=== PATIENT | female | born 1955 | race Caucasian/White ===

== ENCOUNTER → 2018-11-25 | Outpatient (CLI) | payer OTHER ==
[2018-11-25 13:48] LABS: Blood Urea Nitrogen 12 mg/dL (7-17)
--- NOTE | 2018-11-25 14:43 | CT ---
EXAMINATION TYPE: CT abdomen pelvis w con DATE OF EXAM: 11/25/2018 COMPARISON: None HISTORY: Endometrial CA. Observation for mets CT DLP: 539.5 mGycm CONTRAST: CT scan of the abdomen and pelvis is performed with Oral Contrast and with IV Contrast, patient injec elsa with 100 mL of Isovue 300. FINDINGS: LUNG BASES-: No visible nodule. No infiltrate. LIVER/GB: No calcified gallstones. No space occupying hepatic lesion. Biliary tree is of normal ca liber. PANCREAS: No inflammation. No distinct mass. SPLEEN: No splenic enlargement. No lesion seen. ADRENALS: No nodule. No thickening. KIDNEYS/BLADDER: No hydronephrosis. No nephrolithiasis. No distinct renal mass. Urinary bladder g rossly unremarkable. BOWEL: Normal appendix. Normal bowel caliber. No inflammation. GENITAL ORGANS: Hysterectomy and oophorectomy changes without evidence for recurrent or residual mas s. LYMPH NODES: No greater than 1cm abdominal or pelvic lymph nodes are appreciated. AORTA: No significant abnormality. OSSEOUS STRUCTURES: No significant abnormality is seen. OTHER: No significant additional abnormality is seen. IMPRESSION: 1. Hysterectomy and oophorectomy changes without evidence for recurrent or residual mass. No evidence for metastatic disease at this time.
== END | disposition home or self-care (01) ==
LOC: RADCTMAIN 12:37
PROVIDERS: ATTEND Internal Medicine Hematology & Oncology
DX: Z03.89 Encounter for observation for other suspected diseases and conditions ruled out (principal); C54.9 Malignant neoplasm of corpus uteri, unspecified; Z90.710 Acquired absence of both cervix and uterus; Z90.721 Acquired absence of ovaries, unilateral
CPT/HCPCS: 82565; 84520; 74177; 36415; Q9967

== ENCOUNTER → 2019-06-01 | Outpatient (CLI) | payer OTHER ==
--- NOTE | 2019-06-01 13:00 | CT ---
EXAMINATION TYPE: CT abdomen pelvis w con DATE OF EXAM: 06/01/2019 COMPARISON: 11/25/2018 INDICATION: Follow up endometrial CA. DLP: 483.2 mGycm, Automated exposure control for dose reduction was used. CONTRAST: 100 mL of Isovue 300. Study performed with Oral Contrast TECHNIQUE: Axial images were obtained from above the diaphragm to the pubic rami in the axial plane a t 5 mm thick sections. Reconstructed images are reviewed on the computer in the coronal plane. FINDINGS: Limited CT sections are obtained the lung bases. The lung bases are clear. CT ABDOMEN: Liver: Normal Spleen: Normal Pancreas: Normal Adrenal glands: The adrenal glands are normal. Gallbladder: Normal Kidneys: No masses are evident. No hydronephrosis is present. No cysts are present. Delayed images were obtained through the kidneys, which remain unremarkable. Aorta: Normal Inferior vena cava: Normal. CT PELVIS: Loops of bowel within the abdomen and pelvis are normal. There is abundant fecal retention throug h the distal colon; from the transverse colon to the rectum. Appendix: Normal as visualized. Urinary bladder: Normal. Genitourinary structures: Uterus and ovaries are not identified. No free fluid is within the pelvis. Osseous structures: No suspicious lytic or sclerotic lesions. Facet degenerative changes are in the l ower lumbar spine. Lymphadenopathy: No abdominal or pelvic lymphadenopathy is evident. IMPRESSIONS: 1. Moderate fecal retention. 2. No suspicious changes to suggest metastatic disease.
== END ==
LOC: RADCTMAIN 10:08
PROVIDERS: ATTEND Internal Medicine Hematology & Oncology
DX: K59.00 Constipation, unspecified (principal); C54.9 Malignant neoplasm of corpus uteri, unspecified
CPT/HCPCS: 74177; 36415; Q9967 ×2

== ENCOUNTER → 2020-06-10 | Outpatient (CLI) | payer OTHER ==
--- NOTE | 2020-06-10 15:08 | XR ---
2 view abdomen HISTORY: Constipation and abdominal pain 2 views the abdomen submitted on [address] 06/01/2019 Gas distended loops of small and large bowel. Lung bases show blunting of the costophrenic angles, po ssible small pleural effusions and associated atelectasis. There is no evident pneumoperitoneum. Ashely ined fecal debris is present within portions of the colon including what is likely the cecum and asce nding colon. Question suture material within the pelvis, there is a ringlike area of increased attenu ation which is indeterminate on the left. IMPRESSION: nonspecific findings.
== END | disposition home or self-care (01) ==
LOC: RADXRMAIN 14:11
PROVIDERS: ATTEND Registered Nurse Oncology
DX: K59.00 Constipation, unspecified (principal); R10.9 Unspecified abdominal pain; Z71.3 Dietary counseling and surveillance; E05.90 Thyrotoxicosis, unspecified without thyrotoxic crisis or storm; C54.9 Malignant neoplasm of corpus uteri, unspecified; G99.0 Autonomic neuropathy in diseases classified elsewhere
CPT/HCPCS: 74019

== ENCOUNTER → 2020-07-03 | Outpatient (CLI) | payer OTHER ==
[2020-07-03 09:29] LABS: African American GFR (CKD) >90 (>60 ml/min/1.73 sqM); Blood Urea Nitrogen 10 mg/dL (7-17); Non-African American GFR(CKD) 82 (>60 ml/min/1.73 sqM)
--- NOTE | 2020-07-03 11:01 | CT ---
"EXAMINATION TYPE: CT abdomen pelvis w con DATE OF EXAM: 07/03/2020 HISTORY: Uterine CA CT DLP: 449.7mGycm Automated Exposure Control for Dose Reduction was Utilized. CONTRAST: CT scan of the abdomen and pelvis is performed with IV Contrast, patient injected with 100 mL of Isov ue 300. COMPARISON: CT abdomen and pelvis June 01, 2019 and older CTs November 25, 2018. FINDINGS: LUNG BASES: Tiny bilateral pleural effusions. Mild left greater than right bibasilar linear scarring and/or atelectasis. LIVER/GB: Gallbladder has distended margins on current study. PANCREAS: No significant abnormality is seen. SPLEEN: No significant abnormality is seen. ADRENALS: No significant abnormality is seen. KIDNEYS: Symmetric corticomedullary uptake and excretion without hydronephrosis seen bilaterally. BOWEL: Patient as well as intra-abdominal fat on current study making evaluation suboptimal. Oral con trast only reaches small bowel loops in the lower abdomen and pelvis. Small bowel loops are prominent especially lower loops. Fecal material is noted in nondistended colon. Small bowel loops in the lowe r pelvis are not suspiciously dilated. These are not contrast filled making evaluation suboptimal. Mi [id number] ill-defined fluid at this level is seen. Mild irregular mucosal enhancement. Appendix is within normal limits. UTERUS/ADNEXA: Uterus is surgically absent. LYMPH NODES: New pelvic adenopathy suspected, for reference left anterior iliac chain lymph node hayley ures 3.2 x 1.5 cm current study axial image 61. Additional bilateral iliac chain adenopathy is likely present, for reference right posterior 3.4 x 1.7 cm lymph node suspected. Difficult to evaluate due to nonopacified bowel in the pelvis. Additional abnormal lymph node left pelvis noted axial image 60. Measured anterior right pelvic 2.6 x 1.8 cm lymph node noted axial image 60. Prominent vessel left p araaortic region axial image 24 mimics adenopathy unchanged from prior studies OSSEOUS STRUCTURES: Grade 1 anterolisthesis L4 on L5. Facet arthropathy lower lumbar levels. OTHER: There is oval area anterior abdominal wall that has central fat with thin soft tissue rim and slightly more prominent adjacent fluid laterally axial image 29 measuring 3.0 x 1.5 cm on current kristy dy. Patient states history of abdominal wall tumor removal on current requisition. Scarring and posts urgical change suspected given this history. IMPRESSION: 1. New finding anterior right upper quadrant abdominal wall as detailed above favoring scarring. 2. Pelvic neoplastic recurrence is present as there is new suspicious pelvic adenopathy. There is new small to moderate amount of free fluid in pelvic cul-de-sac, findings of small bowel prominence and slight dilatation suggest partial distal small bowel obstruction raising concern for subserosal perit lozoya deposits. A Yellow level critical message alert has been initiated for Juancho King MD via the [employer] 0 | Critical Results System on 07/03/2020 10:59 AM. This message alert has been sent to Juancho pollard MD via the preferences provided by the clinician for the receipt of Radiology Critical Findings. Daniel essage ID [id number]."
== END | disposition home or self-care (01) ==
LOC: RADCTMAIN 06-27 10:19
PROVIDERS: ATTEND Internal Medicine Hematology & Oncology
DX: D49.89 Neoplasm of unspecified behavior of other specified sites (principal); R93.5 Abnormal findings on diagnostic imaging of other abdominal regions, including retroperitoneum; C54.9 Malignant neoplasm of corpus uteri, unspecified
CPT/HCPCS: 82565; 84520; 74177; 36415; Q9967 ×2

== ENCOUNTER 2020-07-19 09:05 | Day surgery (SDC) | payer OTHER ==
[2020-07-19 09:47] VITALS: RESP 16; TEMP 97.7
[2020-07-19 10:56] VITALS: BP 139/79; PULSE 90
--- NOTE | 2020-07-19 11:08 | CT ---
EXAMINATION TYPE: CT biopsy abdomen percutaneous DATE OF EXAM: 07/19/2020 COMPARISON: NONE HISTORY: RUQ abdominal nodule/mass CT DLP: 819mGycm The procedure was explained to the patient. The risks, complications, benefits, and alternatives wer e discussed and any questions were answered. Informed consent was obtained. Patient was placed supi ne on the CT table and prepped and draped in the usual sterile fashion. All elements of maximal barrier and sterile technique utilized. Utilizing CT guidance, an 18 gauge core biopsy needle access into the requested subcutaneous mass inv olving the anterior abdominal wall within the subcutaneous tissues was achieved and a two 18 gauge co re samples were obtained. The patient was stable throughout the procedure and remained stable upon d ischarge. IMPRESSION: 1. Successful 18 gauge core biopsy of the requested anterior subcutaneous abdominal wall mass. Note i s made the mass was predominantly fatty in attenuation.
== END 2020-07-19 10:55 | disposition home or self-care (01) ==
LOC: RADPROMAIN 09:05
PROVIDERS: ATTEND Internal Medicine Hematology & Oncology
DX: K65.4 Sclerosing mesenteritis (principal); L90.5 Scar conditions and fibrosis of skin
CPT/HCPCS: 49180; 77012; 88305; 88341; 88342

== ENCOUNTER 2020-08-27 08:25 | Day surgery (SDC) | payer OTHER ==
[2020-08-27 09:08] LABS: Mean Platelet Volume 6.4; Platelet Count 452 k/uL (150-450)
[2020-08-27 09:15] LABS: INR 1.1 (<1.2); Prothrombin Time 11.6 sec (9.0-12.0)
--- NOTE | 2020-08-27 10:57 | CT ---
EXAMINATION TYPE: CT biopsy lymph node DATE OF EXAM: 08/27/2020 COMPARISON: NONE HISTORY: Right pelvic lymph node CT DLP: 1575mGycm The procedure was explained to the patient. The risks, complications, benefits, and alternatives wer e discussed and any questions were answered. Informed consent was obtained. Patient was placed pron e on the CT table and prepped and draped in the usual sterile fashion. All elements of maximal barrier and sterile technique utilized. Utilizing CT guidance, an 18 gauge core biopsy needle access into the right pelvic lymph node was ach ieved and a single 18 gauge core sample was obtained. The patient was stable throughout the procedur e and remained stable upon discharge. IMPRESSION: 1. Successful 18 gauge core biopsy of the requested right pelvic lymph node.
[2020-08-27 11:09] VITALS: TEMP 98
[2020-08-27 12:38] VITALS: RESP 24
[2020-08-27 13:58] VITALS: BP 106/68; PULSE 107
== END 2020-08-27 14:01 | disposition home or self-care (01) ==
LOC: RADPROMAIN 08:25 → 6PED 10:22 → RADPROMAIN 14:01
PROVIDERS: ATTEND Internal Medicine Hematology & Oncology
DX: C77.5 Secondary and unspecified malignant neoplasm of intrapelvic lymph nodes (principal); C54.9 Malignant neoplasm of corpus uteri, unspecified; D50.9 Iron deficiency anemia, unspecified; E05.90 Thyrotoxicosis, unspecified without thyrotoxic crisis or storm; G99.0 Autonomic neuropathy in diseases classified elsewhere; Z79.899 Other long term (current) drug therapy; Z79.890 Hormone replacement therapy; Z90.710 Acquired absence of both cervix and uterus; Z90.722 Acquired absence of ovaries, bilateral; Z90.79 Acquired absence of other genital organ(s); Z98.890 Other specified postprocedural states; Z86.19 Personal history of other infectious and parasitic diseases; Z77.22 Contact with and (suspected) exposure to environmental tobacco smoke (acute) (chronic); Z92.21 Personal history of antineoplastic chemotherapy; Z92.3 Personal history of irradiation; Z87.19 Personal history of other diseases of the digestive system; Z68.23 Body mass index [BMI] 23.0-23.9, adult; Z80.9 Family history of malignant neoplasm, unspecified; Z80.3 Family history of malignant neoplasm of breast
CPT/HCPCS: 36415; 38505; 77012; 85049; 85610; 88305; 88341; 88342

== ENCOUNTER → 2020-09-12 | Outpatient (CLI) | payer OTHER ==
--- NOTE | 2020-09-12 13:34 | CT ---
EXAMINATION TYPE: CT ChestAbdPelvis w con DATE OF EXAM: 09/12/2020 COMPARISON: 07/03/2020 HISTORY: 65-year-old female C54.9, Z03.89, Endometrial cancer, suspect METS TECHNIQUE: Contiguous axial scanning of the chest, abdomen, and pelvis performed with IV Contrast, pa tient injected with 100 mL of Isovue 300. Delayed images through the kidneys were obtained. Coronal/s agittal reconstructions performed. CT DLP: 1234 mGycm Automated exposure control for dose reduction was used. FINDINGS: CHEST: Artery limits of normal in size without pericardial effusion. Aorta normal caliber with bovine configuration. Supraclavicular lymphadenopathy in the lower neck measuring up to 2.1 x 1.8 cm on the right and 1.6 c m on the left. Right paratracheal lymphadenopathy measuring up to 2.6 x 1.8 cm. Dependent and strandy atelectasis in the lower lungs. No consolidation or pleural effusion. ABDOMEN: No focal liver lesion. Mild prominence of bile duct is unchanged with normal distal tapering. Gallbla dder within normal limits. Portal venous system is patent. Adrenal glands, kidneys, spleen, and pancreas show no gross abnormality. Right retrocrural lymph node measuring up to 1.0 cm versus 6 mm, previously. Retroperitoneal lymphadenopathy measuring up to 2.0 cm retrocaval versus 1.5 cm, previously. Aortocaval measuring 1.9 cm versus 1.0 cm, previously. Left para-aortic measuring 1.0 cm versus 1.4 cm, previously. Stable suspected scarring within the subcutaneous adipose of the right upper quadrant. No dilated small bowel, free fluid, or free air. Moderate stool burden. No pericolonic inflammatory change. PELVIS: Mild circumferential bladder wall thickening. Uterus surgically absent. Redemonstrated left adnexal lymphadenopathy measuring up to 3.2 cm versus 2.8 cm, previously. Left ex ternal iliac chain lymph node measures 3.6 x 1.9 cm versus 3.2 x 1.5 cm, previously. Right external iliac chain lymph node measures up to 3.0 x 1.8 cm versus 2.6 x 1.6 cm, previously. Right obturator chain mixed density mass measures 4.1 x 1.6 cm versus 4.5 x 1.7 cm, previously. BONES: Hypertrophic facet arthropathy mid to lower lumbar spine with grade 1 anterolisthesis L4-L5. Anterior endplate spondylosis mid to lower thoracic spine. No obvious osseous destructive process seen. IMPRESSION: 1. Overall disease progression with enlarging retroperitoneal and right retrocrural lymphadenopathy. Pelvic lymphadenopathy/masses are also enlarging. Only a single left periaortic lymph node and a mixe d density right obturator chain mass/node show slight decrease in size. 2. No prior chest CT for comparison. There is bilateral supraclavicular lymphadenopathy (measuring up to 2.1 cm) and right paratracheal lymphadenopathy (measuring up to 2.6 cm) compatible with metastati c disease to the chest and lower neck.
== END | disposition home or self-care (01) ==
LOC: RADCTMAIN 08:37
PROVIDERS: ATTEND Internal Medicine Hematology & Oncology
DX: R59.1 Generalized enlarged lymph nodes (principal); C54.9 Malignant neoplasm of corpus uteri, unspecified
CPT/HCPCS: 82565; 84520; 71260; 74177; 36415; Q9967

== ENCOUNTER → 2020-11-20 | Outpatient (CLI) | payer OTHER ==
--- NOTE | 2020-11-20 12:28 | US ---
EXAMINATION TYPE: US venous doppler duplex LE RT DATE OF EXAM: 11/20/2020 12:19 PM COMPARISON: NONE CLINICAL HISTORY: R22.41 swelling, M79.611 Pain Right Lower Extrem. Right leg pain and swelling x 1 d ay SIDE PERFORMED: Right TECHNIQUE: The lower extremity deep venous system is examined utilizing real time linear array sonog malik with graded compression, doppler sonography and color-flow sonography. VESSELS IMAGED: Common Femoral Vein Deep Femoral Vein Greater Saphenous Vein * Femoral Vein Popliteal Vein Small Saphenous Vein * Proximal Calf Veins (* superficial vessels) Right Leg: Appear negative for DVT IMPRESSION: 1. Right lower extremity ultrasound negative for deep venous thrombosis
== END ==
LOC: RADUSWWP 11:41
PROVIDERS: ATTEND Internal Medicine Hematology & Oncology
DX: M79.604 Pain in right leg (principal); R22.41 Localized swelling, mass and lump, right lower limb

== ENCOUNTER → 2020-12-02 | Outpatient (CLI) | payer OTHER ==
[2020-12-02 12:37] LABS: African American GFR (CKD) >90 (>60 ml/min/1.73 sqM); Blood Urea Nitrogen 15 mg/dL (7-17); Non-African American GFR(CKD) >90 (>60 ml/min/1.73 sqM)
--- NOTE | 2020-12-02 14:32 | CT ---
EXAMINATION TYPE: CT abdomen pelvis w con DATE OF EXAM: 12/02/2020 COMPARISON: 09/12/2020 HISTORY: follow up endometrial cancer CT DLP: 522 mGycm CONTRAST: CT scan of the abdomen and pelvis is performed with Oral Contrast and with IV Contrast, patient injec elsa with 100 mL of Isovue 300. FINDINGS: LUNG BASES-: No visible nodule. No infiltrate. There is resolution of previously noted right retrocr ural adenopathy. LIVER/GB: No calcified gallstones. No space occupying hepatic lesion. Biliary tree is of normal ca liber. PANCREAS: No inflammation. No distinct mass. SPLEEN: No splenic enlargement. No lesion seen. ADRENALS: No nodule. No thickening. KIDNEYS/BLADDER: No hydronephrosis. No nephrolithiasis. No distinct renal mass. Urinary bladder g rossly unremarkable. BOWEL: Normal appendix. Normal bowel caliber. No inflammation. GENITAL ORGANS: Hysterectomy changes. LYMPH NODES: There is persistent but improved aortoenteric caval adenopathy measuring now 1.5 cm curr ently versus 1.9 cm previously. Left external iliac chain adenopathy is also persistent but improved at 2.3 cm maximal dimension versus 3.6 cm previously. Internal iliac chain adenopathy on the left als o persists and is essentially unchanged at 3.0 cm versus 3.2 cm. No new areas of adenopathy appreciat ed. AORTA: No significant abnormality. OSSEOUS STRUCTURES: No significant abnormality is seen. OTHER: No significant additional abnormality is seen. IMPRESSION: 1. Persistent pelvic and retroperitoneal adenopathy although interval improvement is noted. Previousl y noted right-sided retrocrural lymph node is to have essentially resolved.
== END | disposition home or self-care (01) ==
LOC: RADCTMAIN 11:59
PROVIDERS: ATTEND Internal Medicine Hematology & Oncology
DX: C54.1 Malignant neoplasm of endometrium (principal)
CPT/HCPCS: 82565; 84520; 74177; 36415; Q9967

== ENCOUNTER → 2021-02-05 | Outpatient (CLI) | payer OTHER ==
[2021-02-05 10:51] LABS: African American GFR (CKD) >90 (>60 ml/min/1.73 sqM); Blood Urea Nitrogen 11 mg/dL (7-17); Non-African American GFR(CKD) 81 (>60 ml/min/1.73 sqM)
--- NOTE | 2021-02-05 13:29 | CT ---
EXAMINATION TYPE: CT abdomen pelvis w con DATE OF EXAM: 02/05/2021 COMPARISON: CT 12/02/2020 HISTORY: Endometrial carcinoma CT DLP: 676.40 mGycm Automated exposure control for dose reduction was used. TECHNIQUE: Helical acquisition of images from the lung bases through the pelvis have been completed. CONTRAST: Performed with Oral Contrast and with IV Contrast, patient injected with 100 mL of Isovue 300. FINDINGS: There are anasarca changes present. LUNG BASES: No significant interval change is appreciated. AORTA: No significant abnormality is appreciated. LIVER/GB: No significant abnormality is appreciated. PANCREAS: No significant abnormality is seen. SPLEEN: No significant abnormality is seen. ADRENALS: No significant abnormality is seen. KIDNEYS: No significant abnormality is seen. REPRODUCTIVE ORGANS: No significant abnormality is seen BOWEL: No significant abnormality is seen. FREE AIR: No Free Air visible. ASCITES: None visible. PELVIC ADENOPATHY: The lesions along the left external iliac chain show poor differentiation from the surrounding bowel due to lack of contrast at this level, similar density as well as coursing oblique ly and through different planes of section making the accurate comparison and measurement challenging . Along the left iliac chain again noted are heterogeneous enlarged nodes, more peripheral lesion kika sures approximately 2.1 x 3.4 cm where as on previous exam it measured approximately the same, the mo re central lesion measures approximately 3.7 x 3.2 x 4 cm and on previous exam measured approximately 3.7 x 3.6 cm x 3.9. RETROPERITONEAL ADENOPATHY: Retroperitoneal node measures approximately 17 mm in short axis where as on prior measured 15 mm between the aorta and inferior vena cava and axial image 37. URINARY BLADDER: No significant abnormality is seen. OSSEOUS STRUCTURES: No significant abnormality is seen. IMPRESSION: EXTERNAL ILIAC ADENOPATHY IS SIMILAR IN SIZE TO PRIOR EXAM, stable to possibly slight interval growth of the retroperitoneal node
== END | disposition home or self-care (01) ==
LOC: RADCTMAIN 09:59
PROVIDERS: ATTEND Internal Medicine Hematology & Oncology
DX: C54.1 Malignant neoplasm of endometrium (principal); R59.0 Localized enlarged lymph nodes
CPT/HCPCS: 82565; 84520; 74177; 36415; Q9967

== ENCOUNTER → 2021-03-12 | Outpatient (CLI) | payer OTHER ==
--- NOTE | 2021-03-12 12:05 | XR ---
EXAMINATION TYPE: XR chest 2V DATE OF EXAM: 03/12/2021 COMPARISON: CT 02/05/2021 HISTORY: Cough, shortness of breath TECHNIQUE: Frontal and lateral views of the chest are obtained. FINDINGS: There is been interval development of a sizable pleural effusion, the right heart border, right hemidiaphragm or procedure, this blunting right costophrenic angle, minimal blunting of the lef t gastric angle. Heart is likely stable. No evident pneumothorax. IMPRESSION: Correlate for right lower lobe pneumonia as atelectasis and associated effusion. Difficu lt to exclude small left pleural effusion.
== END | disposition home or self-care (01) ==
LOC: RADXRMAIN 11:31
PROVIDERS: ATTEND Internal Medicine Hematology & Oncology
DX: J90 Pleural effusion, not elsewhere classified (principal)
CPT/HCPCS: 71046

== ENCOUNTER 2021-03-21 10:49 | Day surgery (SDC) | payer OTHER ==
[~2021-03-21 10:49] MED LIST: SODIUM CHLORIDE 0.9% 500 ML 500 ML in EMPTY BAG 1 BAG IV PRN
[2021-03-21 11:11] VITALS: RESP 16
[2021-03-21 11:21] VITALS: TEMP 98.3
--- NOTE | 2021-03-21 12:32 | XR ---
EXAMINATION TYPE: XR chest 1V portable DATE OF EXAM: 03/21/2021 CLINICAL HISTORY: POST RIGHT THORACENTESIS. TECHNIQUE: Portable frontal view of the chest. COMPARISON: 03/12/2021 FINDINGS: There is minimal to no residual right pleural effusion status post right thoracentesis. No pneumothorax. There is small left-sided pleural effusion. Cardiac size normal. Pulmonary vasculature normal. No acute displaced osseous abnormality. IMPRESSION: 1. Minimal to no residual right pleural effusion status post right thoracentesis. No pneumothorax. 2. Normal left pleural effusion.
--- NOTE | 2021-03-21 12:37 | P.PCN ---
Date of Procedure: 03/21/21 Preoperative Diagnosis: Right-sided pleural effusion Postoperative Diagnosis: Right-sided pleural effusion Procedure(s) Performed: Right-sided thoracentesis Anesthesia: local Surgeon: Emmanuel Zeng Estimated Blood Loss (ml): 0 Pathology: other Condition: stable Disposition: same day Operative Findings: A time out was performed and the chest x-ray was reviewed, the appropriate side was confirmed and marked. My hands were washed immediately prior to the procedure. I wore a surgical cap, mask with protective eyewear, sterile gown and sterile gloves throughout the procedure. The patient was prepped and draped in a sterile manner using chlorhexidine scrub after the appropriate level was percussed and confirmed by ultrasound. 1% lidocaine was used to anesthesize the skin, subcutaneous tissue, superior aspect of the rib periosteum and parietal pleura. A finder needle was then introduced over the superior aspect of the rib to locate the pleural fluid; 2colored fluid was aspirated at a depth of approximately 2 cm. A 10-blade scalpel was used to naseem the skin at the inser tion site. The Xrhk-a-Avplnxdk needle was then introduced through the skin incision into the pleural space using negative aspiration pressure and the red colometric indicator to confirm appropriate positioning of the needle. The thoracentesis catheter was then threaded without difficulty. 1900 ml of turbid colored fluid was removed without difficulty. The catheter was then removed. No immediate complications were noted during the procedure. A post-procedure chest x-ray is pending at the time of this note. The fluid will be sent for studies. Estimated blood loss is 0cc
[2021-03-21 13:34] VITALS: BP 110/70; PULSE 115
[2021-03-21 15:15] LABS: Appearance,BF Cloudy; Color,BF Yellow; Nucleated Cells, Body Fluid 770 /uL; RBC, Body Fluid 2395 /uL
[2021-03-21 15:26] LABS: Mononuclear WBC,Body Fluid 98 %; Polynuclear WBC,Body Fluid 1 %; Total Cells Counted,Body Fluid 100
[2021-03-22 04:22] LABS: Glucose, BF Source Pleural Fluid; Glucose, Body Fluid 98 mg/dL; LDH, Body Fluid Source Pleural Fluid
== END 2021-03-21 13:54 | disposition home or self-care (01) ==
LOC: PROCWHC3 10:49
PROVIDERS: ATTEND Internal Medicine Critical Care Medicine
DX: J90 Pleural effusion, not elsewhere classified (principal); C56.9 Malignant neoplasm of unspecified ovary; Z90.710 Acquired absence of both cervix and uterus; Z79.890 Hormone replacement therapy; Z79.899 Other long term (current) drug therapy; Z82.49 Family history of ischemic heart disease and other diseases of the circulatory system
CPT/HCPCS: 32554; 71045; 82945; 83615; 84157; 87070; 87116; 87205; 87206; 88108; 88305; 88341; 88342; 89050

== ENCOUNTER 2021-04-03 08:33 | Day surgery (SDC) | payer OTHER ==
[2021-04-03 09:22] LABS: Mean Platelet Volume 7.9; Platelet Count 170 k/uL (150-450)
[2021-04-03 09:24] VITALS: TEMP 97.9
[2021-04-03 09:40] LABS: INR 1.2 (<1.2); Prothrombin Time 12.2 sec (9.0-12.0)
[2021-04-03 10:45] VITALS: RESP 16
--- NOTE | 2021-04-03 11:31 | XR ---
EXAMINATION TYPE: XR chest 1V portable DATE OF EXAM: 04/03/2021 Comparison: 03/21/2021 Clinical History: 65-year-old female post right thoracentesis Findings: There are small bilateral pleural effusions and bibasilar opacities. Heart borderline enlarged. No ap preciable pneumothorax. Impression: Borderline heart size. Small bilateral pleural effusions with adjacent atelectasis and/or consolidati on. Effusions appear to have increased from 03/21/2021. No appreciable pneumothorax.
--- NOTE | 2021-04-03 12:04 | US ---
Ultrasound-guided therapeutic and diagnostic thoracentesis DATE OF EXAM: 04/03/2021 CLINICAL HISTORY: Right pleural effusion The procedure was discussed with the patient. The risks, complications, benefits, and alternatives we re discussed and any questions were answered. Informed consent was obtained. The patient was placed supine on the ultrasound table and prepped and draped in the usual sterile fas hion. All elements of maximal barrier and sterile technique were utilized. Under ultrasound guidance, access into the pleural space was obtained, via the thoracentesis catheter system and direct ultrasound guidance. Ap proximately 1.4 liters of straw-colored fluid was removed. The patient was stable throughout the procedure and remained stable upon discharge from Department of Radiology. IMPRESSION: 1. Successful therapeutic and diagnostic thoracentesis under ultrasound guidance.
[2021-04-03 12:06] VITALS: BP 143/79; PULSE 103
== END 2021-04-03 12:05 | disposition home or self-care (01) ==
LOC: RADPROMAIN 08:33
PROVIDERS: ATTEND Internal Medicine Hematology & Oncology
DX: J90 Pleural effusion, not elsewhere classified (principal)
CPT/HCPCS: 32555; 36415; 71045; 85049; 85610

== ENCOUNTER 2021-04-11 06:02 | Day surgery (SDC) | payer OTHER ==
[2021-04-09 13:17] VITALS: BMI 26.6
--- NOTE | 2021-04-10 14:10 | P.GSHP ---
History of Present Illness H&P Date: 04/11/21 Chief Complaint: Uterine cancer Patient scheduled for Port-A-Cath placement. Patient with history of endometrial cancer diagnosed 2017. patient recently found have metastatic disease. Port-A-Cath in place for the administration of chemotherapy. Past Medical History Past Medical History: Cancer, Hyperlipidemia, Respiratory Disorder, Thyroid Disorder, Vascular Disorder Additional Past Medical History / Comment(s): uterine Ca. ABDOMINAL WALL CANCER History of Any Multi-Drug Resistant Organisms: None Reported Past Surgical History: Hysterectomy Additional Past Surgical History / Comment(s): RUQ biopsy "-" for 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 Past Anesthesia/Blood Transfusion Reactions: No Reported Reaction Smoking Status: Never smoker - Past Family History Sister(s) Family Medical History: Cancer Additional Family Medical History / Comment(s): breast CA Medications and Allergies Home Medications Medication Instructions Recorded Confirmed Type Levothyroxine Sodium [Synthroid] 150 mcg PO DAILY 07/16/20 04/09/21 History Pravastatin Sodium [Pravachol] 40 mg PO HS 07/16/20 04/09/21 History Gabapentin 300 mg PO BID 03/21/21 04/09/21 History Potassium Chloride [Klor-Con 10] 10 meq PO DAILY 03/21/21 04/09/21 History Furosemide [Lasix] 20 mg PO DAILY 03/31/21 04/09/21 History Lenvatinib Mesylate [Lenvima] 18 mg PO DAILY 04/03/21 04/09/21 History Allergies Allergy/AdvReac Type Severity Reaction Status Date / Time No Known Allergies Allergy Verified 04/09/21 12:43 Surgical - Exam Physical exam: General: Well-developed, well-nourished HEENT: Normocephalic, sclerae nonicteric Abdomen: Nontender, nondistended Extremities: No edema Neuro: Alert and oriented Assessment and Plan (1) Uterine cancer Narrative/Plan: Patient scheduled for Port-A-Cath placement. Risks of bleeding, infection, DVT, pneumothorax, catheter malfunction, anesthesia related complications were discussed. The patient understands and wishes to proceed. Status: Acute Code(s): C55 - MALIGNANT NEOPLASM OF UTERUS, PART UNSPECIFIED SNOMED Code(s): 535592635
[~2021-04-11 06:02] MED LIST changes: +Pre Op ABX Message 1 EACH MISC MISCELLANE ONE; -SODIUM CHLORIDE 0.9% 500 ML 500 ML in EMPTY BAG 1 BAG IV PRN
[2021-04-11 07:01] VITALS: TEMP 97.7
[2021-04-11] MEDS ORDERED: LACTATED RINGERS 1,000 ML IV ONE (07:04)
[2021-04-11] MEDS ORDERED: ONDANSETRON 4 MG/2 ML VIAL ONE (07:06)
[2021-04-11] MEDS ORDERED: ONDANSETRON 4 MG/2 ML VIAL IVP ONE (07:06)
[2021-04-11] MEDS ORDERED: DEXAMETHASONE SOD PHOSPHATE 4 MG/ML 1 ML VIAL IV ONE (07:07)
[2021-04-11] MEDS ORDERED: HEPARIN SODIUM,PORCINE 100 UNIT/ML 5 ML VIAL IV ONE ×2 (07:46→08:32)
[2021-04-11] MEDS ORDERED: LIDOCAINE (PF) 10 MG/ML 2 ML VIAL SQ ONE ×3 (07:47→08:17)
[2021-04-11] MEDS ORDERED: fentaNYL (PF) 50 MCG/ML 2 ML AMP ONE (07:52)
[2021-04-11] MEDS ORDERED: LIDOCAINE 1% INJ 10MG/ML (20 ML MDV) ONE (07:52)
[2021-04-11] MEDS ORDERED: PROPOFOL 10 MG/ML 20 ML VIAL IV ONE (07:52)
[2021-04-11] MEDS ORDERED: MIDAZOLAM 2 MG/2 ML VIAL ONE (07:52)
[2021-04-11] MEDS ORDERED: KETAMINE 10 MG/ML 20 ML VIAL ONE (07:52)
[2021-04-11] MEDS ORDERED: SODIUM CHLORIDE 0.9% 100 ML with ceFAZolin 2,000 MG IV ONE ×2 (07:56)
[2021-04-11] MEDS ORDERED: NALOXONE 0.4 MG/ML 1 ML VIAL IV PRN (08:57)
[2021-04-11] MEDS ORDERED: traMADol 50 MG TAB PO PRN (08:57)
--- NOTE | 2021-04-11 09:01 | P.OP ---
Date of Procedure: 04/11/21 Procedure(s) Performed: PREOPERATIVE DIAGNOSIS: Endometrial cancer POSTOPERATIVE DIAGNOSIS: Same PROCEDURE: Port-A-Cath placement with fluoroscopic and ultrasound guidance SURGEON: Archie EBL: Minimal ANESTHESIA: Sedation COMPLICATIONS: None OPERATIVE PROCEDURE: Patient was brought and placed on the operative table in the supine position. The patient was sedated per anesthesia that time. The chest and neck were prepped and draped in usual sterile fashion. The ultrasound probe was used to identify the location of the right internal jugular vein. The skin was localized with lidocaine. The Seldinger needle was advanced into the IJ under ultrasound guidance. The wire was advanced through the needle under fluoroscopic guidance into the superior vena cava. A port pocket was created in the right infraclavicular location. In doing so the patient had a previous scar from a prior port placement. This scar was relatively thick and I excised the scar itself sharply. The catheter was tunneled from the wire entrance site to the port pocket. The port was then connected to the catheter. The dilator introducer was threaded over the guidewire. The guidewire and dilator were then removed. The catheter was advanced through the introducer and introducer was then removed. The tip was seen to be in the right atrial junction via fluoroscopy. A picture of the radiograph showing the tip at the radial digital junction was taken. Port was flushed with both saline and a Hep-Lock solution. There was good flow both in and out of the port. The port was sutured in underlying tissues using 3-0 silk sutures. The subcutaneous tissues were reapproximated using 3-0 Vicryl sutures and the skin at both locations using 4-0 Monocryl sutures. Skin glue and sterile dressings then applied. DISPOSITION: Stable to recovery room
[2021-04-11 09:05] VITALS: RESP 16
[2021-04-11 09:13] VITALS: BP 131/76; PULSE 89
--- NOTE | 2021-04-11 09:21 | FL ---
EXAMINATION TYPE: FL guided central line placemt HISTORY: Fluoroscopy time Impression: 1. Fluoroscopy support provided to the referring physician. 32 seconds of fluoroscopy provided.
--- NOTE | 2021-04-11 09:46 | XR ---
EXAMINATION TYPE: XR chest 1V confirm line [facility] DATE OF EXAM: 04/11/2021 COMPARISON: 04/03/2021 HISTORY: Catheter insertion TECHNIQUE: Single frontal view of the chest is obtained. FINDINGS: Bilateral infiltrate and pleural effusion with diffuse interstitial pattern. Port-A-Cath s een with the tip overlying the region of the SVC and no sizable pneumothorax. Atherosclerotic change aorta. Hypertrophic and degenerative change of the spine. IMPRESSION: 1. Tip of the Port-A-Cath overlying the SVC with no sizable pneumothorax. 2. Correlate for CHF otherwise consider pneumonia similar to the prior exam.
== END 2021-04-11 10:28 | disposition home or self-care (01) ==
LOC: OR 06:02
PROVIDERS: ATTEND Surgery
DX: C55 Malignant neoplasm of uterus, part unspecified (principal); E78.5 Hyperlipidemia, unspecified; E07.9 Disorder of thyroid, unspecified; Z85.89 Personal history of malignant neoplasm of other organs and systems; J98.9 Respiratory disorder, unspecified; Z79.890 Hormone replacement therapy; Z79.899 Other long term (current) drug therapy
CPT/HCPCS: 77001; 36558; 76937; C1788; J2250; J2001 ×2; J1642; J1100; J2405; J0690; J3010; J2704

== ENCOUNTER → 2021-04-24 | Day surgery (SDC) | payer OTHER ==
[~2021-04-24] MED LIST changes: -Pre Op ABX Message 1 EACH MISC MISCELLANE ONE; +SODIUM CHLORIDE 0.9% 500 ML 500 ML in EMPTY BAG 1 BAG IV PRN
[2021-04-24 11:12] VITALS: BP 138/87; TEMP 97.6
--- NOTE | 2021-04-24 11:42 | P.PCN ---
Date of Procedure: 04/24/21 Operative Findings: Right-sided pleural effusion Postoperative Diagnosis: Right-sided pleural effusion Procedure(s) Performed: Right-sided thoracentesis Anesthesia: local Surgeon: Emmanuel Zeng Estimated Blood Loss (ml): 0 Pathology: other Condition: stable Disposition: same day Operative Findings: A time out was performed and the chest x-ray was reviewed, the appropriate side was confirmed and marked. My hands were washed immediately prior to the procedure. I wore a surgical cap, mask with protective eyewear, sterile gown and sterile gloves throughout the procedure. The patient was prepped and draped in a sterile manner using chlorhexidine scrub after the appropriate level was percussed and confirmed by ultrasound. 1% lidocaine was used to anesthesize the skin, subcutaneous tissue, superior aspect of the rib periosteum and parietal pleura. A finder needle was then introduced over the superior aspect of the rib to locate the pleural fluid; 2colored fluid was aspirated at a depth of approximately 2 cm. A 10-blade scalpel was used to naseem the skin at the insertio n site. The [id number]-Shstawpx needle was then introduced through the skin incision into the pleural space using negative aspiration pressure and the red colometric indicator to confirm appropriate positioning of the needle. The thoracentesis catheter was then threaded without difficulty. 2600 ml of turbid colored-milky fluid was removed without difficulty. The catheter was then removed. No immedi ate complications were noted during the procedure. A post-procedure chest x-ray is pending at the time of this note. The fluid will be sent for studies. Estimated blood loss is 0cc
[2021-04-24 12:22] VITALS: PULSE 108; RESP 94
--- NOTE | 2021-04-24 12:37 | XR ---
EXAMINATION TYPE: XR chest 1V DATE OF EXAM: 04/24/2021 COMPARISON: 04/11/2021, 04/17/2021 HISTORY: 65-year-old female post thoracentesis on the right TECHNIQUE: Single frontal view of the chest is obtained. FINDINGS: Small bilateral pleural effusions remain, left greater than right now. Decrease in effusion on the ri ght. No appreciable pneumothorax. Right anterior chest wall injection port with catheter tip at the c avoatrial junction. Heart upper limits of normal in size. Upper lungs are clear. IMPRESSION: Status post right thoracentesis. No appreciable pneumothorax. Residual small right pleural effusion. Unchanged larger small left pleural effusion with adjacent atelectasis and/or consolidation.
[2021-04-24 21:54] LABS: Appearance,BF Hazy; Color,BF Yellow; Nucleated Cells, Body Fluid 107 /uL; RBC, Body Fluid 914 /uL
[2021-04-24 21:56] LABS: Mononuclear WBC,Body Fluid 94 %; Polynuclear WBC,Body Fluid 6 %; Total Cells Counted,Body Fluid 100
[2021-04-25 16:20] LABS: Glucose, BF Source Pleural Fluid; Glucose, Body Fluid 94 mg/dL; LDH, Body Fluid Source Pleural Fluid; Total Protein, Body Fluid 4600 mg/dL
== END ==
LOC: PROCWHC3 10:58
PROVIDERS: ATTEND Internal Medicine Critical Care Medicine
DX: J90 Pleural effusion, not elsewhere classified (principal); C77.5 Secondary and unspecified malignant neoplasm of intrapelvic lymph nodes; Z92.21 Personal history of antineoplastic chemotherapy; E05.90 Thyrotoxicosis, unspecified without thyrotoxic crisis or storm; D64.9 Anemia, unspecified; C55 Malignant neoplasm of uterus, part unspecified; J44.9 Chronic obstructive pulmonary disease, unspecified; D70.1 Agranulocytosis secondary to cancer chemotherapy; T45.1X5S Adverse effect of antineoplastic and immunosuppressive drugs, sequela
CPT/HCPCS: 32554; 71045; 82945; 83615; 84157; 87070; 87075; 87116; 87205; 87206; 88108; 88305; 89050

== ENCOUNTER 2021-05-06 12:16 | Inpatient (IN) | payer OTHER ==
--- NOTE | 2021-05-06 12:50 | ED ---
General Adult HPI - General Chief complaint: Shortness of Breath Stated complaint: fluid on lungs Time Seen by Provider: 05/06/21 12:26 Source: patient Mode of arrival: ambulatory Limitations: no limitations - History of Present Illness Initial comments: Dictation was produced using [employer] dictation software. please excuse any grammatical, word or spelling errors. Chief Complaint: 65-year-old female past medical history of right-sided pleural effusion, pelvic and abdominal cancer presents emergency department for pleural effusion. History of Present Illness: This 65-year-old female she was at her oncologist office today. Patient has chronic history of pleural effusions requiring thoracenteses. She is at her oncologist office when she began complaining of shortness of breath. Patient's drip molder was contacted and patient was instructed to come to the emergency department. Patient states that she had her pleural effusion drained multiple times in the past by pulmonology. She states that she is short of breath. Patient denies any chest pain. The ROS documented in this emergency department record has been reviewed and confirmed by me. Those systems with pertinent positive or negative responses have been documented in the HPI. All other systems are other negative and/or noncontributory. PHYSICAL EXAM: General Impression: Alert and oriented x3, mildly dyspneic HEENT: Normocephalic atraumatic, extra-ocular movements intact, pupils equal and reactive to light bilaterally, mucous membranes moist. Cardiovascular: Heart regular rate and rhythm Chest: Mildly tachypneic, absent lung sounds in the right posterior lung ba Abdomen: abdomen soft, non-tender, non-distended, no organomegaly Musculoskeletal: Pulses present and equal in all extremities, 2+ pitting edema to bilateral lower extremities Motor: no focal deficits noted Neurological: CN II-XII grossly intact, no focal motor or sensory deficits noted Skin: Intact with no visualized rashes Psych: Normal affect and mood ED course: 65-year-old female presents emergency department for shortness of breath secondary to pleural effusion. Vital signs upon arrival shows heart rate of 107, oxygen saturation 90 room air, rest of vital signs within acceptable limits. Case is discussed with Dr. Chi who is willing to accept patient's case. Case discussed with Dr. Jones of pulmonology who is agreeable to be on consult with the patient. He requests that cardiothoracic be consulted for possible Pleurx catheter placement. Patient reevaluated 1:22 PM. She is well-appearing at rest. She does not appear significantly dyspneic. No indication for stat thoracentesis at this time. EKG interpretation: Ventricular rate 102, sinus tachycardia, WI interval 156, QRS 70, QTc 4:30. No WI prolongation, no QTC prolongation, no ST or T-wave changes noted. No EKG for comparison. Overall, this EKG is unremarkable - Related Data Home Medications Medication Instructions Recorded Confirmed Pravastatin Sodium [Pravachol] 40 mg PO HS 07/16/20 05/06/21 Gabapentin 300 mg PO BID 03/21/21 05/06/21 Potassium Chloride [Klor-Con 10] 10 meq PO DAILY 03/21/21 05/06/21 Furosemide [Lasix] 20 mg PO DAILY 03/31/21 05/06/21 Lenvatinib Mesylate [Lenvima] 18 mg PO DAILY 04/03/21 05/06/21 Levothyroxine Sodium [Synthroid] 150 mcg PO DAILY 05/06/21 05/06/21 ondansetron HCL [Zofran] 8 mg PO Q6H PRN 05/06/21 05/06/21 Allergies Allergy/AdvReac Type Severity Reaction Status Date / Time No Known Allergies Allergy Verified 05/06/21 13:37 Review of Systems ROS Statement: Those systems with pertinent positive or pertinent negative responses have been documented in the HPI. ROS Other: All systems not noted in ROS Statement are negative. Past Medical History Past Medical History: Cancer, Hyperlipidemia, Respiratory Disorder, Thyroid Disorder, Vascular Disorder Additional Past Medical History / Comment(s): uterine Ca. ABDOMINAL WALL CANCER History of Any Multi-Drug Resistant Organisms: None Reported Past Surgical History: Hysterectomy Additional Past Surgical History / Comment(s): RUQ biopsy "-" for 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 Past Anesthesia/Blood Transfusion Reactions: No Reported Reaction Past Psychological History: No Psychological Hx Reported Smoking Status: Never smoker Past Alcohol Use History: None Reported Past Drug Use History: None Reported - Past Family History Sister(s) Family Medical History: Cancer Additional Family Medical History / Comment(s): breast CA General Exam Limitations: no limitations Course Vital Signs 05/06/21 12:21 Temperature 97.7 F Pulse Rate 107 H Respiratory 20 Rate Blood Pressure 170/94 O2 Sat by Pulse 90 L Oximetry Disposition Clinical Impression: Pleural effusion Disposition: ADMITTED IP TO THIS HOSP Condition: Fair
--- NOTE | 2021-05-06 13:01 | XR ---
EXAMINATION TYPE: XR chest 2V DATE OF EXAM: 05/06/2021 COMPARISON: 04/24/2021 HISTORY: Shortness of breath TECHNIQUE: Frontal and lateral views of the chest are obtained. FINDINGS: Large right-sided pleural effusion with a small amount of aerated lung right upper lobe. Smaller left -sided effusion. Underlying infiltrate, atelectasis or mass difficult to exclude. Heart size is stable. Mediastinal structures are stable and grossly unremarkable. No evidence for hilar prominence. Degenerative changes dorsal spine. IMPRESSION: 1. Large right-sided pleural effusion with a small amount of aerated lung right upper lobe. Smaller l eft-sided effusion.
[2021-05-06] MEDS ORDERED: NALOXONE 0.4 MG/ML 1 ML VIAL IV PRN (13:20)
[2021-05-06] MEDS: SODIUM CHLORIDE 0.9% 1,000 ML IV SCH (13:46)
[2021-05-06 14:11] LABS: Anisocytosis Moderate; Basophils % (A) 1 %; Eosinophils # (A) 0.1 k/uL (0-0.7); Eosinophils % (A) 1 %; HCT 42.2 % (34.0-46.0); HGB 13.2 gm/dL (11.4-16.0); Hypochromasia Slight; Lymphocytes # (A) 0.6 k/uL (1.0-4.8); Lymphocytes % (A) 15 %; MCH 31.4 pg (25.0-35.0); MCHC 31.4 g/dL (31.0-37.0); MCV 100.1 fL (80.0-100.0); Macrocytosis Moderate; Mean Platelet Volume 7.3; Monocytes # (A) 0.3 k/uL (0-1.0); Monocytes % (A) 8 %; Neutrophils # (A) 2.9 k/uL (1.3-7.7); Neutrophils % (A) 72 %; RBC 4.21 m/uL (3.80-5.40); RDW 21.8 % (11.5-15.5); WBC 4.1 k/uL (3.8-10.6)
[2021-05-06] MEDS ORDERED: ONDANSETRON 4 MG TAB PO PRN (14:11)
[2021-05-06] MEDS ORDERED: CALCIUM CARBONATE 500 MG CHEWABLE PO PRN (14:18)
[2021-05-06] MEDS ORDERED: LACTULOSE 20 GM/30 ML CUP PO PRN (14:18)
[2021-05-06] MEDS ORDERED: ACETAMINOPHEN TAB 325 MG TAB PO PRN (14:18)
[2021-05-06] MEDS ORDERED: MAG HYDROX/AL HYDROX/SIMETH 30 ML CUP PO PRN (14:18)
[2021-05-06] MEDS ORDERED: MELATONIN 3 MG TABLET PO PRN (14:18)
[2021-05-06] MEDS ORDERED: ALPRAZolam 0.25 MG TAB PO PRN (14:18)
[2021-05-06] MEDS ORDERED: ONDANSETRON 4 MG/2 ML VIAL IVP PRN (14:18)
[2021-05-06] MEDS ORDERED: NA PHOS,M-B/NA PHOS,DI-BA 133 ML ENEMA RECTAL PRN (14:18)
[2021-05-06 14:35] LABS: INR 1.1 (<1.2); Partial Thromboplastin Time 33.1 sec (22.0-30.0); Prothrombin Time 11.4 sec (9.0-12.0)
--- NOTE | 2021-05-06 14:36 | P.GSCN ---
History of Present Illness Consult date: 05/06/21 Reason for Consult: Right sided recurrent pleural effusion Requesting physician: Emmanuel Zeng History of present illness: This is a 65-year-old female patient who follows on an outpatient basis with Dr. Robert for primary care, Dr. Zeng for cardiology, and Dr. King for oncology. She has a previous medical history of metastatic endometrial/uterine cancer status post ASHLIE and BSO with subsequent chemotherapy, recurrent right- sided pleural effusions, hypothyroid, and hyperlipidemia. She has undergone multiple thoracentesis in the last month on the right side with removal of 1 1/2 to 2 1/2 liters of fluid each time. She was at her oncologist office today and was short of breath and noted to be hypoxic. It was felt she likely had filled back up with fluid as her last thoracentesis was April 24 with removal of 2.6 L of fluid. She was sent to the emergency room for evaluation and treatment. Chest x-ray did demonstrate a large right-sided pleural effusion. Dr. Bennett from cardiothoracic surgery was consulted for placement of right-sided Pleurx catheter. Review of Systems Review of systems was completed and was negative except as noted - Constitutional Reports as per HPI, Reports weight loss - Respiratory Respiratory Comment(s): Hypoxia noted at oncology office Reports as per HPI, Reports dyspnea Past Medical History Past Medical History: Cancer, Hyperlipidemia, Respiratory Disorder, Thyroid Disorder, Vascular Disorder Additional Past Medical History / Comment(s): uterine Ca. ABDOMINAL WALL CANCER History of Any Multi-Drug Resistant Organisms: None Reported Past Surgical History: Hysterectomy Additional Past Surgical History / Comment(s): RUQ biopsy "-" for 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 Past Anesthesia/Blood Transfusion Reactions: No Reported Reaction Past Psychological History: No Psychological Hx Reported Smoking Status: Never smoker Past Alcohol Use History: None Reported Past Drug Use History: None Reported - Past Family History Sister(s) Family Medical History: Cancer Additional Family Medical History / Comment(s): breast CA Medications and Allergies Home Medications Medication Instructions Recorded Confirmed Type Pravastatin Sodium [Pravachol] 40 mg PO HS 07/16/20 05/06/21 History Gabapentin 300 mg PO BID 03/21/21 05/06/21 History Potassium Chloride [Klor-Con 10] 10 meq PO DAILY 03/21/21 05/06/21 History Furosemide [Lasix] 20 mg PO DAILY 03/31/21 05/06/21 History Lenvatinib Mesylate [Lenvima] 18 mg PO DAILY 04/03/21 05/06/21 History Levothyroxine Sodium [Synthroid] 150 mcg PO DAILY 05/06/21 05/06/21 History ondansetron HCL [Zofran] 8 mg PO Q6H PRN 05/06/21 05/06/21 History Allergies Allergy/AdvReac Type Severity Reaction Status Date / Time No Known Allergies Allergy Verified 05/06/21 13:37 Surgical - Exam Vital Signs Temp Pulse Resp BP Pulse Ox 97.7 F 107 H 20 170/94 90 L 05/06/21 12:05/06/21 12:21 05/06/21 12:05/06/21 12:05/06/21 12:21 CONSTITUTIONAL: Awake and alert, appears comfortable, minimally short of breath with talking, cooperative, well-developed, well-nourished, no pain EYES: Pupils equal, round, reactive to light, normal ocular movement ENT: Moist mucous membranes without oral lesions present NECK: No masses, no bruits, trachea midline RESPIRATORY: Lungs sounds very diminished on the right side. Respirations even, slightly labored with talking. Currently on room air with oxygen sat uration 93%. CARDIOVASCULAR: S1, S2 present. Regular rate and rhythm, sinus rhythm on telemetry. Palpable peripheral pulses bilaterally. Bilateral lower extremity edema present. GASTROINTESTINAL: Abdomen soft, nontender, nondistended without masses or organomegaly noted. There is no rebound or guarding present. Active bowel sounds present 4 quadrants. GENITOURINARY: Deferred INTEGUMENTARY: Skin is warm and dry with evidence of good perfusion. NEUROLOGIC: Cranial nerves II through XII intact, normal coordination, no obvious motor or sensory deficits, speech is normal MUSKULOSKELETAL: Able to move all extremities, strength equal bilaterally, normal posture PSYCHIATRIC: Alert and oriented to person place and time, appropriate affect, intact judgment and insight Results - Imaging Chest x-ray: report reviewed, image reviewed Assessment and Plan Assessment: 1. Recurrent right-sided malignant pleural effusion 2. Shortness of breath, hypoxia secondary to above 3. Metastatic endometrial/uterine cancer status post ASHLIE and BSO with subsequent chemotherapy 4. Recurrent right-sided pleural effusions, thoracentesis 7/16 for 1.9 L, 04/03 for 1.4 L, 04/24 for 2.6 L 5. Hypothyroid 6. Hyperlipidemia Plan: The patient was seen and examined at the bedside in the emergency room with Dr. Bennett. Chart/diagnostics were reviewed. We recommended right-sided Pleurx catheter placement to the patient, the usual perioperative course was discussed, risks and benefits were reviewed, all questions were answered. The patient does give consent and we scheduled the patient for right-sided Pleurx catheter placement tomorrow, 05/07/[address] Bennett. She will be NPO after midnight. She will need home care upon discharge for drain management and obtaining supplies. Medical management of other comorbidities per primary care, oncology, pulmonology. Thank you for this consult. We look forward to working with you in the care of your patient. Time with Patient: Greater than 30
[2021-05-06 14:48] LABS: African American GFR (CKD) >90 (>60 ml/min/1.73 sqM); Anion Gap 5 mmol/L; Blood Urea Nitrogen 7 mg/dL (7-17); Calcium 8.4 mg/dL (8.4-10.2); Carbon Dioxide 24 mmol/L (22-30); Chloride 105 mmol/L (98-107); Glucose 109 mg/dL (74-99); Non-African American GFR(CKD) >90 (>60 ml/min/1.73 sqM); Potassium 3.9 mmol/L (3.5-5.1); Sodium 134 mmol/L (137-145)
[2021-05-06 15:05] LABS: Platelet Count 97 k/uL (150-450)
[2021-05-06] MEDS: GABAPENTIN 300 MG CAP PO SCH (20:14)
[2021-05-06] MEDS ORDERED: PRAVASTATIN SODIUM 40 MG TAB PO SCH (21:00)
--- NOTE | 2021-05-06 22:01 | P.HPIM ---
History of Present Illness H&P Date: 05/06/21 Chief Complaint: Short of breath History of presenting complaint: This is a pleasant 65-year-old patient who follows with Dr. Daren Robert. Oncologist Dr. Adorno. Public Health Analyst Dr. Zeng. 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 Intermittent count to affect the pericardial planning. Patient was then treated with chemotherapy and radiation treatment. Had responded well. Patient had recurrence earlier this year. Patient just received a second dose of chemotherapy therapy 2 weeks ago. Patient been having recurrent pleural effusion and has had thoracentesis 3. Last time it was done was about 2 weeks ago. Patient now presents with increasing shortness of breath. Slight cough. Lower extremity edema. No fever no chills. Appetite is fair. Review of systems: GEN.: Tired EYES: None HEENT: Loss of scalp hair NECK: None RESPIRATORY: As above CARDIOVASCULAR: None GASTROINTESTINAL: None GENITOURINARY: None MUSCULOSKELETAL: None LYMPHATICS: None HEMATOLOGICAL: None PSYCHIATRY: None NEUROLOGICAL: None Past medical history to include: Uterine cancer, abdominal wall cancer, hypothyroid, hyperlipidemia, peripheral neuropathy Social history: . Denies any history of smoking and alcohol. Family history: Breast cancer Physical examination: VITAL SIGNS: 97.8, 79, 20, 154/88, 91% on room air GENERAL: BMI 24.4, reclining in bed, tired, short of breath. EYES: Pupils equal. Conjunctiva palel. HEENT: External appearance of nose and ears normal, oral cavity grossly normal. NECK: JVD not raised; masses not palpable. HEART: First and second heart sounds are normal; significant edema present. LUNGS: Respiratory rate increased; decreased air entry in the right side, dull to percussion. ABDOMEN: Soft, nontender, liver spleen not palpable, no masses palpable. PSYCH: Alert and oriented x3; mood and affect normal. NEUROLOGICAL: Cranial nerves grossly intact; no facial asymmetry, power and sensation grossly intact. LYMPHATICS: No lymph nodes palpable in the axilla and neck INVESTIGATIONS, reviewed in the clinical context: WBC 4.1 hemoglobin 13.2 platelets 97 potassium 3.9 creatinine 0.59 EKG tracing personally reviewed by me-sinus tachycardia, nonspecific T-wave changes, rate 102 Chest x-ray film personally reviewed by me-large right pleural effusion Assessment and plan: -Recurrent right-sided pleural effusion, could last thoracentesis about 2 weeks ago. Patient's had a total about 3 of the same in the last few weeks. Likely malignant in nature. Patient will need a pleural VAC. Consultation to cardiothoracic team has been made. -Recurrent uterine cancer with a prior history of treated with radiation and chemotherapy. Patient's currently undergoing immunotherapy. 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 Brandon wrap. Consultation to cardiothoracic surgery/pulmonary. Care was discussed with the patient. Questions answered. Patient will need a pleural VAC given the frequent repeated thoracentesis Past Medical History Past Medical History: Cancer, Hyperlipidemia, Respiratory Disorder, Thyroid Disorder, Vascular Disorder Additional Past Medical History / Comment(s): uterine Ca. ABDOMINAL WALL CANCER History of Any Multi-Drug Resistant Organisms: None Reported Past Surgical History: Hysterectomy Additional Past Surgical History / Comment(s): RUQ biopsy "-" for 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 Past Anesthesia/Blood Transfusion Reactions: No Reported Reaction Past Psychological History: No Psychological Hx Reported Smoking Status: Never smoker Past Alcohol Use History: None Reported Past Drug Use History: None Reported - Past Family History Sister(s) Family Medical History: Cancer Additional Family Medical History / Comment(s): breast CA Medications and Allergies Home Medications Medication Instructions Recorded Confirmed Type Pravastatin Sodium [Pravachol] 40 mg PO HS 07/16/20 05/06/21 History Gabapentin 300 mg PO BID 03/21/21 05/06/21 History Potassium Chloride [Klor-Con 10] 10 meq PO DAILY 03/21/21 05/06/21 History Furosemide [Lasix] 20 mg PO DAILY 03/31/21 05/06/21 History Lenvatinib Mesylate [Lenvima] 18 mg PO DAILY 04/03/21 05/06/21 History Levothyroxine Sodium [Synthroid] 150 mcg PO DAILY 05/06/21 05/06/21 History ondansetron HCL [Zofran] 8 mg PO Q6H PRN 05/06/21 05/06/21 History Allergies Allergy/AdvReac Type Severity Reaction Status Date / Time No Known Allergies Allergy Verified 05/06/21 13:37 Physical Exam Vitals: Vital Signs Temp Pulse Pulse Pulse Resp BP BP 05/06/21 21:36 97.8 F 79 20 154/88 05/06/21 20:00 98.1 F 80 93 18 160/90 05/06/21 15:54 98.1 F 93 22 171/90 05/06/21 15:07 93 18 158/87 05/06/21 14:18 05/06/21 12:21 97.7 F 107 H 20 170/94 Pulse Ox 05/06/21 21:36 91 L 05/06/21 20:00 94 L 05/06/21 15:54 97 05/06/21 15:07 93 L 05/06/21 14:18 97 05/06/21 12:21 90 L Intake and Output 05/06/21 05/06/21 05/06/21 06:59 14:59 22:59 Intake Total 0 Balance 0 Intake: Oral 0 Other: Weight 64.41 kg Results CBC & Chem 7: 05/06/21 13:45 05/06/21 13:45 Labs: Abnormal Lab Results - Last 24 Hours (Table) 05/06/21 05/06/21 05/06/21 Range/Units 13:45 13:45 13:45 MCV 100.1 H (80.0-100.0) fL RDW 21.8 H (11.5-15.5) % Plt Count 97 L (150-450) k/uL Lymphocytes # 0.6 L (1.0-4.8) k/uL APTT 33.1 H (22.0-30.0) sec Sodium 134 L (137-145) mmol/L Glucose 109 H (74-99) mg/dL Thrombosis Risk Factor Assmnt - Choose All That Apply Each Factor Represents 1 point: Abnormal pulmonary function (COPD) Each Risk Factor Represents 2 Points: Age 61-74 years, Malignancy Thrombosis Risk Factor Assessment Total Risk Factor Score: 5 Thrombosis Risk Factor Assessment Level: High Risk
[2021-05-07] MEDS: POTASSIUM CHLORIDE ER 10 MEQ TAB.ER.PRT PO SCH (06:43)
[2021-05-07] MEDS: GABAPENTIN 300 MG CAP PO SCH ×2 (06:43→21:06)
[2021-05-07] MEDS: LEVOTHYROXINE 75 MCG TAB PO SCH (06:43)
[2021-05-07] MEDS: PRAVASTATIN SODIUM 40 MG TAB PO SCH (06:44)
[2021-05-07] MEDS: LENVATINIB MESYLATE PO SCH (06:44)
[2021-05-07] MEDS ORDERED: LENVATINIB MESYLATE PO SCH (09:00)
[2021-05-07] MEDS ORDERED: LACTATED RINGERS 1,000 ML IV ONE (11:55)
[2021-05-07] MEDS ORDERED: ONDANSETRON 4 MG/2 ML VIAL IVP ONE ×2 (12:02→12:24)
[2021-05-07] MEDS ORDERED: fentaNYL (PF) 50 MCG/ML 2 ML AMP ONE (12:04)
[2021-05-07] MEDS ORDERED: PROPOFOL 10 MG/ML 20 ML VIAL IV ONE (12:04)
[2021-05-07] MEDS ORDERED: MIDAZOLAM 2 MG/2 ML VIAL ONE (12:04)
[2021-05-07] MEDS ORDERED: SODIUM CHLORIDE 0.9% 50 ML with ceFAZolin 2,000 MG IV ONE ×2 (12:20)
[2021-05-07] MEDS ORDERED: HYDROmorphone 0.5 MG/0.5 ML SYRINGE IVP PRN (12:24)
[2021-05-07] MEDS ORDERED: LIDOCAINE 1% INJ 10MG/ML (20 ML MDV) SQ ONE (12:39)
--- NOTE | 2021-05-07 12:46 | P.OP ---
Date of Procedure: 05/07/21 Preoperative Diagnosis: Recurrent right pleural effusion Postoperative Diagnosis: Same Procedure(s) Performed: Right Pleurx catheter implant with fluoroscopy Implants: Pleurx catheter Anesthesia: MAC Surgeon: Michoacano Bennett Estimated Blood Loss (ml): 0 IV fluids (ml): 100 Urine output (ml): 0 Pathology: none sent Condition: stable Disposition: PACU Indications for Procedure: 65-year-old female with metastatic uterine cancer resents with recurrent right pleural effusion and marketed shortness of breath Operative Findings: 3 L of cloudy yellow fluid was drained Description of Procedure: Patient was brought to the operating room and placed supine on the operating table right chest and right upper quadrant were sterilely prepped and draped percussion was used to identify an area of dullness 1.5% lidocaine anesthesia was used IV sedation was given initial puncture was made in the sixth interspace in the anterior axillary line and the fluid was identified the tract was anesthetized with lidocaine 18-gauge needle was used to puncture the dural space and the same vicinity and guidewire was threaded into the right chest and placement confirmed in the right pleural space by fluoroscopy this puncture site was then enlarged to about a centimeter lidocaine anesthesia was used to anesthetize an area in the right upper quadrant and a counterincision was made here and just under a centimeter Pleurx catheter was tunneled from the counterincision to the initial incision and the cuff placed just subcutaneously at this counterincision introducer and dilator were placed over the guidewire under fluoroscopic guidance and the dilator and guidewire were removed and the Pleurx catheter introduced through the introducer sheath into the right pleural space were introducer sheath was then removed and the Pleurx catheter fully advanced into the chest cavity purse catheter was connected to suction and cloudy fluid was drained fluoroscopy demonstrated good placement of the catheter within the right pleural space Pleurx catheter was secured at the exit site with a 3-0 silk suture ligature the initial incision was closed with 4-0 Vicryl stitch and dressed with skin glue standard Pleurx drainage catheter dressing was placed on the capped Pleurx catheter.
--- NOTE | 2021-05-07 13:36 | P.CNPUL ---
History of Present Illness Consult date: 05/07/21 Requesting physician: Efra Chi Reason for consult: pleural effusion, abnormal CXR/CT Chief complaint: Shortness of breath History of present illness: This is a very pleasant 65-year-old female patient who follows with Dr. Robert is her primary care provider. She has a history of metastatic endometrial cancer originally diagnosed in June 2017 and had undergone hysterectomy with bilateral salpingo-oophorectomy on June 2018 in addition to omentectomy. The patient completed carboplatinum and Taxol along with brachii therapy. In August 2020 she was found to have evidence of pelvic lymphadenopathy with metastatic disease. She was given carboplatinum and Taxol for 4 cycles followed by immunotherapy with Keytruda. She is most recently on Lenvima. She has been having ongoing issues with recurrent right-sided pleural effusions and had undergone several thoracentesis that were negative for metastasis. Most recently done by Dr. Zeng on 04/24/2021 with another 2600 ML's of turbid color milky return. Yesterday 05/06/2021 she developed increasing shortness of breath and was referred to the emergency room for admission and possible Pleurx catheter placement. White count 4.1. Hemoglobin 13.2. Platelet count 97,000. Sodium 134. Potassium 3.9. Creatinine 0.59. Glucose 109. She is seen in consultation on the regular medical floor. Currently awake and alert in no acute distress. She is maintaining O2 saturations in the 90s on 3 L/m per nasal cannula. Afebrile. 0.9 normal saline at 20 ML's per hour. On oral diuretics. She was seen and evaluated by Dr. Bennett who plans to place a right-sided Pleurx catheter today. Review of Systems REVIEW OF SYSTEMS: CONSTITUTIONAL: Denies any recent significant weight loss or weight gain. EYES: Denies change in vision. EARS, NOSE, MOUTH, THROAT: Denies headaches, denies sore throat. CARDIOVASCULAR: Denies chest pain, palpitations or syncopal episodes. RESPIRATORY: Positive for shortness of breath, cough, congestion no hemoptysis. GASTROINTESTINAL: Denies change in appetite, denies abdominal pain GENITOURINARY: Denies hematuria, denies infections. MUSKULOSKELETAL: Denies pain, denies swelling. INTEGUMENTARY: Denies rash, denies eczema. NEUROLOGICAL: Denies recent memory loss, no recent seizure activity. PSYCHIATRIC: Denies anxiety, denies depression. HEMATOLOGIC/LYMPHATIC: Denies anemia, denies enlarged lymph nodes. Past Medical History Past Medical History: Cancer, Hyperlipidemia, Respiratory Disorder, Thyroid Disorder, Vascular Disorder Additional Past Medical History / Comment(s): uterine Ca. ABDOMINAL WALL CANCER History of Any Multi-Drug Resistant Organisms: None Reported Past Surgical History: Hysterectomy Additional Past Surgical History / Comment(s): RUQ biopsy "-" for 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 Past Anesthesia/Blood Transfusion Reactions: No Reported Reaction Past Psychological History: No Psychological Hx Reported Smoking Status: Never smoker Past Alcohol Use History: None Reported Past Drug Use History: None Reported - Past Family History Sister(s) Family Medical History: Cancer Additional Family Medical History / Comment(s): breast CA Medications and Allergies Home Medications Medication Instructions Recorded Confirmed Type Pravastatin Sodium [Pravachol] 40 mg PO HS 07/16/20 05/06/21 History Gabapentin 300 mg PO BID 03/21/21 05/06/21 History Potassium Chloride [Klor-Con 10] 10 meq PO DAILY 03/21/21 05/06/21 History Furosemide [Lasix] 20 mg PO DAILY 03/31/21 05/06/21 History Lenvatinib Mesylate [Lenvima] 18 mg PO DAILY 04/03/21 05/06/21 History Levothyroxine Sodium [Synthroid] 150 mcg PO DAILY 05/06/21 05/06/21 History ondansetron HCL [Zofran] 8 mg PO Q6H PRN 05/06/21 05/06/21 History Allergies Allergy/AdvReac Type Severity Reaction Status Date / Time No Known Allergies Allergy Verified 05/06/21 13:37 Physical Exam Vitals: Vital Signs Temp Pulse Pulse Pulse Pulse Resp BP 05/07/21 13:02 99 05/07/21 12:41 97.4 F L 104 H 05/07/21 11:47 97.6 F 90 18 05/07/21 11:30 97.3 F L 100 05/07/21 08:45 97.4 F L 90 05/07/21 08:00 97.4 F L 90 05/07/21 04:00 88 05/07/21 02:00 88 93 05/07/21 00:00 87 05/06/21 21:36 97.8 F 79 20 05/06/21 20:00 98.1 F 80 93 18 05/06/21 15:54 98.1 F 93 22 05/06/21 15:07 93 18 158/87 05/06/21 14:18 BP BP Pulse Ox 05/07/21 13:02 139/76 100 05/07/21 12:41 84/54 97 05/07/21 11:47 186/85 96 05/07/21 11:30 176/91 93 L 05/07/21 08:45 178/88 94 L 05/07/21 08:00 178/88 94 L 05/07/21 04:00 170/89 93 L 05/07/21 02:00 05/07/21 00:00 160/80 92 L 05/06/21 21:36 154/88 91 L 05/06/21 20:00 160/90 94 L 05/06/21 15:54 171/90 97 05/06/21 15:07 93 L 05/06/21 14:18 97 Intake and Output 05/06/21 05/07/21 05/07/21 22:59 06:59 14:59 Intake Total 0 200 Output Total 5 Balance 0 195 Intake: IV 200 Oral 0 Output: Estimated Blood Loss 5 Other: # Voids 1 1 Weight 62.6 kg GENERAL EXAM: Alert, pleasant, cachectic 65-year-old female patient, on 3 L nasal cannula, fairly comfortable in no apparent distress. HEAD: Normocephalic. EYES: Normal reaction of pupils, equal size. NOSE: Clear with pink turbinates. THROAT: No erythema or exudates. NECK: No masses, no JVD. CHEST: No chest wall deformity. LUNGS: Equal air entry with crackles in the right lung base, dullness, diminishe d. CVS: S1 and S2 normal with no audible murmur, regular rhythm. ABDOMEN: No hepatosplenomegaly, normal bowel sounds, no guarding or rigidity. SPINE: No scoliosis or deformity SKIN: No rashes CENTRAL NERVOUS SYSTEM: No focal deficits, tone is normal in all 4 extremities. EXTREMITIES: There is no peripheral edema. No clubbing, no cyanosis. Peripheral pulses are intact. Results - Laboratory Findings CBC and BMP: 05/06/21 13:45 05/06/21 13:45 PT/INR, D-dimer PT 11.4 sec (9.0-12.0) 05/06/21 13:45 INR 1.1 (<1.2) 05/06/21 13:45 Abnormal lab findings: Abnormal Labs 05/06/21 05/06/21 05/06/21 13:45 13:45 13:45 MCV 100.1 H RDW 21.8 H Plt Count 97 L Lymphocytes # 0.6 L APTT 33.1 H Sodium 134 L Glucose 109 H - Diagnostic Findings Chest x-ray: image reviewed Assessment and Plan Assessment: 1 Acute hypoxemic respiratory failure secondary to recurrent right-sided pleural effusions with previous thoracentesis x 3, most recent as 04/24/2021. Cytology negative. Plan is for Pleurx catheter placement. 2 Recurrent right-sided pleural effusion secondary to metastatic endometrial carcinoma. Currently on Lenvima. 3 Metastatic endometrial carcinoma originally diagnosed in June 2017, status post hysterectomy with bilateral salpingo-oophorectomy in June 2018 in addition to an omentectomy. Status post chemotherapy, brachytherapy. In August 2020 there was evidence of pelvic lymphadenopathy with metastatic disease. She was treated with carboplatinum, Taxol with additional 4 cycles followed by immunotherapy with Keytruda. 4 History of drug-induced neutropenia 5 History of drug-induced neuropathy 6 Hypothyroidism 7 Hyperlipidemia 8 Lower extremity edema Plan: The patient was seen and evaluated by Dr. Jones Chest x-ray and labs reviewed Plan is for Pleurx catheter placement today Titrate the FiO2 as tolerated We will continue to follow and make further recommendations based on her clinical status I, the cosigning physician, performed a history & physical examination of the patient. Lungs sounds with crackles in the right lung base, dullness, diminished Maintaining good O2 saturations in the 90s on 3 L/m per nasal cannula. I discussed the assessment and plan of care with my nurse practitioner, Kristy Moseley. I attest to the above consultation as dictated by her. Time with Patient: Greater than 30
[2021-05-07] MEDS: SODIUM CHLORIDE 0.9% 1,000 ML IV SCH (13:58)
[2021-05-07] MEDS: LACTATED RINGERS 1,000 ML IV SCH (14:30)
--- NOTE | 2021-05-07 14:57 | XR ---
EXAMINATION TYPE: XR chest 1V portable DATE OF EXAM: 05/07/2021 COMPARISON: Chest x-ray 05/06/2021 HISTORY: Post chest tube, Pleurx catheter TECHNIQUE: Single frontal view of the chest is obtained. FINDINGS: There is interval improved aeration within the right lung. Pleurx catheter is coiled at th e base of the right hemithorax with distal tip towards the posterior costophrenic angle level. Patien t is rotated. Patchy density persists in the right upper lobe. There is no evident pneumothorax. Ther e are overlying artifacts. Basilar density persists on the left. Heart is partially obscured. IMPRESSION: No evident complication status post Pleurx catheter placement.
--- NOTE | 2021-05-07 15:43 | FL ---
Fluoroscopy HISTORY: Pleurx catheter placement 20 seconds fluoroscopy time supplied to the referring clinician. 1 intraoperative C-arm images docum ent the procedure. See dictated report from cardiothoracic surgery.
[2021-05-07] MEDS: FUROSEMIDE 20 MG TAB PO SCH (16:19)
--- NOTE | 2021-05-07 16:57 | P.PN ---
Progress Note - Text Progress Note Date: 05/07/21 Chief Complaint: Short of breath History of presenting complaint: This is a pleasant 65-year-old patient who follows with Dr. Daren Robert. Oncologist Dr. Adorno. Mobile Application Tester Dr. Zeng. 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 Intermittent count to affect the pericardial planning. Patient was then treated with chemotherapy and radiation treatment. Had responded well. Patient had recurrence earlier this year. Patient just received a second dose of chemotherapy therapy 2 weeks ago. Patient been having recurrent pleural effusion and has had thoracentesis 3. Last time it was done was about 2 weeks ago. Patient now presents with increasing shortness of breath. Slight cough. Lower extremity edema. No fever no chills. Appetite is fair. 05/07/2021: Supple the patient this morning. Pending thoracentesis and pleural VAC placement. Short of breath. No new issues. Review of systems: Was done for constitutional, cardiovascular, GI, pulmonary. relevant finding as above Active Medications Acetaminophen (Acetaminophen Tab 325 Mg Tab) 650 mg PO Q6HR PRN PRN Reason: Mild Pain or Fever > 100.5 Last Admin: 05/07/21 16:18 Dose: 650 mg Documented by: Al Hydroxide/Mg Hydroxide (Mag Hydrox/Al Hydrox/Simeth 30 Ml Cup) 15 ml PO Q6HR PRN PRN Reason: Indigestion Alprazolam (Alprazolam 0.25 Mg Tab) 0.25 mg PO Q6HR PRN PRN Reason: Anxiety Calcium Carbonate/Glycine (Calcium Carbonate 500 Mg Chewable) 1,000 mg PO Q4HR PRN PRN Reason: Dyspepsia Furosemide (Furosemide 20 Mg Tab) 20 mg PO DAILY [facility] Last Admin: 05/07/21 16:19 Dose: 20 mg Documented by: Gabapentin (Gabapentin 300 Mg Cap) 300 mg PO BID [facility] Last Admin: 05/07/21 06:43 Dose: 300 mg Documented by: Hydromorphone HCl (Hydromorphone 0.5 Mg/0.5 Ml Syringe) 0.5 mg IVP Q5M PRN PRN Reason: Pain Control Stop: 05/07/21 23:00 Sodium Chloride (Saline 0.9%) 1,000 mls @ 20 mls/hr IV .Q24H [facility] Last Admin: 05/07/21 13:58 Dose: Not Given Documented by: Lactated Ringer's (Lactated Ringers) 1,000 mls @ 20 mls/hr IV .Q24H [facility] Last Admin: 05/07/21 14:30 Dose: 20 mls/hr Documented by: Lactulose (Lactulose 20 Gm/30 Ml Cup) 20 gm PO DAILY PRN PRN Reason: Constipation Levothyroxine Sodium (Levothyroxine 75 Mcg Tab) 150 mcg PO DAILY@0630 [facility] Last Admin: 05/07/21 06:43 Dose: 150 mcg Documented by: Melatonin (Melatonin 3 Mg Tablet) 3 mg PO HS PRN PRN Reason: Insomnia Naloxone HCl (Naloxone 0.4 Mg/Ml 1 Ml Vial) 0.2 mg IV Q2M PRN PRN Reason: Opioid Reversal Lenvatinib Mesylate [Lenvima] 18 Mg Dosing Pack 18 mg PO DAILY [facility] Last Admin: 05/07/21 06:44 Dose: 18 mg Documented by: Ondansetron HCl (Ondansetron 4 Mg Tab) 8 mg PO Q6H PRN PRN Reason: Nausea Ondansetron HCl (Ondansetron 4 Mg/2 Ml Vial) 4 mg IVP Q8HR PRN PRN Reason: Nausea And Vomiting Potassium Chloride (Potassium Chloride Er 10 Meq Tab.Er.Prt) 10 meq PO DAILY [facility] Last Admin: 05/07/21 06:43 Dose: 10 meq Documented by: Pravastatin Sodium (Pravastatin Sodium 40 Mg Tab) 40 mg PO DAILY [facility] Last Admin: 05/07/21 06:44 Dose: 40 mg Documented by: Sodium Biphosphate/Sodium Phosphate (Na Phos,M-B/Na Phos,Di-Ba 133 Ml Enema) 133 ml RECTAL ONCE PRN PRN Reason: Constipation Past medical history to include: Uterine cancer, abdominal wall cancer, hypothyroid, hyperlipidemia, peripheral neuropathy Social history: . Denies any history of smoking and alcohol. Family history: Breast cancer Physical examination: VITAL SIGNS: 97.3, 71, 20, 142/90, 93% on 2 L GENERAL: , reclining in bed, tired, short of breath. EYES: Pupils equal. Conjunctiva palel. HEENT: External appearance of nose and ears normal, oral cavity grossly normal. NECK: JVD not raised; masses not palpable. HEART: First and second heart sounds are normal; significant edema present. LUNGS: Respiratory rate increased; decreased air entry in the right side, dull to percussion. ABDOMEN: Soft, nontender, liver spleen not palpable, no masses palpable. PSYCH: Alert and oriented x3; mood and affect normal. INVESTIGATIONS, reviewed in the clinical context: WBC 4.1 hemoglobin 13.2 platelets 97 potassium 3.9 creatinine 0.59 EKG tracing personally reviewed by me-sinus tachycardia, nonspecific T-wave changes, rate 102 Chest x-ray film personally reviewed by me-large right pleural effusion Assessment and plan: -Recurrent right-sided pleural effusion, could last thoracentesis about 2 weeks ago. Patient's had a total about 3 of the same in the last few weeks. Likely malignant in nature. Pending pleural VAC this afternoon -Recurrent uterine cancer with a prior history of treated with radiation and jeovany motherapy. Patient's currently undergoing immunotherapy. -Hyperlipidemia Lipitor -Hypothyroid Synthroid 150 g daily -Peripheral neuropathy likely from chemotherapy On Neurontin -Bilateral lower extremity edema Brandon wrap Care was discussed with the patient. Continue current medication. Awaiting placement of pleural VAC
[2021-05-08] MEDS: LEVOTHYROXINE 75 MCG TAB PO SCH (06:06)
--- NOTE | 2021-05-08 08:18 | XR ---
EXAMINATION TYPE: XR chest 1V portable DATE OF EXAM: 05/08/2021 COMPARISON: Chest x-ray 05/07/2021 HISTORY: Chest tube, abnormal chest x-ray TECHNIQUE: Single frontal view of the chest is obtained. FINDINGS: There is increasing opacity seen within the right lower lung as compared to prior exam. Ri ght-sided chest tube remains in place. No evident pneumothorax. Left lung shows a similar appearance, basilar density obscures the left heart border and hemidiaphragm. IMPRESSION: Increasing effusion and associated atelectasis versus pneumonia in the right lung.
--- NOTE | 2021-05-08 08:50 | P.PN ---
Subjective Progress Note Date: 05/08/21 Principal diagnosis: Recurrent right-sided malignant pleural effusion, shortness of breath, hypoxia. History of metastatic endometrial/uterine cancer status post ASHLIE and BSO with subsequent chemotherapy, recurrent right-sided pleural effusions, thoracentesis 03/21 for 1.9 L, 04/03 for 1.4 L, 04/24 for 2.6 L, hypothyroid, hyperlipidemia POD #1 right Pleurx catheter implant with fluoroscopy with removal of 3 L cloudy yellow fluid The patient is currently sitting up in bed on the cardiac stepdown unit in no acute distress. States she does have mild pain at the pleurx insertion site which is controlled on current medication regimen, states shortness of breath has improved. Maintaining oxygen saturation in the 90s on 2 lpm nc. No other new concerns. Objective - Vital Signs Vital signs: Vital Signs Temp 97.8 F 05/07/21 20:16 Pulse 81 05/07/21 20:16 Resp 19 05/07/21 20:16 BP 110/65 05/07/21 20:20 Pulse Ox 97 05/07/21 20:16 Intake & Output 05/07/21 05/08/21 05/08/21 18:59 06:59 18:59 Intake Total 990 Output Total 5 Balance 985 Weight 67.3 kg Intake: IV 750 Oral 240 Output: Estimated Blood Loss 5 Other: # Voids 1 1 - Exam CONSTITUTIONAL: Awake and alert, appears comfortable, no acute distress RESPIRATORY: Lungs sounds very diminished bilaterally, right greater than left. Respirations even, slightly labored with talking. Currently on 2 LPM NC with oxygen saturation 97%. CARDIOVASCULAR: S1, S2 present. Regular rate and rhythm, sinus rhythm on telemetry. Palpable peripheral pulses bilaterally. Bilateral lower extremity edema present. GASTROINTESTINAL: Abdomen soft, nontender, nondistended. Active bowel sounds present 4 quadrants. GENITOURINARY: Continues to void INTEGUMENTARY: Skin is warm and dry with evidence of good perfusion. Right sided Pleurx cath present and capped, covered with dry intact dressing NEUROLOGIC: Cranial nerves II through XII intact, normal coordination, no obvious motor or sensory deficits, speech is normal MUSKULOSKELETAL: Able to move all extremities, strength equal bilaterally, normal posture PSYCHIATRIC: Alert and oriented to person place and time, appropriate affect, intact judgment and insight - Allied health notes Allied health notes reviewed: nursing - Labs CBC & Chem 7: 05/06/21 13:45 05/06/21 13:45 - Imaging and Cardiology Chest x-ray: report reviewed, image reviewed Assessment and Plan Assessment: 1. Recurrent right-sided malignant pleural effusion, S/P placement of right sided PleurX catheter with removal of 3 L cloudy yellow fluid 2. Shortness of breath, hypoxia secondary to above 3. Metastatic endometrial/uterine cancer status post ASHLIE and BSO with subsequent chemotherapy 4. Recurrent right-sided pleural effusions, thoracentesis 03/21 for 1.9 L, 04/03 for 1.4 L, 04/24 for 2.6 L 5. Hypothyroid 6. Hyperlipidemia Plan: 1. Will drain pleurx cath today when family present to teach family draining process 2. May continue to drain as needed, initial M/W/F then to adjust as needed related to patient's symptoms. May drain as often as daily, or space out to weekly, again drainage is strictly dependent on patient's symptoms 3. Home care has been ordered and will restock drainage bottles as well as perform initial drainage until patient/family are comfortable with drainage 4. PleurX catheter discharge instructions were placed on her discharge plan 5. Patient may be discharged to home from our standpoint when ok with other services 6. She may follow up in our office for pleurx cath removal once drainage has reduced to less then 50 cc for three times in a row 7. Will see again on an as needed basis Time with Patient: Greater than 30
--- NOTE | 2021-05-08 11:07 | P.PN ---
Subjective Progress Note Date: 05/08/21 Principal diagnosis: Recurrent right-sided pleural effusion This is a very pleasant 65-year-old female patient who follows with Dr. Robert is her primary care provider. She has a history of metastatic endometrial cancer originally diagnosed in June 2017 and had undergone hysterectomy with bilateral salpingo-oophorectomy on June 2018 in addition to omentectomy. The patient completed carboplatinum and Taxol along with brachii therapy. In August 2020 she was found to have evidence of pelvic lymphadenopathy with metastatic disease. She was given carboplatinum and Taxol for 4 cycles followed by immunotherapy with Keytruda. She is most recently on Lenvima. She has been having ongoing issues with recurrent right-sided pleural effusions and had undergone several thoracentesis that were negative for metastasis. Most recently done by Dr. Zeng on 04/24/2021 with another 2600 ML's of turbid color milky return. Yesterday 05/06/2021 she developed increasing shortness of breath and was referred to the emergency room for admission and possible Pleurx catheter placement. White count 4.1. Hemoglobin 13.2. Platelet count 97,000. Sodium 134. Potassium 3.9. Creatinine 0.59. Glucose 109. She is seen in consultation on the regular medical floor. Currently awake and alert in no acute distress. She is maintaining O2 saturations in the 90s on 3 L/m per nasal cannula. Afebrile. 0.9 normal saline at 20 ML's per hour. On oral diuretics. She was seen and evaluated by Dr. Bennett who plans to place a right-sided Pleurx catheter today. The patient is seen today 05/08/2021 in follow-up on the selective care unit. She is currently resting comfortably in bed. Awake and alert in no acute distress. She is maintaining O2 saturations in the 90s on 2 L/m per nasal cannula. She's been afebrile. Hemodynamically stable. She did undergo a right-sided Pleurx catheter placement yesterday. 3 L of cloudy yellow fluid was drained. Today's chest x-ray compared to postprocedure x-ray is already showing increasing effusions and associated atelectasis right lung. Plan will be to drain the lung again today. Objective - Vital Signs Vital signs: Vital Signs Temp 97.7 F 05/08/21 08:25 Pulse 94 05/08/21 08:25 Resp 19 05/08/21 10:30 BP 109/68 05/08/21 08:25 Pulse Ox 93 L 05/08/21 08:25 Intake & Output 05/07/21 05/08/21 05/08/21 18:59 06:59 18:59 Intake Total 990 Output Total 5 Balance 985 Weight 67.3 kg Intake: IV 750 Oral 240 Output: Estimated Blood Loss 5 Other: # Voids 1 1 - Exam GENERAL EXAM: Alert, pleasant, cachectic 65-year-old female patient, on 3 L nasal cannula, comfortable in no apparent distress. HEAD: Normocephalic. EYES: Normal reaction of pupils, equal size. NOSE: Clear with pink turbinates. THROAT: No erythema or exudates. NECK: No masses, no JVD. CHEST: No chest wall deformity. LUNGS: Equal air entry with crackles in the bases right greater than left, dullness, diminished. CVS: S1 and S2 normal with no audible murmur, regular rhythm. ABDOMEN: No hepatosplenomegaly, normal bowel sounds, no guarding or rigidity. SPINE: No scoliosis or deformity SKIN: No rashes CENTRAL NERVOUS SYSTEM: No focal deficits, tone is normal in all 4 extremities. EXTREMITIES: There is no peripheral edema. No clubbing, no cyanosis. Peripheral pulses are intact. - Labs CBC & Chem 7: 05/06/21 13:45 05/06/21 13:45 Assessment and Plan Assessment: 1 Acute hypoxemic respiratory failure secondary to recurrent right-sided pleural effusions with previous thoracentesis x 3, most recent as 04/24/2021. Cytology negative. Pleurx catheter placed 05/07/2021 3 L of cloudy yellow fluid drained 2 Recurrent right-sided pleural effusion secondary to metastatic endometrial carcinoma. Currently on Lenvima. 3 Metastatic endometrial carcinoma originally diagnosed in June 2017, status post hysterectomy with bilateral salpingo-oophorectomy in June 2018 in addition to an omentectomy. Status post chemotherapy, brachytherapy. In August 2020 there was evidence of pelvic lymphadenopathy with metastatic disease. She was treated with carboplatinum, Taxol with additional 4 cycles followed by immunotherapy with Keytruda. 4 History of drug-induced neutropenia 5 History of drug-induced neuropathy 6 Hypothyroidism 7 Hyperlipidemia 8 Lower extremity edema Plan: The patient was seen and evaluated by Dr. Jones Chest x-ray reviewed Plan is to drain the Pleurx catheter again today Titrate the FiO2 as tolerated I, the cosigning physician, performed a history & physical examination of the patient. Lungs sounds with crackles in the bases right greater than left , dullness, diminished Maintaining good O2 saturations in the 90s on 3 L/m per nasal cannula. I discussed the assessment and plan of care with my nurse practitioner, Kristy Moseley. I attest to the above note as dictated by her.
[2021-05-08] MEDS: FUROSEMIDE 20 MG TAB PO SCH (12:02)
[2021-05-08] MEDS: GABAPENTIN 300 MG CAP PO SCH (12:02)
[2021-05-08] MEDS: LENVATINIB MESYLATE PO SCH (12:03)
[2021-05-08] MEDS: POTASSIUM CHLORIDE ER 10 MEQ TAB.ER.PRT PO SCH (12:03)
[2021-05-08] MEDS: PRAVASTATIN SODIUM 40 MG TAB PO SCH (12:03)
[2021-05-08 13:26] VITALS: BP 120/80; PULSE 95; RESP 18; TEMP 97.8
[2021-05-08] MEDS: SODIUM CHLORIDE 0.9% 1,000 ML IV SCH (14:18)
--- NOTE | 2021-05-08 14:49 | P.DS ---
Providers Date of admission: 05/06/21 13:20 Expected date of discharge: 05/08/21 Attending physician: Efra Chi Consults: 05/06/21 12:46 Consult Physician Routine Consulting Provider: Suraj Jones Consult Reason/Comments: pleural effusion, pt of artinian Do you want consulting provider notified?: Yes 05/06/21 13:11 Consult Physician Routine Consulting Provider: Fabiano Mays Consult Reason/Comments: recurrent pleural effusion Do you want consulting provider notified?: Yes Primary care physician: Daren Robert [facility] Course: Chief Complaint: Short of breath History of presenting complaint: This is a pleasant 65-year-old patient who follows with Dr. Daren Robert. Oncologist Dr. Adorno. Ethernet Network Architect Dr. Zeng. 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 Intermittent count to affect the pericardial planning. Patient was then treated with chemotherapy and radiation treatment. Had responded well. Patient had recurrence earlier this year. Patient just received a second dose of chemotherapy therapy 2 weeks ago. Patient been having recurrent pleural effusion and has had thoracentesis 3. Last time it was done was about 2 weeks ago. Patient now presents with increasing shortness of breath. Slight cough. Lower extremity edema. No fever no chills. Appetite is fair. 05/07/2021: saw the patient this morning. Pending thoracentesis and pleural VAC placement. Short of breath. No new issues. 05/08/2021: Sitting up in a chair. About 2 L were drained after placement of pleural VAC placement yesterday. For the pleural fluid was drained today. Discussed with DEPENDENCY DIRECTOR from cardiothoracic team. Patient may be discharged. Discussed with the nurse. Pulse ox 87% on room air. We will be discharging on 2 L of home oxygen. Care was discussed with the patient. Discussion and discharge planning more than 35 minutes Consultation: Dr. Noriega from pulmonary Dr. Bennett from cardiothoracic surgery Past medical history to include: Uterine cancer, abdominal wall cancer, hypothyroid, hyperlipidemia, peripheral neuropathy Social history: . Denies any history of smoking and alcohol. Family history: Breast cancer Physical examination: VITAL SIGNS: 97.8, 95, 18, 120/80, 97% on 2 L GENERAL: , Sitting up in a chair breathing better EYES: Pupils equal. Conjunctiva palel. HEENT: External appearance of nose and ears normal, oral cavity grossly normal. NECK: JVD not raised; masses not palpable. HEART: First and second heart sounds are normal; significant edema present. LUNGS: Respiratory rate increased; decreased air entry in the right side, right- sided pleural VAC ABDOMEN: Soft, nontender, liver spleen not palpable, no masses palpable. PSYCH: Alert and oriented x3; mood and affect normal. INVESTIGATIONS, reviewed in the clinical context: WBC 4.1 hemoglobin 13.2 platelets 97 potassium 3.9 creatinine 0.59 EKG tracing personally reviewed by me-sinus tachycardia, nonspecific T-wave changes, rate 102 Chest x-ray film personally reviewed by me-large right pleural effusion Assessment and plan: -Recurrent right-sided pleural effusion, could last thoracentesis about 2 weeks ago. Patient's had a total about 3 of the same in the last few weeks. Likely malignant in nature. Pleural VAC placed. Home instructions given. Home care added. -Recurrent uterine cancer with a prior history of treated with radiation and chemotherapy. Patient's currently undergoing immunotherapy. -Hyperlipidemia Lipitor -Hypothyroid Synthroid 150 g daily -Peripheral neuropathy likely from chemotherapy On Neurontin -Bilateral lower extremity edema Brandon wrap Disposition: Home Plan - Discharge Summary Discharge Rx Participant: Yes New Discharge Prescriptions: No Action Pravastatin Sodium [Pravachol] 40 mg PO HS Potassium Chloride [Klor-Con 10] 10 meq PO DAILY Furosemide [Lasix] 20 mg PO DAILY Levothyroxine Sodium [Synthroid] 150 mcg PO DAILY ondansetron HCL [Zofran] 8 mg PO Q6H PRN PRN Reason: Nausea Gabapentin 300 mg PO BID Lenvatinib Mesylate [Lenvima] 18 mg PO DAILY Discharge Medication List Pravastatin Sodium [Pravachol] 40 mg PO HS 07/16/20 [History] Gabapentin 300 mg PO BID 03/21/21 [History] Potassium Chloride [Klor-Con 10] 10 meq PO DAILY 03/21/21 [History] Furosemide [Lasix] 20 mg PO DAILY 03/31/21 [History] Lenvatinib Mesylate [Lenvima] 18 mg PO DAILY 04/03/21 [History] Levothyroxine Sodium [Synthroid] 150 mcg PO DAILY 05/06/21 [History] ondansetron HCL [Zofran] 8 mg PO Q6H PRN 05/06/21 [History] Follow up Appointment(s)/Referral(s): Michoacano Bennett MD [STAFF PHYSICIAN] - As Needed (Please call our office to schedule removal of PleurX once drainage has been less than 50 cc three times in a row) [facility], [NON-STAFF] - Daren Robert MD [Primary Care Provider] - 1-2 days Activity/Diet/Wound Care/Special Instructions: PleurX discharge instructions: 1. Home Care is ordered, they will obtain new bottles. 2. May shower after 24 hours, no tub baths/hot tubs. 3. Do not drain more than 1 liter or 1000 mL in 24 hours. 4. New drainage bottle needed with each drainage. 5. Drainage frequency dictated by patient symptoms, may be every day, every other day, weekly, or however often the patient is symptomatic. 6. Please notify DEPENDENCY DIRECTOR or office if temperature >101F, excessive pain at insertion site, drainage consistency changes to cloudy or smells bad, catheter falls out, or anything else that concerns you. 7. Contact surgery office with weekly drainage amounts. May fax the amounts. 8. Once drainage is less than 50 mL three times in a row, notify the surgery office for possible removal. Surgery office: , fax Patient will require home O2 at 2L due to Pleural effussions due to metastatic Disease.
[2021-05-08] MEDS: LACTATED RINGERS 1,000 ML IV SCH (17:04)
== END 2021-05-08 17:16 | disposition home health service (06) | DRG 754 ==
LOC: EC 12:16 → 3SCARD 13:20
PROVIDERS: ADMIT Hospitalist; ATTEND Hospitalist
PROC: 0B9N30Z Drainage of Right Pleura with Drainage Device, Percutaneous Approach (ICD-10-PCS; principal; 2021-05-07 12:00)
DX: C54.1 Malignant neoplasm of endometrium (principal); J96.01 Acute respiratory failure with hypoxia; J91.0 Malignant pleural effusion; C55 Malignant neoplasm of uterus, part unspecified; E03.9 Hypothyroidism, unspecified; E78.5 Hyperlipidemia, unspecified; Z90.722 Acquired absence of ovaries, bilateral; Z90.710 Acquired absence of both cervix and uterus; Z85.89 Personal history of malignant neoplasm of other organs and systems; Z85.42 Personal history of malignant neoplasm of other parts of uterus; Z80.3 Family history of malignant neoplasm of breast; Z79.899 Other long term (current) drug therapy; Z79.890 Hormone replacement therapy; Z92.3 Personal history of irradiation; T45.1X5A Adverse effect of antineoplastic and immunosuppressive drugs, initial encounter; G62.0 Drug-induced polyneuropathy
CPT/HCPCS: 71045; 71046; 77001; 80048; 85025; 85610; 85730; 86850; 86900; 86901; 93005; 99285

== ENCOUNTER → 2021-05-30 | Outpatient (CLI) | payer OTHER ==
[2021-05-30 13:19] LABS: African American GFR (CKD) >90 (>60 ml/min/1.73 sqM); Blood Urea Nitrogen 21 mg/dL (7-17); Non-African American GFR(CKD) 84 (>60 ml/min/1.73 sqM)
--- NOTE | 2021-06-02 09:03 | CT ---
EXAMINATION TYPE: CT ChestAbdPelvis w con DATE OF EXAM: 05/30/2021 COMPARISON: Prior CT September 12, 2020 HISTORY: Endometrial cancer CT DLP: 557.8 mGycm. Automated Exposure Control for Dose Reduction was Utilized. CONTRAST: CT scan of the thorax, abdomen and pelvis is performed with IV Contrast, patient injected with 100 mL of Isovue 300. FINDINGS: LUNGS: New small to moderate-sized right greater than left pleural effusions with associated compress manju atelectasis. No pneumothorax seen bilaterally. No masses noted. MEDIASTINUM: The right paraTracheal lymph node is improved measuring 1.4 x 1.2 current study axial im age 23 cm versus 2.6 x 1.8 cm. Improved sized lymph node superior to this and in the bilateral suprac lavicular region. Small pericardial effusion is more prominent. Heart size upper limits of normal. C oronary artery calcification in the LAD distribution redemonstrated. OTHER: Right internal jugular Mediport catheter terminates in the SVC. LIVER/GB: No distended margins to gallbladder redemonstrated. Prominent right hepatic lobe redemonstr ated PANCREAS: No significant abnormality is seen. SPLEEN: No significant abnormality is seen. ADRENALS: No significant abnormality is seen. KIDNEYS: No significant abnormality is seen. BOWEL: Oral contrast does not reach terminal ileum level making evaluation of distal bowel slightly s uboptimal. No suspicious small or large bowel dilatation. Moderate fecal prominence in the rectum on current study. GENITAL ORGANS: Uterus is surgically absent. LYMPH NODES: Improved pelvic adenopathy. The left external iliac chain lymph node measures 3.0 x 1.5 cm current study and is lower density versus 3.6 x 1.9 cm prior study. Additional lymph nodes signifi cantly decreased in size. No new greater than 1 cm lymph nodes. OSSEOUS STRUCTURES: Slight scoliotic curvature with mild/moderate multilevel spurring in the thoracic spine. OTHER: No significant additional abnormality is seen. IMPRESSION: Positive treatment response as detailed above. Adenopathy above and below diaphragm eliu ins present but improved from last whole-body CT.
== END | disposition home or self-care (01) ==
LOC: RADPROMAIN 12:18
PROVIDERS: ATTEND Internal Medicine Hematology & Oncology
DX: C54.1 Malignant neoplasm of endometrium (principal); R59.0 Localized enlarged lymph nodes; J90 Pleural effusion, not elsewhere classified; J98.11 Atelectasis
CPT/HCPCS: 82565; 84520; 71260; 74177; J1642; Q9967

== ENCOUNTER → 2021-08-22 | Outpatient (CLI) | payer OTHER, MEDICARE ==
[2021-08-22 13:38] LABS: African American GFR (CKD) >90 (>60 ml/min/1.73 sqM); Blood Urea Nitrogen 20 mg/dL (7-17); Non-African American GFR(CKD) 84 (>60 ml/min/1.73 sqM)
--- NOTE | 2021-08-22 21:22 | CT ---
EXAMINATION TYPE: CT Chest Abd Pelvis w con CT DLP: 609.0 mGycm, Automated exposure control for dose reduction was used. DATE OF EXAM: 08/22/2021 2:48 PM COMPARISON:CTs of the chest abdomen and pelvis with most recent on 05/30/2021. And 09/12/2020 CLINICAL INDICATION:Female, 66 years old with history of Z03.89 Suspected mets, C54.9 Endometrial ca; PHH, Suspected mets. Endometrial Cancer Technique: Multiple axial images of the chest, abdomen, and pelvis were obtained following the intrav enous administration of 100 mL Isovue-300. Two-dimensional coronal and sagittal reconstructions were obtained. Findings: CHEST: LUNGS/ PLEURA: Small bilateral pleural effusions right greater than left. Significantly changed from prior. Right thoracotomy Pleurx catheter is again seen. No pulmonary masses are identified. AIRWAY: Patent and unremarkable.. HEART: Cardiomegaly is demonstrated.Increased density within the coronary arteries may relate to scle rosis. MEDIASTINUM: No gross evidence of adenopathy. A low paratracheal lymph node is not significantly pierre ged measuring 1.0 cm in short axis. VASCULATURE: No aortic aneurysm. MUSCULOSKELETAL: No acute osseous abnormalities degenerative changes are seen throughout the thoracic SOFT TISSUES/LYMPH NODES: Chest wall [id number] with distal tip terminating at the superior cavoat rial junction. Air enlarged lymph nodes in the upper neck today's exam. LOWER NECK: No significant findings. ABDOMEN: ABDOMEN LIVER: Calcification near the dome of liver on the right. GALLBLADDER AND BILE DUCTS: Distended with a density within the sprague which may represent calcificati on. Not significantly changed from prior and 05/30/2021. PANCREAS: Unremarkable. SPLEEN: Unremarkable. ADRENAL GLANDS: Unremarkable. KIDNEYS AND URETERS: No evidence of hydronephrosis or renal calculus. The ureters are unremarkable. PELVIS BLADDER: Unremarkable REPRODUCTIVE: Uterus is surgically absent. ABDOMEN & PELVIS STOMACH AND BOWEL: No evidence of bowel obstruction. PERITONEUM: No evidence of pneumoperitoneum. Small amount of fluid noted VASCULATURE: No evidence of aortic aneurysm. MUSCULOSKELETAL: No acute osseous abnormalities. Grade 1 anterolisthesis of L4 on L5. LYMPH NODES: There remains no evidence of retrocrural enlarged lymph nodes on today's exam. Additiona lly there is no evidence for enlarged lymph nodes within the abdomen or pelvis by CT criteria. Left E xternal iliac lymph node now measuring 3.0 x 1.0 cm versus 3.0 x 1.5 cm on prior. Right External katie c lymph node is more ill-defined on this exam and low density felt to be smaller in 2.3 x 1, previous ly 3.0 x 1.6 cm. SOFT TISSUE/ABDOMINAL WALL: Unremarkable IMPRESSION: 1. Findings consistent with continued positive response to therapy with no new enlarged lymph nodes i dentified. No evidence for enlarged lymph nodes within the chest or neck. Persistent bilateral brand marketing intern al iliac chain lymph nodes with decreased size on today's exam. 2. Right Pleurx catheter with tube tip in the right pleural space small bowel. Additional small left pleural effusion. 3. Trace ascites.
== END | disposition home or self-care (01) ==
LOC: RADPROMAIN 12:25
PROVIDERS: ATTEND Internal Medicine Hematology & Oncology
DX: C54.9 Malignant neoplasm of corpus uteri, unspecified (principal); R18.8 Other ascites
CPT/HCPCS: 82565; 84520; 71260; 74177; J1642; Q9967

== ENCOUNTER → 2021-11-24 | Outpatient (CLI) | payer OTHER, MEDICARE ==
--- NOTE | 2021-11-24 09:06 | CT ---
EXAMINATION TYPE: CT chest wo con DATE OF EXAM: 11/24/2021 INDICATION: pleural effusion CT DLP: 425 mGy.cm Automated Exposure Control for Dose Reduction was Utilized. TECHNIQUE AND CONTRAST: CT scan of the chest is performed without IV contrast administration. COMPARISON: CT dated 08/22/2021 FINDINGS: Interval mild regression of the previously seen bilateral pleural effusions. Persistent lobulated lar ge right-sided pleural effusion with small left-sided pleural effusion. Right intercostal drainage tu be is seen with the tip at the posterior aspect of the right lung base. Thick right the lung base atelectasis with air bronchogram within. Associated infection or underlying lesion can't be excluded by this CT scan. Minimal groundglass opacity/infiltration of the right uppe r lobe. No measurable lung mass or nodule otherwise. Minimal right diaphragmatic pleural calcification. Patent trachea and main bronchi. Cardiomediastinal shift to the left side. Minimal pericardial effusion. Scattered arterial atherosclerotic calcificati ons. Left-sided Port-A-Cath with the tip at the inferior aspect of the SVC. The Ascending aorta measures 3.6 cm. 9 mm pretracheal lymph node, appreciated previously. Stable 10 m m right precarinal lymph node. No progressive lymphadenopathy by this nonenhanced CT scan. Slightly a trophic pancreas. Degenerative changes of the thoracic spine. IMPRESSION: Persistent large and small left pleural effusions being lobulated on the right side yet improved comp ared to the previous CT scan. Right basal consolidation/atelectasis, underlying lesion or associated infection cannot be excluded, please correlate clinically. Further correlation with PET scan can be considered if clinically requir ed. Other interval changes and incidental findings as detailed above.
== END | disposition home or self-care (01) ==
LOC: RADCTMAIN 07:12
PROVIDERS: ATTEND Internal Medicine Critical Care Medicine
DX: J90 Pleural effusion, not elsewhere classified (principal); J98.4 Other disorders of lung
CPT/HCPCS: 71250

== ENCOUNTER → 2021-12-24 | Outpatient (CLI) | payer OTHER, MEDICARE ==
[2021-12-24 11:27] LABS: African American GFR (CKD) >90 (>60 ml/min/1.73 sqM); Blood Urea Nitrogen 15 mg/dL (7-17); Non-African American GFR(CKD) 87 (>60 ml/min/1.73 sqM)
--- NOTE | 2021-12-24 13:23 | CT ---
EXAMINATION TYPE: CT ChestAbdPelvis w con DATE OF EXAM: 12/24/2021 COMPARISON: CT dated 11/24/2021 and 08/22/2021 HISTORY: Endometrial cancer CT DLP: 1000 mGycm Automated exposure control for dose reduction was used. CONTRAST: CT scan of the chest, abdomen and pelvis is performed with Oral Contrast and with IV Contrast, patien t injected with 100ML mL of Isovue 300. FINDINGS: LUNGS: Interval removal of the previously seen right-sided intercostal drainage tube. Persistent lobu lated large right-sided pleural effusion with small left-sided pleural effusion. Small atelectasis se en adjacent to the right pleural effusion, improved compared to the previous. Underlying subtle lesio n cannot be excluded. Groundglass opacity seen in the right lower lobe. Grossly unremarkable lungs ot herwise. Patent trachea and main bronchi. Thickened inferior aspects of the pleura bilaterally. MEDIASTINUM: No pathologically enlarged lymph nodes in the chest. Unchanged position of the right upp er chest wall Port-A-Cath. Unchanged cardiac size and arterial atherosclerotic calcifications. No siz able pericardial effusion OTHER: No aggressive bone lesion. LIVER/GB: No significant abnormality is appreciated. PANCREAS: Atrophic pancreas SPLEEN: No significant abnormality is seen. ADRENALS: No significant abnormality is seen. KIDNEYS: No significant abnormality is seen. BOWEL: Unremarkable stomach and duodenum. Suboptimal assessment of the small and large bowel. No margot dence of bowel obstruction. Fecal loading of the colon.. REPRODUCTIVE ORGANS: Previous hysterectomy. No gross adnexal mass. LYMPH NODES: Faint soft tissue thickening is seen along pelvic sidewalls, probably representing seque la of the previously seen enlarged lymph nodes. Newly seen infiltration along the inferior aspect of the retroperitoneum measuring up to 12 mm posterior to the right common iliac vessels, not well appre ciated previously. Otherwise no pathologically enlarged lymph nodes identified in the abdomen or the pelvis. OSSEOUS STRUCTURES: Grade 1 anterolisthesis of L4 over L5 with bilateral L4-5 facet osteoarthropathy. No aggressive bone lesion. OTHER: Arterial atherosclerotic calcifications. No sizable ascites. IMPRESSION: 1. Less apparent bilateral pelvic sidewall lymph nodes however there is newly seen soft tissue infilt ration along the inferior aspect of the retroperitoneum measuring up to 12 mm along the posterior asp ect of the common iliac vessels, not appreciated in August 2021 CT scan, suspicious for recurrent m etastatic disease. Further PET scan assessment can be considered. 2. Persistent large right pleural effusion and small left pleural effusion. 3. Otherwise no evidence of metastatic disease seen in the chest, abdomen or the pelvis. Interval jayce nges and incidental findings as described above.
== END | disposition home or self-care (01) ==
LOC: RADPROMAIN 10:18
PROVIDERS: ATTEND Internal Medicine Hematology & Oncology
DX: C54.1 Malignant neoplasm of endometrium (principal); J90 Pleural effusion, not elsewhere classified
CPT/HCPCS: 82565; 84520; 71260; 74177; 36415; J1642; Q9967

== ENCOUNTER 2022-11-17 11:34 | Inpatient (IN) | payer OTHER, MEDICARE ==
--- NOTE | 2022-11-17 12:13 | ED ---
General Adult HPI - General Chief complaint: Shortness of Breath Stated complaint: SHORTNESS OF BREATH Time Seen by Provider: 11/17/22 11:54 Source: patient, family, RN notes reviewed Mode of arrival: wheelchair Limitations: no limitations - History of Present Illness Initial comments: Patient is a pleasant 67-year-old female presenting to the emergency department with concerns with dyspnea. Patient does have history of uterine cancer with metastasis to the abdominal wall. Patient does have pleural effusions that have been recurrent. Patient has had these drained several times, last was a couple weeks ago. Patient did see her doctor today secondary to progressive dyspnea over the past few days. Dr. King advise patient come to the emergency department for admission. They did also discuss the case with Dr. Zeng with plan for bilateral thoracentesis. - Related Data Home Medications Medication Instructions Recorded Confirmed Pravastatin Sodium [Pravachol] 40 mg PO DAILY 07/16/20 11/04/22 Gabapentin 300 mg PO BID 03/21/21 11/04/22 Lenvatinib Mesylate [Lenvima] 18 mg PO DAILY 04/03/21 11/04/22 Levothyroxine Sodium [Synthroid] 150 mcg PO DAILY 05/06/21 11/04/22 ondansetron HCL [Zofran] 8 mg PO Q6H PRN 05/06/21 11/04/22 Metoprolol Succinate [Toprol XL] 50 mg PO DAILY 10/27/22 11/04/22 Allergies Allergy/AdvReac Type Severity Reaction Status Date / Time No Known Allergies Allergy Verified 11/17/22 11:39 Review of Systems ROS Statement: Those systems with pertinent positive or pertinent negative responses have been documented in the HPI. ROS Other: All systems not noted in ROS Statement are negative. Constitutional: Denies: fever Eyes: Denies: eye pain ENT: Denies: ear pain Respiratory: Reports: as per HPI, cough, dyspnea Cardiovascular: Denies: chest pain Endocrine: Reports: fatigue Gastrointestinal: Denies: abdominal pain Genitourinary: Denies: dysuria Musculoskeletal: Denies: back pain Skin: Denies: rash Neurological: Denies: weakness Past Medical History Past Medical History: Cancer, Hyperlipidemia, Respiratory Disorder, Thyroid Disorder, Vascular Disorder Additional Past Medical History / Comment(s): uterine Ca. ABDOMINAL WALL CANCER History of Any Multi-Drug Resistant Organisms: None Reported Past Surgical History: Hysterectomy Additional Past Surgical History / Comment(s): RUQ biopsy "-" for 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, thoracentesis Past Anesthesia/Blood Transfusion Reactions: No Reported Reaction Past Psychological History: No Psychological Hx Reported Smoking Status: Never smoker - Past Family History Sister(s) Family Medical History: Cancer Additional Family Medical History / Comment(s): breast CA General Exam Limitations: no limitations General appearance: alert, in no apparent distress Head exam: Present: normocephalic Eye exam: Present: normal appearance Neck exam: Present: normal inspection Respiratory exam: Present: rales Cardiovascular Exam: Present: regular rate, normal rhythm GI/Abdominal exam: Present: soft. Absent: tenderness Extremities exam: Present: normal inspection. Absent: pedal edema, calf tenderness Neurological exam: Present: alert Psychiatric exam: Present: normal affect, normal mood Skin exam: Present: normal color Course Vital Signs 11/17/22 11:37 Temperature 98.3 F Pulse Rate 104 H Respiratory 22 Rate Blood Pressure 150/104 O2 Sat by Pulse 90 L Oximetry EKG Findings - EKG Results: EKG: interpreted by ERMD, sinus rhythm, normal axis, normal ST/T (Poor R-wave progression) Medical Decision Making - Medical Decision Making Was pt. sent in by a medical professional or institution ([facility], SURVEY ANALYST, urgent care, hospital, or retirement...) When possible be specific @ -Patient was sent from Dr. Harman's office Did you speak to anyone other than the patient for history (EMS, parent, family, police, friend...)? What history was obtained from this source @ -Family helps provide history Did you review nursing and triage notes (agree or disagree)? Why? @ -I reviewed and agree with nursing and triage notes Were old charts reviewed (outside hosp., previous admission, EMS record, old EKG, old radiological studies, urgent care reports/EKG's, retirement records)? Report findings @ -Previous x-rays reviewed Differential Diagnosis (chest pain, altered mental status, abdominal pain women, abdominal pain men, vaginal bleeding, weakness, fever, dyspnea, syncope, headache, dizziness, GI bleed, back pain, seizure, CVA, palpatations, mental health)? @ -Differential Dyspnea: Coronary syndrome, arrhythmia, tamponade, asthma, COPD, pulmonary embolism, pneumonia, pneumothorax, pulmonary effusion, anaphylaxis, diabetic ketoacidosis, flailed chest, pulmonary contusion, diaphragmatic rupture, anemia, neuromuscular, this is not meant to be an all-inclusive list. EKG interpreted by me (3pts min.). @ -As above X-rays interpreted by me (1pt min.). @ -Chest x-ray shows bilateral effusions, possible heart failure as well CT interpreted by me (1pt min.). @ -None done U/S interpreted by me (1pt. min.). @ -None done What testing was considered but not performed or refused? (CT, X-rays, U/S, labs)? Why? @ -None What meds were considered but not given or refused? Why? @ -None Did you discuss the management of the patient with other professionals (professionals i.e. , PA, SURVEY ANALYST, lab, RT, psych nurse, geriatric social worker, plant propagator, teacher, chief administrative officer, residential case manager)? Give summary @ -Case discussed with Dr. Chi, who will admit covering Dr. Robert Was smoking cessation discussed for >3mins.? @ -No Was critical care preformed (if so, how long)? @ -No Were there social determinants of health that impacted care today? How? (Homelessness, low income, unemployed, alcoholism, drug addiction, transportation, low edu. Level, literacy, decrease access to med. care, skilled nursing, rehab)? @ -No Was there de-escalation of care discussed even if they declined (Discuss DNR or withdrawal of care, Hospice)? DNR status @ -No What co-morbidities impacted this encounter? (DM, HTN, Smoking, COPD, CAD, Cancer, CVA, ARF, Chemo, Hep., AIDS, mental health diagnosis, sleep apnea, morbid obesity)? @ -None Was patient admitted / discharged? Hospital course, mention meds given and route, prescriptions, significant lab abnormalities, going to OR and other pertinent info. @ -Patient and family made aware of plan. Patient will be admitted. Admission orders started. Undiagnosed new problem with uncertain prognosis? @ -No Drug Therapy requiring intensive monitoring for toxicity (Heparin, Nitro, Insulin, Cardizem)? @ -No Were any procedures done? @ -No Diagnosis/symptom? @ -Bilateral pleural effusions Acute, or Chronic, or Acute on Chronic? @ -Acute on chronic Uncomplicated (without systemic symptoms) or Complicated (systemic symptoms)? @ -default Side effects of treatment? @ -No Exacerbation, Progression, or Severe Exacerbation? @ -No Poses a threat to life or bodily function? How? (Chest pain, [place], [place], pneumonia, PE, COPD, DKA, ARF, appy, cholecystitis, CVA, Diverticulitis, Homicidal, Suicidal, threat to staff... and all critical care pts) @ -No Disposition Clinical Impression: Bilateral pleural effusion Disposition: ADMITTED IP TO THIS HOSP Is patient prescribed a controlled substance at d/c from ED?: No Referrals: Daren Robert MD [Primary Care Provider] - 1-2 days Time of Disposition: 13:09
--- NOTE | 2022-11-17 12:50 | XR ---
EXAMINATION TYPE: XR chest 2V DATE OF EXAM: 11/17/2022 12:44 PM COMPARISON: Chest radiographs from 11/04/2022 TECHNIQUE: XR chest 2V Frontal and lateral views of the chest. CLINICAL INDICATION:Female, 67 years old with history of difficulty breathing; FINDINGS: Lungs/Pleura: Small moderate bilateral pleural effusions with adjacent airspace opacities. No pneumot horax. Mild pulmonary vascular congestion Heart/mediastinum: Cardiomediastinal silhouette is enlarged and stable. Musculoskeletal: No acute osseous pathology. Other findings: None Lines/Tubes: Right chest wall IJ Medipore catheter redemonstrated with distal tip at the superior cavoatrial junct ion. IMPRESSION: Cardiomegaly, pulmonary vascular congestion and bilateral pleural effusions. Correlate with BNP for c ongestive heart failure. Superimposed infectious process is not excluded.
[2022-11-17] MEDS ORDERED: HYDROmorphone 0.5 MG/0.5 ML SYRINGE IVP PRN (13:09)
[2022-11-17] MEDS ORDERED: HYDROmorphone 1 MG/ML 1 ML SYRINGE IVP PRN (13:09)
[2022-11-17] MEDS ORDERED: NALOXONE 0.4 MG/ML 1 ML VIAL IV PRN (13:09)
[2022-11-17] MEDS ORDERED: traMADol 50 MG TAB PO PRN (13:09)
[2022-11-17 13:13] LABS: Basophils % (A) 1 %; Eosinophils % (A) 0 %; HCT 52.2 % (34.0-46.0); HGB 17.4 gm/dL (11.4-16.0); Lymphocytes # (A) 0.6 k/uL (1.0-4.8); Lymphocytes % (A) 13 %; MCH 32.8 pg (25.0-35.0); MCHC 33.3 g/dL (31.0-37.0); MCV 98.5 fL (80.0-100.0); Mean Platelet Volume 7.6; Monocytes # (A) 0.4 k/uL (0-1.0); Monocytes % (A) 7 %; Neutrophils # (A) 3.9 k/uL (1.3-7.7); Neutrophils % (A) 78 %; Platelet Count 144 k/uL (150-450); RDW 15.6 % (11.5-15.5)
[2022-11-17 13:20] LABS: Albumin 3.4 g/dL (3.5-5.0); Calcium 8.8 mg/dL (8.4-10.2); Potassium 4.1 mmol/L (3.5-5.1); Total Bilirubin 0.9 mg/dL (0.2-1.3); Total Protein 6.7 g/dL (6.3-8.2)
[2022-11-17 13:22] LABS: INR 1.1 (<1.2); Partial Thromboplastin Time 25.8 sec (22.0-30.0); Prothrombin Time 11.2 sec (9.0-12.0)
[2022-11-17] MEDS ORDERED: GABAPENTIN 300 MG CAP PO PRN (14:15)
[2022-11-17] MEDS ORDERED: LACTULOSE 20 GM/30 ML CUP PO PRN (14:17)
[2022-11-17] MEDS ORDERED: ONDANSETRON 4 MG/2 ML VIAL IVP PRN (14:17)
[2022-11-17] MEDS ORDERED: CALCIUM CARBONATE 500 MG CHEWABLE PO PRN (14:17)
[2022-11-17] MEDS ORDERED: TEMAZEPAM 15 MG CAP PO PRN (14:17)
[2022-11-17] MEDS ORDERED: ACETAMINOPHEN TAB 325 MG TAB PO PRN (14:17)
[2022-11-17] MEDS ORDERED: LORazepam 0.5 MG TAB PO PRN (14:17)
--- NOTE | 2022-11-17 14:31 | P.HPIM ---
History of Present Illness H&P Date: 11/17/22 Chief Complaint: Short of breath This is a pleasant 67-year-old patient who follows with PCP Dr. Daren Robert. Oncologist Dr. Adorno. Maid Housekeeper Dr. Zeng. 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 treated with chemotherapy and radiation treatment. Had responded well. Patient had recurrence 2020. Received chemotherapy recurrent pleural effusion with multiple thoracentesis Patient lives with her and daughter. Presents with worsening short of breath. Can only take a few steps. Poor appetite. Weight loss. Weak and tired. On the fourth of this month she had a thoracentesis care of Dr. Zeng. Was in the office of her oncologist Dr. King today. Patient is admitted. Has bilateral pleural effusions. Plan is for further thoracentesis. Patient has 3-4 bowel movements a week. Denies any pain. Review of systems: GEN.: Poor appetite, weight loss, weak and tired EYES: None HEENT: None NECK: None RESPIRATORY: No chest pain] CARDIOVASCULAR: None GASTROINTESTINAL: None GENITOURINARY: None MUSCULOSKELETAL: Muscle weakness LYMPHATICS: None HEMATOLOGICAL: None PSYCHIATRY: Anxious NEUROLOGICAL: None Past medical history to include: Uterine cancer, abdominal wall cancer, hypothyroid, hyperlipidemia, peripheral neuropathy Social history: . Denies any history of smoking and alcohol. Lives with and daughter. Family history: Breast cancer Physical examination: VITAL SIGNS: 98.3, 104, 22, 150/104, 90% on 2 L upon presentation GENERAL: Cachectic, laying in bed, awake tired. BMI 21.5 EYES: Pupils equal. Conjunctiva palel HEENT: External appearance of nose and ears normal, oral cavity grossly normal. NECK: JVD not raised; masses not palpable. HEART: First and second heart sounds are normal; some edema present. LUNGS: Respiratory rate increased; decreased breath sounds ABDOMEN: Soft, nontender, liver spleen not palpable, no masses palpable. PSYCH: Alert and oriented x3; mood and affect normal. MUSCULAR skeletal: Diffuse loss of muscle mass and loss of subcutaneous mass, bony prominence INVESTIGATIONS, reviewed in the clinical context: White count 5 hemoglobin 17.4 platelets 144 sodium 136 potassium 4.1 creatinine 1.04 alkaline phosphatase 198 albumin 3.4 EKG tracing personally reviewed by mo-sinus rhythm. 94 pulmonary. Poor of a progression. Nonspecific T-wave changes. Chest x-ray film personally reviewed by me-bilateral pleural effusion. Right greater than left. Assessment and plan: -Recurrent malignant pleural effusion, multiple thoracentesis in the past. Last thoracentesis about [address] Zeng. Has had Pleur-evac placed in the past Now presents acutely symptomatic. Ultrasound chest. Consult pulmonary for thoracentesis. -Recurrent uterine cancer with a prior treatment with radiation and chemotherapy. And immunotherapy. Consult oncology Dr. Adorno -Hyperlipidemia Lipitor -Hypothyroid Synthroid 150 g daily. 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 Vitamin D -Full code [discussed with patient] Discussed with patient and daughter and at the bedside. Given the complexity and severity of patient's condition expect the patient to be in the hospital at least for 2 overnights Past Medical History Past Medical History: Cancer, Hyperlipidemia, Respiratory Disorder, Thyroid Disorder, Vascular Disorder Additional Past Medical History / Comment(s): uterine Ca. ABDOMINAL WALL CANCER History of Any Multi-Drug Resistant Organisms: None Reported Past Surgical History: Hysterectomy Additional Past Surgical History / Comment(s): RUQ biopsy "-" for 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, thoracentesis Past Anesthesia/Blood Transfusion Reactions: No Reported Reaction Past Psychological History: No Psychological Hx Reported Smoking Status: Never smoker - Past Family History Sister(s) Family Medical History: Cancer Additional Family Medical History / Comment(s): breast CA Medications and Allergies Home Medications Medication Instructions Recorded Confirmed Type Pravastatin Sodium [Pravachol] 40 mg PO DAILY 07/16/20 11/04/22 History Gabapentin 300 mg PO BID 03/21/21 11/04/22 History Lenvatinib Mesylate [Lenvima] 18 mg PO DAILY 04/03/21 11/04/22 History Levothyroxine Sodium [Synthroid] 150 mcg PO DAILY 05/06/21 11/04/22 History ondansetron HCL [Zofran] 8 mg PO Q6H PRN 05/06/21 11/04/22 History Metoprolol Succinate [Toprol XL] 50 mg PO DAILY 10/27/22 11/04/22 History Allergies Allergy/AdvReac Type Severity Reaction Status Date / Time No Known Allergies Allergy Verified 11/17/22 14:06 Physical Exam Vitals: Vital Signs Temp Pulse Resp BP Pulse Ox 11/17/22 13:03 90 18 164/104 92 L 11/17/22 11:37 98.3 F 104 H 22 150/104 90 L Intake and Output 11/16/22 11/17/22 11/17/22 22:59 06:59 14:59 Other: Weight 56.699 kg Results CBC & Chem 7: 11/17/22 12:54 11/17/22 12:54 Labs: Abnormal Lab Results - Last 24 Hours (Table) 11/17/22 11/17/22 Range/Units 12:54 12:54 Hgb 17.4 H (11.4-16.0) gm/dL Hct 52.2 H (34.0-46.0) % RDW 15.6 H (11.5-15.5) % Plt Count 144 L (150-450) k/uL Lymphocytes # 0.6 L (1.0-4.8) k/uL Sodium 136 L (137-145) mmol/L Alkaline Phosphatase 198 H (38-126) U/L Albumin 3.4 L (3.5-5.0) g/dL
--- NOTE | 2022-11-17 14:36 | US ---
EXAMINATION TYPE: US chest DATE OF EXAM: 11/17/2022 COMPARISON: NONE CLINICAL HISTORY: effusions. Bilateral pleural effusions TECHNIQUE: Targeted ultrasound of the posterior lower bilateral hemithoraces EXAM MEASUREMENTS: Right Pleural Effusion pocket size: 13.3 cm Right skin surface to fluid distance: 2.7 cm Left Pleural Effusion pocket size: 7.5 cm Left skin surface to fluid distance: 1.6 cm lung tissue visualized 2.3 cm in fluid pocket. Right side marked for possible thoracentesis outside the dept. Left side marked for possible thoracentesis outside the dept. Pulmonologists are able to review the images in the patient?s EMR. IMPRESSIONS: Bilateral pleural effusion
--- NOTE | 2022-11-17 15:21 | P.CNPUL ---
History of Present Illness Consult date: 11/17/22 Requesting physician: Juancho King Reason for consult: dyspnea, pleural effusion, abnormal CXR/CT Chief complaint: Shortness of breath History of present illness: This is a very pleasant 67-year-old female with a known history of hypertension, hyperlipidemia, hypothyroidism, metastatic endometrial cancer originally diagnosed in 2016 and had undergone a hysterectomy and bilateral salpingo-oop horectomy in addition to omentectomy. She was treated with ambler and Taxol and brachytherapy. In 2019 she developed pelvic lymphadenopathy and metastatic disease. She was treated with carboplatinum and Taxol and eventually with immune therapy Keytruda. She developed recurrent bilateral pleural effusions back in 2020 and subsequently had a Pleurx catheter placed on the right with subsequent removal. She had been doing well until October of this year 2022 she developed bilateral pleural effusions again. She had been seen and evaluated by Dr. Zeng. She had undergone a left-sided thoracentesis on 10/02/2022 was 750 MLS removed and subsequently a right-sided thoracentesis earlier this month with 550 mL removed. She was seen today at her oncologist office with increasing shortness of breath. She was referred here to the emergency room to be admitted for consideration for placement of Pleurx catheters versus thoracentesis. She does remain on Keytruda. Chest x-ray reveals cardiomegaly, pulmonary vascular congestion and bilateral pleural effusions. Ultrasound of the chest revealed a right-sided 13.3 cm pocket and a 7.5 cm pocket on the left however there is lung tissue visualized within the pocket. She is seen today in consultation in the ER. She is currently resting comfortably on a stretcher. Awake and alert in no acute distress. She is maintaining good O2 saturation in the 90s on 2 L/m per nasal cannula. She does have home oxygen as well. She is afebrile. White count 5.0. Hemoglobin 17.4. Platelets 144. INR 1.1. Sodium 136. Potassium 4.1. Bicarb 28. BUN 17. Creatinine 1.04. AST 30. ALT 18. Albumin 3.4. Home medications have been reconciled. Lovenox for DVT prophylaxis. Review of Systems REVIEW OF SYSTEMS: CONSTITUTIONAL: Denies any recent significant weight loss or weight gain. EYES: Denies change in vision. EARS, NOSE, MOUTH, THROAT: Denies headaches, denies sore throat. CARDIOVASCULAR: Denies chest pain, palpitations or syncopal episodes. RESPIRATORY: Positive for shortness of breath, cough, congestion no hemoptysis. GASTROINTESTINAL: Denies change in appetite, denies abdominal pain GENITOURINARY: Denies hematuria, denies infections. MUSKULOSKELETAL: Denies pain, denies swelling. INTEGUMENTARY: Denies rash, denies eczema. NEUROLOGICAL: Denies recent memory loss, no recent seizure activity. PSYCHIATRIC: Denies anxiety, denies depression. HEMATOLOGIC/LYMPHATIC: Denies anemia, denies enlarged lymph nodes. Past Medical History Past Medical History: Cancer, Hyperlipidemia, Respiratory Disorder, Thyroid Disorder, Vascular Disorder Additional Past Medical History / Comment(s): uterine Ca. ABDOMINAL WALL CANCER History of Any Multi-Drug Resistant Organisms: None Reported Past Surgical History: Hysterectomy Additional Past Surgical History / Comment(s): RUQ biopsy "-" for 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, thoracentesis Past Anesthesia/Blood Transfusion Reactions: No Reported Reaction Past Psychological History: No Psychological Hx Reported Smoking Status: Never smoker - Past Family History Sister(s) Family Medical History: Cancer Additional Family Medical History / Comment(s): breast CA Medications and Allergies Home Medications Medication Instructions Recorded Confirmed Type Pravastatin Sodium [Pravachol] 40 mg PO DAILY 07/16/20 11/17/22 History Gabapentin 300 mg PO BID PRN 03/21/21 11/17/22 History Lenvatinib Mesylate [Lenvima] 18 mg PO DIRECTED 04/03/21 11/17/22 History Levothyroxine Sodium [Synthroid] 150 mcg PO DAILY 05/06/21 11/17/22 History ondansetron HCL [Zofran] 8 mg PO Q6H PRN 05/06/21 11/17/22 History Metoprolol Succinate [Metoprolol 25 mg PO DAILY 11/17/22 11/17/22 History Succinate ER] Pembrolizumab [Keytruda] 200 mg IVPB Q21D 11/17/22 11/17/22 History metroNIDAZOLE 1% GEL [Metrogel 1%] 1 applic TOPICAL DAILY PRN 11/17/22 11/17/22 History Allergies Allergy/AdvReac Type Severity Reaction Status Date / Time No Known Allergies Allergy Verified 11/17/22 14:06 Physical Exam Vitals: Vital Signs Temp Pulse Resp BP Pulse Ox 11/17/22 14:06 96 18 154/96 90 L 11/17/22 13:03 90 18 164/104 92 L 11/17/22 11:37 98.3 F 104 H 22 150/104 90 L Intake and Output 11/17/22 11/17/22 11/17/22 06:59 14:59 22:59 Other: Weight 56.699 kg GENERAL EXAM: Alert, pleasant 67-year-old female, on 2 L, appears older than stated age, cachectic, comfortable in no apparent distress. HEAD: Normocephalic. EYES: Normal reaction of pupils, equal size. NOSE: Clear with pink turbinates. THROAT: No erythema or exudates. NECK: No masses, no JVD. CHEST: No chest wall deformity. LUNGS: Equal air entry with crackles in the bilateral bases right greater than left. Diminished. CVS: S1 and S2 normal with no audible murmur, regular rhythm. ABDOMEN: No hepatosplenomegaly, normal bowel sounds, no guarding or rigidity. SPINE: No scoliosis or deformity SKIN: No rashes CENTRAL NERVOUS SYSTEM: No focal deficits, tone is normal in all 4 extremities. EXTREMITIES: There is no peripheral edema. No clubbing, no cyanosis. Peripheral pulses are intact. Results - Laboratory Findings CBC and BMP: 11/17/22 12:54 11/17/22 12:54 PT/INR, D-dimer PT 11.2 sec (9.0-12.0) 11/17/22 12:54 INR 1.1 (<1.2) 11/17/22 12:54 Abnormal lab findings: Abnormal Labs 11/17/22 11/17/22 12:54 12:54 Hgb 17.4 H Hct 52.2 H RDW 15.6 H Plt Count 144 L Lymphocytes # 0.6 L Sodium 136 L Alkaline Phosphatase 198 H Albumin 3.4 L - Diagnostic Findings Chest x-ray: image reviewed Assessment and Plan Assessment: Acute on chronic hypoxemic respiratory failure secondary to recurrent bilateral pleural effusions. Recent thoracentesis on 11/04/2022 on the right with 550 mL of fluid removed and prior to that on 10/23/2022 on the left with 750 ML's of turbid fluid removed. Negative for malignancy. Previous history of recurrent bilateral pleural effusions back in 2020 with eventual Pleurx catheter placement on the right 05/07/2021 and subsequent removal History of metastatic endometrial cancer diagnosed in 2017 and had undergone hysterectomy with bilateral salpingo-oophorectomy with omentectomy on 06/07/2018. Treated with chemotherapy. Recurrence noted in August 2020 with evidence of pelvic lymphadenopathy and metastatic disease. Treated again with chemotherapy and subsequent immunotherapy. Remains on Keytruda. Chronic hypoxemic respiratory failure on home oxygen Hypertension Hyperlipidemia Hypothyroidism Plan: The patient was seen and evaluated Ultrasound of the chest, chest x-ray, labs and medications reviewed Consult placed to cardiothoracic for possible Pleurx catheter placement on the right If not, we'll perform a right-sided thoracentesis tomorrow Left-sided effusion has lung tissue within Continue the current treatment plan We'll continue to follow and make further recommendations based on her clinical status I have personally seen and examined the patient, performed the documentation and the assessment and plan as written. Number of minutes spent on the visit: 20.
[2022-11-17] MEDS: ENOXAPARIN 40 MG/0.4 ML SYRINGE SQ SCH (15:22)
[2022-11-17] MEDS: CALCIUM CARB-VIT D 500 MG-5 MCG TAB PO SCH (15:24)
[2022-11-17] MEDS: MULTIVITAMINS, THERA 1 EACH TAB PO SCH (15:37)
--- NOTE | 2022-11-17 15:58 | P.GSCN ---
History of Present Illness Consult date: 11/17/22 Reason for Consult: Bilateral pleural effusions, questionable need for Pleurx catheters Requesting physician: Bronson Verma History of present illness: This is a 67-year-old female patient who follows outpatient with Dr. Zeng for pulmonology and Dr. King for oncology. She has a known history of metastatic uterine/endometrial cancer status post ASHLIE/BSO currently on Keytruda for immunotherapy, recurrent bilateral pleural effusions status post thoracenteses, home oxygen use at 2 L/m nasal cannula, hypertension, hyperlipidemia, hypothyroid. This young lady was treated in the past with carboplatinum and Taxol along with brachytherapy for her cancer. In 2019 she developed pelvic lymphadenopathy and metastatic disease. She developed recurrent bilateral pleural effusions back in 2020 with right-sided Pleurx catheter placement by Dr. Bennett in May 2021 with subsequent removal December 2021. Apparently she had been doing fairly well and had been following up with Dr. Zeng and Dr. King. Unfortunately in October of this year she developed bilateral pleural effusions again and was seen by Dr. Zeng. She underwent left sided thoracentesis 10/23/2022 with removal of 750 mL fluid, and subsequently right-sided thoracentesis 11/04/2022 with removal of 550 mL fluid. She reports that after each thoracentesis she really only felt better for a couple of days and then continued to have progressive shortness of breath. She was at her oncologist office today with complaints of increasing shortness of breath, and was directed to report to the emergency room for consideration for placement of Pleurx catheters. Chest x-ray demonstrated cardiomegaly, pulmonary vascular congestion, bilateral pleural effusions. Ultrasound chest was ordered demonstrating right-sided fluid pocket 13.3 cm, left-sided fluid pocket 7.5 cm with lung tissue visualized within the left pocket. Due to these findings consultation was placed to cardiothoracic surgery for consideration of Pleurx catheter placement. Review of Systems Review of systems is completed and was negative except as - Respiratory Reports cough, Reports dyspnea, Reports home oxygen Past Medical History Past Medical History: Cancer, Hyperlipidemia, Hypertension, Respiratory Disorder, Thyroid Disorder, Vascular Disorder Additional Past Medical History / Comment(s): uterine/endometrial cancer; bilateral pleural effusions History of Any Multi-Drug Resistant Organisms: None Reported Past Surgical History: Hysterectomy Additional Past Surgical History / Comment(s): RUQ biopsy "-" for 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; right-sided Pleurx catheter placement May; left thoracentesis 10/23/22 with removal of 750 mL fluid; right thoracentesis 11/04/2022 with removal of 550 mL fluid Past Anesthesia/Blood Transfusion Reactions: No Reported Reaction Past Psychological History: No Psychological Hx Reported Smoking Status: Never smoker Past Alcohol Use History: None Reported Past Drug Use History: None Reported - Past Family History Sister(s) Family Medical History: Cancer Additional Family Medical History / Comment(s): breast CA Medications and Allergies Home Medications Medication Instructions Recorded Confirmed Type Pravastatin Sodium [Pravachol] 40 mg PO DAILY 07/16/20 11/17/22 History Gabapentin 300 mg PO BID PRN 03/21/21 11/17/22 History Lenvatinib Mesylate [Lenvima] 18 mg PO DIRECTED 04/03/21 11/17/22 History Levothyroxine Sodium [Synthroid] 150 mcg PO DAILY 05/06/21 11/17/22 History ondansetron HCL [Zofran] 8 mg PO Q6H PRN 05/06/21 11/17/22 History Metoprolol Succinate [Metoprolol 25 mg PO DAILY 11/17/22 11/17/22 History Succinate ER] Pembrolizumab [Keytruda] 200 mg IVPB Q21D 11/17/22 11/17/22 History metroNIDAZOLE 1% GEL [Metrogel 1%] 1 applic TOPICAL DAILY PRN 11/17/22 11/17/22 History Allergies Allergy/AdvReac Type Severity Reaction Status Date / Time No Known Allergies Allergy Verified 11/17/22 14:06 Surgical - Exam Vital Signs Temp Pulse Resp BP Pulse Ox 98.3 F 104 H 22 150/104 90 L 11/17/22 11:37 11/17/22 11:37 11/17/22 11:37 11/17/22 11:37 11/17/22 11:37 CONSTITUTIONAL: Awake and alert, appears comfortable although a bit short of breath, cooperative, denies pain, appears cachectic EYES: Pupils equal, round, reactive to light, normal ocular movement ENT: Moist mucous membranes without oral lesions present NECK: No masses, no bruits, trachea midline RESPIRATORY: Lungs sounds diminished bilaterally. Respirations even, nonlabored. Currently on 2 L nasal cannula with oxygen saturation 92%. CARDIOVASCULAR: S1, S2 present. Regular rate and rhythm, sinus rhythm on telemetry. Palpable peripheral pulses bilaterally. No edema present. GASTROINTESTINAL: Abdomen soft, nontender, nondistended without masses or organomegaly noted. There is no rebound or guarding present. Active bowel sounds present 4 quadrants. GENITOURINARY: Deferred INTEGUMENTARY: Skin is warm and dry with evidence of good perfusion. NEUROLOGIC: Cranial nerves II through XII intact, normal coordination, no obvious motor or sensory deficits, speech is normal MUSKULOSKELETAL: Able to move all extremities, strength equal bilaterally, normal posture PSYCHIATRIC: Alert and oriented to person place and time, appropriate affect, intact judgment and insight Results - Labs 11/17/22 12:54 11/17/22 12:54 Abnormal Lab Results - Last 24 Hours (Table) 11/17/22 11/17/22 Range/Units 12:54 12:54 Hgb 17.4 H (11.4-16.0) gm/dL Hct 52.2 H (34.0-46.0) % RDW 15.6 H (11.5-15.5) % Plt Count 144 L (150-450) k/uL Lymphocytes # 0.6 L (1.0-4.8) k/uL Sodium 136 L (137-145) mmol/L Alkaline Phosphatase 198 H (38-126) U/L Albumin 3.4 L (3.5-5.0) g/dL Diabetes panel 11/17/22 Range/Units 12:54 Sodium 136 L (137-145) mmol/L Potassium 4.1 (3.5-5.1) mmol/L Chloride 101 (98-107) mmol/L Carbon Dioxide 28 (22-30) mmol/L BUN 17 (7-17) mg/dL Creatinine 1.04 (0.52-1.04) mg/dL Glucose 98 (74-99) mg/dL Calcium 8.8 (8.4-10.2) mg/dL AST 30 (14-36) U/L ALT 18 (4-34) U/L Alkaline Phosphatase 198 H (38-126) U/L Total Protein 6.7 (6.3-8.2) g/dL Albumin 3.4 L (3.5-5.0) g/dL Calcium panel 11/17/22 Range/Units 12:54 Calcium 8.8 (8.4-10.2) mg/dL Albumin 3.4 L (3.5-5.0) g/dL Pituitary panel 11/17/22 Range/Units 12:54 Sodium 136 L (137-145) mmol/L Potassium 4.1 (3.5-5.1) mmol/L Chloride 101 (98-107) mmol/L Carbon Dioxide 28 (22-30) mmol/L BUN 17 (7-17) mg/dL Creatinine 1.04 (0.52-1.04) mg/dL Glucose 98 (74-99) mg/dL Calcium 8.8 (8.4-10.2) mg/dL Adrenal panel 11/17/22 Range/Units 12:54 Sodium 136 L (137-145) mmol/L Potassium 4.1 (3.5-5.1) mmol/L Chloride 101 (98-107) mmol/L Carbon Dioxide 28 (22-30) mmol/L BUN 17 (7-17) mg/dL Creatinine 1.04 (0.52-1.04) mg/dL Glucose 98 (74-99) mg/dL Calcium 8.8 (8.4-10.2) mg/dL Total Bilirubin 0.9 (0.2-1.3) mg/dL AST 30 (14-36) U/L ALT 18 (4-34) U/L Alkaline Phosphatase 198 H (38-126) U/L Total Protein 6.7 (6.3-8.2) g/dL Albumin 3.4 L (3.5-5.0) g/dL - Imaging Chest x-ray: report reviewed, image reviewed Additional studies: Results of chest ultrasound reviewed Assessment and Plan Assessment: 1. Bilateral pleural effusions 2. Acute and chronic respiratory failure 3 Progressive shortness of breath, secondary to above 4. Metastatic uterine/endometrial cancer status post ASHLIE/BSO currently on Keytruda for immunotherapy 5. Previous history of recurrent bilateral pleural effusions status post thoracenteses, right-sided Pleurx catheter 05/27-12/26 6. Chronic respiratory failure on home oxygen use at 2 L/m nasal cannula 7. Hypertension 8. Hyperlipidemia 9. Hypothyroid Plan: The patient was seen in the emergency room sitting up on a cart in no signi ficant distress. Denies any pain, does admit to some shortness of breath with movement but states she feels okay at rest. Currently on 2 L nasal cannula with oxygen saturation in the low 90s. Remains in sinus rhythm. The case was discussed in detail with Dr. Bennett. Recommendations were made for CT scan of the chest to evaluate her effusions. Potential pleurx catheter placement depending on CT scan findings. This was discussed with Dr. Verma. Incentive spirometry ordered and should be encouraged, the patient does have some atelectasis. Patient may benefit from diuretics. Medical management of other comorbidities per internal medicine, pulmonology. More recommendations to follow. I have personally seen and examined the patient, performed the documentation and the assessment and plan as written. Number of minutes spent on the visit: 30. Pepper Alex NP-C
--- NOTE | 2022-11-17 16:05 | CT ---
EXAMINATION TYPE: CT chest wo con CT DLP: 192.8 mGycm, Automated exposure control for dose reduction was used. DATE OF EXAM: 11/17/2022 3:57 PM COMPARISON: Ultrasound chest 11/17/2022, CT chest 10/26/2022. CLINICAL INDICATION:Female, 67 years old with history of bilateral pleural effusions, Bilateral pleur al effusions. No contrast. Hx uterine/abdominal wall ca TECHNIQUE: Multiple axial images were obtained through the chest. Sagittal and coronal reformats were created for review. Contrast used: none. Oral contrast used: none. FINDINGS: LUNGS/ PLEURA: Bilateral moderate pleural effusions right greater than left. Loculations are felt to be on the right. There is airspace opacities within the right lung base. Thickening of interlobular s epta most pronounced on the right. AIRWAY: Patent and unremarkable. HEART: Size within normal limits. There is a pericardial effusion which is mild to moderate MEDIASTINUM: No gross evidence of adenopathy. VASCULATURE: No aortic aneurysm. Right chest wall [id number]-[id number]-Cirx tip terminating in appropriate posit ion the superior vena cava. MUSCULOSKELETAL: No acute osseous abnormalities SOFT TISSUES/LYMPH NODES: Unremarkable. LOWER NECK: No significant findings. UPPER ABDOMEN: No significant findings. IMPRESSION: 1. Moderate bilateral pleural effusions. The right pleural effusion appears somewhat loculated along the fissure and along the right lateral nondependent wall. 2. Small pericardial effusion. 3. Moderate coronary artery atherosclerosis. 4. There is a component of pulmonary vascular congestion most pronounced in the right lung.
[2022-11-17] MEDS: FAMOTIDINE 20 MG TAB PO SCH (21:18)
[2022-11-18] MEDS: LEVOTHYROXINE 75 MCG TAB PO SCH ×2 (06:23→07:06)
[2022-11-18] MEDS: METOPROLOL SUCCINATE (ER) 25 MG TAB.ER.24H PO SCH (08:29)
[2022-11-18] MEDS: ENOXAPARIN 40 MG/0.4 ML SYRINGE SQ SCH (08:29)
[2022-11-18] MEDS: PRAVASTATIN SODIUM 40 MG TAB PO SCH (08:30)
[2022-11-18] MEDS: CALCIUM CARB-VIT D 500 MG-5 MCG TAB PO SCH ×2 (08:30→18:10)
[2022-11-18] MEDS: FAMOTIDINE 20 MG TAB PO SCH (08:30)
[2022-11-18] MEDS: MULTIVITAMINS, THERA 1 EACH TAB PO SCH (08:30)
[2022-11-18 09:19] LABS: T4, Free (Free Thyroxine) 1.63 ng/dL (0.78-2.19)
--- NOTE | 2022-11-18 11:29 | P.PN ---
Subjective Progress Note Date: 11/18/22 This is a very pleasant 67-year-old female with a known history of hypertension, hyperlipidemia, hypothyroidism, metastatic endometrial cancer originally diagnosed in 2016 and had undergone a hysterectomy and bilateral salpingo- oophorectomy in addition to omentectomy. She was treated with wilton and Ta xol and brachytherapy. In 2019 she developed pelvic lymphadenopathy and metastatic disease. She was treated with carboplatinum and Taxol and eventually with immune therapy Keytruda. She developed recurrent bilateral pleural effusions back in 2020 and subsequently had a Pleurx catheter placed on the right with subsequent removal. She had been doing well until October of this year 2022 she developed bilateral pleural effusions again. She had been seen and evaluated by Dr. Zeng. She had undergone a left-sided thoracentesis on 10/02/2022 was 750 MLS removed and subsequently a right-sided thoracentesis earlier this month with 550 mL removed. She was seen today at her oncologist office with increasing shortness of breath. She was referred here to the emergency room to be admitted for consideration for placement of Pleurx catheters versus thoracentesis. She does remain on Keytruda. Chest x-ray reveals cardiomegaly, pulmonary vascular congestion and bilateral pleural effusions. Ultrasound of the chest revealed a right-sided 13.3 cm pocket and a 7.5 cm pocket on the left however there is lung tissue visualized within the pocket. She is seen today in consultation in the ER. She is currently resting comfortably on a stretcher. Awake and alert in no acute distress. She is maintaining good O2 saturation in the 90s on 2 L/m per nasal cannula. She does have home oxygen as well. She is afebrile. White count 5.0. Hemoglobin 17.4. Platelets 144. INR 1.1. Sodium 136. Potassium 4.1. Bicarb 28. BUN 17. Creatinine 1.04. AST 30. ALT 18. Albumin 3.4. Home medications have been reconciled. Lovenox for DVT prophylaxis. The patient is seen today 11/18/2022 in follow-up on the regular medical floor. She is currently sitting up in bed. Awake and alert in no acute distress. Currently maintaining O2 saturations in the 90s on 3 L/m per nasal cannula. She's afebrile. Hemodynamically stable. She is dyspneic with conversation. Dyspneic with minimal exertion. Computed tomography scan of the chest revealed moderate bilateral pleural effusions. The right pleural effusion appears somewhat loculated along the fissure and along the right lateral nondependent wall. There are small pericardial effusion. Moderate coronary artery atherosclerosis. There is a component of pulmonary vascular congestion most pronounced in the right lung. TSH 32.9. Free T4 1 0.63. Remains on Lovenox for DVT prophylaxis. Objective - Vital Signs Vital signs: Vital Signs Temp 97.8 F 11/18/22 06:51 Pulse 88 11/18/22 09:19 Resp 20 11/18/22 09:19 BP 136/84 11/18/22 06:51 Pulse Ox 93 L 11/18/22 07:44 FiO2 Intake & Output 11/17/22 11/18/22 11/18/22 18:59 06:59 18:59 Intake Total 358 Balance 358 Weight 56.699 kg Intake: Oral 358 Other: Voiding Method Toilet # Voids 2 1 - Exam GENERAL EXAM: Alert, 67-year-old female, on 3 L, appears older than stated age, cachectic, comfortable in no apparent distress. HEAD: Normocephalic. EYES: Normal reaction of pupils, equal size. NOSE: Clear with pink turbinates. THROAT: No erythema or exudates. NECK: No masses, no JVD. CHEST: No chest wall deformity. LUNGS: Equal air entry with crackles in the bilateral bases right greater than left. Diminished. CVS: S1 and S2 normal with no audible murmur, regular rhythm. ABDOMEN: No hepatosplenomegaly, normal bowel sounds, no guarding or rigidity. SPINE: No scoliosis or deformity SKIN: No rashes CENTRAL NERVOUS SYSTEM: No focal deficits, tone is normal in all 4 extremities. EXTREMITIES: There is no peripheral edema. No clubbing, no cyanosis. Peripheral pulses are intact. - Labs CBC & Chem 7: 11/17/22 12:54 11/17/22 12:54 Labs: Abnormal Lab Results - Last 24 Hours (Table) 11/17/22 11/17/22 11/18/22 Range/Units 12:54 12:54 05:21 Hgb 17.4 H (11.4-16.0) gm/dL Hct 52.2 H (34.0-46.0) % RDW 15.6 H (11.5-15.5) % Plt Count 144 L (150-450) k/uL Lymphocytes # 0.6 L (1.0-4.8) k/uL Sodium 136 L (137-145) mmol/L Alkaline Phosphatase 198 H (38-126) U/L Albumin 3.4 L (3.5-5.0) g/dL TSH 32.900 H (0.465-4.680) mIU/L Assessment and Plan Assessment: Acute on chronic hypoxemic respiratory failure secondary to recurrent bilateral pleural effusions. Recent thoracentesis on 11/04/2022 on the right with 550 mL of fluid removed and prior to that on 10/23/2022 on the left with 750 ML's of turbid fluid removed. Negative for malignancy. Previous history of recurrent bilateral pleural effusions back in 2020 with eventual Pleurx catheter placement on the right 05/07/2021 and subsequent removal History of metastatic endometrial cancer diagnosed in 2016 and had undergone hysterectomy with bilateral salpingo-oophorectomy with omentectomy on 06/07/2018. Treated with chemotherapy. Recurrence noted in August 2020 with evidence of pelvic lymphadenopathy and metastatic disease. Treated again with chemotherapy and subsequent immunotherapy. Remains on Keytruda. Chronic hypoxemic respiratory failure on home oxygen Hypertension Hyperlipidemia Hypothyroidism Plan: The patient was seen and evaluated Computed tomography scan of the chest, labs and medications reviewed Plan is for left-sided Pleurx catheter placement per CT services tomorrow May require pigtail catheter insertion on the right at a later date, possible alteplase infusion Right-sided effusion is more loculated Titrate the FiO2 as tolerated We'll continue to follow I have personally seen and examined the patient, performed the documentation and the assessment and plan as written. Number of minutes spent on the visit: 10.
--- NOTE | 2022-11-18 12:44 | P.PN ---
Subjective Progress Note Date: 11/18/22 Principal diagnosis: Bilateral pleural effusions. Past medical history significant for metastatic uterine/endometrial cancer status post hysterectomy, bilateral salpingo-oophorectomy and omentectomy currently on Keytruda for immunotherapy, recurrent bilateral pleural effusions status post thoracenteses with history of right-sided Pleurx catheter placement in May 2021 with subsequent removal, home oxygen use at 2 L/m nasal cannula, hypertension, hyperlipidemia, hypothyr oid. The patient was seen and examined at her bedside on the fifth floor medical oncology unit today 11/18/2022. Currently she is lying in bed, is awake, alert, oriented 3 and is in no acute apparent distress. She is complaining of some episodes of shortness of breath with exertion and with speaking, although denies any complaints of pain at this time. The patient is scheduled for a left sided Pleurx catheter placement tomorrow 11/19/2022 to be performed by Dr. Michoacano Bennett. Risks and benefits of the procedure were discussed with the patient and her questions were answered to the best of my ability. She'll be made nothing by mouth after midnight. Preoperative teaching completed with the patient. Oxygen saturations are 93% on 3 L nasal cannula. Computed tomography scan of the chest without contrast was completed yesterday 11/17/2022 which demonstrated moderate bilateral pleural effusions, the right pleural effusion somewhat loculated along the fissure and along the right lateral nondependent wall, a small pericardial effusion, moderate coronary artery atherosclerosis and a component of pulmonary vascular congestion mostly pronounced in the right lung. She has been afebrile the last 24 hours. No new concerns. Objective - Vital Signs Vital signs: Vital Signs Temp 97.8 F 11/18/22 06:51 Pulse 88 11/18/22 09:19 Resp 20 11/18/22 09:19 BP 136/84 11/18/22 06:51 Pulse Ox 93 L 11/18/22 07:44 FiO2 Intake & Output 11/17/22 11/18/22 11/18/22 18:59 06:59 18:59 Intake Total 358 Balance 358 Weight 56.699 kg Intake: Oral 358 Other: Voiding Method Toilet # Voids 2 1 - Exam CONSTITUTIONAL: Awake and alert, shortness of breath with conversation, cooperative, denies pain, cachectic. EYES: Pupils equal, round, reactive to light, normal ocular movement. ENT: Moist mucous membranes without oral lesions present. NECK: No masses, no bruits, trachea midline. RESPIRATORY: Lungs sounds diminished throughout bilaterally. Respirations are symmetrical, nonlabored. Currently on 3 L nasal cannula with oxygen saturation 93%. CARDIOVASCULAR: S1, S2 present. Regular rate and rhythm. Palpable peripheral pulses bilaterally. No edema present. GASTROINTESTINAL: Abdomen soft, nontender, nondistended without masses or organomegaly noted. There is no rebound or guarding present. Active bowel sounds present 4 quadrants. GENITOURINARY: Continues to void. INTEGUMENTARY: Skin is warm and dry with evidence of good perfusion. NEUROLOGIC: Cranial nerves II through XII intact, normal coordination, no obvious motor or sensory deficits, speech is normal. MUSKULOSKELETAL: Able to move all extremities, strength equal bilaterally. PSYCHIATRIC: Alert and oriented to person place and time, appropriate affect, intact judgment and insight. - Allied health notes Allied health notes reviewed: nursing - Labs CBC & Chem 7: 11/17/22 12:54 11/17/22 12:54 Labs: Abnormal Lab Results - Last 24 Hours (Table) 11/17/22 11/17/22 11/18/22 Range/Units 12:54 12:54 05:21 Hgb 17.4 H (11.4-16.0) gm/dL Hct 52.2 H (34.0-46.0) % RDW 15.6 H (11.5-15.5) % Plt Count 144 L (150-450) k/uL Lymphocytes # 0.6 L (1.0-4.8) k/uL Sodium 136 L (137-145) mmol/L Alkaline Phosphatase 198 H (38-126) U/L Albumin 3.4 L (3.5-5.0) g/dL TSH 32.900 H (0.465-4.680) mIU/L - Imaging and Cardiology CT scan - chest: report reviewed, image reviewed Assessment and Plan Assessment: 1. Bilateral pleural effusions 2. Acute and chronic respiratory failure 3 Progressive shortness of breath, secondary to above 4. Metastatic uterine/endometrial cancer status post ASHLIE/BSO currently on Keytruda for immunotherapy 5. Previous history of recurrent bilateral pleural effusions status post thoracenteses, right-sided Pleurx catheter 05/27 and removed 12/26 6. Chronic respiratory failure on home oxygen use at 2 L/m nasal cannula 7. Hypertension 8. Hyperlipidemia 9. Hypothyroid Plan: 1. The patient is scheduled for a left sided Pleurx catheter insertion tomorrow at [address] [place]oacano Bennett under fluoroscopy. 2. The patient will be nothing by mouth after midnight. 3. Case management has been consulted for arrangement of Pleurx catheter supplies and home health care. 4. Medical management and other comorbidities per primary care service and other consultants. 5. More recommendations follow based on patient's clinical course. Time with Patient: Greater than 30
[2022-11-18 13:19] VITALS: BMI 21.4
--- NOTE | 2022-11-18 14:31 | P.PN ---
Progress Note - Text Progress Note Date: 11/18/22 Chief Complaint: Short of breath This is a pleasant 67-year-old patient who follows with PCP Dr. Daren Robert. Oncologist Dr. Adorno. Rehabilitation Teacher Dr. Zeng. 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 treated with chemotherapy and radiation treatment. Had responded well. Patient had recurrence 2020. Received chemotherapy recurrent pleural effusion with multiple thoracentesis Patient lives with her and daughter. Presents with worsening short of breath. Can only take a few steps. Poor appetite. Weight loss. Weak and tired. On the fourth of this month she had a thoracentesis care of Dr. Zeng. Was in the office of her oncologist Dr. King today. Patient is admitted. Has bilateral pleural effusions. Plan is for further thoracentesis. Patient has 3-4 bowel movements a week. Denies any pain. 11/18/2022: Reclining in bed. Short of breath. Nasal cannula. Did eat some. CT chest showing a large sided effusion likely located. Patient scheduled for a left-sided Pleurx catheter tomorrow. Depending upon symptoms right-sided loculated fluid may need to be tapped. Active Medications Acetaminophen (Acetaminophen Tab 325 Mg Tab) 650 mg PO Q6HR PRN PRN Reason: Mild Pain or Fever > 100.5 Calcium Carbonate (Calcium Carb-Vit D 500 Mg-5 Mcg Tab) 1 each PO BID-W/MEALS [facility] Last Admin: 11/18/22 08:30 Dose: 1 each Calcium Carbonate/Glycine (Calcium Carbonate 500 Mg Chewable) 1,000 mg PO Q4HR PRN PRN Reason: Dyspepsia Enoxaparin Sodium (Enoxaparin 40 Mg/0.4 Ml Syringe) 40 mg SQ DAILY [facility] Last Admin: 11/18/22 08:29 Dose: 40 mg Famotidine (Famotidine 20 Mg Tab) 20 mg PO DAILY [facility] Last Admin: 11/18/22 08:30 Dose: 20 mg Gabapentin (Gabapentin 300 Mg Cap) 300 mg PO BID PRN PRN Reason: Pain Hydromorphone HCl (Hydromorphone 1 Mg/Ml 1 Ml Syringe) 1 mg IVP Q3HR PRN PRN Reason: Severe Pain (Scale 7 to 10) Hydromorphone HCl (Hydromorphone 0.5 Mg/0.5 Ml Syringe) 0.5 mg IVP Q3HR PRN PRN Reason: Moderate Pain (Scale 4 to 6) Cefazolin Sodium 2 gm/ Sodium (Chloride) 50 mls @ 100 mls/hr IVPB ONCE PRN; Protocol PRN Reason: PREOP/OR Stop: 11/19/22 23:00 Lactulose (Lactulose 20 Gm/30 Ml Cup) 20 gm PO DAILY PRN PRN Reason: Constipation Levothyroxine Sodium (Levothyroxine 75 Mcg Tab) 150 mcg PO DAILY@0630 [facility] Last Admin: 11/18/22 07:06 Dose: Not Given Lorazepam (Lorazepam 0.5 Mg Tab) 0.5 mg PO Q6HR PRN PRN Reason: Anxiety Metoprolol Succinate (Metoprolol Succinate (Er) 25 Mg Tab.Er.24h) 25 mg PO DAILY [facility] Last Admin: 11/18/22 08:29 Dose: 25 mg Multivitamins (Multivitamins, Thera 1 Each Tab) 1 each PO DAILY [facility] Last Admin: 11/18/22 08:30 Dose: 1 each Naloxone HCl (Naloxone 0.4 Mg/Ml 1 Ml Vial) 0.2 mg IV Q2M PRN PRN Reason: Opioid Reversal Ondansetron HCl (Ondansetron 4 Mg/2 Ml Vial) 4 mg IVP Q8HR PRN PRN Reason: Nausea And Vomiting Pravastatin Sodium (Pravastatin Sodium 40 Mg Tab) 40 mg PO DAILY [facility] Last Admin: 11/18/22 08:30 Dose: 40 mg Temazepam (Temazepam 15 Mg Cap) 15 mg PO HS PRN PRN Reason: Insomnia Tramadol HCl (Tramadol 50 Mg Tab) 50 mg PO Q6H PRN PRN Reason: Moderate Pain (Scale 4 to 6) Past medical history to include: Uterine cancer, abdominal wall cancer, hypothyroid, hyperlipidemia, peripheral neuropathy Social history: . Denies any history of smoking and alcohol. Lives with and daughter. Family history: Breast cancer Physical examination: VITAL SIGNS: 97.8, 88, 20, 1 3684, 93% on 3 L GENERAL: Cachectic, reclining bed, awake tired. EYES: Pupils equal. Conjunctiva palel HEENT: External appearance of nose and ears normal, oral cavity grossly normal. NECK: JVD not raised; masses not palpable. HEART: First and second heart sounds are normal; some edema present. LUNGS: Respiratory rate increased; decreased breath sounds ABDOMEN: Soft, nontender, liver spleen not palpable, no masses palpable. PSYCH: Alert and oriented x3; mood and affect normal. MUSCULAR skeletal: Diffuse loss of muscle mass and loss of subcutaneous mass, bony prominence INVESTIGATIONS, reviewed in the clinical context: White count 5 hemoglobin 17.4 platelets 144 sodium 136 potassium 4.1 creatinine 1.04 alkaline phosphatase 198 albumin 3.4 EKG tracing personally reviewed by me-sinus rhythm. 94 pulmonary. Poor of a progression. Nonspecific T-wave changes. Chest x-ray film personally reviewed by me-bilateral pleural effusion. Right greater than left. Assessment and plan: -Recurrent malignant pleural effusion, multiple thoracentesis in the past. Last thoracentesis about [address] Zeng. Has had Pleur-evac placed in the past Now presents acutely symptomatic. : Not improving Left-sided Pleurx placement by CTS tomorrow -Recurrent uterine cancer with a prior treatment with radiation and chemotherapy. And immunotherapy. Consulted- oncology Dr. Adorno -Acute on chronic hypoxic respiratory failure secondary to recurrent bilateral pleural effusion. -Hyperlipidemia Lipitor -Hypothyroid Synthroid 150 g daily. 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 Vitamin D -Full code [discussed with patient] Pleurx for tomorrow. We'll see how patient does may require right-sided loculated fluid to be tapped discussed with Dr. Avendaño. The patient. Continue current medications.
--- NOTE | 2022-11-18 18:22 | P.CONS ---
History of Present Illness - Reason for Consult Consult date: 11/18/22 hx uterine cancer Requesting physician: Lester Mancilla - Chief Complaint SOB - History of Present Illness Patient is a 67-year-old female with a significant history of metastatic uterine cancer, who follows with Dr. Juancho King. She was seen in clinic yesterday and was not feeling well c/o progressing SOB, fatigue and poor oral intake, she was subsequently sent to the ER for further evaluation. She is currently on Keytruda and lenvima. She received last dose of keytruda on 11/04/22, and reports not missing any doses of her Lenvima. Patient has had recurrent pleural effusion with multiple thoracentesis, last thoracentesis approx 2 weeks ago. Cytology of pleural fluid was negative for malignant cells. Pt reports breathing has improved today. Denies chest pain, dizziness, n/v, fever, and chills. CT chest showed bilateral pleural effusions. The right pleural effusion appears loculated along fissure and right lateral non-dependent wall. Small pericardial effusion and pulmonary vascular congestion. Plan for pluerx placement tomorrow with Dr. Bennett Oncology history: Patient had an abnormal PAP smear by Dr Head after she presented with a vaginal bleeding. She was evaluated by Dr Canseco and had Robotic-assisted Hysterectomy with bilateral salpingo-oophrectomies and Omentectomy on 06/07/2017. 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 Completed 6 cycles of Carboplatinum+Taxol Chemotherapy, as well as, Brachytherapy to vaginal cuff(Dr Austin). She is fully active. June 2020, CA 125 elevated (65), CT Scan is worrisome for recurrent malignancy. Started on taxol/carbo. December 2020, CT persistent but improved pelvis and retroperitoneal adenopathy, a retrocural LN is no longer visible. Completed 5 cycles of Carboplatinum+Taxol chemotherapy. April 2021, began Keytruda and Lenvima. Had right sided Thoracentesis> 1400 ml orange/brown fluid obtained, Cytology negative. November 17, 2022 pt continues on keytruda and lenvima, not doing well today, C/O progressive bilateral SOB, had bilateral thoracentesis 2 weeks ago with partial improvement in SOB which soon re-developed. Feels very tired, poor overall intake. Reviewed case with Dr Zeng today, will plan for hospital admission, for pluerx placement. Will hold Keytruda/Lenvima. Will consider chemotherapy after hospitalization Review of Systems 10 point ROS is negative except as stated in HPI Past Medical History Past Medical History: Cancer, Hyperlipidemia, Hypertension, Respiratory Disorder, Thyroid Disorder, Vascular Disorder Additional Past Medical History / Comment(s): uterine/endometrial cancer; bilateral pleural effusions History of Any Multi-Drug Resistant Organisms: None Reported Past Surgical History: Hysterectomy Additional Past Surgical History / Comment(s): RUQ biopsy "-" for 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; right-sided Pleurx catheter placement May; left thoracentesis 10/23/22 with removal of 750 mL fluid; right thoracentesis 11/04/2022 with removal of 550 mL fluid Past Anesthesia/Blood Transfusion Reactions: No Reported Reaction Past Psychological History: No Psychological Hx Reported Smoking Status: Never smoker Past Alcohol Use History: None Reported Past Drug Use History: None Reported - Past Family History Sister(s) Family Medical History: Cancer Additional Family Medical History / Comment(s): breast CA Medications and Allergies Home Medications Medication Instructions Recorded Confirmed Type Pravastatin Sodium [Pravachol] 40 mg PO DAILY 07/16/20 11/17/22 History Gabapentin 300 mg PO BID PRN 03/21/21 11/17/22 History Lenvatinib Mesylate [Lenvima] 18 mg PO DIRECTED 04/03/21 11/17/22 History Levothyroxine Sodium [Synthroid] 112 mcg PO DAILY 05/06/21 11/18/22 History ondansetron HCL [Zofran] 8 mg PO Q6H PRN 05/06/21 11/17/22 History Metoprolol Succinate [Metoprolol 25 mg PO DAILY 11/17/22 11/17/22 History Succinate ER] Pembrolizumab [Keytruda] 200 mg IVPB Q21D 11/17/22 11/17/22 History metroNIDAZOLE 1% GEL [Metrogel 1%] 1 applic TOPICAL DAILY PRN 11/17/22 11/17/22 History Allergies Allergy/AdvReac Type Severity Reaction Status Date / Time No Known Allergies Allergy Verified 11/17/22 14:06 Physical Exam Vitals: Vital Signs Temp Pulse Pulse Resp BP BP Pulse Ox 11/18/22 07:44 93 L 11/18/22 06:51 97.8 F 88 20 136/84 90 L 11/18/22 02:26 98.2 F 86 18 130/84 93 L 11/17/22 19:47 92 L 11/17/22 19:20 97.7 F 97 18 143/81 94 L 11/17/22 17:44 97.7 F 93 16 155/92 90 L 11/17/22 17:00 89 18 150/92 92 L 11/17/22 15:28 90 18 156/100 92 L 11/17/22 14:06 96 18 154/96 90 L 11/17/22 13:03 90 18 164/104 92 L 11/17/22 11:37 98.3 F 104 H 22 150/104 90 L Intake and Output 11/17/22 11/18/22 11/18/22 22:59 06:59 14:59 Other: # Voids 2 Weight 56.699 kg - Constitutional General appearance: average body habitus, no acute distress - EENT Eyes: anicteric sclerae, EOMI ENT: hearing grossly normal - Neck Neck: no lymphadenopathy, normal ROM - Respiratory Respiratory: bilateral: diminished - Cardiovascular Rhythm: regular Heart sounds: normal: S1, S2 Abnormal Heart Sounds: no systolic murmur, no diastolic murmur, no rub, no S3 Gallop, no S4 Gallop, no click, no other - Gastrointestinal General gastrointestinal: soft, no tenderness - Integumentary Integumentary: normal - Neurologic grossly intact - Musculoskeletal Musculoskeletal: strength equal bilaterally - Psychiatric Psychiatric: A&O x's 3, appropriate affect, intact judgment & insight Results CBC & Chem 7: 11/17/22 12:54 11/17/22 12:54 Labs: Abnormal Lab Results - Last 24 Hours (Table) 11/17/22 11/17/22 11/18/22 Range/Units 12:54 12:54 05:21 Hgb 17.4 H (11.4-16.0) gm/dL Hct 52.2 H (34.0-46.0) % RDW 15.6 H (11.5-15.5) % Plt Count 144 L (150-450) k/uL Lymphocytes # 0.6 L (1.0-4.8) k/uL Sodium 136 L (137-145) mmol/L Alkaline Phosphatase 198 H (38-126) U/L Albumin 3.4 L (3.5-5.0) g/dL TSH 32.900 H (0.465-4.680) mIU/L CT scan - chest: report reviewed Assessment and Plan (1) Uterine cancer Current Visit: Yes Status: Acute Priority: High Code(s): C55 - MALIGNANT NEOPLASM OF UTERUS, PART UNSPECIFIED SNOMED Code(s): 086339204 (2) Bilateral pleural effusion Current Visit: Yes Status: Acute Code(s): J90 - PLEURAL EFFUSION, NOT ELSEWHERE CLASSIFIED SNOMED Code(s): 398877313 Plan: Bilateral pluerul effusions: -Patient has had recurrent pleural effusion with multiple thoracenteses, last thoracentesis approx 2 weeks ago. Cytology of pleural fluid was negative for malignant cells. -CT chest showed bilateral pleural effusions. The right pleural effusion appears loculated along fissure and right lateral non-dependent wall. Small pericardial effusion and pulmonary vascular congestion. -Spoke with Pan GLORIA with cardiothoracic surgery, Plan for pluerx placement tomorrow with Dr. Bennett. Asked for cytology to be sent on pleural fluid -Pulmonology and cardiothoracic following Metastatic Uterine Cancer: -Patient is currently on Keytruda and lenvima. She received last dose of keytruda on 11/04/22, and reports not missing any doses of her Lenvima, last dose yesterday. -Will hold lenvima and keytruda at this time -CA-125 was 22.3 from 01/2021 and 39.4 from 11/2021. Will recheck CA-125 -Will consider chemotherapy after hospitalization -Plan for clinic f/u in [address] King to discuss further treatment options. Will place f/u in discharge plan Dr attests: I have performed H&P and developed impression and plan of care for patient, discussed with dictator. I agree with dictated note, documented as a scribe
[2022-11-19] MEDS: CALCIUM CARB-VIT D 500 MG-5 MCG TAB PO SCH ×2 (06:25→17:52)
[2022-11-19] MEDS: LEVOTHYROXINE 125 MCG TAB PO SCH (06:25)
[2022-11-19] MEDS: METOPROLOL SUCCINATE (ER) 25 MG TAB.ER.24H PO SCH (08:16)
[2022-11-19] MEDS ORDERED: LIDOCAINE 1% INJ 10MG/ML (10 ML MDV) SQ ONE ×2 (08:39→09:16)
[2022-11-19] MEDS ORDERED: LACTATED RINGERS 1,000 ML IV ONE (08:48)
[2022-11-19] MEDS ORDERED: DEXAMETHASONE SOD PHOSPHATE 4 MG/ML 1 ML VIAL IVP ONE (08:49)
[2022-11-19] MEDS ORDERED: ONDANSETRON 4 MG/2 ML VIAL IVP ONE (08:49)
[2022-11-19] MEDS ORDERED: PROPOFOL 10 MG/ML 20 ML VIAL IV ONE (08:55)
[2022-11-19] MEDS ORDERED: KETAMINE 10 MG/ML 20 ML VIAL ONE (08:55)
[2022-11-19] MEDS ORDERED: MIDAZOLAM 2 MG/2 ML VIAL ONE (08:55)
[2022-11-19] MEDS ORDERED: fentaNYL (PF) 50 MCG/ML 2 ML AMP ONE (08:55)
--- NOTE | 2022-11-19 10:20 | FL ---
EXAMINATION TYPE: FL guidance operating room DATE OF EXAM: 11/19/2022 HISTORY: Fluoroscopy time 4 seconds of fluoroscopy provided. DAP=.[id number] IMPRESSION: 1. Fluoroscopy time.
[2022-11-19] MEDS: MULTIVITAMINS, THERA 1 EACH TAB PO SCH (11:03)
[2022-11-19] MEDS: PRAVASTATIN SODIUM 40 MG TAB PO SCH (11:03)
[2022-11-19] MEDS: FAMOTIDINE 20 MG TAB PO SCH (11:03)
[2022-11-19] MEDS: ENOXAPARIN 40 MG/0.4 ML SYRINGE SQ SCH (11:03)
--- NOTE | 2022-11-19 11:03 | P.PN ---
Subjective Progress Note Date: 11/19/22 This is a very pleasant 67-year-old female with a known history of hypertension, hyperlipidemia, hypothyroidism, metastatic endometrial cancer originally diagnosed in 2016 and had undergone a hysterectomy and bilateral salpingo- oophorectomy in addition to omentectomy. She was treated with chenega and Ta xol and brachytherapy. In 2019 she developed pelvic lymphadenopathy and metastatic disease. She was treated with carboplatinum and Taxol and eventually with immune therapy Keytruda. She developed recurrent bilateral pleural effusions back in 2020 and subsequently had a Pleurx catheter placed on the right with subsequent removal. She had been doing well until October of this year 2022 she developed bilateral pleural effusions again. She had been seen and evaluated by Dr. Zeng. She had undergone a left-sided thoracentesis on 10/02/2022 was 750 MLS removed and subsequently a right-sided thoracentesis earlier this month with 550 mL removed. She was seen today at her oncologist office with increasing shortness of breath. She was referred here to the emergency room to be admitted for consideration for placement of Pleurx catheters versus thoracentesis. She does remain on Keytruda. Chest x-ray reveals cardiomegaly, pulmonary vascular congestion and bilateral pleural effusions. Ultrasound of the chest revealed a right-sided 13.3 cm pocket and a 7.5 cm pocket on the left however there is lung tissue visualized within the pocket. She is seen today in consultation in the ER. She is currently resting comfortably on a stretcher. Awake and alert in no acute distress. She is maintaining good O2 saturation in the 90s on 2 L/m per nasal cannula. She does have home oxygen as well. She is afebrile. White count 5.0. Hemoglobin 17.4. Platelets 144. INR 1.1. Sodium 136. Potassium 4.1. Bicarb 28. BUN 17. Creatinine 1.04. AST 30. ALT 18. Albumin 3.4. Home medications have been reconciled. Lovenox for DVT prophylaxis. The patient is seen today 11/18/2022 in follow-up on the regular medical floor. She is currently sitting up in bed. Awake and alert in no acute distress. Currently maintaining O2 saturations in the 90s on 3 L/m per nasal cannula. She's afebrile. Hemodynamically stable. She is dyspneic with conversation. Dyspneic with minimal exertion. Computed tomography scan of the chest revealed moderate bilateral pleural effusions. The right pleural effusion appears somewhat loculated along the fissure and along the right lateral nondependent wall. There are small pericardial effusion. Moderate coronary artery atherosclerosis. There is a component of pulmonary vascular congestion most pronounced in the right lung. TSH 32.9. Free T4 1 0.63. Remains on Lovenox for DVT prophylaxis. The patient is seen today 11/19/2022 in follow-up on the regular medical floor. She is resting comfortably in bed. Awake and alert in no acute distress. Her oxygen requirements have come up a bit. She is currently on 4 L/m per nasal cannula. The plan is for left-sided Pleurx catheter placement today. Objective - Vital Signs Vital signs: Vital Signs Temp 99.2 F 11/19/22 09:38 Pulse 97 11/19/22 10:23 Resp 16 11/19/22 10:23 BP 117/75 11/19/22 10:23 Pulse Ox 92 L 11/19/22 10:23 FiO2 Intake & Output 11/18/22 11/19/22 11/19/22 18:59 06:59 18:59 Intake Total 458 250 Output Total 5 Balance 458 245 Weight 56.699 kg Intake: IV 250 Oral 458 Output: Estimated Blood Loss 5 Other: Voiding Method Toilet Toilet # Voids 2 1 - Exam GENERAL EXAM: Alert, 67-year-old female, on 4 L per minute per nasal cannula, appears older than stated age, cachectic, comfortable in no apparent distress. HEAD: Normocephalic. EYES: Normal reaction of pupils, equal size. NOSE: Clear with pink turbinates. THROAT: No erythema or exudates. NECK: No masses, no JVD. CHEST: No chest wall deformity. LUNGS: Equal air entry with crackles in the bilateral bases. Diminished. CVS: S1 and S2 normal with no audible murmur, regular rhythm. ABDOMEN: No hepatosplenomegaly, normal bowel sounds, no guarding or rigidity. SPINE: No scoliosis or deformity SKIN: No rashes CENTRAL NERVOUS SYSTEM: No focal deficits, tone is normal in all 4 extremities. EXTREMITIES: There is no peripheral edema. No clubbing, no cyanosis. Peripheral pulses are intact. - Labs CBC & Chem 7: 11/17/22 12:54 11/17/22 12:54 Labs: Abnormal Lab Results - Last 24 Hours (Table) 11/18/22 Range/Units 05:21 CA 125 Antigen 139.0 H (0.0-30.1) U/mL Assessment and Plan Assessment: Acute on chronic hypoxemic respiratory failure secondary to recurrent bilateral pleural effusions. Recent thoracentesis on 11/04/2022 on the right with 550 mL of fluid removed and prior to that on 10/23/2022 on the left with 750 ML's of turbid fluid removed. Negative for malignancy. Plan is for left-sided Pleurx catheter to be placed today 11/19/2022. Possible pigtail catheter placement with alteplase to the right lung if needed in the future. Previous history of recurrent bilateral pleural effusions back in 2020 with eventual Pleurx catheter placement on the right 05/07/2021 and subsequent removal History of metastatic endometrial cancer diagnosed in 2016 and had undergone hysterectomy with bilateral salpingo-oophorectomy with omentectomy on 06/07/2018. Treated with chemotherapy. Recurrence noted in August 2020 with evidence of pelvic lymphadenopathy and metastatic disease. Treated again with chemotherapy and subsequent immunotherapy. Remains on Keytruda. Chronic hypoxemic respiratory failure on home oxygen Hypertension Hyperlipidemia Hypothyroidism Plan: The patient was seen and evaluated Medications reviewed Plan is for left-sided Pleurx catheter placement today Titrate the FiO2 as tolerated We'll continue to follow I have personally seen and examined the patient, performed the documentation and the assessment and plan as written. Number of minutes spent on the visit: 10.
--- NOTE | 2022-11-19 12:04 | XR ---
EXAMINATION TYPE: XR chest 1V portable DATE OF EXAM: 11/19/2022 9:55 AM COMPARISON: Chest radiographs from 11/17/2022 TECHNIQUE: XR chest 1V portable Portable AP radiograph of the chest. CLINICAL INDICATION:Female, 67 years old with history of post Pleurx cath placement; FINDINGS: Lungs/Pleura: Blunting of the right costophrenic angle with associated airspace opacities in the lung base. Left lung demonstrates atelectasis changes in lung base with trace blunting of the costophreni c angle. Pulmonary vascularity: Unremarkable. Heart/mediastinum: Cardiomediastinal silhouette is unremarkable. Musculoskeletal: No acute osseous pathology. Other findings: None Lines/Tubes: Left Pleurx catheter is present without evidence of pneumothorax. [id number] projecting over the right hemithorax with distal tip at the cavoatrial junction. IMPRESSION: 1. Left Pleurx catheter is present without evidence of pneumothorax. Decrease left lung pleural effu doris. 2. Small right pleural effusion with associated airspace opacities. Could represent atelectasis vers us developing pneumonia. Opacities are similar to 11/17/2022.
--- NOTE | 2022-11-19 13:29 | P.OP ---
Date of Procedure: 11/19/22 Preoperative Diagnosis: End-stage metastatic uterine cancer, bilateral pleural effusions left greater than right, recurrent Postoperative Diagnosis: Same Procedure(s) Performed: Left Pleurx catheter placement with fluoroscopic guidance Implants: Pleurx catheter Anesthesia: MAC Surgeon: [place]oacano Bennett Estimated Blood Loss (ml): 5 IV fluids (ml): 200 Urine output (ml): 0 Pathology: none sent Condition: stable Disposition: PACU Indications for Procedure: 67-year-old female with advanced metastatic cancer. Has had previous Pleurx catheter for right pleural effusion. This time she presents with dyspnea and shortness of breath. She has bilateral pleural effusions greater on the right than the left. Both have been previously tapped the left for 750 mL in the right for 500 mL. After each tap she had some symptomatic improvement which was short lasting. Left Pleurx catheter was indicated for symptomatic improvement. Operative Findings: Clear serous fluid was drained from the left pleural space. A total of 800 mL was drained. Good lung expansion was achieved. Description of Procedure: Patient was brought to the operating room and placed supine on the operating table. Pleural fluid was percussed out. The left chest and left upper quadrant of the abdomen were sterilely prepped and draped. Left pleural space was entered in the seventh interspace in the anterior axillary line and pleural fluid was encountered. The tract was anesthetized with lidocaine. 18-gauge needle was placed and guidewire threaded into the pleural space under fluoroscopic guidance. Under lidocaine anesthesia counterincision was made in the left upper quadrant in the Pleurx catheter threaded from the left upper quadrant to the chest site. The wire site was enlarged with an 11 blade. Cuff of the Pleurx catheter was positioned under the skin in the left upper quadrant. Introducer and dilator were placed over the guidewire under fluoroscopic guidance and the first catheter threaded into the pleural space under fluoroscopic guidance. Introducer sheath was then removed. Pleurx catheter was connected to suction and fluid drained. Entry site was closed with 4-0 Vicryl. Catheter was secured at the exit site with 2-0 silk. In glue was applied to the entry site followed by a Band-Aid and standard Pleurx dressing was applied at the exit site after capping the catheter. Patient was transferred to recovery in stable condition.
--- NOTE | 2022-11-19 17:57 | P.PN ---
Progress Note - Text Progress Note Date: 11/19/22 Chief Complaint: Short of breath This is a pleasant 67-year-old patient who follows with PCP Dr. Daren Robert. Oncologist Dr. Adorno. Acting Teacher Dr. Zeng. 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 treated with chemotherapy and radiation treatment. Had responded well. Patient had recurrence 2020. Received chemotherapy recurrent pleural effusion with multiple thoracentesis Patient lives with her and daughter. Presents with worsening short of breath. Can only take a few steps. Poor appetite. Weight loss. Weak and tired. On the fourth of this month she had a thoracentesis care of Dr. Zeng. Was in the office of her oncologist Dr. King today. Patient is admitted. Has bilateral pleural effusions. Plan is for further thoracentesis. Patient has 3-4 bowel movements a week. Denies any pain. 11/18/2022: Reclining in bed. Short of breath. Nasal cannula. Did eat some. CT chest showing a large sided effusion likely located. Patient scheduled for a left-sided Pleurx catheter tomorrow. Depending upon symptoms right-sided loculated fluid may need to be tapped. 11/19/2022: Patient had 800 mL of fluid removed from the left side. Pleur-evac was placed by cardiothoracic surgery. Some improvement in breathing. On 6 L nasal cannula. We'll have the patient set up in a chair. Did eat some. Active Medications Acetaminophen (Acetaminophen Tab 325 Mg Tab) 650 mg PO Q6HR PRN PRN Reason: Mild Pain or Fever > 100.5 Calcium Carbonate (Calcium Carb-Vit D 500 Mg-5 Mcg Tab) 1 each PO BID-W/MEALS [facility] Last Admin: 11/19/22 17:52 Dose: 1 each Calcium Carbonate/Glycine (Calcium Carbonate 500 Mg Chewable) 1,000 mg PO Q4HR PRN PRN Reason: Dyspepsia Enoxaparin Sodium (Enoxaparin 40 Mg/0.4 Ml Syringe) 40 mg SQ DAILY [facility] Last Admin: 11/19/22 11:03 Dose: 40 mg Famotidine (Famotidine 20 Mg Tab) 20 mg PO DAILY [facility] Last Admin: 11/19/22 11:03 Dose: 20 mg Gabapentin (Gabapentin 300 Mg Cap) 300 mg PO BID PRN PRN Reason: Pain Hydromorphone HCl (Hydromorphone 1 Mg/Ml 1 Ml Syringe) 1 mg IVP Q3HR PRN PRN Reason: Severe Pain (Scale 7 to 10) Hydromorphone HCl (Hydromorphone 0.5 Mg/0.5 Ml Syringe) 0.5 mg IVP Q3HR PRN PRN Reason: Moderate Pain (Scale 4 to 6) Lactulose (Lactulose 20 Gm/30 Ml Cup) 20 gm PO DAILY PRN PRN Reason: Constipation Levothyroxine Sodium (Levothyroxine 125 Mcg Tab) 125 mcg PO DAILY@0630 [facility] Last Admin: 11/19/22 06:25 Dose: 125 mcg Lorazepam (Lorazepam 0.5 Mg Tab) 0.5 mg PO Q6HR PRN PRN Reason: Anxiety Metoprolol Succinate (Metoprolol Succinate (Er) 25 Mg Tab.Er.24h) 25 mg PO DAILY [facility] Last Admin: 11/19/22 08:16 Dose: 25 mg Multivitamins (Multivitamins, Thera 1 Each Tab) 1 each PO DAILY [facility] Last Admin: 11/19/22 11:03 Dose: 1 each Naloxone HCl (Naloxone 0.4 Mg/Ml 1 Ml Vial) 0.2 mg IV Q2M PRN PRN Reason: Opioid Reversal Ondansetron HCl (Ondansetron 4 Mg/2 Ml Vial) 4 mg IVP Q8HR PRN PRN Reason: Nausea And Vomiting Pravastatin Sodium (Pravastatin Sodium 40 Mg Tab) 40 mg PO DAILY [facility] Last Admin: 11/19/22 11:03 Dose: 40 mg Temazepam (Temazepam 15 Mg Cap) 15 mg PO HS PRN PRN Reason: Insomnia Tramadol HCl (Tramadol 50 Mg Tab) 50 mg PO Q6H PRN PRN Reason: Moderate Pain (Scale 4 to 6) Past medical history to include: Uterine cancer, abdominal wall cancer, hypothyroid, hyperlipidemia, peripheral neuropathy Social history: . Denies any history of smoking and alcohol. Lives with and daughter. Family history: Breast cancer Physical examination: VITAL SIGNS: 93, 20, 11 3 x 75, 92% on 6 L GENERAL: Cachectic, reclining bed, awake tired. Left-sided anterior Pleur-evac catheter EYES: Pupils equal. Conjunctiva palel HEENT: External appearance of nose and ears normal, oral cavity grossly normal. NECK: JVD not raised; masses not palpable. HEART: First and second heart sounds are normal; some edema present. LUNGS: Respiratory rate increased; decreased breath sounds ABDOMEN: Soft, nontender, liver spleen not palpable, no masses palpable. PSYCH: Alert and oriented x3; mood and affect anxious MUSCULAR skeletal: Diffuse loss of muscle mass and loss of subcutaneous mass, bony prominence INVESTIGATIONS, reviewed in the clinical context: Influenza type A, b, RSV, COVID-19: Not detected White count 5 hemoglobin 17.4 platelets 144 sodium 136 potassium 4.1 creatinine 1.04 alkaline phosphatase 198 albumin 3.4 EKG tracing personally reviewed by me-sinus rhythm. 94 pulmonary. Poor of a progression. Nonspecific T-wave changes. Chest x-ray film personally reviewed by me-bilateral pleural effusion. Right greater than left. Assessment and plan: -Recurrent malignant pleural effusion, multiple thoracentesis in the past. Last thoracentesis about [address] Zeng. Has had Pleur-evac placed in the past Now presents acutely symptomatic. : Not improving Left-sided Pleurx catheter placed November 19. -Left-sided thoracentesis 800 mL on November 19. -Acute medical debility from underlying malignancy -Recurrent uterine cancer with a prior treatment with radiation and chemotherapy. And immunotherapy. Consulted- oncology Dr. Adorno -Acute on chronic hypoxic respiratory failure secondary to recurrent bilateral pleural effusion.: Slow to respond 6 L nasal cannula -Hyperlipidemia Lipitor -Hypothyroid Synthroid 125 g daily. 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 Vitamin D -Full code [discussed with patient] We'll see how patient does with the Pleurx. If symptoms still persist will need to have right-sided loculated pleural fluid drained. Other medications to continue. Follow with pulmonary
[2022-11-19 21:10] VITALS: RESP 16
[2022-11-20] MEDS: LEVOTHYROXINE 125 MCG TAB PO SCH (05:38)
[2022-11-20 07:39] VITALS: BP 105/70; PULSE 96; TEMP 97.6
[2022-11-20] MEDS: METOPROLOL SUCCINATE (ER) 25 MG TAB.ER.24H PO SCH (09:01)
[2022-11-20] MEDS: MULTIVITAMINS, THERA 1 EACH TAB PO SCH (09:01)
[2022-11-20] MEDS: ENOXAPARIN 40 MG/0.4 ML SYRINGE SQ SCH (09:01)
[2022-11-20] MEDS: CALCIUM CARB-VIT D 500 MG-5 MCG TAB PO SCH (09:01)
[2022-11-20] MEDS: FAMOTIDINE 20 MG TAB PO SCH (09:01)
[2022-11-20] MEDS: PRAVASTATIN SODIUM 40 MG TAB PO SCH (09:04)
[2022-11-20 10:49] LABS: Basophils % (A) 0 %; Eosinophils % (A) 0 %; HCT 49.5 % (34.0-46.0); HGB 16.1 gm/dL (11.4-16.0); Lymphocytes % (A) 15 %; MCH 32.8 pg (25.0-35.0); MCHC 32.5 g/dL (31.0-37.0); MCV 101.1 fL (80.0-100.0); Macrocytosis Slight; Mean Platelet Volume 8.1; Monocytes # (A) 0.5 k/uL (0-1.0); Monocytes % (A) 8 %; Neutrophils # (A) 5.2 k/uL (1.3-7.7); Neutrophils % (A) 76 %; Platelet Count 153 k/uL (150-450); RDW 15.4 % (11.5-15.5); WBC 6.9 k/uL (3.8-10.6)
--- NOTE | 2022-11-20 11:37 | P.PN ---
Subjective Progress Note Date: 11/20/22 This is a very pleasant 67-year-old female with a known history of hypertension, hyperlipidemia, hypothyroidism, metastatic endometrial cancer originally diagnosed in 2016 and had undergone a hysterectomy and bilateral salpingo- oophorectomy in addition to omentectomy. She was treated with [place] and Ta xol and brachytherapy. In 2019 she developed pelvic lymphadenopathy and metastatic disease. She was treated with carboplatinum and Taxol and eventually with immune therapy Keytruda. She developed recurrent bilateral pleural effusions back in 2020 and subsequently had a Pleurx catheter placed on the right with subsequent removal. She had been doing well until October of this year 2022 she developed bilateral pleural effusions again. She had been seen and evaluated by Dr. Zeng. She had undergone a left-sided thoracentesis on 10/02/2022 was 750 MLS removed and subsequently a right-sided thoracentesis earlier this month with 550 mL removed. She was seen today at her oncologist office with increasing shortness of breath. She was referred here to the emergency room to be admitted for consideration for placement of Pleurx catheters versus thoracentesis. She does remain on Keytruda. Chest x-ray reveals cardiomegaly, pulmonary vascular congestion and bilateral pleural effusions. Ultrasound of the chest revealed a right-sided 13.3 cm pocket and a 7.5 cm pocket on the left however there is lung tissue visualized within the pocket. She is seen today in consultation in the ER. She is currently resting comfortably on a stretcher. Awake and alert in no acute distress. She is maintaining good O2 saturation in the 90s on 2 L/m per nasal cannula. She does have home oxygen as well. She is afebrile. White count 5.0. Hemoglobin 17.4. Platelets 144. INR 1.1. Sodium 136. Potassium 4.1. Bicarb 28. BUN 17. Creatinine 1.04. AST 30. ALT 18. Albumin 3.4. Home medications have been reconciled. Lovenox for DVT prophylaxis. The patient is seen today 11/18/2022 in follow-up on the regular medical floor. She is currently sitting up in bed. Awake and alert in no acute distress. Currently maintaining O2 saturations in the 90s on 3 L/m per nasal cannula. She's afebrile. Hemodynamically stable. She is dyspneic with conversation. Dyspneic with minimal exertion. Computed tomography scan of the chest revealed moderate bilateral pleural effusions. The right pleural effusion appears somewhat loculated along the fissure and along the right lateral nondependent wall. There are small pericardial effusion. Moderate coronary artery atherosclerosis. There is a component of pulmonary vascular congestion most pronounced in the right lung. TSH 32.9. Free T4 1 0.63. Remains on Lovenox for DVT prophylaxis. The patient is seen today 11/19/2022 in follow-up on the regular medical floor. She is resting comfortably in bed. Awake and alert in no acute distress. Her oxygen requirements have come up a bit. She is currently on 4 L/m per nasal cannula. The plan is for left-sided Pleurx catheter placement today. The patient is seen today 11/20/2022 in follow-up on the regular medical floor. She is awake and alert in no acute distress. Maintaining good O2 saturations in the 90s on 6 L high flow nasal cannula. She did have a left-sided Pleurx christiano ter placed yesterday. A total of 800 ML's of fluid was drained at that time. Today's chest x-ray shows improvement in the left pleural effusion. Left proximal catheter in place. Small right pleural effusion that is loculated with surrounding atelectasis. White count 6.9. Hemoglobin 16.1. Platelets 153. She continues to work with the incentive spirometer. Objective - Vital Signs Vital signs: Vital Signs Temp 97.6 F 11/20/22 07:23 Pulse 96 11/20/22 07:23 Resp 16 11/20/22 07:23 BP 105/70 11/20/22 07:23 Pulse Ox 92 L 11/20/22 08:11 FiO2 Intake & Output 11/19/22 11/20/22 11/20/22 18:59 06:59 18:59 Intake Total 250 590 Output Total 5 Balance 245 590 Intake: IV 250 Oral 590 Output: Estimated Blood Loss 5 Other: Voiding Method Toilet Toilet # Voids 1 - Exam GENERAL EXAM: Alert, 67-year-old female, on 6 L per minute per nasal cannula, appears older than stated age, cachectic, comfortable in no apparent distress. HEAD: Normocephalic. EYES: Normal reaction of pupils, equal size. NOSE: Clear with pink turbinates. THROAT: No erythema or exudates. NECK: No masses, no JVD. CHEST: No chest wall deformity. Left-sided Pleurx catheter secured in place. LUNGS: Equal air entry with crackles in the bilateral bases. Diminished. CVS: S1 and S2 normal with no audible murmur, regular rhythm. ABDOMEN: No hepatosplenomegaly, normal bowel sounds, no guarding or rigidity. SPINE: No scoliosis or deformity SKIN: No rashes CENTRAL NERVOUS SYSTEM: No focal deficits, tone is normal in all 4 extremities. EXTREMITIES: There is no peripheral edema. No clubbing, no cyanosis. Peripheral pulses are intact. - Labs CBC & Chem 7: 11/20/22 10:10 11/17/22 12:54 Labs: Abnormal Lab Results - Last 24 Hours (Table) 11/20/22 Range/Units 10:10 Hgb 16.1 H (11.4-16.0) gm/dL Hct 49.5 H (34.0-46.0) % MCV 101.1 H (80.0-100.0) fL Assessment and Plan Assessment: Acute on chronic hypoxemic respiratory failure secondary to recurrent bilateral pleural effusions. Recent thoracentesis on 11/04/2022 on the right with 550 mL of fluid removed and prior to that on 10/23/2022 on the left with 750 ML's of turbid fluid removed. Negative for malignancy. Plan is for left-sided Pleurx c atheter was placed 11/19/2022. A total of 800 ML's of fluid returned. Possible pigtail catheter placement with alteplase/dornase to the right lung if needed in the future. Previous history of recurrent bilateral pleural effusions back in 2020 with eventual Pleurx catheter placement on the right 05/07/2021 and subsequent removal History of metastatic endometrial cancer diagnosed in 2016 and had undergone hysterectomy with bilateral salpingo-oophorectomy with omentectomy on 06/07/2018. Treated with chemotherapy. Recurrence noted in August 2020 with evidence of pelvic lymphadenopathy and metastatic disease. Treated again with chemotherapy and subsequent immunotherapy. Remains on Keytruda. Chronic hypoxemic respiratory failure on home oxygen Hypertension Hyperlipidemia Hypothyroidism Plan: The patient was seen and evaluated Chest x-ray, labs and medications reviewed Left-sided Pleurx catheter in place May consider right-sided pigtail catheter placement in the future if needed Titrate the FiO2 as tolerated The patient does have home oxygen Cleared for discharge from the pulmonary standpoint Follow-up in our office in 1 week I have personally seen and examined the patient, performed the documentation and the assessment and plan as written. Number of minutes spent on the visit: 10.
--- NOTE | 2022-11-20 11:47 | P.PN ---
Subjective Progress Note Date: 11/20/22 Principal diagnosis: hx uterine cancer, pleural effusions Upon visit today pt is resting comfortably in bed. She is s/p pluerx placement yesterday. Reports mild discomfort at insertion site. Reports improvement in breathing today. Also reporting nausea, nursing staff notified to give zofran. No other reported complaints Objective - Vital Signs Vital signs: Vital Signs Temp 97.6 F 11/20/22 07:23 Pulse 96 11/20/22 07:23 Resp 16 11/20/22 07:23 BP 105/70 11/20/22 07:23 Pulse Ox 92 L 11/20/22 08:11 FiO2 Intake & Output 11/19/22 11/20/22 11/20/22 18:59 06:59 18:59 Intake Total 250 590 Output Total 5 Balance 245 590 Intake: IV 250 Oral 590 Output: Estimated Blood Loss 5 Other: Voiding Method Toilet Toilet # Voids 1 - Constitutional General appearance: Present: no acute distress, thin - EENT Eyes: Present: anicteric sclerae, EOMI ENT: Present: hearing grossly normal - Respiratory Respiratory: bilateral: diminished - Cardiovascular Rhythm: regular Heart sounds: normal: S1, S2 Abnormal Heart Sounds: Absent: systolic murmur, diastolic murmur, rub, S3 Gallop, S4 Gallop, click, other - Integumentary Integumentary: Present: normal - Neurologic Neurologic Comment(s): grossly intact - Musculoskeletal Musculoskeletal: Present: strength equal bilaterally - Psychiatric Psychiatric: Present: A&O x's 3, appropriate affect, intact judgment & insight - Labs CBC & Chem 7: 11/20/22 10:10 11/17/22 12:54 Labs: Abnormal Lab Results - Last 24 Hours (Table) 11/20/22 Range/Units 10:10 Hgb 16.1 H (11.4-16.0) gm/dL Hct 49.5 H (34.0-46.0) % MCV 101.1 H (80.0-100.0) fL - Imaging and Cardiology Chest x-ray: report reviewed Assessment and Plan (1) Uterine cancer Current Visit: Yes Status: Acute Priority: High Code(s): C55 - MALIGNANT NEOPLASM OF UTERUS, PART UNSPECIFIED SNOMED Code(s): 261207294 (2) Bilateral pleural effusion Current Visit: Yes Status: Acute Code(s): J90 - PLEURAL EFFUSION, NOT ELSEWHERE CLASSIFIED SNOMED Code(s): 492668690 Plan: Bilateral pluerul effusions: -Patient has had recurrent pleural effusion with multiple thoracenteses, last thoracentesis approx 2 weeks ago. Cytology of pleural fluid was negative for malignant cells. -CT chest showed bilateral pleural effusions. The right pleural effusion appears loculated along fissure and right lateral non-dependent wall. Small pericardial effusion and pulmonary vascular congestion. -Spoke with Pan GLORIA with cardiothoracic surgery, Plan for pluerx placement with Dr. Bennett. Asked for cytology to be sent on pleural fluid. Pt is s/p 1 day since pleurx, and reports improvement in breathing. Will send cytology on pleural fluid if it has not been sent yet, awaiting response from cardiothoracic team -Pulmonology and cardiothoracic following Metastatic Uterine Cancer: -Patient is currently on Keytruda and lenvima. She received last dose of keytruda on 11/04/22, and reports not missing any doses of her Lenvima, last dose yesterday. -Will hold lenvima and keytruda at this time -CA-125 was 22.3 from 01/2021 and 39.4 from 11/2021. Repeat CA-125 139 -Will consider chemotherapy after hospitalization -Plan for clinic f/u in [address] King to discuss further treatment options. F/u in discharge plan
--- NOTE | 2022-11-20 16:10 | P.DS ---
Providers Date of admission: 11/17/22 13:10 Expected date of discharge: 11/20/22 Attending physician: Efra Chi Consults: 11/17/22 13:09 Consult Physician Routine Consulting Provider: Juancho King Consult Reason/Comments: Oncological care Do you want consulting provider notified?: Yes Consult Physician Urgent Consulting Provider: Bronson Verma Consult Reason/Comments: Bilateral pleural effusions, probable thoracentesis Do you want consulting provider notified?: Yes 11/17/22 15:03 Consult Physician Routine Consulting Provider: Michoacano Bennett Consult Reason/Comments: ? Pleurx catheter placement Do you want consulting provider notified?: Already Contacted Primary care physician: Daren Robert [facility] Course: Chief Complaint: Short of breath This is a pleasant 67-year-old patient who follows with PCP Dr. Daren Robert. Oncologist Dr. Adorno. Maintenance Team Leader Dr. Zeng. 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 treated with chemotherapy and radiation treatment. Had responded well. Patient had recurrence 2020. Received chemotherapy recurrent pleural effusion with multiple thoracentesis Patient lives with her and daughter. Presents with worsening short of breath. Can only take a few steps. Poor appetite. Weight loss. Weak and tired. On the fourth of this month she had a thoracentesis care of Dr. Zeng. Was in the office of her oncologist Dr. King today. Patient is admitted. Has bilateral pleural effusions. Plan is for further thoracentesis. Patient has 3-4 bowel movements a week. Denies any pain. 11/18/2022: Reclining in bed. Short of breath. Nasal cannula. Did eat some. CT chest showing a large sided effusion likely located. Patient scheduled for a left-sided Pleurx catheter tomorrow. Depending upon symptoms right-sided loculated fluid may need to be tapped. 11/19/2022: Patient had 800 mL of fluid removed from the left side. Pleur-evac was placed by cardiothoracic surgery. Some improvement in breathing. On 6 L nasal cannula. We'll have the patient set up in a chair. Did eat some. 11/20/2022: Some shortness of breath. On 6 L nasal cannula. Did sit up in a chair. Discussed with patient. Discussed with Dr. Luci from pulmonary. Patient to be discharged. Follow-up in the office. He did not feel tapping the right located fluid will be of much benefit. If need be this will be done as an outpatient. Discussion and discharge planning more than 35 minutes Past medical history to include: Uterine cancer, abdominal wall cancer, hypothyroid, hyperlipidemia, peripheral neuropathy Social history: . Denies any history of smoking and alcohol. Lives with and daughter. Family history: Breast cancer Physical examination: VITAL SIGNS: 97.6, 96, 16, 105/70, 93% on 4 L GENERAL: Cachectic, reclining bed, awake tired. Left-sided anterior Pleur-evac catheter EYES: Pupils equal. Conjunctiva palel HEENT: External appearance of nose and ears normal, oral cavity grossly normal. NECK: JVD not raised; masses not palpable. HEART: First and second heart sounds are normal; some edema present. LUNGS: Respiratory rate increased; decreased breath sounds ABDOMEN: Soft, nontender, liver spleen not palpable, no masses palpable. PSYCH: Alert and oriented x3; mood and affect anxious MUSCULAR skeletal: Diffuse loss of muscle mass and loss of subcutaneous mass, bony prominence INVESTIGATIONS, reviewed in the clinical context: November 20: White count 6.9 hemoglobin 16.1 platelets 153 Influenza type A, b, RSV, COVID-19: Not detected White count 5 hemoglobin 17.4 platelets 144 sodium 136 potassium 4.1 creatinine 1.04 alkaline phosphatase 198 albumin 3.4 EKG tracing personally reviewed by me-sinus rhythm. 94 pulmonary. Poor of a progression. Nonspecific T-wave changes. Chest x-ray film personally reviewed by me-bilateral pleural effusion. Right greater than left. Assessment and plan: -Recurrent malignant pleural effusion, multiple thoracentesis in the past. Last thoracentesis about [address] Zeng. Has had Pleur-evac placed in the past Left-sided Pleurx catheter placed November 19. -Left-sided thoracentesis 800 mL on November 19. -Acute medical debility from underlying malignancy -Recurrent uterine cancer with a prior treatment with radiation and chemotherapy. And immunotherapy. Follow with- oncology Dr. Adorno -Acute on chronic hypoxic respiratory failure secondary to recurrent bilateral pleural effusion.: 4 L nasal cannula -Hyperlipidemia Lipitor -Hypothyroid Synthroid 125 g daily. 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 Vitamin D -Full code [discussed with patient] Disposition: Home Plan - Discharge Summary Discharge Rx Participant: No New Discharge Prescriptions: New Multivitamins, Thera [Multivitamin (formulary)] 1 each PO DAILY #30 tab Famotidine [Pepcid] 20 mg PO DAILY #30 tab Calcium Carb-Vit D 500Mg-5Mcg [Oscal 500+D 5 Mcg (200 Iu)] 1 each PO BID- W/MEALS #60 tab Continue Pravastatin Sodium [Pravachol] 40 mg PO DAILY Levothyroxine Sodium [Synthroid] 112 mcg PO DAILY ondansetron HCL [Zofran] 8 mg PO Q6H PRN PRN Reason: Nausea metroNIDAZOLE 1% GEL [Metrogel 1%] 1 applic TOPICAL DAILY PRN PRN Reason: face Pembrolizumab [Keytruda] 200 mg IVPB Q21D Metoprolol Succinate [Metoprolol Succinate ER] 25 mg PO DAILY Gabapentin 300 mg PO BID PRN PRN Reason: Pain Lenvatinib Mesylate [Lenvima] 18 mg PO DIRECTED Discharge Medication List Pravastatin Sodium [Pravachol] 40 mg PO DAILY 07/16/20 [History] Gabapentin 300 mg PO BID PRN 03/21/21 [History] Lenvatinib Mesylate [Lenvima] 18 mg PO DIRECTED 04/03/21 [History] Levothyroxine Sodium [Synthroid] 112 mcg PO DAILY 05/06/21 [History] ondansetron HCL [Zofran] 8 mg PO Q6H PRN 05/06/21 [History] Metoprolol Succinate [Metoprolol Succinate ER] 25 mg PO DAILY 11/17/22 [History] Pembrolizumab [Keytruda] 200 mg IVPB Q21D 11/17/22 [History] metroNIDAZOLE 1% GEL [Metrogel 1%] 1 applic TOPICAL DAILY PRN 11/17/22 [History] Calcium Carb-Vit D 500Mg-5Mcg [Oscal 500+D 5 Mcg (200 Iu)] 1 each PO BID-W/MEALS #60 tab 11/20/22 [Rx] Famotidine [Pepcid] 20 mg PO DAILY #30 tab 11/20/22 [Rx] Multivitamins, Thera [Multivitamin (formulary)] 1 each PO DAILY #30 tab 11/20/22 [Rx] Follow up Appointment(s)/Referral(s): Bronson Verma MD [STAFF PHYSICIAN] - 12/07/22 2:15 pm Michoacano Bennett MD [STAFF PHYSICIAN] - As Needed (Please call for appointment for pleurx removal once drainage is less than 50 cc for 3 times in a row) [facility], [NON-STAFF] - 1 Week Daren Robert MD [Primary Care Provider] - 11/26/22 1:00 pm Juancho King MD [STAFF PHYSICIAN] - 12/02/22 10:30 am Patient Instructions/Handouts: Famotidine (By mouth), Multivitamins, Adult Formula (By mouth), Calcium Supplement (By mouth) Activity/Diet/Wound Care/Special Instructions: PLEURX discharge instructions: 1. Home Care is ordered, they will obtain new bottles. 2. May shower after 24 hours, no tub baths/hot tubs. 3. Do not drain more than 1 liter or 1000 mL in 24 hours. 4. New drainage bottle needed with each drainage. 5. Drainage frequency dictated by patient symptoms, may be every day, every other day, weekly, or however often the patient is symptomatic. 6. Please notify RUBBER COMPOUNDER SUPERVISOR or office if temperature >101F, excessive pain at insertion site, drainage consistency changes to cloudy or smells bad, catheter falls out, or anything else that concerns you. 7. Contact surgery office with weekly drainage amounts. May fax the amounts. 8. Once drainage is less than 50 mL three times in a row, notify the surgery office for possible removal. Surgery office: , fax Order for pleurex supplies sent to [facility] ([phone]) . Discharge Disposition: HOME WITH HOME HEALTH SERVICES
== END 2022-11-20 15:17 | disposition home health service (06) | DRG 186 ==
LOC: EC 11:34 → 5NMEDONC 13:10
PROVIDERS: ADMIT Hospitalist; ATTEND Hospitalist
PROC: 0W9B30Z Drainage of Left Pleural Cavity with Drainage Device, Percutaneous Approach (ICD-10-PCS; principal; 2022-11-19 09:00)
DX: J90 Pleural effusion, not elsewhere classified (principal); J96.21 Acute and chronic respiratory failure with hypoxia; C78.2 Secondary malignant neoplasm of pleura; E44.1 Mild protein-calorie malnutrition; G72.0 Drug-induced myopathy; I31.39 Other pericardial effusion (noninflammatory); J98.11 Atelectasis; T45.1X5A Adverse effect of antineoplastic and immunosuppressive drugs, initial encounter; I10 Essential (primary) hypertension; C54.1 Malignant neoplasm of endometrium; E78.5 Hyperlipidemia, unspecified; E03.9 Hypothyroidism, unspecified; Z79.890 Hormone replacement therapy; X58.XXXA Exposure to other specified factors, initial encounter; Z99.81 Dependence on supplemental oxygen; Z90.710 Acquired absence of both cervix and uterus; Z90.722 Acquired absence of ovaries, bilateral; Z68.21 Body mass index [BMI] 21.0-21.9, adult; Z20.822 Contact with and (suspected) exposure to COVID-19; F41.9 Anxiety disorder, unspecified; G47.00 Insomnia, unspecified; F17.200 Nicotine dependence, unspecified, uncomplicated; T38.6X5A Adverse effect of antigonadotrophins, antiestrogens, antiandrogens, not elsewhere classified, initial encounter; G62.0 Drug-induced polyneuropathy; I25.10 Atherosclerotic heart disease of native coronary artery without angina pectoris; K59.00 Constipation, unspecified; Z79.899 Other long term (current) drug therapy; Z85.42 Personal history of malignant neoplasm of other parts of uterus; Z80.3 Family history of malignant neoplasm of breast; Z87.19 Personal history of other diseases of the digestive system
CPT/HCPCS: 36415; 71045; 71046; 71250; 76604; 80053; 83605; 83880; 84439; 84443; 85025; 85610; 85730; 86304; 87636; 93005; 94760; 96372; 99285

== ENCOUNTER 2023-01-04 18:18 | Inpatient (IN) | payer OTHER, MEDICARE ==
--- NOTE | 2023-01-04 18:52 | ED ---
Recheck HPI - General Chief Complaint: Shortness of Breath Stated Complaint: RESP FAILURE Time Seen by Provider: 01/04/23 18:24 Source: patient, EMS, RN notes reviewed, old records reviewed Mode of arrival: EMS Limitations: no limitations - History of Present Illness Initial Comments: This is a 67-year-old female who is on BiPAP still unable to provide history history obtained from chart and EMS. Patient presents for respiratory failure hypoxic and hypercapnic MD Complaint: abnormal lab -: days(s) Returns Today for: Called Because of Abnormal Lab/Test, persistent/worsening pain related to initial visit Symptoms Since Prior Visit: improved, worsening pain Context: planned re-check Associated Symptoms: shortness of breath Treatments Prior to Arrival: Given Antibiotics on, Given Pain Meds on - Related Data Home Medications Medication Instructions Recorded Confirmed Pravastatin Sodium [Pravachol] 40 mg PO DAILY 07/16/20 01/04/23 Gabapentin 300 mg PO BID PRN 03/21/21 01/04/23 ondansetron HCL [Zofran] 8 mg PO Q6H PRN 05/06/21 01/04/23 Metoprolol Succinate [Metoprolol 25 mg PO DAILY 11/17/22 01/04/23 Succinate ER] metroNIDAZOLE 1% GEL [Metrogel 1%] 1 applic TOPICAL DAILY PRN 11/17/22 01/04/23 Calcium Carbonate [Calcium] 600 mg PO BID 01/04/23 01/04/23 Levothyroxine Sodium [Synthroid] 150 mcg PO DAILY 01/04/23 01/04/23 Multivitamins, Thera [Multivitamin 1 tab PO DAILY 01/04/23 01/04/23 (formulary)] Allergies Allergy/AdvReac Type Severity Reaction Status Date / Time No Known Allergies Allergy Verified 01/04/23 20:01 Review of Systems ROS Statement: Those systems with pertinent positive or pertinent negative responses have been documented in the HPI. ROS Other: All systems not noted in ROS Statement are negative. 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; right-sided Pleurx catheter placement May; left thoracentesis 10/23/22 with removal of 750 mL fluid; right thoracentesis 11/04/2022 with removal of 550 mL fluid Past Anesthesia/Blood Transfusion Reactions: No Reported Reaction Past Psychological History: No Psychological Hx Reported Smoking Status: Never smoker Past Alcohol Use History: None Reported Past Drug Use History: None Reported - Past Family History Sister(s) Family Medical History: Cancer Additional Family Medical History / Comment(s): breast CA General Exam Limitations: altered mental status, physical limitation General appearance: alert, in no apparent distress, anxious, lethargic, in distress Head exam: Present: atraumatic, normocephalic, normal inspection Eye exam: Present: normal appearance, PERRL, EOMI. Absent: scleral icterus, conjunctival injection, periorbital swelling ENT exam: Present: normal exam, mucous membranes moist Neck exam: Present: normal inspection. Absent: tenderness, meningismus, lymphadenopathy Respiratory exam: Present: respiratory distress, wheezes, accessory muscle use, decreased breath sounds, prolonged expiratory. Absent: rales, rhonchi, stridor Cardiovascular Exam: Present: regular rate, normal rhythm, normal heart sounds. Absent: systolic murmur, diastolic murmur, rubs, gallop, clicks GI/Abdominal exam: Present: soft, normal bowel sounds. Absent: distended, tenderness, guarding, rebound, rigid Extremities exam: Present: normal inspection, full ROM, normal capillary refill. Absent: tenderness, pedal edema, joint swelling, calf tenderness Back exam: Present: normal inspection Neurological exam: Present: alert, oriented X3, CN II-XII intact Psychiatric exam: Present: normal affect, normal mood Skin exam: Present: warm, dry, intact, normal color. Absent: rash Course Vital Signs 01/04/23 01/04/23 01/04/23 18:23 18:26 18:27 Temperature 98.0 F Pulse Rate 77 Respiratory 32 H Rate Blood Pressure 131/86 O2 Sat by Pulse 93 L 87 L Oximetry Fraction of 100 Inspired Oxygen (FIO2) 01/04/23 01/04/23 01/04/23 18:30 18:40 18:50 Temperature Pulse Rate 116 H 111 H Respiratory 17 38 H Rate Blood Pressure 131/86 116/88 109/82 O2 Sat by Pulse 92 L 93 L 95 Oximetry Fraction of Inspired Oxygen (FIO2) 01/04/23 01/04/23 01/04/23 18:55 19:00 19:10 Temperature Pulse Rate 110 H 111 H 112 H Respiratory 40 H 40 H 40 H Rate Blood Pressure 109/82 109/82 110/87 O2 Sat by Pulse 95 95 96 Oximetry Fraction of Inspired Oxygen (FIO2) - Reevaluation(s) Reevaluation #1: 01/04/23 20:19 Medical record is reviewed 01/04/23 20:19 Transferring paperwork is benign. Reevaluation #2: 01/04/23 20:19 Patient has significant improvement during transfer Reevaluation #3: 01/04/23 20:19 Patient family informed of results questions answered Reevaluation #4: 01/04/23 20:19 Was pt. sent in by a medical professional or institution? @ -no Did you speak to anyone other than the patient for history? @ -transferring physician Did you review nursing and triage notes? @ -agree Were old charts reviewed? @ -yes transfer notes Differential Diagnosis? @ -prior, dyspnea EKG interpreted by me (3pts min.)? @ -no X-rays interpreted by me (1pt min.)? @ -no CT interpreted by me (1pt min.)? @ -no U/S interpreted by me (1pt. min.)? @ -no What testing was considered but not performed? (CT, X-rays, U/S, labs)? Why? @ -no What meds were considered but not given? Why? @ -no Did you discuss the management of the patient with other professionals? @ -no Did you reconcile home meds? @ -no Was smoking cessation discussed for >3mins.? @ -no Was critical care preformed (if so, how long)? @ -no Were there social determinants of health that impacted care today? How? (Homelessness, low income, unemployed, alcoholism, drug addiction, transportation, low edu. Level, literacy, decrease access to med. care, [place] [facility], rehab)? @ -no Was there de-escalation of care discussed even if they declined? (Discuss DNR or withdrawal of care, Hospice)? @ -no What co-morbidities impacted this encounter? (DM, HTN, Smoking, COPD, CAD, Cancer, CVA, Hep., AIDS, mental health diagnosis, sleep apnea, morbid obesity)? @ -no Was patient admitted / discharged? @ -admit Undiagnosed new problem with uncertain prognosis? @ -no Drug Therapy requiring intensive monitoring for toxicity (Heparin, Nitro, Insulin, Cardizem)? @ -no Were any procedures done? @ -no Diagnosis/symptom? @ -hypoxia,COPD,pna Acute, or Chronic, or Acute on Chronic? @ -acute Uncomplicated (without systemic symptoms) or Complicated (systemic symptoms)? @ -uncomplicated Side effects of treatment? @ -no Exacerbation, Progression, or Severe Exacerbation] @ -no Poses a threat to life or bodily function? @ -no Reevaluation #5: 01/04/23 20:19 Differential Dyspnea: Coronary syndrome, arrhythmia, tamponade, asthma, COPD, pulmonary embolism, pneumonia, pneumothorax, pulmonary effusion, anaphylaxis, diabetic ketoacidosis, flailed chest, pulmonary contusion, diaphragmatic rupture, anemia, neuromuscular, this is not meant to be an all-inclusive list. - Consultations Consultation #1: Spoke with admitting physicians will admit the patient Medical Decision Making - Medical Decision Making 67 female DF for evaluation of multifactorial respiratory failure hypoxic respiratory failure on BiPAP, COPD with pneumonia pleural effusion, patient will be admitted, no CODE STATUS supportive care - EKG Data -: EKG Interpreted by Me (EKG is sinus tachycardia 112 SC 152 QRS 90 QTC 350) Disposition Clinical Impression: Acute exacerbation of chronic obstructive pulmonary disease, Congestive heart failure, Hypoxia, Community acquired pneumonia, DNR no code (do not resuscitate) Disposition: ADMITTED IP TO THIS [facility] Condition: Serious Is patient prescribed a controlled substance at d/c from ED?: No Referrals: None,Stated [REFERRING] - 1-2 days Time of Disposition: 20:10
[2023-01-04] MEDS ORDERED: ONDANSETRON 4 MG/2 ML VIAL IVP PRN (20:14)
[2023-01-04] MEDS ORDERED: NALOXONE 0.4 MG/ML 1 ML VIAL IV PRN (20:14)
[2023-01-04] MEDS ORDERED: AZITHROMYCIN 500 MG in SODIUM CHLORIDE 0.9% 250 ML IVPB STA (20:17)
[2023-01-04] MEDS: IPRATROPIUM-ALBUTEROL 3 ML NEB INHALATION PRN (20:27)
[2023-01-04] MEDS: SODIUM CHLORIDE 0.9% 1,000 ML IV SCH (20:32)
--- NOTE | 2023-01-05 01:44 | XR ---
EXAM: XR Chest, 1 View CLINICAL HISTORY: ITS.REASON XR Reason: sob TECHNIQUE: Frontal view of the chest. COMPARISON: No relevant prior studies available. FINDINGS: Lungs: Diffuse interstitial infiltrates consistent with multifocal pneumonia Pleural space: Moderate bilateral pleural effusions. No pneumothorax. Heart: Unremarkable. No cardiomegaly. Mediastinum: Unremarkable. Bones/joints: Unremarkable. Tubes, lines and devices: Right chest port Bilateral pleural effusions Impression: Bilateral pleural effusions with multifocal pneumonia.
[2023-01-05] MEDS: methylPREDNISolone SOD SUCCI 125 MG/2 ML VIAL IV SCH ×4 (01:45→16:44)
[2023-01-05 02:11] LABS: Albumin 2.5 g/dL (3.5-5.0); Calcium 7.9 mg/dL (8.4-10.2); Total Protein 5.6 g/dL (6.3-8.2)
[2023-01-05 02:18] LABS: INR 1.2 (<1.2); Partial Thromboplastin Time 30.4 sec (22.0-30.0); Prothrombin Time 12.1 sec (9.0-12.0)
[2023-01-05 03:01] LABS: Anisocytosis Slight; HGB 14.2 gm/dL (11.4-16.0); MCHC 32.2 g/dL (31.0-37.0); MCV 99.2 fL (80.0-100.0); Macrocytosis Slight; Mean Platelet Volume 10.3; RBC 4.44 m/uL (3.80-5.40); RDW 17.1 % (11.5-15.5); WBC 3.2 k/uL (3.8-10.6)
[2023-01-05 04:11] LABS: Band Neutrophils % 6 %; Lymphocytes # (M) 0.16 k/uL (1.0-4.8); Monocytes # (M) 0.16 k/uL (0-1.0); Neutrophils % (M) 84 %; Nucleated Red Blood Cells 0 /100 WBC (0-0); Total Cells Counted 100
[2023-01-05 04:14] LABS: Platelet Count 72 k/uL (150-450); Toxic Vacuolation Present
--- NOTE | 2023-01-05 05:25 | P.CNPUL ---
History of Present Illness Consult date: 01/05/23 Requesting physician: Connor Gaytan Reason for consult: dyspnea Chief complaint: Shortness of breath History of present illness: I am seeing this patient in new consultation today 01/05/2023 for progressive shortness of breath. Patient is a 67-year-old white female with past medical history significant for hypertension, hyperlipidemia, hypothyroidism, metastatic endometrial cancer originally diagnosed in 2017 and had undergone a hysterectomy and bilateral salpingo-oophorectomy in addition to omentectomy. She was treated with carboplatinum and Taxol and brachytherapy. In 2019 she developed pelvic lymphadenopathy and metastatic disease. She was treated with carboplatinum and Taxol and eventually with immunotherapy Keytruda. She does follow up outpatient with her oncologist Dr. King. Patient received her last dose of Keytruda on 11/04/2022, and is currently receiving a course of Lenvima. She has developed recurrent bilateral pleural effusions initially back in 2020, and subsequently had a right Pleurx catheter placed with subsequent removal. She had been doing well until October,, when she developed bilateral pleural effusions again. She had been seen and evaluated by Dr. Zeng. She had undergone a left- sided thoracentesis on 10/02/2022 750 MLS were removed and subsequently a right- sided thoracentesis earlier this month with 550 mL removed. Patient subsequently had a left Pleurx catheter placed on 11/19/2022, and the catheter still in place. Patient is currently resting in bed, on 6 L nasal cannula, and fairly comfortable. She is in a emaciated. She is tachypneic and tachycardic. BiPAP is currently at the bedside and currently on standby with settings 10/5 and FiO2 100%. The patient was transferred from [facility] yesterday evening for progressive shortness of breath. She did have a brief evaluation done in the emergency room at the outside facility. The nonenhanced chest CT report indicated a moderate right and small left pleural effusion, a moderate sized pericardial effusion measuring 1.7 cm which had increased from prior exam, and some new areas of nodularity and groundglass changes in bilateral mid lungs and left apex which could correlate with infectious bronchiolitis, aspiration, or atypical pneumonia. A procalcitonin level at outside facility was elevated at 6.43. She was started on some broad-spectrum antibiotics. She has been afebrile. A follow-up chest x-ray at our facility redemonstrated the bilateral pleural effusions with suspected multifocal pneumonia. CBC on arrival showed some leukopenia with a WBC count of 3.2, hemoglobin 14.2, hematocrit 44, platelets 72,000. Patient's BMP on arrival showed a sodium 136, potassium 5, chloride 100, serum CO2 22, BUN 70, creatinine 1.75, glucose 140. Normal saline at 75 mL per hour. Troponins were elevated at 0.119. ECG showed no obvious acute ischemic changes. LFTs were minimally elevated. Patient's status is borderline at best. It was confirmed with the patient and family, that the patient is a full code. Review of Systems REVIEW OF SYSTEMS: CONSTITUTIONAL: Denies any recent significant weight loss or weight gain. Denies fever, chills EYES: Denies change in vision. EARS, NOSE, MOUTH, THROAT: Denies headaches, denies sore throat. CARDIOVASCULAR: Denies chest pain, palpitations or syncopal episodes. RESPIRATORY: Denies congestion or hemoptysis. Admits progressive shortness of breath and persistent nonproductive cough GASTROINTESTINAL: Denies change in appetite, abdominal pain, nausea and vomiting, or diarrhea GENITOURINARY: Denies hematuria, denies infections. MUSKULOSKELETAL: Denies pain, denies swelling. INTEGUMENTARY: Denies rash, denies eczema. NEUROLOGICAL: Denies recent memory loss, no recent seizure activity. PSYCHIATRIC: Denies anxiety, denies depression. HEMATOLOGIC/LYMPHATIC: Denies anemia, denies enlarged lymph node Past Medical History Past Medical History: Cancer, Hyperlipidemia, Hypertension, Respiratory Disorder, Thyroid Disorder, Vascular Disorder Additional Past Medical History / Comment(s): uterine/endometrial cancer; bilateral pleural effusions History of Any Multi-Drug Resistant Organisms: None Reported Past Surgical History: Hysterectomy Additional Past Surgical History / Comment(s): RUQ biopsy "-" for 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; right-sided Pleurx catheter placement May; left thoracentesis 10/23/22 with removal of 750 mL fluid; right thoracentesis 11/04/2022 with removal of 550 mL fluid Past Anesthesia/Blood Transfusion Reactions: No Reported Reaction Past Psychological History: No Psychological Hx Reported Smoking Status: Never smoker Past Alcohol Use History: None Reported Past Drug Use History: None Reported - Past Family History Sister(s) Family Medical History: Cancer Additional Family Medical History / Comment(s): breast CA Medications and Allergies Home Medications Medication Instructions Recorded Confirmed Type Pravastatin Sodium [Pravachol] 40 mg PO DAILY 07/16/20 01/04/23 History Gabapentin 300 mg PO BID PRN 03/21/21 01/04/23 History ondansetron HCL [Zofran] 8 mg PO Q6H PRN 05/06/21 01/04/23 History Metoprolol Succinate [Metoprolol 25 mg PO DAILY 11/17/22 01/04/23 History Succinate ER] metroNIDAZOLE 1% GEL [Metrogel 1%] 1 applic TOPICAL DAILY PRN 11/17/22 01/04/23 History Calcium Carbonate [Calcium] 600 mg PO BID 01/04/23 01/04/23 History Levothyroxine Sodium [Synthroid] 150 mcg PO DAILY 01/04/23 01/04/23 History Multivitamins, Thera [Multivitamin 1 tab PO DAILY 01/04/23 01/04/23 History (formulary)] Allergies Allergy/AdvReac Type Severity Reaction Status Date / Time No Known Allergies Allergy Verified 01/04/23 20:01 Physical Exam Vitals: Vital Signs Temp Pulse Resp BP Pulse Ox FiO2 01/05/23 02:32 93 40 H 117/76 91 L 01/05/23 02:00 98 46 H 98/73 90 L 01/05/23 01:00 99 43 H 100/76 90 L 01/05/23 00:00 101 H 45 H 104/74 86 L 01/04/23 22:30 106 H 40 H 101/75 92 L 01/04/23 22:00 106 H 40 H 99/74 89 L 01/04/23 21:30 108 H 42 H 125/83 87 L 01/04/23 21:00 107 H 40 H 120/85 88 L 01/04/23 20:47 104 H 01/04/23 20:30 112 H 41 H 108/85 96 01/04/23 20:27 97 100 01/04/23 20:00 114 H 44 H 110/86 97 01/04/23 19:30 110 H 38 H 110/87 96 01/04/23 19:10 112 H 40 H 110/87 96 01/04/23 19:00 111 H 40 H 109/82 95 01/04/23 18:55 110 H 40 H 109/82 95 01/04/23 18:50 111 H 38 H 109/82 95 01/04/23 18:40 116 H 17 116/88 93 L 01/04/23 18:30 131/86 92 L 01/04/23 18:27 100 01/04/23 18:26 87 L 01/04/23 18:23 98.0 F 77 32 H 131/86 93 L Intake and Output 01/04/23 01/04/23 01/05/23 14:59 22:59 06:59 Other: Weight 52.617 kg GENERAL EXAM: Alert, 67-year-old white female who is emaciated, fairly comfortable. HEAD: Normocephalic and atraumatic EYES: Normal reaction of pupils, equal size. NOSE: Clear with pink turbinates. THROAT: No erythema or exudates. NECK: No masses, no JVD. CHEST: No chest wall deformity. LUNGS: Equal air entry with scattered rhonchi throughout, and right lower lobe dullness. On 6 L nasal cannula. There is some accessory muscle use, patient is able to speak in full sentences.. CVS: S1 and S2 normal with no audible murmur, regular rhythm. No extra heart sounds. Heart rate 92 bpm ABDOMEN: No hepatosplenomegaly, active bowel sounds, no guarding or rigidity. SPINE: No scoliosis or deformity SKIN: No rashes CENTRAL NERVOUS SYSTEM: No focal deficits, tone is normal in all 4 extremities. EXTREMITIES: There is no peripheral edema, clubbing, or cyanosis. Peripheral pulses are intact. Results - Laboratory Findings CBC and BMP: 01/05/23 00:53 01/05/23 00:53 PT/INR, D-dimer PT 12.1 sec (9.0-12.0) H 01/05/23 00:53 INR 1.2 (<1.2) H 01/05/23 00:53 Abnormal lab findings: Abnormal Labs 01/05/23 01/05/23 01/05/23 00:53 00:53 00:53 WBC 3.2 L RDW 17.1 H Plt Count 72 L D Lymphocytes # (Manual) 0.16 L PT 12.1 H INR 1.2 H APTT 30.4 H Sodium 136 L BUN 70 H Creatinine 1.75 H Glucose 140 H Calcium 7.9 L AST 86 H ALT 58 H Alkaline Phosphatase 893 H Troponin I Total Protein 5.6 L Albumin 2.5 L 01/05/23 00:53 WBC RDW Plt Count Lymphocytes # (Manual) PT INR APTT Sodium BUN Creatinine Glucose Calcium AST ALT Alkaline Phosphatase Troponin I 0.119 H* Total Protein Albumin - Diagnostic Findings Chest x-ray: image reviewed CT scan - chest: report reviewed Assessment and Plan Assessment: Acute on chronic hypoxemic respiratory failure secondary to suspected community acquired pneumonia and recurrent bilateral pleural effusions. Chest x-ray demonstrated bilateral pleural effusions greater on the right, and diffuse interstitial infiltrates consistent with multifocal pneumonia. Procalcitonin level drawn at outside facility was elevated at 6.43. History of recurrent bilateral pleural effusions, currently has a left Pleurx catheter in place, which was placed on 11/19/2022. Recent thoracentesis on 11/04/2022 on the right with 550 mL of fluid removed; prior to that on 10/23/2022 on the left with 750 ML's of turbid fluid removed. Negative for malignancy. Also has had right Pleurx catheter placement in the past on 05/07/2021 with subsequent removal. History of metastatic endometrial cancer diagnosed in 2016 and had undergone hysterectomy with bilateral salpingo-oophorectomy with omentectomy on 06/07/2018. Treated with chemotherapy. Recurrence noted in August 2020 with evidence of pelvic lymphadenopathy and metastatic disease. Treated again with chemotherapy and subsequent immunotherapy. Patient received her last dose of Keytruda on 11/04/2022, and is currently receiving a course of Lenvima Elevated troponins, likely related to oxygen supply/demand mismatch Moderate size pericardial effusion measuring 1.7 cm demonstrated on outside facility chest CT, which was slightly bigger than previous exam Acute kidney injury, creatinine 1.75 Chronic hypoxemic respiratory failure, on 2 L/m nasal cannula home oxygen Hypertension Hyperlipidemia Hypothyroidism Plan: The patient's medications, labs, chest x-ray reviewed Continue supplemental oxygen to maintain oxygen saturation 92% or greater Currently on 6 L nasal cannula, BiPAP is on standby Continue antibiotics Check lactic acid level and procalcitonin Check cepheid 4-plex Check blood and sputum cultures chest ultrasound with markings Trend troponins Cardiology consult Oncology consult Prognosis is guarded We will continue to follow I have personally seen and examined the patient, performed the documentation and the assessment and plan as written. Number of minutes spent on the visit: 20. Time with Patient: Greater than 30
[2023-01-05 05:27] LABS: Albumin 2.6 g/dL (3.5-5.0); Calcium 7.9 mg/dL (8.4-10.2); Magnesium 2.5 mg/dL (1.6-2.3); Phosphorus 4.5 mg/dL (2.5-4.5); Potassium 5.1 mmol/L (3.5-5.1); Total Protein 5.7 g/dL (6.3-8.2)
[2023-01-05 06:11] LABS: Anisocytosis Slight; Basophils % (A) 0 %; Eosinophils % (A) 0 %; HCT 45.3 % (34.0-46.0); HGB 14.7 gm/dL (11.4-16.0); Lymphocytes # (A) 0.2 k/uL (1.0-4.8); Lymphocytes % (A) 4 %; MCH 32.2 pg (25.0-35.0); MCHC 32.4 g/dL (31.0-37.0); MCV 99.6 fL (80.0-100.0); Macrocytosis Slight; Mean Platelet Volume 10.5; Monocytes # (A) 0.1 k/uL (0-1.0); Monocytes % (A) 2 %; Neutrophils # (A) 3.4 k/uL (1.3-7.7); Neutrophils % (A) 93 %; RBC 4.55 m/uL (3.80-5.40); WBC 3.6 k/uL (3.8-10.6)
[2023-01-05 06:13] LABS: Platelet Count 71 k/uL (150-450)
--- NOTE | 2023-01-05 08:17 | US ---
EXAMINATION TYPE: US chest DATE OF EXAM: 01/05/2023 COMPARISON: NONE CLINICAL INDICATION: Female, 67 years old with history of bilateral pleural effusions; TECHNIQUE: Targeted ultrasound of the posterior lower bilateral hemithoraces EXAM MEASUREMENTS: Right Pleural Effusion pocket size: 11 cm Right skin surface to fluid distance: .5 cm Left Pleural Effusion pocket size: 2.6 cm Left skin surface to fluid distance: .8 cm Right side marked for possible thoracentesis outside the dept. Pulmonologists are able to review the images in the patient?s EMR. IMPRESSIONS: 1. Large right pleural effusion. 2. Small left pleural effusion
[2023-01-05] MEDS: IPRATROPIUM-ALBUTEROL 3 ML NEB INHALATION PRN ×3 (08:35→20:32)
--- NOTE | 2023-01-05 09:18 | XR ---
EXAMINATION TYPE: XR chest 1V portable DATE OF EXAM: 01/05/2023 COMPARISON: 01/05/2023 HISTORY: Post right thoracentesis TECHNIQUE: Single frontal view of the chest is obtained. FINDINGS: Mediport catheter seen. There is a mediastinal drain. There is bilateral consolidation and pleural effusion as a mediastinal drain. No pneumothorax. Heart is enlarged. IMPRESSION: 1. Bilateral infiltrate and pleural effusion. Findings are stable.
[2023-01-05] MEDS: SODIUM CHLORIDE 0.9% 1,000 ML IV SCH ×2 (10:26→16:33)
[2023-01-05] MEDS: PANTOPRAZOLE 40 MG/10 ML VIAL IVP SCH (10:28)
[2023-01-05] MEDS: METOPROLOL TARTRATE 25 MG TAB PO SCH ×2 (10:28→21:29)
--- NOTE | 2023-01-05 11:35 | P.CRDCN ---
History of Present Illness Consult date: 01/05/23 History of present illness: HISTORY OF PRESENT ILLNESS: This is a 67-year-old female with a past medical history significant for hypertension, hyperlipidemia, hypothyroidism, metastatic endometrial cancer, and recurrent pleural effusions with left Pleurx catheter. Patient does not follow with a crib pad maker. We have been asked to see the patient in consultation for elevated troponin and pericardial effusion. Patient examined at the bedside. Patient presented to the hospital with a chief complaint of shortness of breath. Patient is currently on a BiPAP at the time of examination. She reports continued shortness of breath. She denies any chest pain or pressure. The patient had a computed tomography scan at an outside facility revealing moderate-sized pericardial effusion measuring 1.7 cm. * EKG reveals sinus tachycardia with heart rate of 112 * Chest xray bilateral pleural effusions with multifocal pneumonia * Laboratory data: WBC 3.63 hemoglobin 14.7. Platelets count 71. Sodium 137. Potassium 5.1. BUN 71. Creatinine 1.92. Lactic acid 3.8. Repeat 4.4. Troponin 0.123. * Current home cardiac medications include metoprolol succinate 25 mg daily and Pravachol 40 mg daily REVIEW OF SYSTEMS: At the time of my exam: CONSTITUTIONAL: Denies fever or chills. HEENT: Denies blurred vision, vision changes, or eye pain. Denies hemoptysis CARDIOVASCULAR: Denies chest pain. Denies orthopnea. Denies PND. Denies palpitations RESPIRATORY: Denies shortness of breath. GASTROINTESTINAL: Denies abdominal pain. Denies nausea or vomiting. HEMATOLOGIC: Denies bleeding disorders. GENITOURINARY: Denies any blood in urine. SKIN: Denies pruitis. Denies rash. PHYSICAL EXAM: VITAL SIGNS: Reviewed. GENERAL: Well-developed in no acute distress. HEENT: Head is normocephalic. Pupils are equal, round. Sclerae anicteric. Mucous membranes of the mouth are moist. Neck supple. No JVD or thyromegaly LUNGS: Respirations even and unlabored. Lungs diminished bilaterally to auscultation bilaterally. HEART: Regular rate and rhythm. S1 and S2 heard. ABDOMEN: Soft. Nondistended. Nontender. EXTREMITIES: Normal range of motion. No clubbing or cyanosis. Peripheral pulses intact. Trace bilateral lower extremity edema NEUROLOGIC: Awake and alert. Oriented x 3. ASSESSMENT: Shortness of breath Recurrent pleural effusions with left Pleurx catheter Acute on chronic hypoxic respiratory failure Community-acquired pneumonia Metastatic endometrial cancer Abnormal troponin, likely type II PR secondary to oxygen supply demand mismatch Pericardial effusion, no evidence of tamponade Hypertension Hyperlipidemia Hypothyroidism PLAN: Obtain 2D echo to assess cardiac structure and function Add metoprolol 25mg BID Continue to monitor telemetry Prognosis guarded Further recommendations pending patient course Nurse practitioner note has been reviewed by physician. Signing provider agrees with the documented findings, assessment, and plan of care. Past Medical History Past Medical History: Cancer, Hyperlipidemia, Hypertension, Respiratory Disorder, Thyroid Disorder, Vascular Disorder Additional Past Medical History / Comment(s): uterine/endometrial cancer; bilateral pleural effusions History of Any Multi-Drug Resistant Organisms: None Reported Past Surgical History: Hysterectomy Additional Past Surgical History / Comment(s): RUQ biopsy "-" for 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; right-sided Pleurx catheter placement May; left thoracentesis 10/23/22 with removal of 750 mL fluid; right thoracentesis 11/04/2022 with removal of 550 mL fluid Past Anesthesia/Blood Transfusion Reactions: No Reported Reaction Past Psychological History: No Psychological Hx Reported Smoking Status: Never smoker Past Alcohol Use History: None Reported Past Drug Use History: None Reported - Past Family History Sister(s) Family Medical History: Cancer Additional Family Medical History / Comment(s): breast CA Medications and Allergies Home Medications Medication Instructions Recorded Confirmed Type Pravastatin Sodium [Pravachol] 40 mg PO DAILY 07/16/20 01/04/23 History Gabapentin 300 mg PO BID PRN 03/21/21 01/04/23 History ondansetron HCL [Zofran] 8 mg PO Q6H PRN 05/06/21 01/04/23 History Metoprolol Succinate [Metoprolol 25 mg PO DAILY 11/17/22 01/04/23 History Succinate ER] metroNIDAZOLE 1% GEL [Metrogel 1%] 1 applic TOPICAL DAILY PRN 11/17/22 01/04/23 History Calcium Carbonate [Calcium] 600 mg PO BID 01/04/23 01/04/23 History Levothyroxine Sodium [Synthroid] 150 mcg PO DAILY 01/04/23 01/04/23 History Multivitamins, Thera [Multivitamin 1 tab PO DAILY 01/04/23 01/04/23 History (formulary)] Allergies Allergy/AdvReac Type Severity Reaction Status Date / Time No Known Allergies Allergy Verified 01/04/23 20:01 Physical Exam Vitals: Vital Signs Temp Pulse Resp BP Pulse Ox FiO2 01/05/23 10:24 112 H 24 151/103 95 01/05/23 09:09 108 H 26 H 117/71 96 100 01/05/23 09:00 110 H 01/05/23 08:52 94 18 128/77 88 L 01/05/23 08:47 79 26 H 125/82 84 L 01/05/23 07:55 91 18 114/78 87 L 01/05/23 07:00 89 39 H 111/80 90 L 01/05/23 06:30 93 38 H 106/72 89 L 01/05/23 06:00 100 42 H 109/73 01/05/23 05:30 99 43 H 115/76 01/05/23 04:30 85 21 106/76 89 L 01/05/23 04:00 96 40 H 113/76 88 L 01/05/23 03:30 93 41 H 102/74 91 L 01/05/23 03:00 89 35 H 117/76 91 L 01/05/23 02:32 93 40 H 117/76 91 L 01/05/23 02:00 98 46 H 98/73 90 L 01/05/23 01:00 99 43 H 100/76 90 L 01/05/23 00:00 101 H 45 H 104/74 86 L 01/04/23 22:30 106 H 40 H 101/75 92 L 01/04/23 22:00 106 H 40 H 99/74 89 L 01/04/23 21:30 108 H 42 H 125/83 87 L 01/04/23 21:00 107 H 40 H 120/85 88 L 01/04/23 20:47 104 H 01/04/23 20:30 112 H 41 H 108/85 96 01/04/23 20:27 97 100 01/04/23 20:00 114 H 44 H 110/86 97 01/04/23 19:30 110 H 38 H 110/87 96 01/04/23 19:10 112 H 40 H 110/87 96 01/04/23 19:00 111 H 40 H 109/82 95 01/04/23 18:55 110 H 40 H 109/82 95 01/04/23 18:50 111 H 38 H 109/82 95 01/04/23 18:40 116 H 17 116/88 93 L 01/04/23 18:30 131/86 92 L 01/04/23 18:27 100 01/04/23 18:26 87 L 01/04/23 18:23 98.0 F 77 32 H 131/86 93 L Intake and Output 01/04/23 01/05/23 01/05/23 22:59 06:59 14:59 Intake Total 350 Output Total 850 Balance -500 Intake: Intake, IV Titration 350 Amount Azithromycin 500 mg In 250 Sodium Chloride 0.9% 250 ml @ 250 mls/hr IVPB HS [facility] Rx#:[id number] Azithromycin 500 mg In 50 Sodium Chloride 0.9% 250 ml @ 250 mls/hr IVPB ONCE ST[facility] Rx#:[id number] cefTRIAXone 2 gm In 50 Sodium Chloride 0.9% 50 ml @ 100 mls/hr IVPB Q24H [facility] Rx#:[id number] Output: Urine 850 Other: Weight 52.617 kg Results 01/05/23 04:03 01/05/23 04:03 Cardiac Enzymes 01/05/23 01/05/23 01/05/23 Range/Units 00:53 00:53 04:03 AST 86 H 85 H (14-36) U/L Troponin I 0.119 H* (0.000-0.034) ng/mL 01/05/23 Range/Units 04:03 AST (14-36) U/L Troponin I 0.123 H* (0.000-0.034) ng/mL Coagulation 01/05/23 Range/Units 00:53 PT 12.1 H (9.0-12.0) sec APTT 30.4 H (22.0-30.0) sec CBC 01/05/23 01/05/23 Range/Units 00:53 04:03 WBC 3.2 L 3.6 L (3.8-10.6) k/uL RBC 4.44 4.55 (3.80-5.40) m/uL Hgb 14.2 14.7 (11.4-16.0) gm/dL Hct 44.0 45.3 (34.0-46.0) % Plt Count 72 L D 71 L (150-450) k/uL Comprehensive Metabolic Panel 01/05/23 01/05/23 Range/Units 00:53 04:03 Sodium 136 L 137 (137-145) mmol/L Potassium 5.0 5.1 (3.5-5.1) mmol/L Chloride 100 99 (98-107) mmol/L Carbon Dioxide 22 22 (22-30) mmol/L BUN 70 H 71 H (7-17) mg/dL Creatinine 1.75 H 1.92 H (0.52-1.04) mg/dL Glucose 140 H 112 H (74-99) mg/dL Calcium 7.9 L 7.9 L (8.4-10.2) mg/dL AST 86 H 85 H (14-36) U/L ALT 58 H 60 H (4-34) U/L Alkaline Phosphatase 893 H 986 H (38-126) U/L Total Protein 5.6 L 5.7 L (6.3-8.2) g/dL Albumin 2.5 L 2.6 L (3.5-5.0) g/dL Current Medications Generic Name Dose Route Start Last Admin Trade Name Freq PRN Reason Stop Dose Admin Albuterol/Ipratropium 3 ml 01/04/23 20:14 01/05/23 08:35 Ipratropium-Albuterol 3 Ml Neb INHALATION 3 ml RT-QID PRN Administration Shortness Of Breath Or Wheezing Enoxaparin Sodium 30 mg 01/05/23 11:15 Enoxaparin 30 Mg/0.3 Ml Syringe SQ DAILY [facility] Sodium Chloride 1,000 mls @ 75 mls/hr 01/04/23 20:15 01/05/23 10:26 Saline 0.9% IV 75 mls/hr .[id number] [facility] Administration Ceftriaxone Sodium 2 gm/ 50 mls @ 100 mls/hr 01/05/23 21:00 Sodium Chloride IVPB Q24H [facility] Protocol Azithromycin 500 mg/ Sodium 250 mls @ 250 mls/hr 01/05/23 21:00 Chloride IVPB 01/07/23 21:59 HS [facility] Protocol Levothyroxine Sodium 150 mcg 01/05/23 11:15 Levothyroxine 75 Mcg Tab PO DAILY@0630 [facility] Methylprednisolone Sodium Succinate 60 mg 01/05/23 00:00 01/05/23 05:49 Methylprednisolone Sod Succi 125 Mg/2 Ml Vial IV 60 mg Q6HR [facility] Administration Metoprolol Tartrate 25 mg 01/05/23 10:00 01/05/23 10:28 Metoprolol Tartrate 25 Mg Tab PO 25 mg BID [facility] Administration Morphine Sulfate 4 mg 01/04/23 20:14 Morphine Sulfate 4 Mg/Ml Syringe IV Q4HR PRN Severe Pain (Scale 7 to 10) Naloxone HCl 0.2 mg 01/04/23 20:14 Naloxone 0.4 Mg/Ml 1 Ml Vial IV Q2M PRN Opioid Reversal Ondansetron HCl 4 mg 01/04/23 20:14 Ondansetron 4 Mg/2 Ml Vial IVP Q8HR PRN Nausea And Vomiting Pantoprazole Sodium 40 mg 01/05/23 09:00 01/05/23 10:28 Pantoprazole 40 Mg/10 Ml Vial IVP 40 mg DAILY [facility] Administration Pravastatin Sodium 40 mg 01/05/23 11:15 Pravastatin Sodium 40 Mg Tab PO DAILY [facility] Intake and Output 01/04/23 01/05/23 01/05/23 22:59 06:59 14:59 Intake Total 350 Output Total 850 Balance -500 Intake: Intake, IV Titration 350 Amount Azithromycin 500 mg In 250 Sodium Chloride 0.9% 250 ml @ 250 mls/hr IVPB HS [facility] Rx#:[id number] Azithromycin 500 mg In 50 Sodium Chloride 0.9% 250 ml @ 250 mls/hr IVPB ONCE [facility] Rx#:[id number] cefTRIAXone 2 gm In 50 Sodium Chloride 0.9% 50 ml @ 100 mls/hr IVPB Q24H [facility] Rx#:[id number] Output: Urine 850 Other: Weight 52.617 kg 01/05/23 04:03 01/05/23 04:03
--- NOTE | 2023-01-05 12:02 | PCN ---
PROCEDURE NOTE PROCEDURE PERFORMED: Right thoracentesis. PREOPERATIVE DIAGNOSIS: Right pleural effusion, recurrent. POSTOPERATIVE DIAGNOSIS: Right pleural effusion, recurrent. OPERATORS: Dr. Jones and Dr. Moseley. The patient's procedure was done in the emergency room. There was informed consent and universal timeout. The right posterior chest was marked by ultrasound. Roughly 800 mL of dark yellow fluid was removed from the pleural space on the right. The patient tolerated the procedure well. There was no immediate complication. The fluid will not be sent for analysis. A stat formal chest x-ray has been ordered. Again, the patient tolerated the procedure well without difficulty. MMODL / IJN: [id number] /
--- NOTE | 2023-01-05 13:52 | P.HPIM ---
History of Present Illness H&P Date: 01/05/23 Chief Complaint: Short of breath This is a pleasant 67-year-old patient who follows with PCP Dr. Daren Robert. Oncologist Dr. Adorno. [employer] Dr. Zeng. 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 treated with chemotherapy and radiation treatment. Had responded well. recurrence 2020. Received chemotherapy recurrent pleural effusion with multiple thoracentesis . lives with her and daughter. Patient was recently discharged on November 20 with left-sided pleural VAC was placed. Large amount of fluid was drained. Patient drains every 3-4 days. Patient now sent to us from [facility]. Getting more and more short of breath. He may sit found a pulse ox of 60%. Patient was placed on CPAP. Checks x-ray showed anasarca pleural effusion some consolidation. Moderate pericardial effusion of 1.7 cm. Patient's appetite is decreased. Patient is ambulating very little. Weak tired further weight loss. Patient's brother and [id number] the bedside. Patient is currently no code with instructions of CPR. No obvious fever and chills. Right thoracentesis was done by Dr. Hernandez 800 mL of dark yellow fluid was removed. Review of systems: GEN.: Decreased appetite tired EYES: None HEENT: None NECK: None RESPIRATORY: As above] CARDIOVASCULAR: None GASTROINTESTINAL: About 1 AM week GENITOURINARY: None MUSCULOSKELETAL: Decreased muscle mass LYMPHATICS: None HEMATOLOGICAL: None PSYCHIATRY: Anxious NEUROLOGICAL: None Past medical history to include: Uterine cancer, abdominal wall cancer, hypothyroid, hyperlipidemia, peripheral neuropathy, recurrent pleural effusion metastatic Social history: . Denies any history of smoking and alcohol. Lives with and daughter. Family history: Breast cancer Physical examination: VITAL SIGNS: 98, 77, 32, 131/86, 93% on BiPAP GENERAL: BMI 19.3, declining a bit tired, weak. Left-sided chest Pleur-evac EYES: [Pupils equal. Conjunctiva pale l. HEENT: External appearance of nose and ears normal, oral cavity grossly normal. NECK: JVD not raised; masses not palpable. HEART: First and second heart sounds are normal; some edema. LUNGS: Respiratory rate increased decreased breath sounds. ABDOMEN: Soft, nontender, liver spleen not palpable, no masses palpable. PSYCH: Tired able to answer simple questionsl. MUSCULOSKELETAL:No Clubbing/cyanosis;muscles-grossly intact. Muscle muscle mass. 1 prominences. NEUROLOGICAL: Cranial nerves grossly intact; no facial asymmetry, power and sensation grossly intact. LYMPHATICS: No lymph nodes palpable in the axilla and neck DERMATOLOGICAL: Rash in the right thigh INVESTIGATIONS, reviewed in the clinical context: White count 3.6 hemoglobin 14.7 platelets 71 sodium 137 potassium 5.1 BUN 71 creatinine 1.9 to Lactic acid 3.8 AST 85 AST 60 Troponin I 0.119, 0.123 Albumin 2.6 Procalcitonin 5.1 Influenza type A, B, RSV, COVID-19: Not detected EKG tracing personally reviewed by me-sinus tachycardia. Nonspecific T-wave changes. Chest ultrasound: Large right pleural effusion 11 cm Assessment and plan: -Recurrent malignant pleural effusion, multiple thoracentesis in the past. Left-sided Pleur-evac , causing hypoxia Right thoracentesis for about [address] Jones January 2. Acute on chronic hypoxic respiratory failure from malignant pleural effusion, recurrent Patient requiring BiPAP -Acute on chronic medical debility from underlying malignancy -Recurrent uterine cancer with a prior treatment with radiation and chemotherapy., immunotherapy. Consult- oncology Dr. Adorno -chronic hypoxic respiratory failure secondary to recurrent bilateral pleural effusion.: 4 L nasal cannula -Troponin leak from hemodynamic mismatch. No ACS. -Hyperlipidemia Pravachol -Hypothyroid Synthroid 150 g daily. 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 Vitamin D -No code with instructions Care was discussed with the patient, patient brother and sister all the bedside. They understand prognosis is guarded. CODE STATUS was further discussed. Past Medical History Past Medical History: Cancer, Hyperlipidemia, Hypertension, Respiratory Disorder, Thyroid Disorder, Vascular Disorder Additional Past Medical History / Comment(s): uterine/endometrial cancer; bilateral pleural effusions History of Any Multi-Drug Resistant Organisms: None Reported Past Surgical History: Hysterectomy Additional Past Surgical History / Comment(s): RUQ biopsy "-" for 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; right-sided Pleurx catheter placement May; left thoracentesis 10/23/22 with removal of 750 mL fluid; right thoracentesis 11/04/2022 with removal of 550 mL fluid Past Anesthesia/Blood Transfusion Reactions: No Reported Reaction Past Psychological History: No Psychological Hx Reported Smoking Status: Never smoker Past Alcohol Use History: None Reported Past Drug Use History: None Reported - Past Family History Sister(s) Family Medical History: Cancer Additional Family Medical History / Comment(s): breast CA Medications and Allergies Home Medications Medication Instructions Recorded Confirmed Type Pravastatin Sodium [Pravachol] 40 mg PO DAILY 07/16/20 01/04/23 History Gabapentin 300 mg PO BID PRN 03/21/21 01/04/23 History ondansetron HCL [Zofran] 8 mg PO Q6H PRN 05/06/21 01/04/23 History Metoprolol Succinate [Metoprolol 25 mg PO DAILY 11/17/22 01/04/23 History Succinate ER] metroNIDAZOLE 1% GEL [Metrogel 1%] 1 applic TOPICAL DAILY PRN 11/17/22 01/04/23 History Calcium Carbonate [Calcium] 600 mg PO BID 01/04/23 01/04/23 History Levothyroxine Sodium [Synthroid] 150 mcg PO DAILY 01/04/23 01/04/23 History Multivitamins, Thera [Multivitamin 1 tab PO DAILY 01/04/23 01/04/23 History (formulary)] Allergies Allergy/AdvReac Type Severity Reaction Status Date / Time No Known Allergies Allergy Verified 01/04/23 20:01 Physical Exam Vitals: Vital Signs Temp Pulse Resp BP Pulse Ox FiO2 01/05/23 10:24 112 H 24 151/103 95 01/05/23 09:09 108 H 26 H 117/71 96 100 01/05/23 09:00 110 H 01/05/23 08:52 94 18 128/77 88 L 01/05/23 08:47 79 26 H 125/82 84 L 01/05/23 07:55 91 18 114/78 87 L 01/05/23 07:00 89 39 H 111/80 90 L 01/05/23 06:30 93 38 H 106/72 89 L 01/05/23 06:00 100 42 H 109/73 01/05/23 05:30 99 43 H 115/76 01/05/23 04:30 85 21 106/76 89 L 01/05/23 04:00 96 40 H 113/76 88 L 01/05/23 03:30 93 41 H 102/74 91 L 01/05/23 03:00 89 35 H 117/76 91 L 01/05/23 02:32 93 40 H 117/76 91 L 01/05/23 02:00 98 46 H 98/73 90 L 01/05/23 01:00 99 43 H 100/76 90 L 01/05/23 00:00 101 H 45 H 104/74 86 L 01/04/23 22:30 106 H 40 H 101/75 92 L 01/04/23 22:00 106 H 40 H 99/74 89 L 01/04/23 21:30 108 H 42 H 125/83 87 L 01/04/23 21:00 107 H 40 H 120/85 88 L 01/04/23 20:47 104 H 01/04/23 20:30 112 H 41 H 108/85 96 01/04/23 20:27 97 100 01/04/23 20:00 114 H 44 H 110/86 97 01/04/23 19:30 110 H 38 H 110/87 96 01/04/23 19:10 112 H 40 H 110/87 96 01/04/23 19:00 111 H 40 H 109/82 95 01/04/23 18:55 110 H 40 H 109/82 95 01/04/23 18:50 111 H 38 H 109/82 95 01/04/23 18:40 116 H 17 116/88 93 L 01/04/23 18:30 131/86 92 L 01/04/23 18:27 100 01/04/23 18:26 87 L 01/04/23 18:23 98.0 F 77 32 H 131/86 93 L Intake and Output 01/04/23 01/05/23 01/05/23 22:59 06:59 14:59 Intake Total 350 Output Total 850 Balance -500 Intake: Intake, IV Titration 350 Amount Azithromycin 500 mg In 250 Sodium Chloride 0.9% 250 ml @ 250 mls/hr IVPB HS [facility] Rx#:[id number] Azithromycin 500 mg In 50 Sodium Chloride 0.9% 250 ml @ 250 mls/hr IVPB ONCE [facility] Rx#:[id number] cefTRIAXone 2 gm In 50 Sodium Chloride 0.9% 50 ml @ 100 mls/hr IVPB Q24H [facility] Rx#:[id number] Output: Urine 850 Other: Weight 52.617 kg Results CBC & Chem 7: 01/05/23 04:03 01/05/23 04:03 Labs: Abnormal Lab Results - Last 24 Hours (Table) 01/05/23 01/05/23 01/05/23 Range/Units 00:53 00:53 00:53 WBC 3.2 L (3.8-10.6) k/uL RDW 17.1 H (11.5-15.5) % Plt Count 72 L D (150-450) k/uL Lymphocytes # (1.0-4.8) k/uL Lymphocytes # (Manual) 0.16 L (1.0-4.8) k/uL PT 12.1 H (9.0-12.0) sec INR 1.2 H (<1.2) APTT 30.4 H (22.0-30.0) sec Sodium 136 L (137-145) mmol/L BUN 70 H (7-17) mg/dL Creatinine 1.75 H (0.52-1.04) mg/dL Glucose 140 H (74-99) mg/dL Plasma Lactic Acid Javed (0.7-2.0) mmol/L Calcium 7.9 L (8.4-10.2) mg/dL Magnesium (1.6-2.3) mg/dL AST 86 H (14-36) U/L ALT 58 H (4-34) U/L Alkaline Phosphatase 893 H (38-126) U/L Troponin I (0.000-0.034) ng/mL Total Protein 5.6 L (6.3-8.2) g/dL Albumin 2.5 L (3.5-5.0) g/dL Procalcitonin (0.02-0.09) ng/mL 01/05/23 01/05/23 01/05/23 Range/Units 00:53 04:03 04:03 WBC 3.6 L (3.8-10.6) k/uL RDW 17.0 H (11.5-15.5) % Plt Count 71 L (150-450) k/uL Lymphocytes # 0.2 L (1.0-4.8) k/uL Lymphocytes # (Manual) (1.0-4.8) k/uL PT (9.0-12.0) sec INR (<1.2) APTT (22.0-30.0) sec Sodium (137-145) mmol/L BUN 71 H (7-17) mg/dL Creatinine 1.92 H (0.52-1.04) mg/dL Glucose 112 H (74-99) mg/dL Plasma Lactic Acid Javed (0.7-2.0) mmol/L Calcium 7.9 L (8.4-10.2) mg/dL Magnesium 2.5 H (1.6-2.3) mg/dL AST 85 H (14-36) U/L ALT 60 H (4-34) U/L Alkaline Phosphatase 986 H (38-126) U/L Troponin I 0.119 H* (0.000-0.034) ng/mL Total Protein 5.7 L (6.3-8.2) g/dL Albumin 2.6 L (3.5-5.0) g/dL Procalcitonin (0.02-0.09) ng/mL 01/05/23 01/05/23 01/05/23 Range/Units 04:03 05:17 05:17 WBC (3.8-10.6) k/uL RDW (11.5-15.5) % Plt Count (150-450) k/uL Lymphocytes # (1.0-4.8) k/uL Lymphocytes # (Manual) (1.0-4.8) k/uL PT (9.0-12.0) sec INR (<1.2) APTT (22.0-30.0) sec Sodium (137-145) mmol/L BUN (7-17) mg/dL Creatinine (0.52-1.04) mg/dL Glucose (74-99) mg/dL Plasma Lactic Acid Javed 3.8 H* (0.7-2.0) mmol/L Calcium (8.4-10.2) mg/dL Magnesium (1.6-2.3) mg/dL AST (14-36) U/L ALT (4-34) U/L Alkaline Phosphatase (38-126) U/L Troponin I 0.123 H* (0.000-0.034) ng/mL Total Protein (6.3-8.2) g/dL Albumin (3.5-5.0) g/dL Procalcitonin 5.10 H (0.02-0.09) ng/mL 01/05/23 Range/Units 08:57 WBC (3.8-10.6) k/uL RDW (11.5-15.5) % Plt Count (150-450) k/uL Lymphocytes # (1.0-4.8) k/uL Lymphocytes # (Manual) (1.0-4.8) k/uL PT (9.0-12.0) sec INR (<1.2) APTT (22.0-30.0) sec Sodium (137-145) mmol/L BUN (7-17) mg/dL Creatinine (0.52-1.04) mg/dL Glucose (74-99) mg/dL Plasma Lactic Acid Javed 4.4 H* (0.7-2.0) mmol/L Calcium (8.4-10.2) mg/dL Magnesium (1.6-2.3) mg/dL AST (14-36) U/L ALT (4-34) U/L Alkaline Phosphatase (38-126) U/L Troponin I (0.000-0.034) ng/mL Total Protein (6.3-8.2) g/dL Albumin (3.5-5.0) g/dL Procalcitonin (0.02-0.09) ng/mL
[2023-01-05 16:31] LABS: Glucose,Whole Blood 180 mg/dL (70-110)
[2023-01-05] MEDS: ENOXAPARIN 30 MG/0.3 ML SYRINGE SQ SCH (16:32)
[2023-01-05] MEDS: PRAVASTATIN SODIUM 40 MG TAB PO SCH (16:33)
[2023-01-05] MEDS: LEVOTHYROXINE 75 MCG TAB PO SCH (16:33)
[2023-01-05] MEDS: INSULIN ASPART (NovoLOG) 100 UNIT/ML VIAL SQ SCH ×2 (17:17→21:22)
[2023-01-05] MEDS: LORazepam 2 MG/ML INJ IV PRN (17:17)
--- NOTE | 2023-01-05 18:16 | P.CONS ---
History of Present Illness - Reason for Consult Consult date: 01/05/23 endometrial adenocarcinoma Requesting physician: Kaiden Castro - Chief Complaint Hypoxic respiratory failure - History of Present Illness Mrs. Rodriguez is an extremely pleasant 67-year-old female well-known to the practice, patient of Dr. 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 She presented Vaginal bleeding which led to the abnormal Pap smear. She unfortunately had recurrence in 2018. She had chemotherapy 6 as well as brachytherapy. She did well until September 2020 when she was found to have metastatic disease. She Completed chemotherapy and did well until March 07, Recurrent right-sided pleural effusions. She was started on keytruda and oral lenvima 2020, with significant reduction in pleural fluid volume. She did well until November/2022. She required bilateral thoracentesis, unfortunately a sooner redeveloped. Patient physically was failing, feeling very tired, poor intake. She was hospitalized 12/02/22 with a left pleural catheter placed. She unfortunately has been having increased shortness of breath the last week, this is been persistent and progressive until she could no longer tolerate it, she came in with a chest x-ray showing pleural effusions right greater than left. She is status post draining on the left side of 775 cc of fluid. Pending evaluation of the right l effusion. Patient denied having any fevers, she was able to talk to us with the BiPAP on. She denied being in any pain. Review of Systems 10 point review of systems is negative except as stated in HPI Past Medical History Past Medical History: Cancer, Hyperlipidemia, Hypertension, Respiratory Disorder, Thyroid Disorder, Vascular Disorder Additional Past Medical History / Comment(s): uterine/endometrial cancer; bilateral pleural effusions History of Any Multi-Drug Resistant Organisms: None Reported Past Surgical History: Hysterectomy Additional Past Surgical History / Comment(s): RUQ biopsy "-" for 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; right-sided Pleurx catheter placement May; left thoracentesis 10/23/22 with removal of 750 mL fluid; right thoracentesis 11/04/2022 with removal of 550 mL fluid Past Anesthesia/Blood Transfusion Reactions: No Reported Reaction Past Psychological History: No Psychological Hx Reported Smoking Status: Never smoker Past Alcohol Use History: None Reported Past Drug Use History: None Reported - Past Family History Sister(s) Family Medical History: Cancer Additional Family Medical History / Comment(s): breast CA Medications and Allergies Home Medications Medication Instructions Recorded Confirmed Type Pravastatin Sodium [Pravachol] 40 mg PO DAILY 07/16/20 01/04/23 History Gabapentin 300 mg PO BID PRN 03/21/21 01/04/23 History ondansetron HCL [Zofran] 8 mg PO Q6H PRN 05/06/21 01/04/23 History Metoprolol Succinate [Metoprolol 25 mg PO DAILY 11/17/22 01/04/23 History Succinate ER] metroNIDAZOLE 1% GEL [Metrogel 1%] 1 applic TOPICAL DAILY PRN 11/17/22 01/04/23 History Calcium Carbonate [Calcium] 600 mg PO BID 01/04/23 01/04/23 History Levothyroxine Sodium [Synthroid] 150 mcg PO DAILY 01/04/23 01/04/23 History Multivitamins, Thera [Multivitamin 1 tab PO DAILY 01/04/23 01/04/23 History (formulary)] Allergies Allergy/AdvReac Type Severity Reaction Status Date / Time No Known Allergies Allergy Verified 01/04/23 20:01 Physical Exam Vitals: Vital Signs Temp Pulse Resp BP Pulse Ox FiO2 01/05/23 07:55 91 18 114/78 87 L 01/05/23 07:00 89 39 H 111/80 90 L 01/05/23 06:30 93 38 H 106/72 89 L 01/05/23 06:00 100 42 H 109/73 01/05/23 05:30 99 43 H 115/76 01/05/23 04:30 85 21 106/76 89 L 01/05/23 04:00 96 40 H 113/76 88 L 01/05/23 03:30 93 41 H 102/74 91 L 01/05/23 03:00 89 35 H 117/76 91 L 01/05/23 02:32 93 40 H 117/76 91 L 01/05/23 02:00 98 46 H 98/73 90 L 01/05/23 01:00 99 43 H 100/76 90 L 01/05/23 00:00 101 H 45 H 104/74 86 L 01/04/23 22:30 106 H 40 H 101/75 92 L 01/04/23 22:00 106 H 40 H 99/74 89 L 01/04/23 21:30 108 H 42 H 125/83 87 L 01/04/23 21:00 107 H 40 H 120/85 88 L 01/04/23 20:47 104 H 01/04/23 20:30 112 H 41 H 108/85 96 01/04/23 20:27 97 100 01/04/23 20:00 114 H 44 H 110/86 97 01/04/23 19:30 110 H 38 H 110/87 96 01/04/23 19:10 112 H 40 H 110/87 96 01/04/23 19:00 111 H 40 H 109/82 95 01/04/23 18:55 110 H 40 H 109/82 95 01/04/23 18:50 111 H 38 H 109/82 95 01/04/23 18:40 116 H 17 116/88 93 L 01/04/23 18:30 131/86 92 L 01/04/23 18:27 100 01/04/23 18:26 87 L 01/04/23 18:23 98.0 F 77 32 H 131/86 93 L Intake and Output 01/04/23 01/05/23 01/05/23 22:59 06:59 14:59 Intake Total 350 Output Total 850 Balance -500 Intake: Intake, IV Titration 350 Amount Azithromycin 500 mg In 250 Sodium Chloride 0.9% 250 ml @ 250 mls/hr IVPB HS [facility] Rx#:[id number] Azithromycin 500 mg In 50 Sodium Chloride 0.9% 250 ml @ 250 mls/hr IVPB ONCE [facility] Rx#:[id number] cefTRIAXone 2 gm In 50 Sodium Chloride 0.9% 50 ml @ 100 mls/hr IVPB Q24H [facility] Rx#:[id number] Output: Urine 850 Other: Weight 52.617 kg - Constitutional Frail General appearance: cooperative, mild distress, thin - EENT Eyes: anicteric sclerae, EOMI ENT: hearing grossly normal - Neck Neck: no lymphadenopathy - Respiratory Respiratory: bilateral: diminished - Cardiovascular Tachycardia leg Peripheral Edema: bilateral: Trace - Gastrointestinal General gastrointestinal: no absent bowel sounds, no decreased bowel sounds, no distended, no hepatomegaly, no hyperactive bowel sounds, normal bowel sounds, no organomegaly, no rigid, no scaphoid, soft, no splenomegaly, no tenderness, no umbilical hernia, no ventral hernia - Integumentary Integumentary: pale - Neurologic Neurologic: CNII-XII intact (Grossly) - Musculoskeletal Musculoskeletal: generalized weakness - Psychiatric Psychiatric: A&O x's 3, appropriate affect, intact judgment & insight Results CBC & Chem 7: 01/05/23 04:03 01/05/23 04:03 Labs: Abnormal Lab Results - Last 24 Hours (Table) 01/05/23 01/05/23 01/05/23 Range/Units 00:53 00:53 00:53 WBC 3.2 L (3.8-10.6) k/uL RDW 17.1 H (11.5-15.5) % Plt Count 72 L D (150-450) k/uL Lymphocytes # (Manual) 0.16 L (1.0-4.8) k/uL PT 12.1 H (9.0-12.0) sec INR 1.2 H (<1.2) APTT 30.4 H (22.0-30.0) sec Sodium 136 L (137-145) mmol/L BUN 70 H (7-17) mg/dL Creatinine 1.75 H (0.52-1.04) mg/dL Glucose 140 H (74-99) mg/dL Plasma Lactic Acid Javed (0.7-2.0) mmol/L Calcium 7.9 L (8.4-10.2) mg/dL Magnesium (1.6-2.3) mg/dL AST 86 H (14-36) U/L ALT 58 H (4-34) U/L Alkaline Phosphatase 893 H (38-126) U/L Troponin I (0.000-0.034) ng/mL Total Protein 5.6 L (6.3-8.2) g/dL Albumin 2.5 L (3.5-5.0) g/dL 01/05/23 01/05/23 01/05/23 Range/Units 00:53 04:03 04:03 WBC 3.6 L (3.8-10.6) k/uL RDW 17.0 H (11.5-15.5) % Plt Count 71 L (150-450) k/uL Lymphocytes # (Manual) (1.0-4.8) k/uL PT (9.0-12.0) sec INR (<1.2) APTT (22.0-30.0) sec Sodium (137-145) mmol/L BUN 71 H (7-17) mg/dL Creatinine 1.92 H (0.52-1.04) mg/dL Glucose 112 H (74-99) mg/dL Plasma Lactic Acid Javed (0.7-2.0) mmol/L Calcium 7.9 L (8.4-10.2) mg/dL Magnesium 2.5 H (1.6-2.3) mg/dL AST 85 H (14-36) U/L ALT 60 H (4-34) U/L Alkaline Phosphatase 986 H (38-126) U/L Troponin I 0.119 H* (0.000-0.034) ng/mL Total Protein 5.7 L (6.3-8.2) g/dL Albumin 2.6 L (3.5-5.0) g/dL 01/05/23 01/05/23 Range/Units 04:03 05:17 WBC (3.8-10.6) k/uL RDW (11.5-15.5) % Plt Count (150-450) k/uL Lymphocytes # (Manual) (1.0-4.8) k/uL PT (9.0-12.0) sec INR (<1.2) APTT (22.0-30.0) sec Sodium (137-145) mmol/L BUN (7-17) mg/dL Creatinine (0.52-1.04) mg/dL Glucose (74-99) mg/dL Plasma Lactic Acid Javed 3.8 H* (0.7-2.0) mmol/L Calcium (8.4-10.2) mg/dL Magnesium (1.6-2.3) mg/dL AST (14-36) U/L ALT (4-34) U/L Alkaline Phosphatase (38-126) U/L Troponin I 0.123 H* (0.000-0.034) ng/mL Total Protein (6.3-8.2) g/dL Albumin (3.5-5.0) g/dL Chest x-ray: report reviewed Assessment and Plan (1) Recurrent carcinoma of endometrium Current Visit: Yes Status: Acute Code(s): C54.1 - MALIGNANT NEOPLASM OF ENDOMETRIUM SNOMED Code(s): 212715825 (2) Hypoxia Current Visit: Yes Status: Acute Code(s): R09.02 - HYPOXEMIA SNOMED Code(s): 710504279 (3) Bilateral pleural effusion Current Visit: No Status: Acute Code(s): J90 - PLEURAL EFFUSION, NOT ELSEWHERE CLASSIFIED SNOMED Code(s): 220091117 Plan: Hypoxic respiratory failure -Bilateral pleural effusions. Patient has a Pleurx drain on the left, 775 cc of fluid noted in the canister at the bedside. Will request cytology. -Pending pulmonary's review of patient's case. Not sure if patient is a candidate for a right thoracentesis. -Patient is on BiPAP when seen, oxygen saturations are in the 90s Recurrent endometrial carcinoma -Recent recurrent and enlarging pleural effusions. None of the specimens have came back positive for malignancy but, treatment was recently changed for clinical evidence of disease progression -Patient had cycle 1 day 1 last week of single agent Gemzar. -Treatment will be on hold at this time. attests: I have seen and examined patient, performed H&P, developed impression and plan of care. Discussed with dictator. Agree with documentation, dictated as a scribe
[2023-01-05 19:53] LABS: Glucose,Whole Blood 109 mg/dL (70-110)
[2023-01-05] MEDS: AZITHROMYCIN 500 MG in SODIUM CHLORIDE 0.9% 250 ML IVPB SCH (21:30)
[2023-01-06] MEDS: methylPREDNISolone SOD SUCCI 125 MG/2 ML VIAL IV SCH ×5 (00:35→23:35)
[2023-01-06] MEDS: LORazepam 2 MG/ML INJ IV PRN (01:40)
[2023-01-06 05:55] LABS: Glucose,Whole Blood 101 mg/dL (70-110)
[2023-01-06] MEDS: INSULIN ASPART (NovoLOG) 100 UNIT/ML VIAL SQ SCH ×4 (06:20→20:37)
[2023-01-06] MEDS: LEVOTHYROXINE 75 MCG TAB PO SCH (06:25)
[2023-01-06 09:04] LABS: Anisocytosis Slight; Basophils % (A) 0 %; Eosinophils % (A) 0 %; HCT 40.3 % (34.0-46.0); HGB 13.1 gm/dL (11.4-16.0); Lymphocytes # (A) 0.1 k/uL (1.0-4.8); Lymphocytes % (A) 3 %; MCH 32.3 pg (25.0-35.0); MCHC 32.6 g/dL (31.0-37.0); Macrocytosis Slight; Mean Platelet Volume 9.3; Monocytes # (A) 0.1 k/uL (0-1.0); Monocytes % (A) 3 %; Neutrophils # (A) 4.4 k/uL (1.3-7.7); Neutrophils % (A) 94 %; RBC 4.07 m/uL (3.80-5.40); RDW 17.3 % (11.5-15.5); WBC 4.7 k/uL (3.8-10.6)
[2023-01-06 09:26] LABS: Platelet Count 48 k/uL (150-450)
[2023-01-06 09:39] LABS: ALT 72 U/L (4-34); AST 94 U/L (14-36); African American GFR (CKD) 32 (>60 ml/min/1.73 sqM); Albumin 2.4 g/dL (3.5-5.0); Alkaline Phosphatase 940 U/L (38-126); Anion Gap 10 mmol/L; Blood Urea Nitrogen 74 mg/dL (7-17); Calcium 7.5 mg/dL (8.4-10.2); Carbon Dioxide 24 mmol/L (22-30); Chloride 107 mmol/L (98-107); Glucose 100 mg/dL (74-99); Non-African American GFR(CKD) 28 (>60 ml/min/1.73 sqM); Potassium 4.5 mmol/L (3.5-5.1); Sodium 141 mmol/L (137-145); Total Bilirubin 0.5 mg/dL (0.2-1.3); Total Protein 5.1 g/dL (6.3-8.2)
[2023-01-06 09:54] LABS: T4, Free (Free Thyroxine) 0.99 ng/dL (0.78-2.19)
[2023-01-06 10:15] VITALS: BMI 19.3
--- NOTE | 2023-01-06 10:50 | P.PN ---
Subjective Progress Note Date: 01/06/23 HISTORY OF PRESENT ILLNESS: This is a 67-year-old female with a past medical history significant for hypertension, hyperlipidemia, hypothyroidism, metastatic endometrial cancer, and recurrent pleural effusions with left Pleurx catheter. Patient does not follow with a etl application developer. We have been asked to see the patient in consultation for elevated troponin and pericardial effusion. Patient examined at the bedside. Patient presented to the hospital with a chief complaint of shortness of breath. Patient is currently on a BiPAP at the time of examination. She reports continued shortness of breath. She denies any chest pain or pressure. The patient had a computed tomography scan at an outside facility revealing moderate-sized pericardial effusion measuring 1.7 cm. * EKG reveals sinus tachycardia with heart rate of 112 * Chest xray bilateral pleural effusions with multifocal pneumonia * Laboratory data: WBC 3.63 hemoglobin 14.7. Platelets count 71. Sodium 137. Potassium 5.1. BUN 71. Creatinine 1.92. Lactic acid 3.8. Repeat 4.4. Troponin 0.123. * Current home cardiac medications include metoprolol succinate 25 mg daily and Pravachol 40 mg daily 01/06/2023 Patient examined this morning at the bedside. Patient remains on Bipap 60%. She continues to report shortness of breath. Denies chest pain or pressure. PHYSICAL EXAM: VITAL SIGNS: Reviewed. GENERAL: Well-developed in no acute distress. HEENT: Head is normocephalic. Pupils are equal, round. Sclerae anicteric. Mucous membranes of the mouth are moist. Neck supple. No JVD or thyromegaly LUNGS: Respirations even and unlabored. Lungs diminished bilaterally to aus cultation bilaterally. HEART: Regular rate and rhythm. S1 and S2 heard. ABDOMEN: Soft. Nondistended. Nontender. EXTREMITIES: Normal range of motion. No clubbing or cyanosis. Peripheral pulses intact. Trace bilateral lower extremity edema NEUROLOGIC: Awake and alert. Oriented x 3. ASSESSMENT: Shortness of breath Recurrent pleural effusions with left Pleurx catheter Acute on chronic hypoxic respiratory failure Community-acquired pneumonia Metastatic endometrial cancer Abnormal troponin, likely type II CT secondary to oxygen supply demand mismatch Pericardial effusion, no evidence of tamponade Hypertension Hyperlipidemia Hypothyroidism PLAN: 2-D echo ordered. Await results Continue current cardiac medications Prognosis guarded Further recommendations pending patient course Nurse practitioner note has been reviewed by physician. Signing provider agrees with the documented findings, assessment, and plan of care. Objective - Vital Signs Vital signs: Vital Signs Temp 97.7 F 01/06/23 04:15 Pulse 97 01/06/23 07:55 Resp 36 H 01/06/23 07:55 BP 113/69 01/06/23 07:55 Pulse Ox 93 L 01/06/23 07:55 FiO2 60 01/06/23 08:57 Intake & Output 01/05/23 01/06/23 01/06/23 18:59 06:59 18:59 Intake Total 10 575 225 Output Total 150 150 Balance -140 425 225 Weight 52.617 kg 52.617 kg Intake: IV 10 575 225 Invasive Line 1 10 575 225 Oral 0 Output: Urine 150 150 Other: Voiding Method Indwelling Catheter Indwelling Catheter Indwelling Catheter - Labs CBC & Chem 7: 01/06/23 08:26 01/06/23 08:26 Labs: Abnormal Lab Results - Last 24 Hours (Table) 01/05/23 01/05/23 01/05/23 Range/Units 04:03 11:37 15:33 RDW (11.5-15.5) % Plt Count (150-450) k/uL Lymphocytes # 0.2 L (1.0-4.8) k/uL BUN (7-17) mg/dL Creatinine (0.52-1.04) mg/dL Glucose (74-99) mg/dL POC Glucose (mg/dL) (70-110) mg/dL Plasma Lactic Acid Javed 2.4 H* 2.5 H* (0.7-2.0) mmol/L Calcium (8.4-10.2) mg/dL AST (14-36) U/L ALT (4-34) U/L Alkaline Phosphatase (38-126) U/L Total Protein (6.3-8.2) g/dL Albumin (3.5-5.0) g/dL TSH (0.465-4.680) mIU/L 01/05/23 01/06/23 01/06/23 Range/Units 16:30 08:26 08:26 RDW 17.3 H (11.5-15.5) % Plt Count 48 L (150-450) k/uL Lymphocytes # 0.1 L (1.0-4.8) k/uL BUN 74 H (7-17) mg/dL Creatinine 1.88 H (0.52-1.04) mg/dL Glucose 100 H (74-99) mg/dL POC Glucose (mg/dL) 180 H (70-110) mg/dL Plasma Lactic Acid Javed (0.7-2.0) mmol/L Calcium 7.5 L (8.4-10.2) mg/dL AST 94 H (14-36) U/L ALT 72 H (4-34) U/L Alkaline Phosphatase 940 H (38-126) U/L Total Protein 5.1 L (6.3-8.2) g/dL Albumin 2.4 L (3.5-5.0) g/dL TSH 6.250 H (0.465-4.680) mIU/L
--- NOTE | 2023-01-06 11:15 | P.PN ---
Subjective Progress Note Date: 01/06/23 Principal diagnosis: Shortness of breath. I am seeing this patient in new consultation today 01/05/2023 for progressive shortness of breath. Patient is a 67-year-old white female with past medical history significant for hypertension, hyperlipidemia, hypothyroidism, metastatic endometrial cancer originally diagnosed in 2016 and had undergone a hysterectomy and bilateral salpingo-oophorectomy in addition to omentectomy. She was treated with carboplatinum and Taxol and brachytherapy. In 2019 she developed pelvic lymphadenopathy and metastatic disease. She was treated with carboplatinum and Taxol and eventually with immunotherapy Keytruda. She does follow up outpatient with her oncologist Dr. King. Patient received her last dose of Keytruda on 11/04/2022, and is currently receiving a course of Lenvima. She has developed recurrent bilateral pleural effusions initially back in 2020, and subsequently had a right Pleurx catheter placed with subsequent removal. She had been doing well until October,, when she developed bilateral pleural effusions again. She had been seen and evaluated by Dr. Zeng. She had undergone a left- sided thoracentesis on 10/02/2022 750 MLS were removed and subsequently a right- sided thoracentesis earlier this month with 550 mL removed. Patient subsequently had a left Pleurx catheter placed on 11/19/2022, and the catheter still in place. Patient is currently resting in bed, on 6 L nasal cannula, and fairly comfortabl e. She is in a emaciated. She is tachypneic and tachycardic. BiPAP is currently at the bedside and currently on standby with settings 10/5 and FiO2 100%. The patient was transferred from [facility] yesterday evening for progressive shortness of breath. She did have a brief evaluation done in the emergency room at the outside facility. The nonenhanced chest CT report indicated a moderate right and small left pleural effusion, a moderate sized pericardial effusion measuring 1.7 cm which had increased from prior exam, and some new areas of nodularity and groundglass changes in bilateral mid lungs and left apex which could correlate with infectious bronchiolitis, aspiration, or atypical pneumonia. A procalcitonin level at outside facility was elevated at 6.43. She was started on some broad-spectrum antibiotics. She has been afebrile. A follow-up chest x-ray at our facility redemonstrated the bilateral pleural effusions with suspected multifocal pneumonia. CBC on arrival showed some leukopenia with a WBC count of 3.2, hemoglobin 14.2, hematocrit 44, platelets 72,000. Patient's BMP on arrival showed a sodium 136, potassium 5, chloride 100, serum CO2 22, BUN 70, creatinine 1.75, glucose 140. Normal saline at 75 mL per hour. Troponins were elevated at 0.119. ECG showed no obvious acute ischemic changes. LFTs were minimally elevated. Patient's status is borderline at best. It was confirmed with the patient and family, that the patient is a full code. Progress note dated 01/06/2023. The patient was seen in consultation yesterday. Please see the note above. The patient is currently in room 351. She is on BiPAP at 10/5 and 60%. She's getting saline at 75 mL an hour. The patient apparently has a change in her CODE STATUS, and is to receive all medical management, but no CPR and no intubation. Yesterday, we did a right-sided thoracentesis on this patient. We actually did it in the emergency department. 700 mL was removed. White count 4.7, hemoglobin 13.1, hematocrit 40.3, and platelet count 48,000. Sodium 141, potassium 4.5, chlorides 107, CO2 24, BUN 74, and creatinine 1.88. Alkaline phosphatase is 940. AST is 94 ALT is 72. TSH is 6.250. Albumin is 2.4. Objective - Vital Signs Vital signs: Vital Signs Temp 97.7 F 01/06/23 04:15 Pulse 97 01/06/23 07:55 Resp 36 H 01/06/23 07:55 BP 113/69 01/06/23 07:55 Pulse Ox 93 L 01/06/23 07:55 FiO2 60 01/06/23 08:57 Intake & Output 01/05/23 01/06/23 01/06/23 18:59 06:59 18:59 Intake Total 10 575 225 Output Total 150 150 Balance -140 425 225 Weight 52.617 kg 52.617 kg Intake: IV 10 575 225 Invasive Line 1 10 575 225 Oral 0 Output: Urine 150 150 Other: Voiding Method Indwelling Catheter Indwelling Catheter Indwelling Catheter - Exam No acute distress, on BiPAP, very frail, cachectic, and chronically ill appearing. HEENT examination is grossly unremarkable. Neck supple. Full range of motion. No adenopathy thyromegaly or neck vein distention. Cardiovascular examination reveals regular rhythm rate. S1-S2 normal. No S3 or S4. No discernible murmur noted. Heart sounds are distant. Heart rate 97 bpm. Lungs reveal bilateral scattered rhonchi. Breath sounds are diminished at the bases. No crackles. Saturations are in the low 90s on BiPAP. Abdomen soft bowel sounds are heard. No masses or tenderness. Extremities are intact. No cyanosis clubbing or edema. Skin is without rash or lesion. Neurologic examination is very difficult to assess at this time. - Labs CBC & Chem 7: 01/06/23 08:26 01/06/23 08:26 Labs: Abnormal Lab Results - Last 24 Hours (Table) 01/05/23 01/05/23 01/05/23 Range/Units 11:37 15:33 16:30 RDW (11.5-15.5) % Plt Count (150-450) k/uL Lymphocytes # (1.0-4.8) k/uL BUN (7-17) mg/dL Creatinine (0.52-1.04) mg/dL Glucose (74-99) mg/dL POC Glucose (mg/dL) 180 H (70-110) mg/dL Plasma Lactic Acid Javed 2.4 H* 2.5 H* (0.7-2.0) mmol/L Calcium (8.4-10.2) mg/dL AST (14-36) U/L ALT (4-34) U/L Alkaline Phosphatase (38-126) U/L Total Protein (6.3-8.2) g/dL Albumin (3.5-5.0) g/dL TSH (0.465-4.680) mIU/L 01/06/23 01/06/23 Range/Units 08:26 08:26 RDW 17.3 H (11.5-15.5) % Plt Count 48 L (150-450) k/uL Lymphocytes # 0.1 L (1.0-4.8) k/uL BUN 74 H (7-17) mg/dL Creatinine 1.88 H (0.52-1.04) mg/dL Glucose 100 H (74-99) mg/dL POC Glucose (mg/dL) (70-110) mg/dL Plasma Lactic Acid Javed (0.7-2.0) mmol/L Calcium 7.5 L (8.4-10.2) mg/dL AST 94 H (14-36) U/L ALT 72 H (4-34) U/L Alkaline Phosphatase 940 H (38-126) U/L Total Protein 5.1 L (6.3-8.2) g/dL Albumin 2.4 L (3.5-5.0) g/dL TSH 6.250 H (0.465-4.680) mIU/L Assessment and Plan Assessment: Acute on chronic hypoxemic respiratory failure, multifactorial, in part related to possible community acquired pneumonia, and bilateral pleural effusions, right greater than left. S/P thoracentesis, 01/05/2023, with 700 mL removed from the right pleural space. History of recurrent bilateral pleural effusions, with previous bilateral Pleurx catheters. History of metastatic endometrial cancer, diagnosed in 2017, status post hysterectomy, BSO, and omentectomy. Elevated troponins, which may relate to supply/demand mismatch. Moderate size pericardial effusion. Acute kidney injury. Chronic hypoxemic respiratory failure. History of hypertension. Hyperlipidemia. Hypothyroidism. Plan: Plan dated 01/06/2023. The patient's CODE STATUS has been changed, and the patient is to receive full medical management, but no CPR, and no intubation/mechanical ventilation. I believe that to be appropriate given her current clinical situation. Yesterday in the emergency room, we did a right-sided thoracentesis. 700 mL of fluid was removed. The patient has had previous thoracentesis in the past. Labs, x-rays, and medications are reviewed. The patient's overall prognosis is very poor. We will continue to follow. She remains on BiPAP. Time with Patient: Less than 30
[2023-01-06] MEDS: METOPROLOL TARTRATE 25 MG TAB PO SCH ×2 (12:00→20:23)
[2023-01-06] MEDS: PRAVASTATIN SODIUM 40 MG TAB PO SCH (12:00)
[2023-01-06 12:07] LABS: Glucose,Whole Blood 103 mg/dL (70-110)
[2023-01-06] MEDS: IPRATROPIUM-ALBUTEROL 3 ML NEB INHALATION PRN ×2 (12:24→15:14)
--- NOTE | 2023-01-06 12:26 | P.PN ---
Progress Note - Text Progress Note Date: 01/06/23 Chief Complaint: Short of breath This is a pleasant 67-year-old patient who follows with PCP Dr. Daren Robert. Oncologist Dr. Adorno. Fire Protection Equipment Technician Dr. Zeng. 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 treated with chemotherapy and radiation treatment. Had responded well. recurrence 2020. Received chemotherapy recurrent pleural effusion with multiple thoracentesis . lives with her and daughter. Patient was recently discharged on November 20 with left-sided pleural VAC was placed. Large amount of fluid was drained. Patient drains every 3-4 days. Patient now sent to us from [facility]. Getting more and more short of breath. He may sit found a pulse ox of 60%. Patient was placed on CPAP. Checks x-ray showed anasarca pleural effusion some consolidation. Moderate pericardial effusion of 1.7 cm. Patient's appetite is decreased. Patient is ambulating very little. Weak tired further weight loss. Patient's brother and [id number] the bedside. Patient is currently no code with instructions of CPR. No obvious fever and chills. Right thoracentesis was done by Dr. Hernandez 800 mL of dark yellow fluid was removed. January 06: Patient on BiPAP. Short of breath. and daughter the bedside. Decreased oral intake. Tired. Spoke to the and the daughter. Guarded prognosis. Active Medications Albuterol/Ipratropium (Ipratropium-Albuterol 3 Ml Neb) 3 ml INHALATION RT-QID PRN PRN Reason: Shortness Of Breath Or Wheezing Last Admin: 01/05/23 20:32 Dose: 3 ml Enoxaparin Sodium (Enoxaparin 30 Mg/0.3 Ml Syringe) 30 mg SQ DAILY AMIRA Last Admin: 01/05/23 16:32 Dose: 30 mg Sodium Chloride (Saline 0.9%) 1,000 mls @ 75 mls/hr IV .[id number] AMIRA Last Admin: 01/05/23 16:33 Dose: 75 mls/hr Ceftriaxone Sodium 2 gm/ (Sodium Chloride) 50 mls @ 100 mls/hr IVPB Q24H AMIRA; Protocol Last Admin: 01/05/23 20:01 Dose: 100 mls/hr Azithromycin 500 mg/ Sodium (Chloride) 250 mls @ 250 mls/hr IVPB HS [facility]; Protocol Stop: 01/07/23 21:59 Last Admin: 01/05/23 21:30 Dose: 250 mls/hr Insulin Aspart (Insulin Aspart (Novolog) 100 Unit/Ml Vial) 0 unit SQ ACHS [facility]; Protocol Last Admin: 01/06/23 06:20 Dose: Not Given Levothyroxine Sodium (Levothyroxine 75 Mcg Tab) 150 mcg PO DAILY@0630 [facility] Last Admin: 01/06/23 06:25 Dose: 150 mcg Lorazepam (Lorazepam 2 Mg/Ml Inj) 1 mg IV Q8HR PRN PRN Reason: Anxiety Last Admin: 01/06/23 01:40 Dose: 1 mg Methylprednisolone Sodium Succinate (Methylprednisolone Sod Succi 125 Mg/2 Ml Vial) 60 mg IV Q6HR [facility] Last Admin: 01/06/23 06:25 Dose: 60 mg Metoprolol Tartrate (Metoprolol Tartrate 25 Mg Tab) 25 mg PO BID [facility] Last Admin: 01/06/23 12:00 Dose: Not Given Morphine Sulfate (Morphine Sulfate 4 Mg/Ml Syringe) 4 mg IV Q4HR PRN PRN Reason: Severe Pain (Scale 7 to 10) Naloxone HCl (Naloxone 0.4 Mg/Ml 1 Ml Vial) 0.2 mg IV Q2M PRN PRN Reason: Opioid Reversal Ondansetron HCl (Ondansetron 4 Mg/2 Ml Vial) 4 mg IVP Q8HR PRN PRN Reason: Nausea And Vomiting Pantoprazole Sodium (Pantoprazole 40 Mg/10 Ml Vial) 40 mg IVP DAILY [facility] Last Admin: 01/05/23 10:28 Dose: 40 mg Pravastatin Sodium (Pravastatin Sodium 40 Mg Tab) 40 mg PO DAILY [facility] Last Admin: 01/06/23 12:00 Dose: Not Given Past medical history to include: Uterine cancer, abdominal wall cancer, hypothyroid, hyperlipidemia, peripheral neuropathy, recurrent pleural effusion metastatic Social history: . Denies any history of smoking and alcohol. Lives with and daughter. Family history: Breast cancer Physical examination: VITAL SIGNS: 97.7, 106, 38, 110/70, 90% on BiPAP at 60% GENERAL: BMI 19.3, reclining, tired, short of breath and weak Left-sided chest Pleur-evac EYES: [Pupils equal. Conjunctiva pale HEENT: External appearance of nose and ears normal, oral cavity grossly normal. NECK: JVD not raised; masses not palpable. HEART: First and second heart sounds are normal; some edema. LUNGS: Respiratory rate increased decreased breath sounds. ABDOMEN: Soft, nontender, liver spleen not palpable, no masses palpable. PSYCH: Tired able to answer simple questionsl. MUSCULOSKELETAL:No Clubbing/cyanosis;muscles-grossly intact. Decreased muscle mass. Bony prominences. DERMATOLOGICAL: Rash in the right thigh INVESTIGATIONS, reviewed in the clinical context: January 06: White count 4.7 hemoglobin 13.1 platelets 48 potassium 4.5 BUN 34 creatinine 1.88 albumin 2.4 White count 3.6 hemoglobin 14.7 platelets 71 sodium 137 potassium 5.1 BUN 71 creatinine 1.9 to Lactic acid 3.8 AST 85 AST 60 Troponin I 0.119, 0.123 Albumin 2.6 Procalcitonin 5.1 Influenza type A, B, RSV, COVID-19: Not detected EKG tracing personally reviewed by me-sinus tachycardia. Nonspecific T-wave changes. Chest ultrasound: Large right pleural effusion 11 cm Assessment and plan: -Recurrent malignant pleural effusion, multiple thoracentesis in the past. Left-sided Pleur-evac , causing hypoxia: Not improving Right thoracentesis for about [address] Jones January 2. Acute on chronic hypoxic respiratory failure from malignant pleural effusion, recurrent: Not improving Patient requiring BiPAP -Acute on chronic medical debility from underlying malignancy: Not improving -Recurrent uterine cancer with a prior treatment with radiation and chemotherapy., immunotherapy. Consult- oncology Dr. Adorno -chronic hypoxic respiratory failure secondary to recurrent bilateral pleural effusion.: 4 L nasal cannula -Troponin leak from hemodynamic mismatch. No ACS. -Chronic kidney disease stage III, multifactorial from cardiorenal syndrome -Hyperlipidemia Pravachol -Hypothyroid Synthroid 150 g daily. 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 Vitamin D -No code with instructions Care was discussed with the patient, and daughter the bedside. Prognosis remains guarded. Continue supportive care.
--- NOTE | 2023-01-06 12:56 | CA ---
Transthoracic Echo Report Name: Radha Rodriguez Age: 67 Gender: F : 1955 Exam Date: 01/06/2023 09:02 Exam Location: [facility] Ht (in): 65 Wt (lb): 116 Ordering Physician: Adrianne Flores Attending/Referring Phys: [id number], Mark Well Tender Michelle Chaparro RDCS Procedure CPT: Indications: pericardial effusion, LV function Cardiac Hx: Technical Quality: Fair Contrast 1: Total Dose (mL): Contrast 2: Total Dose (mL): MEASUREMENTS (Male / Female) Normal Values 2D ECHO LV Diastolic Diameter PLAX 3.6 cm 4.2 - 5.9 / 3.9 - 5.3 cm LV Systolic Diameter PLAX 1.8 cm IVS Diastolic Thickness 1.2 cm 0.6 - 1.0 / 0.6 - 0.9 cm LVPW Diastolic Thickness 1.0 cm 0.6 - 1.0 / 0.6 - 0.9 cm LV Relative Wall Thickness 0.6 LA Volume 35.8 cm??? 18 - 58 / 22 - 52 cm??? M-MODE Aortic Root Diameter MM 2.4 cm LA Systolic Diameter MM 3.4 cm LA Ao Ratio MM 1.4 AV Cusp Separation MM 1.5 cm DOPPLER AV Peak Velocity 130.1 cm/s AV Peak Gradient 6.8 mmHg AV Mean Velocity 107.4 cm/s AV Mean Gradient 4.8 mmHg AV Velocity Time Integral 22.9 cm AI Peak Velocity 189.6 cm/s AI Peak Gradient 14.4 mmHg AI Pressure Half Time 441.8 ms LVOT Peak Velocity 123.0 cm/s LVOT Peak Gradient 6.1 mmHg LVOT Velocity Time Integral 24.3 cm MV Area PHT 3.1 cm??? Mitral E Point Velocity 66.9 cm/s Mitral A Point Velocity 119.3 cm/s Mitral E to A Ratio 0.6 MV Deceleration Time 243.7 ms MV E' Velocity 6.4 cm/s Mitral E to MV E' Ratio 10.4 TR Peak Velocity 182.7 cm/s TR Peak Gradient 13.3 mmHg Right Ventricular Systolic Press 18.3 mmHg FINDINGS Left Ventricle Mildly increased left ventricular wall thickness. Left ventricular cavity size normal. Normal left ventricular systolic function with no obvious regional wall motion abnormalities. Left ventricular ejection fraction is estimated at 55-60 %. Right Ventricle Mild right ventricular dilatation. Right ventricular systolic pressure within normal limits. Right Atrium Mild right atrial dilatation. Left Atrium Normal left atrial size. Mitral Valve Structurally normal mitral valve. Trace mitral regurgitation. Aortic Valve Trileaflet aortic valve. No aortic valve stenosis, mild regurgitation. Tricuspid Valve Structurally normal tricuspid valve. Mild tricuspid regurgitation. Pulmonic Valve Structurally normal pulmonic valve. Pericardium Moderate pericardial effusion with no evidence of tamponade. Aorta Normal size aortic root and proximal ascending aorta. CONCLUSIONS 1. normal ventricle size and systolic function 2. Mild mitral and aortic regurgitation 3. Moderate pericardial effusion with no evidence of tamponade Previewed by: Dr. Ayaka Saucedo MD (Electronically Signed) Final Date: 06 Jan 2023 12:55
[2023-01-06] MEDS ORDERED: LORazepam 2 MG/ML INJ IV PRN (13:36)
[2023-01-06] MEDS: ENOXAPARIN 30 MG/0.3 ML SYRINGE SQ SCH (13:43)
--- NOTE | 2023-01-06 15:07 | P.PN ---
Subjective Progress Note Date: 01/06/23 Principal diagnosis: Hypoxic resp failure, Metastatic, recurrent endometrial carcinoma In follow-up today patient continues on BiPAP, after reading through the chart looks as though his maybe she was trialed on nasal cannula but, unfortunately became lethargic and confused, hypoxemic so, BiPAP was placed back on with an improvement. Patient denied being in any pain, reports that she is tired. Objective - Vital Signs Vital signs: Vital Signs Temp 97.7 F 01/06/23 04:15 Pulse 100 01/06/23 12:37 Resp 38 H 01/06/23 11:15 BP 110/70 01/06/23 11:15 Pulse Ox 90 L 01/06/23 11:15 FiO2 60 01/06/23 12:25 Intake & Output 01/05/23 01/06/23 01/06/23 18:59 06:59 18:59 Intake Total 10 575 225 Output Total 150 150 Balance -140 425 225 Weight 52.617 kg 52.617 kg Intake: IV 10 575 225 Invasive Line 1 10 575 225 Oral 0 Output: Urine 150 150 Other: Voiding Method Indwelling Catheter Indwelling Catheter Indwelling Catheter - Constitutional Constitutional Comment(s): Very frail looking General appearance: Present: cooperative, mild distress, thin - EENT EENT Comment(s): very dry mucus membranes from BiPAP Eyes: Present: anicteric sclerae, EOMI ENT: Present: hearing grossly normal - Respiratory Details: tachypneic, shallow resp, bilateral bases no significant movement of air - Cardiovascular Details: mild tachycardia, no irregularities auscultated - Gastrointestinal General gastrointestinal: Present: soft - Integumentary Integumentary: Present: pale - Neurologic Neurologic: Present: CNII-XII intact (grossly) - Musculoskeletal Musculoskeletal: Present: generalized weakness - Psychiatric Psychiatric: Present: A&O x's 3, appropriate affect, intact judgment & insight - Labs CBC & Chem 7: 01/06/23 08:26 01/06/23 08:26 Labs: Abnormal Lab Results - Last 24 Hours (Table) 01/05/23 01/05/23 01/06/23 Range/Units 15:33 16:30 08:26 RDW 17.3 H (11.5-15.5) % Plt Count 48 L (150-450) k/uL Lymphocytes # 0.1 L (1.0-4.8) k/uL BUN (7-17) mg/dL Creatinine (0.52-1.04) mg/dL Glucose (74-99) mg/dL POC Glucose (mg/dL) 180 H (70-110) mg/dL Plasma Lactic Acid Javed 2.5 H* (0.7-2.0) mmol/L Calcium (8.4-10.2) mg/dL AST (14-36) U/L ALT (4-34) U/L Alkaline Phosphatase (38-126) U/L Total Protein (6.3-8.2) g/dL Albumin (3.5-5.0) g/dL TSH (0.465-4.680) mIU/L 01/06/23 Range/Units 08:26 RDW (11.5-15.5) % Plt Count (150-450) k/uL Lymphocytes # (1.0-4.8) k/uL BUN 74 H (7-17) mg/dL Creatinine 1.88 H (0.52-1.04) mg/dL Glucose 100 H (74-99) mg/dL POC Glucose (mg/dL) (70-110) mg/dL Plasma Lactic Acid Javed (0.7-2.0) mmol/L Calcium 7.5 L (8.4-10.2) mg/dL AST 94 H (14-36) U/L ALT 72 H (4-34) U/L Alkaline Phosphatase 940 H (38-126) U/L Total Protein 5.1 L (6.3-8.2) g/dL Albumin 2.4 L (3.5-5.0) g/dL TSH 6.250 H (0.465-4.680) mIU/L Assessment and Plan (1) Recurrent carcinoma of endometrium Current Visit: Yes Status: Acute Code(s): C54.1 - MALIGNANT NEOPLASM OF ENDOMETRIUM SNOMED Code(s): 049595268 (2) Hypoxia Current Visit: Yes Status: Acute Code(s): R09.02 - HYPOXEMIA SNOMED Code(s): 007185117 (3) Bilateral pleural effusion Current Visit: No Status: Acute Code(s): J90 - PLEURAL EFFUSION, NOT ELSEWHERE CLASSIFIED SNOMED Code(s): 246165030 Plan: Hypoxic respiratory failure -Bilateral pleural effusions. Patient has a Pleurx drain on the left, 775 cc Removed yesterday. Later in the afternoon yesterday, pt had 800 cc t horacentesis on the right. From note review no fluid was sent for cytology. -Patient cont on BiPAP, oxygen sat low 90s Recurrent endometrial carcinoma -Recent recurrent and enlarging pleural effusions. None of the specimens have came back positive for malignancy but, treatment was recently changed for this clinical evidence of disease progression -Patient had cycle 1 day 1 last week of single agent Gemzar. -Had a long discussion with , daughter and sister at the bedside. Patient is alert and oriented. We discussed concerns for patient's severe tachypnea and difficulty in breathing, requiring BiPAP to maintain oxygen saturation. Physically, she will not be able to maintain this breathing pattern or any significant duration of time, her body will physically become exhausted. The patient and her have decided very appropriately on no CPR or intubation. We discussed that these pleural effusions, despite not having cytology evidence of cancer, are disease progression, she had this presentation previously with disease progressions, this is why the pleural effusions cont to recur. In patient's current physical state she cannot receive further chemotherapy treatment. Opinion given that if patient were to opt for comfort measures, removing her from the BiPAP, her life expectancy would be measured in hours. Do not think that the patient would survive long enough to be transported home. All of patient and family's questions were answered to their satisfaction. Patient has a sister coming in from [place] this evening. Patient reports at this time she would like everything to state exactly the way it is. She and her will make further decisions based on how her condition changes. Case was reviewed with Nursing. Time with Patient: Greater than 30
[2023-01-06] MEDS: SODIUM CHLORIDE 0.9% 1,000 ML IV SCH ×2 (15:21→18:05)
[2023-01-06] MEDS: PANTOPRAZOLE 40 MG/10 ML VIAL IVP SCH (16:02)
[2023-01-06 16:59] LABS: Glucose,Whole Blood 127 mg/dL (70-110)
[2023-01-06] MEDS: MORPHINE SULFATE 4 MG/ML SYRINGE IV PRN (17:58)
[2023-01-06 20:32] LABS: Glucose,Whole Blood 107 mg/dL (70-110)
[2023-01-06] MEDS: AZITHROMYCIN 500 MG in SODIUM CHLORIDE 0.9% 250 ML IVPB SCH (20:36)
[2023-01-06 20:48] LABS: Follicle Stimulating Hormone 2.6 mIU/mL
[2023-01-06 21:08] LABS: Luteinizing Hormone <0.3 mIU/mL
[2023-01-07 05:54] LABS: Glucose,Whole Blood 104 mg/dL (70-110)
[2023-01-07] MEDS: INSULIN ASPART (NovoLOG) 100 UNIT/ML VIAL SQ SCH ×4 (06:23→20:50)
[2023-01-07] MEDS: LEVOTHYROXINE 75 MCG TAB PO SCH (06:24)
[2023-01-07] MEDS: methylPREDNISolone SOD SUCCI 125 MG/2 ML VIAL IV SCH ×4 (06:45→21:02)
[2023-01-07 09:43] LABS: Anisocytosis Slight; Basophils % (A) 0 %; Eosinophils % (A) 0 %; HCT 39.6 % (34.0-46.0); HGB 12.7 gm/dL (11.4-16.0); Lymphocytes # (A) 0.1 k/uL (1.0-4.8); Lymphocytes % (A) 3 %; MCH 32.3 pg (25.0-35.0); MCHC 32.1 g/dL (31.0-37.0); MCV 100.8 fL (80.0-100.0); Macrocytosis Moderate; Mean Platelet Volume 10.6; Monocytes # (A) 0.2 k/uL (0-1.0); Monocytes % (A) 4 %; Neutrophils # (A) 3.4 k/uL (1.3-7.7); Neutrophils % (A) 90 %; RBC 3.93 m/uL (3.80-5.40); RDW 17.4 % (11.5-15.5); WBC 3.8 k/uL (3.8-10.6)
[2023-01-07 09:51] LABS: Platelet Count 28 k/uL (150-450)
--- NOTE | 2023-01-07 09:58 | P.PN ---
Subjective Progress Note Date: 01/07/23 HISTORY OF PRESENT ILLNESS: This is a 67-year-old female with a past medical history significant for hypertension, hyperlipidemia, hypothyroidism, metastatic endometrial cancer, and recurrent pleural effusions with left Pleurx catheter. Patient does not follow with a patient case manager. We have been asked to see the patient in consultation for elevated troponin and pericardial effusion. Patient examined at the bedside. Patient presented to the hospital with a chief complaint of shortness of breath. Patient is currently on a BiPAP at the time of examination. She reports continued shortness of breath. She denies any chest pain or pressure. The patient had a computed tomography scan at an outside facility revealing moderate-sized pericardial effusion measuring 1.7 cm. * EKG reveals sinus tachycardia with heart rate of 112 * Chest xray bilateral pleural effusions with multifocal pneumonia * Laboratory data: WBC 3.63 hemoglobin 14.7. Platelets count 71. Sodium 137. Potassium 5.1. BUN 71. Creatinine 1.92. Lactic acid 3.8. Repeat 4.4. Troponin 0.123. * Current home cardiac medications include metoprolol succinate 25 mg daily and Pravachol 40 mg daily 01/06/2023 Patient examined this morning at the bedside. Patient remains on Bipap 60%. She continues to report shortness of breath. Denies chest pain or pressure. 01/07/2023 Patient examined this morning at bedside. She denies chest pain or pressure. She reports shortness of breath. She remains on BiPAP. Echocardiogram completed revealing ejection fraction 55-60% with moderate pericardial effusion. No evidence of tamponade. Mild mitral and aortic regurgitation. PHYSICAL EXAM: VITAL SIGNS: Reviewed. GENERAL: Well-developed in no acute distress. HEENT: Head is normocephalic. Pupils are equal, round. Sclerae anicteric. Mucous membranes of the mouth are moist. Neck supple. No JVD or thyromegaly LUNGS: Respirations even and unlabored. Lungs diminished bilaterally to auscultation bilaterally. HEART: Regular rate and rhythm. S1 and S2 heard. ABDOMEN: Soft. Nondistended. Nontender. EXTREMITIES: Normal range of motion. No clubbing or cyanosis. Peripheral puls es intact. Trace bilateral lower extremity edema NEUROLOGIC: Awake and alert. Oriented x 3. ASSESSMENT: Shortness of breath Recurrent pleural effusions with left Pleurx catheter Acute on chronic hypoxic respiratory failure Community-acquired pneumonia Metastatic endometrial cancer Abnormal troponin, likely type II [place] secondary to oxygen supply demand mismatch Pericardial effusion, moderate in size, no evidence of tamponade Hypertension Hyperlipidemia Hypothyroidism PLAN: Continue current cardiac medications Prognosis guarded No further inpatient recommendations from a cardiac standpoint We will sign off. Please reconsult if needed. Nurse practitioner note has been reviewed by physician. Signing provider agrees with the documented findings, assessment, and plan of care. Objective - Vital Signs Vital signs: Vital Signs Temp 98.1 F 01/07/23 00:45 Pulse 110 H 01/07/23 00:45 Resp 30 H 01/07/23 01:30 BP 130/79 01/07/23 00:45 Pulse Ox 93 L 01/07/23 00:45 FiO2 60 01/07/23 09:17 Intake & Output 01/06/23 01/07/23 01/07/23 18:59 06:59 18:59 Intake Total 225 525 Output Total 300 225 Balance -75 300 Weight 52.617 kg Intake: IV 225 525 Invasive Line 1 225 525 Oral 0 Output: Urine 300 225 Other: Voiding Method Indwelling Catheter Indwelling Catheter - Labs CBC & Chem 7: 01/07/23 09:07 01/06/23 08:26 Labs: Abnormal Lab Results - Last 24 Hours (Table) 01/06/23 01/06/23 01/07/23 Range/Units 08:26 16:45 09:07 MCV 100.8 H (80.0-100.0) fL RDW 17.4 H (11.5-15.5) % Plt Count 28 L (150-450) k/uL Lymphocytes # 0.1 L (1.0-4.8) k/uL POC Glucose (mg/dL) 127 H (70-110) mg/dL TSH 6.250 H (0.465-4.680) mIU/L Prolactin 76.500 H (2.800-29.200) ng/mL Microbiology - Last 24 Hours (Table) 01/05/23 05:50 Blood Culture - Preliminary Blood
--- NOTE | 2023-01-07 10:39 | P.PN ---
Subjective Progress Note Date: 01/07/23 Principal diagnosis: Shortness of breath. I am seeing this patient in new consultation today 01/05/2023 for progressive shortness of breath. Patient is a 67-year-old white female with past medical history significant for hypertension, hyperlipidemia, hypothyroidism, metastatic endometrial cancer originally diagnosed in 2016 and had undergone a hysterectomy and bilateral salpingo-oophorectomy in addition to omentectomy. She was treated with carboplatinum and Taxol and brachytherapy. In 2019 she developed pelvic lymphadenopathy and metastatic disease. She was treated with carboplatinum and Taxol and eventually with immunotherapy Keytruda. She does follow up outpatient with her oncologist Dr. King. Patient received her last dose of Keytruda on 11/04/2022, and is currently receiving a course of Lenvima. She has developed recurrent bilateral pleural effusions initially back in 2020, and subsequently had a right Pleurx catheter placed with subsequent removal. She had been doing well until October,, when she developed bilateral pleural effusions again. She had been seen and evaluated by Dr. Zeng. She had undergone a left- sided thoracentesis on 10/02/2022 750 MLS were removed and subsequently a right- sided thoracentesis earlier this month with 550 mL removed. Patient subsequently had a left Pleurx catheter placed on 11/19/2022, and the catheter still in place. Patient is currently resting in bed, on 6 L nasal cannula, and fairly comfortabl e. She is in a emaciated. She is tachypneic and tachycardic. BiPAP is currently at the bedside and currently on standby with settings 10/5 and FiO2 100%. The patient was transferred from [facility] yesterday evening for progressive shortness of breath. She did have a brief evaluation done in the emergency room at the outside facility. The nonenhanced chest CT report indicated a moderate right and small left pleural effusion, a moderate sized pericardial effusion measuring 1.7 cm which had increased from prior exam, and some new areas of nodularity and groundglass changes in bilateral mid lungs and left apex which could correlate with infectious bronchiolitis, aspiration, or atypical pneumonia. A procalcitonin level at outside facility was elevated at 6.43. She was started on some broad-spectrum antibiotics. She has been afebrile. A follow-up chest x-ray at our facility redemonstrated the bilateral pleural effusions with suspected multifocal pneumonia. CBC on arrival showed some leukopenia with a WBC count of 3.2, hemoglobin 14.2, hematocrit 44, platelets 72,000. Patient's BMP on arrival showed a sodium 136, potassium 5, chloride 100, serum CO2 22, BUN 70, creatinine 1.75, glucose 140. Normal saline at 75 mL per hour. Troponins were elevated at 0.119. ECG showed no obvious acute ischemic changes. LFTs were minimally elevated. Patient's status is borderline at best. It was confirmed with the patient and family, that the patient is a full code. Progress note dated 01/06/2023. The patient was seen in consultation yesterday. Please see the note above. The patient is currently in room 351. She is on BiPAP at 10/5 and 60%. She's getting saline at 75 mL an hour. The patient apparently has a change in her CODE STATUS, and is to receive all medical management, but no CPR and no intubation. Yesterday, we did a right-sided thoracentesis on this patient. We actually did it in the emergency department. 700 mL was removed. White count 4.7, hemoglobin 13.1, hematocrit 40.3, and platelet count 48,000. Sodium 141, potassium 4.5, chlorides 107, CO2 24, BUN 74, and creatinine 1.88. Alkaline phosphatase is 940. AST is 94 ALT is 72. TSH is 6.250. Albumin is 2.4. Progress note dated 01/07/2023. 67-year-old female seen today in room 351. Currently, the patient is on BiPAP, with settings of 10/5 and 60%. The patient is receiving saline at 75 mL an hour. Currently, the patient appears to be not doing well. Her CODE STATUS was changed, and she is to receive all medical management, but not have any CPR, and not be intubated. We did a right-sided thoracentesis on this patient, in the emergency department. Labs today include a white count of 3.8, hemoglobin 12.7, hematocrit 39.6, and a platelet count of 28,000. Also, glucose 104. Objective - Vital Signs Vital signs: Vital Signs Temp 98.1 F 01/07/23 00:45 Pulse 110 H 01/07/23 00:45 Resp 30 H 01/07/23 01:30 BP 130/79 01/07/23 00:45 Pulse Ox 93 L 01/07/23 00:45 FiO2 60 01/07/23 09:59 Intake & Output 01/06/23 01/07/23 01/07/23 18:59 06:59 18:59 Intake Total 225 525 Output Total 300 225 Balance -75 300 Weight 52.617 kg Intake: IV 225 525 Invasive Line 1 225 525 Oral 0 Output: Urine 300 225 Other: Voiding Method Indwelling Catheter Indwelling Catheter - Exam No acute distress, on BiPAP, very frail, cachectic, and chronically ill appearing. HEENT examination is grossly unremarkable. Neck supple. Full range of motion. No adenopathy thyromegaly or neck vein di stention. Cardiovascular examination reveals regular rhythm rate. S1-S2 normal. No S3 or S4. No discernible murmur noted. Heart sounds are distant. Heart rate 101 bpm. Lungs reveal bilateral scattered rhonchi. Breath sounds are diminished at the bases. No crackles. Saturations are in the low 90s on BiPAP. Abdomen soft bowel sounds are heard. No masses or tenderness. Extremities are intact. No cyanosis clubbing or edema. Skin is without rash or lesion. Neurologic examination is very difficult to assess at this time. - Labs CBC & Chem 7: 01/07/23 09:07 01/06/23 08:26 Labs: Abnormal Lab Results - Last 24 Hours (Table) 01/06/23 01/06/23 01/07/23 Range/Units 08:26 16:45 09:07 MCV 100.8 H (80.0-100.0) fL RDW 17.4 H (11.5-15.5) % Plt Count 28 L (150-450) k/uL Lymphocytes # 0.1 L (1.0-4.8) k/uL POC Glucose (mg/dL) 127 H (70-110) mg/dL Prolactin 76.500 H (2.800-29.200) ng/mL Microbiology - Last 24 Hours (Table) 01/05/23 05:50 Blood Culture - Preliminary Blood Assessment and Plan Assessment: Acute on chronic hypoxemic respiratory failure, multifactorial, in part related to possible community acquired pneumonia, and bilateral pleural effusions, right greater than left. Impending nasrin respiratory failure. S/P thoracentesis, 01/05/2023, with 700 mL removed from the right pleural space. History of recurrent bilateral pleural effusions, with previous bilateral Pleurx catheters. History of metastatic endometrial cancer, diagnosed in 2017, status post hysterectomy, BSO, and omentectomy. Elevated troponins, which may relate to supply/demand mismatch. Moderate size pericardial effusion. Acute kidney injury. Chronic hypoxemic respiratory failure. History of hypertension. Hyperlipidemia. Hypothyroidism. Plan: Plan dated 01/06/2023. The patient's CODE STATUS has been changed, and the patient is to receive full medical management, but no CPR, and no intubation/mechanical ventilation. I believe that to be appropriate given her current clinical situation. Yesterday in the emergency room, we did a right-sided thoracentesis. 700 mL of fluid was removed. The patient has had previous thoracentesis in the past. Labs, x-rays, and medications are reviewed. The patient's overall prognosis is very poor. We will continue to follow. She remains on BiPAP. Plan dated 01/07/2023. The patient appears to be doing very poorly. The patient's currently on BiPAP. In my opinion, the patient should be made comfort care. We'll leave that up to the family. They did agree to change her CODE STATUS, which I think is appropriate. Labs, x-rays, and medications are reviewed. Again she remains on BiPAP, and is getting saline at 75 mL an hour. She is very lethargic and somnolent. Time with Patient: Less than 30
--- NOTE | 2023-01-07 11:46 | P.PN ---
Subjective Progress Note Date: 01/07/23 Principal diagnosis: SPENCER, hx endometrial cancer At todays visit patient is resting comfortable in bed, family at bedside. Patient continues on BiPAP. Patient reports feeling breathing is improved today with the BiPAP, breathing is labored. Patient denies pain. Objective - Vital Signs Vital signs: Vital Signs Temp 98.1 F 01/07/23 00:45 Pulse 110 H 01/07/23 00:45 Resp 30 H 01/07/23 01:30 BP 130/79 01/07/23 00:45 Pulse Ox 93 L 01/07/23 00:45 FiO2 60 01/07/23 09:59 Intake & Output 01/06/23 01/07/23 01/07/23 18:59 06:59 18:59 Intake Total 225 525 Output Total 300 225 Balance -75 300 Weight 52.617 kg Intake: IV 225 525 Invasive Line 1 225 525 Oral 0 Output: Urine 300 225 Other: Voiding Method Indwelling Catheter Indwelling Catheter - Constitutional General appearance: Present: mild distress, thin - EENT Eyes: Present: anicteric sclerae, EOMI ENT: Present: hearing grossly normal - Respiratory Details: breathing labored - Cardiovascular Details: skin warm and dry - Integumentary Integumentary: Present: normal - Neurologic Neurologic Comment(s): grossly intact - Musculoskeletal Musculoskeletal: Present: generalized weakness - Psychiatric Psychiatric: Present: A&O x's 3, appropriate affect, intact judgment & insight - Labs CBC & Chem 7: 01/07/23 09:07 01/06/23 08:26 Labs: Abnormal Lab Results - Last 24 Hours (Table) 01/06/23 01/06/23 01/07/23 Range/Units 08:26 16:45 09:07 MCV 100.8 H (80.0-100.0) fL RDW 17.4 H (11.5-15.5) % Plt Count 28 L (150-450) k/uL Lymphocytes # 0.1 L (1.0-4.8) k/uL POC Glucose (mg/dL) 127 H (70-110) mg/dL Prolactin 76.500 H (2.800-29.200) ng/mL Microbiology - Last 24 Hours (Table) 01/05/23 05:50 Blood Culture - Preliminary Blood Assessment and Plan (1) Acute exacerbation of chronic obstructive pulmonary disease Current Visit: Yes Status: Acute Priority: High Code(s): J44.1 - CHRONIC OBSTRUCTIVE PULMONARY DISEASE W (ACUTE) EXACERBATION SNOMED Code(s): 907785511 (2) Uterine cancer Current Visit: Yes Status: Acute Priority: High Code(s): C55 - MALIGNANT NEOPLASM OF UTERUS, PART UNSPECIFIED SNOMED Code(s): 331418316 (3) Thrombocytopenia Current Visit: Yes Status: Acute Priority: High Code(s): D69.6 - THROMBOCYTOPENIA, UNSPECIFIED SNOMED Code(s): 380594496 Plan: Hypoxic respiratory failure -Bilateral pleural effusions. Patient has a Pleurx drain on the left, 775 cc removed 2 days ago. Thoracentesis on the right with 800cc removed. From note review no fluid was sent for cytology. -Patient cont on BiPAP, oxygen sat low 90s. Plan to transition to high flow alfie al cannula Recurrent endometrial carcinoma -Recent recurrent and enlarging pleural effusions. None of the specimens have came back positive for malignancy but, treatment was recently changed for cl inical evidence of disease progression -Patient had cycle 1 day 1 last week of single agent Gemzar. -Had a long discussion with , daughter and sister at the bedside. Patient is alert and oriented. We discussed concerns for patient's severe tachypnea and difficulty in breathing, requiring BiPAP to maintain oxygen saturation. Physically, she will not be able to maintain this breathing pattern or any significant duration of time, her body will physically become exhausted. The patient and her have decided very appropriately on no CPR or intubation. We discussed that these pleural effusions, despite not having cytology evidence of cancer, are disease progression, she had this presentation previously with disease progression, this is why the pleural effusions cont to recur. In patient's current physical state she cannot receive further chemotherapy treatment. Opinion given that if patient were to opt for comfort measures, removing her from the BiPAP, her life expectancy would be measured in hours. Do not think that the patient would survive long enough to be transpor elsa home. All of patient and family's questions were answered to their satisfaction. Patient reports at this time she would like everything to stay exactly the way it is, and is not interested at hospice at this time. She and her will make further decisions based on how her condition changes. Thrombocytopenia: -Platelets continue to decrease since admission. 28,000 today. Likely related to recent treatment of gemzar, superimposed by acute inflammatory/infectious process -Lovenox d/c. Please hold anticoagulation for platelets less than 50,000. SCDs ordered for DVT prophylaxis -Please transfuse for platelets less than 10,000 or symptomatic. attests: I performed H&P and developed impression plan of care for patient, discussed with dictator. I agree with dictated note, documented as a scribe.
[2023-01-07 11:48] LABS: Glucose,Whole Blood 118 mg/dL (70-110)
[2023-01-07] MEDS: METOPROLOL TARTRATE 25 MG TAB PO SCH ×2 (12:33→20:51)
[2023-01-07] MEDS: PRAVASTATIN SODIUM 40 MG TAB PO SCH (12:33)
[2023-01-07] MEDS: SODIUM CHLORIDE 0.9% 1,000 ML IV SCH (12:37)
[2023-01-07] MEDS: PANTOPRAZOLE 40 MG/10 ML VIAL IVP SCH (12:37)
--- NOTE | 2023-01-07 15:54 | P.PN ---
Progress Note - Text Progress Note Date: 01/07/23 Chief Complaint: Short of breath This is a pleasant 67-year-old patient who follows with PCP Dr. Daren Robert. Oncologist Dr. Adorno. Cylinder [employer] Operator Dr. Zeng. 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 treated with chemotherapy and radiation treatment. Had responded well. recurrence 2020. Received chemotherapy recurrent pleural effusion with multiple thoracentesis . lives with her and daughter. Patient was recently discharged on November 20 with left-sided pleural VAC was placed. Large amount of fluid was drained. Patient drains every 3-4 days. Patient now sent to us from [facility]. Getting more and more short of breath. He may sit found a pulse ox of 60%. Patient was placed on CPAP. Checks x-ray showed anasarca pleural effusion some consolidation. Moderate pericardial effusion of 1.7 cm. Patient's appetite is decreased. Patient is ambulating very little. Weak tired further weight loss. Patient's brother and [id number] the bedside. Patient is currently no code with instructions of CPR. No obvious fever and chills. Right thoracentesis was done by Dr. Hernandez 800 mL of dark yellow fluid was removed. January 3: Patient on BiPAP. Short of breath. and daughter the bedside. Decreased oral intake. Tired. Spoke to the and the daughter. Guarded prognosis. January 4: BiPAP. Poor Oral intake. Short of breath. Tired. Family at the bedside. Oncology, pulmonary both feel that patient should be leading to his comfort care. Family was talked to. The considering this further. Patient remains DO NOT RESUSCITATE. Active Medications Albuterol/Ipratropium (Ipratropium-Albuterol 3 Ml Neb) 3 ml INHALATION RT-QID PRN PRN Reason: Shortness Of Breath Or Wheezing Last Admin: 01/06/23 15:14 Dose: 3 ml Sodium Chloride (Saline 0.9%) 1,000 mls @ 75 mls/hr IV .[id number] [facility] Last Admin: 01/07/23 12:37 Dose: 75 mls/hr Ceftriaxone Sodium 2 gm/ (Sodium Chloride) 50 mls @ 100 mls/hr IVPB Q24H [facility]; Protocol Last Admin: 01/06/23 20:35 Dose: 100 mls/hr Azithromycin 500 mg/ Sodium (Chloride) 250 mls @ 250 mls/hr IVPB HS [facility]; Protocol Stop: 01/07/23 21:59 Last Admin: 01/06/23 20:36 Dose: 250 mls/hr Insulin Aspart (Insulin Aspart (Novolog) 100 Unit/Ml Vial) 0 unit SQ ACHS [facility]; Protocol Last Admin: 01/07/23 12:33 Dose: Not Given Levothyroxine Sodium (Levothyroxine 75 Mcg Tab) 150 mcg PO DAILY@0630 [facility] Last Admin: 01/07/23 06:24 Dose: Not Given Lorazepam (Lorazepam 2 Mg/Ml Inj) 1 mg IV Q4HR PRN PRN Reason: Anxiety Last Admin: 01/06/23 13:45 Dose: 1 mg Methylprednisolone Sodium Succinate (Methylprednisolone Sod Succi 125 Mg/2 Ml Vial) 60 mg IV Q6HR [facility] Last Admin: 01/07/23 12:37 Dose: 60 mg Metoprolol Tartrate (Metoprolol Tartrate 25 Mg Tab) 25 mg PO BID [facility] Last Admin: 01/07/23 12:33 Dose: Not Given Morphine Sulfate (Morphine Sulfate 4 Mg/Ml Syringe) 4 mg IV Q4HR PRN PRN Reason: Severe Pain (Scale 7 to 10) Last Admin: 01/06/23 17:58 Dose: 4 mg Naloxone HCl (Naloxone 0.4 Mg/Ml 1 Ml Vial) 0.2 mg IV Q2M PRN PRN Reason: Opioid Reversal Ondansetron HCl (Ondansetron 4 Mg/2 Ml Vial) 4 mg IVP Q8HR PRN PRN Reason: Nausea And Vomiting Pantoprazole Sodium (Pantoprazole 40 Mg/10 Ml Vial) 40 mg IVP DAILY [facility] Last Admin: 01/07/23 12:37 Dose: 40 mg Pravastatin Sodium (Pravastatin Sodium 40 Mg Tab) 40 mg PO DAILY [facility] Last Admin: 01/07/23 12:33 Dose: Not Given Past medical history to include: Uterine cancer, abdominal wall cancer, hypothyroid, hyperlipidemia, peripheral neuropathy, recurrent pleural effusion metastatic Social history: . Denies any history of smoking and alcohol. Lives with and daughter. Family history: Breast cancer Physical examination: VITAL SIGNS: 97.8, 86, 28, 129/72, 92% on AIRVO GENERAL: , reclining, tired, short of breath and weak Left-sided chest Pleur- evac EYES: [Pupils equal. Conjunctiva pale HEENT: External appearance of nose and ears normal, oral cavity grossly normal. NECK: JVD not raised; masses not palpable. HEART: First and second heart sounds are normal; some edema. LUNGS: Respiratory rate increased decreased breath sounds. ABDOMEN: Soft, nontender, liver spleen not palpable, no masses palpable. PSYCH: Tired able to answer simple questionsl. MUSCULOSKELETAL:No Clubbing/cyanosis;muscles-grossly intact. Decreased muscle mass. Bony prominences. DERMATOLOGICAL: Rash in the right thigh INVESTIGATIONS, reviewed in the clinical context: January 07: White count 3.8 hemoglobin 12.7 platelets 28 January 3: White count 4.7 hemoglobin 13.1 platelets 48 potassium 4.5 BUN 34 creatinine 1.88 albumin 2.4 White count 3.6 hemoglobin 14.7 platelets 71 sodium 137 potassium 5.1 BUN 71 creatinine 1.9 to Lactic acid 3.8 AST 85 AST 60 Troponin I 0.119, 0.123 Albumin 2.6 Procalcitonin 5.1 Influenza type A, B, RSV, COVID-19: Not detected EKG tracing personally reviewed by me-sinus tachycardia. Nonspecific T-wave changes. Chest ultrasound: Large right pleural effusion 11 cm Assessment and plan: -Recurrent malignant pleural effusion, multiple thoracentesis in the past. Left-sided Pleur-evac , causing hypoxia: Not improving Right thoracentesis for about [address] Jones January 2. Acute on chronic hypoxic respiratory failure from malignant pleural effusion, recurrent: Not improving Patient requiring BiPAP/Airvo -Acute on chronic medical debility from underlying malignancy: Not improving -Recurrent uterine cancer with a prior treatment with radiation and chemotherapy., immunotherapy. Follow oncology Dr. Adorno. Poor prognosis -chronic hypoxic respiratory failure secondary to recurrent bilateral pleural effusion.: 4 L nasal cannula -Troponin leak from hemodynamic mismatch. No ACS. -Chronic kidney disease stage III, multifactorial from cardiorenal syndrome -Hyperlipidemia Pravachol -Hypothyroid Synthroid 150 g daily. 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 Vitamin D -No code with instructions Continue current medication treatment plan. Patient doing poorly. Family understands guarded prognosis. Consideration for comfort care/hospice.
[2023-01-07] MEDS: ENOXAPARIN 30 MG/0.3 ML SYRINGE SQ SCH (16:07)
[2023-01-07 16:26] LABS: Glucose,Whole Blood 103 mg/dL (70-110)
[2023-01-07 19:55] LABS: Glucose,Whole Blood 109 mg/dL (70-110)
[2023-01-07] MEDS: AZITHROMYCIN 500 MG in SODIUM CHLORIDE 0.9% 250 ML IVPB SCH (21:02)
[2023-01-07] MEDS: MORPHINE SULFATE 4 MG/ML SYRINGE IV PRN (23:29)
[2023-01-08] MEDS: SODIUM CHLORIDE 0.9% 1,000 ML IV SCH ×2 (03:54→15:21)
[2023-01-08] MEDS: LEVOTHYROXINE 75 MCG TAB PO SCH (05:22)
[2023-01-08 06:08] LABS: Glucose,Whole Blood 122 mg/dL (70-110)
[2023-01-08] MEDS: INSULIN ASPART (NovoLOG) 100 UNIT/ML VIAL SQ SCH ×4 (06:22→20:24)
[2023-01-08] MEDS: methylPREDNISolone SOD SUCCI 125 MG/2 ML VIAL IV SCH ×4 (07:00→23:22)
[2023-01-08] MEDS: METOPROLOL TARTRATE 25 MG TAB PO SCH ×2 (08:58→20:02)
[2023-01-08] MEDS: PRAVASTATIN SODIUM 40 MG TAB PO SCH (08:59)
[2023-01-08] MEDS: PANTOPRAZOLE 40 MG/10 ML VIAL IVP SCH (09:04)
[2023-01-08 10:36] LABS: Anisocytosis Slight; HCT 39.9 % (34.0-46.0); HGB 12.5 gm/dL (11.4-16.0); MCH 31.9 pg (25.0-35.0); MCHC 31.3 g/dL (31.0-37.0); MCV 101.7 fL (80.0-100.0); Macrocytosis Moderate; Mean Platelet Volume 9.9; RBC 3.92 m/uL (3.80-5.40); RDW 17.1 % (11.5-15.5); WBC 2.9 k/uL (3.8-10.6)
[2023-01-08 10:48] LABS: Platelet Count 37 k/uL (150-450)
--- NOTE | 2023-01-08 11:10 | P.PN ---
Subjective Progress Note Date: 01/08/23 Principal diagnosis: Shortness of breath. I am seeing this patient in new consultation today 01/05/2023 for progressive shortness of breath. Patient is a 67-year-old white female with past medical history significant for hypertension, hyperlipidemia, hypothyroidism, metastatic endometrial cancer originally diagnosed in 2016 and had undergone a hysterectomy and bilateral salpingo-oophorectomy in addition to omentectomy. She was treated with carboplatinum and Taxol and brachytherapy. In 2019 she developed pelvic lymphadenopathy and metastatic disease. She was treated with carboplatinum and Taxol and eventually with immunotherapy Keytruda. She does follow up outpatient with her oncologist Dr. King. Patient received her last dose of Keytruda on 11/04/2022, and is currently receiving a course of Lenvima. She has developed recurrent bilateral pleural effusions initially back in 2020, and subsequently had a right Pleurx catheter placed with subsequent removal. She had been doing well until October,, when she developed bilateral pleural effusions again. She had been seen and evaluated by Dr. Zeng. She had undergone a left- sided thoracentesis on 10/02/2022 750 MLS were removed and subsequently a right- sided thoracentesis earlier this month with 550 mL removed. Patient subsequently had a left Pleurx catheter placed on 11/19/2022, and the catheter still in place. Patient is currently resting in bed, on 6 L nasal cannula, and fairly comfortabl e. She is in a emaciated. She is tachypneic and tachycardic. BiPAP is currently at the bedside and currently on standby with settings 10/5 and FiO2 100%. The patient was transferred from [facility] yesterday evening for progressive shortness of breath. She did have a brief evaluation done in the emergency room at the outside facility. The nonenhanced chest CT report indicated a moderate right and small left pleural effusion, a moderate sized pericardial effusion measuring 1.7 cm which had increased from prior exam, and some new areas of nodularity and groundglass changes in bilateral mid lungs and left apex which could correlate with infectious bronchiolitis, aspiration, or atypical pneumonia. A procalcitonin level at outside facility was elevated at 6.43. She was started on some broad-spectrum antibiotics. She has been afebrile. A follow-up chest x-ray at our facility redemonstrated the bilateral pleural effusions with suspected multifocal pneumonia. CBC on arrival showed some leukopenia with a WBC count of 3.2, hemoglobin 14.2, hematocrit 44, platelets 72,000. Patient's BMP on arrival showed a sodium 136, potassium 5, chloride 100, serum CO2 22, BUN 70, creatinine 1.75, glucose 140. Normal saline at 75 mL per hour. Troponins were elevated at 0.119. ECG showed no obvious acute ischemic changes. LFTs were minimally elevated. Patient's status is borderline at best. It was confirmed with the patient and family, that the patient is a full code. Progress note dated 01/06/2023. The patient was seen in consultation yesterday. Please see the note above. The patient is currently in room 351. She is on BiPAP at 10/5 and 60%. She's getting saline at 75 mL an hour. The patient apparently has a change in her CODE STATUS, and is to receive all medical management, but no CPR and no intubation. Yesterday, we did a right-sided thoracentesis on this patient. We actually did it in the emergency department. 700 mL was removed. White count 4.7, hemoglobin 13.1, hematocrit 40.3, and platelet count 48,000. Sodium 141, potassium 4.5, chlorides 107, CO2 24, BUN 74, and creatinine 1.88. Alkaline phosphatase is 940. AST is 94 ALT is 72. TSH is 6.250. Albumin is 2.4. Progress note dated 01/07/2023. 67-year-old female seen today in room 351. Currently, the patient is on BiPAP, with settings of 10/5 and 60%. The patient is receiving saline at 75 mL an hour. Currently, the patient appears to be not doing well. Her CODE STATUS was changed, and she is to receive all medical management, but not have any CPR, and not be intubated. We did a right-sided thoracentesis on this patient, in the emergency department. Labs today include a white count of 3.8, hemoglobin 12.7, hematocrit 39.6, and a platelet count of 28,000. Also, glucose 104. Progress note dated 01/08/2023. 67-year-old female seen today in room 351. The patient is currently on AIRVO, with settings of 35 L/m and an FiO2 40%. The patient is getting saline at 75 mL an hour. The patient did not passed her swallow evaluation. The patient is a chemical code only. White count 2.9, hemoglobin 10.5, hematocrit 29.9, platelet count was 37,000. Glucose was 122. Objective - Vital Signs Vital signs: Vital Signs Temp 97.4 F L 01/08/23 10:57 Pulse 86 01/08/23 10:57 Resp 24 01/08/23 10:57 BP 151/82 01/08/23 10:57 Pulse Ox 91 L 01/08/23 10:57 FiO2 50 01/08/23 09:06 Intake & Output 01/07/23 01/08/23 01/08/23 18:59 06:59 18:59 Intake Total 1057 Output Total 150 200 Balance -150 857 Weight 52.617 kg Intake: Intake, IV Titration 1057 Amount Azithromycin 500 mg In 250 Sodium Chloride 0.9% 250 ml @ 250 mls/hr IVPB HS [facility] Rx#:[id number] Sodium Chloride 0.9% 1, 757 000 ml @ 75 mls/hr IV . [id number] [facility] Rx#:[id number] cefTRIAXone 2 gm In 50 Sodium Chloride 0.9% 50 ml @ 100 mls/hr IVPB Q24H [facility] Rx#:[id number] Output: Urine 150 200 Other: Voiding Method Indwelling Catheter Indwelling Catheter Indwelling Catheter - Exam No acute distress, on AIRVO. HEENT examination is grossly unremarkable. Neck supple. Full range of motion. No adenopathy thyromegaly or neck vein distention. Cardiovascular examination reveals regular rhythm rate. S1-S2 normal. No S3 or S4. No discernible murmur noted. Heart sounds are distant. Heart rate 86 bpm. Lungs reveal bilateral scattered rhonchi. Breath sounds are diminished at the bases. No crackles. Saturations are 91% on AIRVO. Abdomen soft bowel sounds are heard. No masses or tenderness. Extremities are intact. No cyanosis clubbing or edema. Skin is without rash or lesion. Neurologic examination is very difficult to assess at this time. - Labs CBC & Chem 7: 01/08/23 10:07 01/06/23 08:26 Labs: Abnormal Lab Results - Last 24 Hours (Table) 01/06/23 01/07/23 01/08/23 Range/Units 08:26 11:31 06:05 WBC (3.8-10.6) k/uL MCV (80.0-100.0) fL RDW (11.5-15.5) % Plt Count (150-450) k/uL POC Glucose (mg/dL) 118 H 122 H (70-110) mg/dL Insulin-like GF I 51 L (52 - 196) ng/mL 01/08/23 Range/Units 10:07 WBC 2.9 L (3.8-10.6) k/uL MCV 101.7 H (80.0-100.0) fL RDW 17.1 H (11.5-15.5) % Plt Count 37 L (150-450) k/uL POC Glucose (mg/dL) (70-110) mg/dL Insulin-like GF I (52 - 196) ng/mL Microbiology - Last 24 Hours (Table) 01/05/23 05:50 Blood Culture - Preliminary Blood Assessment and Plan Assessment: Acute on chronic hypoxemic respiratory failure, multifactorial, in part related to possible community acquired pneumonia, and bilateral pleural effusions, right greater than left. Impending nasrin respiratory failure. S/P thoracentesis, 01/05/2023, with 700 mL removed from the right pleural space. History of recurrent bilateral pleural effusions, with previous bilateral Pleurx catheters. History of metastatic endometrial cancer, diagnosed in 2017, status post hysterectomy, BSO, and omentectomy. Elevated troponins, which may relate to supply/demand mismatch. Moderate size pericardial effusion. Acute kidney injury. Chronic hypoxemic respiratory failure. History of hypertension. Hyperlipidemia. Hypothyroidism. Plan: Plan dated 01/06/2023. The patient's CODE STATUS has been changed, and the patient is to receive full medical management, but no CPR, and no intubation/mechanical ventilation. I believe that to be appropriate given her current clinical situation. Yesterday in the emergency room, we did a right-sided thoracentesis. 700 mL of fluid was removed. The patient has had previous thoracentesis in the past. Labs, x-rays, and medications are reviewed. The patient's overall prognosis is very poor. We will continue to follow. She remains on BiPAP. Plan dated 01/07/2023. The patient appears to be doing very poorly. The patient's currently on BiPAP. In my opinion, the patient should be made comfort care. We'll leave that up to the family. They did agree to change her CODE STATUS, which I think is appropriate. Labs, x-rays, and medications are reviewed. Again she remains on BiPAP, and is getting saline at 75 mL an hour. She is very lethargic and somnolent. Plan dated 01/08/2023. The patient is currently on AIRVO. Yesterday, she was on BiPAP. The patient failed her swallow evaluation. She is getting saline at 75 mL an hour. The patient is a no code, with instructions, basically, only a chemical code. The patient is not to be intubated or mechanically ventilated. Moving forward, we will see the patient only as needed. The patient's prognosis is mentioned above is very poor. Yesterday, I recommended a palliative care consult or hospice consult, with strong consideration to comfort care orders. Time with Patient: Less than 30
[2023-01-08 11:48] LABS: Glucose,Whole Blood 101 mg/dL (70-110)
--- NOTE | 2023-01-08 14:46 | P.PN ---
Subjective Progress Note Date: 01/08/23 Principal diagnosis: SPENCER, hx endometrial cancer At todays visit patient is resting comfortable in bed, family at bedside. Patient transitioned to high flow NC and reports breathing has improved. Patient had failed swallow study today and was placed on ice chips only. Internal medicine place orders to start TPN. Patient is considering hospice at this time but first wants to try TPN nutrition prior to making any further decisions. Objective - Vital Signs Vital signs: Vital Signs Temp 97.4 F L 01/08/23 10:57 Pulse 86 01/08/23 10:57 Resp 24 01/08/23 10:57 BP 151/82 01/08/23 10:57 Pulse Ox 91 L 01/08/23 10:57 FiO2 50 01/08/23 11:50 Intake & Output 01/07/23 01/08/23 01/08/23 18:59 06:59 18:59 Intake Total 1057 900 Output Total 150 200 300 Balance -150 857 600 Weight 52.617 kg Intake: Intake, IV Titration 1057 900 Amount Azithromycin 500 mg In 250 Sodium Chloride 0.9% 250 ml @ 250 mls/hr IVPB HS [facility] Rx#:[id number] Sodium Chloride 0.9% 1, 757 900 000 ml @ 75 mls/hr IV . [id number] [facility] Rx#:[id number] cefTRIAXone 2 gm In 50 Sodium Chloride 0.9% 50 ml @ 100 mls/hr IVPB Q24H [facility] Rx#:[id number] Output: Urine 150 200 300 Other: Voiding Method Indwelling Catheter Indwelling Catheter Indwelling Catheter - Constitutional General appearance: Present: mild distress, thin - EENT Eyes: Present: anicteric sclerae, EOMI ENT: Present: hearing grossly normal - Respiratory Details: breathing labored - Cardiovascular Details: skin warm and dry - Integumentary Integumentary: Present: pale - Musculoskeletal Musculoskeletal: Present: generalized weakness - Psychiatric Psychiatric: Present: A&O x's 3, appropriate affect, intact judgment & insight - Labs CBC & Chem 7: 01/08/23 10:07 01/06/23 08:26 Labs: Abnormal Lab Results - Last 24 Hours (Table) 01/06/23 01/08/23 01/08/23 Range/Units 08:26 06:05 10:07 WBC 2.9 L (3.8-10.6) k/uL MCV 101.7 H (80.0-100.0) fL RDW 17.1 H (11.5-15.5) % Plt Count 37 L (150-450) k/uL POC Glucose (mg/dL) 122 H (70-110) mg/dL Insulin-like GF I 51 L (52 - 196) ng/mL Microbiology - Last 24 Hours (Table) 01/05/23 05:50 Blood Culture - Preliminary Blood Assessment and Plan (1) Acute exacerbation of chronic obstructive pulmonary disease Current Visit: Yes Status: Acute Priority: High Code(s): J44.1 - CHRONIC OBSTRUCTIVE PULMONARY DISEASE W (ACUTE) EXACERBATION SNOMED Code(s): 519671213 (2) Uterine cancer Current Visit: Yes Status: Acute Priority: High Code(s): C55 - MALIGNANT NEOPLASM OF UTERUS, PART UNSPECIFIED SNOMED Code(s): 163619124 (3) Thrombocytopenia Current Visit: Yes Status: Acute Priority: High Code(s): D69.6 - THROMBOCYTOPENIA, UNSPECIFIED SNOMED Code(s): 809999075 Plan: Hypoxic respiratory failure -Bilateral pleural effusions. Patient has a Pleurx drain on the left, 775 cc removed 2 days ago. Thoracentesis on the right with 800cc removed. From note review no fluid was sent for cytology. -Patient transitioned to high flow NC, oxygen sat low to mid 90s. Recurrent endometrial carcinoma -Recent recurrent and enlarging pleural effusions. None of the specimens have came back positive for malignancy but, treatment was recently changed for clinical evidence of disease progression -Patient had cycle 1 day 1 last week of single agent Gemzar. -Had a long discussion with , daughter and sister at the bedside. Patient is alert and oriented. We discussed concerns for patient's severe tachypnea and difficulty in breathing, requiring BiPAP to maintain oxygen saturation. Physically, she will not be able to maintain this breathing pattern or any significant duration of time, her body will physically become exhausted. The patient and her have decided very appropriately on no CPR or intubation. We discussed that these pleural effusions, despite not having cytology evidence of cancer, are disease progression, she had this presentation previously with disease progression, this is why the pleural effusions cont to recur. In patient's current physical state she cannot receive further chemotherapy treatment. All of patient and family's questions were answered to their satisfaction. Patient reports at this time she would like everything to stay exactly the way it is, and is not interested at hospice at this time. She and her will make further decisions based on how her condition changes. -Patient had failed swallow study today and was placed on ice chips only. Internal medicine placed orders to start TPN. Patient spoke with the internal medicine team today and is considering hospice but first wants to try TPN nutrition to see if she can get stronger prior to making any further decisions. Thrombocytopenia: -Platelets continue to decrease since admission. 37,000 today. Likely related to recent treatment of gemzar, superimposed by acute inflammatory/infectious process -Lovenox d/c. Please hold anticoagulation for platelets less than 50,000. SCDs ordered for DVT prophylaxis -Please transfuse for platelets less than 10,000 or symptomatic.
[2023-01-08 15:22] LABS: Albumin 2.4 g/dL (3.5-5.0); Calcium 8.1 mg/dL (8.4-10.2); Magnesium 2.5 mg/dL (1.6-2.3); Phosphorus 3.3 mg/dL (2.5-4.5); Potassium 3.8 mmol/L (3.5-5.1); Total Bilirubin 0.7 mg/dL (0.2-1.3); Total Protein 4.9 g/dL (6.3-8.2)
[2023-01-08] MEDS ORDERED: MVI, ADULT NO.4 WITH VIT K 10 ML, TRACE (CONC-1ML/DOSE) 1 ML, POTASSIUM ACETATE 20 MEQ,... IV SCH ×5 (16:00)
[2023-01-08] MEDS ORDERED: FAT EMULSION 20% 250 ML IV SCH (16:00)
[2023-01-08 16:37] LABS: Glucose,Whole Blood 110 mg/dL (70-110)
--- NOTE | 2023-01-08 16:44 | P.PN ---
Progress Note - Text Progress Note Date: 01/08/23 Chief Complaint: Short of breath This is a pleasant 67-year-old patient who follows with PCP Dr. Daren Robert. Oncologist Dr. Adorno. Sound Controller Dr. Zeng. 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 treated with chemotherapy and radiation treatment. Had responded well. recurrence 2020. Received chemotherapy recurrent pleural effusion with multiple thoracentesis . lives with her and daughter. Patient was recently discharged on November 20 with left-sided pleural VAC was placed. Large amount of fluid was drained. Patient drains every 3-4 days. Patient now sent to us from [facility]. Getting more and more short of breath. He may sit found a pulse ox of 60%. Patient was placed on CPAP. Checks x-ray showed anasarca pleural effusion some consolidation. Moderate pericardial effusion of 1.7 cm. Patient's appetite is decreased. Patient is ambulating very little. Weak tired further weight loss. Patient's brother and [id number] the bedside. Patient is currently no code with instructions of CPR. No obvious fever and chills. Right thoracentesis was done by Dr. Hernandez 800 mL of dark yellow fluid was removed. January 3: Patient on BiPAP. Short of breath. and daughter the bedside. Decreased oral intake. Tired. Spoke to the and the daughter. Guarded prognosis. January 4: BiPAP. Poor Oral intake. Short of breath. Tired. Family at the bedside. Oncology, pulmonary both feel that patient should be leading to his comfort care. Family was talked to. The considering this further. Patient remains DO NOT RESUSCITATE. January 5: Seen by speech therapist: Suspect severe pharyngeal dysphagia. Being followed by therapy. Lengthy discussion with the patient the patient's sister and daughter the bedside. Including about hospice. Patient does point towards supplementary nutrition. We'll start TPN and lipids. Because of aspiration oral feeding not an option currently. Remains on AIRVO. Tired. Short of breath. Spoke to the dietitian. Patient states she was to keep fighting. Total time spent today 1 hour 15 minutes. Active Medications Albuterol/Ipratropium (Ipratropium-Albuterol 3 Ml Neb) 3 ml INHALATION RT-QID PRN PRN Reason: Shortness Of Breath Or Wheezing Last Admin: 05/03/23 15:14 Dose: 3 ml Sodium Chloride (Saline 0.9%) 1,000 mls @ 75 mls/hr IV .[id number] [facility] Last Admin: 01/08/23 15:21 Dose: 75 mls/hr Ceftriaxone Sodium 2 gm/ (Sodium Chloride) 50 mls @ 100 mls/hr IVPB Q24H [facility]; Protocol Last Admin: 01/07/23 21:02 Dose: 100 mls/hr Parenteral Vitamin Supplement 10 ml/ Zinc/Copper/Manganese/Selenium 1 ml/ Potassium Acetate 20 meq/ Calcium Gluconate 1 gm/ Amino Acids/Dextrose 1,031 mls @ 30 mls/hr IV .Q24H [facility] Stop: 01/09/23 15:00 Potassium Acetate 20 meq/Calcium Gluconate 1 gm/ Amino Acids/Dextrose 1,020 mls @ 63 mls/hr IV .BY DURATION [facility] Parenteral Vitamin Supplement 10 ml/ Zinc/Copper/Manganese/Selenium 1 ml/ Potassium Acetate 20 meq/ Calcium Gluconate 1 gm/ Amino Acids/Dextrose 1,031 mls @ 63 mls/hr IV .BY DURATION [facility] Fat Emulsion Intravenous (Lipids 20%) 250 mls @ 21 mls/hr IV TuFr [facility] Insulin Aspart (Insulin Aspart (Novolog) 100 Unit/Ml Vial) 0 unit SQ ACHS [facility]; Protocol Last Admin: 01/08/23 16:39 Dose: Not Given Levothyroxine Sodium (Levothyroxine 75 Mcg Tab) 150 mcg PO DAILY@0630 [facility] Last Admin: 01/08/23 05:22 Dose: Not Given Lorazepam (Lorazepam 2 Mg/Ml Inj) 1 mg IV Q4HR PRN PRN Reason: Anxiety Last Admin: 01/06/23 13:45 Dose: 1 mg Methylprednisolone Sodium Succinate (Methylprednisolone Sod Succi 125 Mg/2 Ml Vial) 60 mg IV Q6HR [facility] Last Admin: 01/08/23 11:54 Dose: 60 mg Metoprolol Tartrate (Metoprolol Tartrate 25 Mg Tab) 25 mg PO BID [facility] Last Admin: 01/08/23 08:58 Dose: Not Given Morphine Sulfate (Morphine Sulfate 4 Mg/Ml Syringe) 4 mg IV Q4HR PRN PRN Reason: Severe Pain (Scale 7 to 10) Last Admin: 01/07/23 23:29 Dose: 4 mg Naloxone HCl (Naloxone 0.4 Mg/Ml 1 Ml Vial) 0.2 mg IV Q2M PRN PRN Reason: Opioid Reversal Ondansetron HCl (Ondansetron 4 Mg/2 Ml Vial) 4 mg IVP Q8HR PRN PRN Reason: Nausea And Vomiting Pantoprazole Sodium (Pantoprazole 40 Mg/10 Ml Vial) 40 mg IVP DAILY [facility] Last Admin: 01/08/23 09:04 Dose: 40 mg Pravastatin Sodium (Pravastatin Sodium 40 Mg Tab) 40 mg PO DAILY [facility] Last Admin: 01/08/23 08:59 Dose: Not Given Past medical history to include: Uterine cancer, abdominal wall cancer, hypothyroid, hyperlipidemia, peripheral neuropathy, recurrent pleural effusion metastatic Social history: . Denies any history of smoking and alcohol. Lives with and daughter. Family history: Breast cancer Physical examination: VITAL SIGNS: 97.4, 86, 24, 151/82, 91% on AIRVO 35/50 GENERAL: , reclining, tired, short of breath and weak, Left-sided chest Pleur- evac EYES: [Pupils equal. Conjunctiva pale HEENT: External appearance of nose and ears normal, oral cavity dry mucous membranes NECK: JVD not raised; masses not palpable. HEART: First and second heart sounds are normal; some edema. LUNGS: Respiratory rate increased decreased breath sounds. ABDOMEN: Soft, nontender, liver spleen not palpable, no masses palpable. PSYCH: Tired able to answer simple questionsl. MUSCULOSKELETAL:No Clubbing/cyanosis;muscles-grossly intact. Decreased muscle mass. Bony prominences. DERMATOLOGICAL: Rash in the right thigh INVESTIGATIONS, reviewed in the clinical context: January 08: White count 2.9 hemoglobin 12.5 platelets 37 sodium 150 potassium 3.8. 65 creatinine 1.27 albumin 2.4 January 4: White count 3.8 hemoglobin 12.7 platelets 28 January 3: White count 4.7 hemoglobin 13.1 platelets 48 potassium 4.5 BUN 34 creatinine 1.88 albumin 2.4 White count 3.6 hemoglobin 14.7 platelets 71 sodium 137 potassium 5.1 BUN 71 creatinine 1.9 to Lactic acid 3.8 AST 85 AST 60 Troponin I 0.119, 0.123 Albumin 2.6 Procalcitonin 5.1 Influenza type A, B, RSV, COVID-19: Not detected EKG tracing personally reviewed by me-sinus tachycardia. Nonspecific T-wave changes. Chest ultrasound: Large right pleural effusion 11 cm Assessment and plan: -Recurrent malignant pleural effusion, multiple thoracentesis in the past. Left-sided Pleur-evac , causing hypoxia: Not improving Right thoracentesis for about [address] Jones January 2. Acute on chronic hypoxic respiratory failure from malignant pleural effusion, recurrent: Not improving Patient requiring /Airvo -Severe thrombocytopenia. From immunotherapy. -Acute on chronic medical debility from underlying malignancy: Not improving -Recurrent uterine cancer with a prior treatment with radiation and chemotherapy., immunotherapy. Follow oncology Dr. Adorno. Poor prognosis -chronic hypoxic respiratory failure secondary to recurrent bilateral pleural effusion.: 4 L nasal cannula -Troponin leak from hemodynamic mismatch. No ACS. -Chronic kidney disease stage III, multifactorial from cardiorenal syndrome -Hyperlipidemia Pravachol -Hypothyroid Synthroid 150 g daily. 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 Vitamin D -No code with instructions Start the patient on TPN and lipids.. Discussed with the patient and family at the bedside. The dietitian. Advance care planning: Care was discussed in detail with the patient, , daughter and sister the bedside. Patient overall poor prognosis was discussed. Different options were discussed. Hospice was discussed. At this point patient was to continue with the current treatment was to keep fighting. Wants to get TPN and lipids. As patient unable to tolerate by mouth. Several questions answered. Time spent about 30 minutes
[2023-01-08 20:22] LABS: Glucose,Whole Blood 157 mg/dL (70-110)
[2023-01-08 20:22] LABS: Glucose,Whole Blood 149 mg/dL (70-110)
[2023-01-09] MEDS: LEVOTHYROXINE 75 MCG TAB PO SCH (04:26)
[2023-01-09 06:30] LABS: Glucose,Whole Blood 195 mg/dL (70-110)
[2023-01-09] MEDS: methylPREDNISolone SOD SUCCI 125 MG/2 ML VIAL IV SCH ×4 (06:34→23:02)
[2023-01-09] MEDS: INSULIN ASPART (NovoLOG) 100 UNIT/ML VIAL SQ SCH ×4 (06:34→20:32)
[2023-01-09 08:26] LABS: Albumin 2.4 g/dL (3.5-5.0); Calcium 8.2 mg/dL (8.4-10.2); Magnesium 2.4 mg/dL (1.6-2.3); Phosphorus 2.7 mg/dL (2.5-4.5); Potassium 3.5 mmol/L (3.5-5.1); Total Bilirubin 0.7 mg/dL (0.2-1.3); Total Protein 4.9 g/dL (6.3-8.2)
[2023-01-09] MEDS: SODIUM CHLORIDE 0.9% 1,000 ML IV SCH (08:33)
[2023-01-09] MEDS: PRAVASTATIN SODIUM 40 MG TAB PO SCH (08:33)
[2023-01-09] MEDS: METOPROLOL TARTRATE 25 MG TAB PO SCH ×2 (08:33→20:30)
[2023-01-09] MEDS: IPRATROPIUM-ALBUTEROL 3 ML NEB INHALATION PRN ×3 (08:47→16:57)
[2023-01-09] MEDS: PANTOPRAZOLE 40 MG/10 ML VIAL IVP SCH (08:49)
[2023-01-09 12:17] LABS: Glucose,Whole Blood 196 mg/dL (70-110)
[2023-01-09] MEDS: POTASSIUM ACETATE IV SCH ×5 (15:43)
[2023-01-09] MEDS: CALCIUM GLUCONATE IV SCH ×5 (15:43)
[2023-01-09] MEDS: [UNRECOGNIZED DRUG - OTHER] IV SCH ×5 (15:43)
[2023-01-09] MEDS: AMINO ACID 5% IV SCH ×5 (15:43)
--- NOTE | 2023-01-09 15:59 | P.PN ---
Subjective This is a pleasant 67-year-old patient who follows with PCP Dr. Daren Robert. Oncologist Dr. Adorno. Spring Fitter Dr. Zeng. 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 treated with chemotherapy and radiation treatment. Had responded well. recurrence 2020. Received chemotherapy recurrent pleural effusion with multiple thoracentesis . lives with her and daughter. Patient was recently discharged on November 20 with left-sided pleural VAC was placed. Large amount of fluid was drained. Patient drains every 3-4 days. Patient now sent to us from [facility]. Getting more and more short of breath. He may sit found a pulse ox of 60%. Patient was placed on CPAP. Checks x-ray showed anasarca pleural effusion some consolidation. Moderate pericardial effusion of 1.7 cm. Patient's appetite is decreased. Patient is ambulating very little. Weak tired further weight loss. Patient's brother and [id number] the bedside. Patient is currently no code with instructions of CPR. No obvious fever and chills. Right thoracentesis was done by Dr. Hernandez 800 mL of dark yellow fluid was removed. January 3: Patient on BiPAP. Short of breath. and daughter the bedside. Decreased oral intake. Tired. Spoke to the and the daughter. Guarded prognosis. January 4: BiPAP. Poor Oral intake. Short of breath. Tired. Family at the bedside. Oncology, pulmonary both feel that patient should be leading to his comfort care. Family was talked to. The considering this further. Patient remains DO NOT RESUSCITATE. January 5: Seen by speech therapist: Suspect severe pharyngeal dysphagia. Being followed by therapy. Lengthy discussion with the patient the patient's sister and daughter the bedside. Including about hospice. Patient does point towards supplementary nutrition. We'll start TPN and lipids. Because of aspiration oral feeding not an option currently. Remains on AIRVO. Tired. Short of breath. Spoke to the dietitian. Patient states she was to keep figh ting. Total time spent today 1 hour 15 minutes. 01/09/2023 Patient is still generally weak, she is cachectic, she is unable to eat related to her multiple nodules and advanced cancer. She is currently getting TPN. She still mildly tachypneic. She is not in pain. She is still requiring considerable amount of oxygen via high flow nasal cannula 35 liter per minute and FiO2 of 50% Her Hypoxia is related to her bilateral pneumonia and recurrent malignant pleural effusion. Sodium 149, creatinine 1.1, platelets low at 37K. She is on ceftriaxone, some Medrol 6 mg. Objective - Vital Signs Vital signs: Vital Signs Temp 98.1 F 01/09/23 09:03 Pulse 86 01/09/23 09:03 Resp 20 01/09/23 09:03 BP 151/81 01/09/23 09:03 Pulse Ox 94 L 01/09/23 09:03 FiO2 50 01/09/23 09:03 Intake & Output 01/08/23 01/09/23 01/09/23 18:59 06:59 18:59 Intake Total 910 10 Output Total 300 300 Balance 610 -300 10 Weight 52.617 kg Intake: IV 10 10 Invasive Line 1 10 Invasive Line 3 10 Intake, IV Titration 900 Amount Sodium Chloride 0.9% 1, 900 000 ml @ 75 mls/hr IV . [id number] [facility] Rx#:[id number] Output: Urine 300 300 Other: Voiding Method Indwelling Catheter Indwelling Catheter Indwelling Catheter # Bowel Movements 0 - Exam -GENERAL: The patient is alert and oriented x3, not in any acute distress. Cachectic HEENT: Pupils are round and equally reacting to light. EOMI. No scleral icterus. No conjunctival pallor. Normocephalic, atraumatic. No pharyngeal erythema. No thyromegaly. CARDIOVASCULAR: S1 and S2 present. No murmurs, rubs, or gallops. -PULMONARY: Chest is clear to auscultation, no wheezing . no crackles. Tachypneic with decreased breath sounds on the basis ABDOMEN: Soft, nontender, nondistended, normoactive bowel sounds. No palpable organomegaly. MUSCULOSKELETAL: No joint swelling or deformity. EXTREMITIES: No cyanosis, clubbing, or pedal edema. NEUROLOGICAL: Gross neurological examination did not reveal any focal deficits. SKIN: No rashes. no petechiae. - Labs CBC & Chem 7: 01/08/23 10:07 01/09/23 07:28 Labs: Abnormal Lab Results - Last 24 Hours (Table) 01/08/23 01/08/23 01/08/23 Range/Units 10:07 14:44 20:19 WBC 2.9 L (3.8-10.6) k/uL MCV 101.7 H (80.0-100.0) fL RDW 17.1 H (11.5-15.5) % Plt Count 37 L (150-450) k/uL Sodium 150 H (137-145) mmol/L Chloride 122 H (98-107) mmol/L Carbon Dioxide 19 L (22-30) mmol/L BUN 65 H (7-17) mg/dL Creatinine 1.27 H (0.52-1.04) mg/dL Glucose 119 H (74-99) mg/dL POC Glucose (mg/dL) 157 H (70-110) mg/dL Calcium 8.1 L (8.4-10.2) mg/dL Magnesium 2.5 H (1.6-2.3) mg/dL AST 67 H (14-36) U/L ALT 71 H (4-34) U/L Alkaline Phosphatase 891 H (38-126) U/L Total Protein 4.9 L (6.3-8.2) g/dL Albumin 2.4 L (3.5-5.0) g/dL Triglycerides 413.00 H (0.00-149.00) mg/dL 01/08/23 01/09/23 01/09/23 Range/Units 20:20 06:29 07:28 WBC (3.8-10.6) k/uL MCV (80.0-100.0) fL RDW (11.5-15.5) % Plt Count (150-450) k/uL Sodium 149 H (137-145) mmol/L Chloride 122 H (98-107) mmol/L Carbon Dioxide 20 L (22-30) mmol/L BUN 65 H (7-17) mg/dL Creatinine 1.14 H (0.52-1.04) mg/dL Glucose 214 H (74-99) mg/dL POC Glucose (mg/dL) 149 H 195 H (70-110) mg/dL Calcium 8.2 L (8.4-10.2) mg/dL Magnesium 2.4 H (1.6-2.3) mg/dL AST 49 H (14-36) U/L ALT 58 H (4-34) U/L Alkaline Phosphatase 774 H (38-126) U/L Total Protein 4.9 L (6.3-8.2) g/dL Albumin 2.4 L (3.5-5.0) g/dL Triglycerides (0.00-149.00) mg/dL Microbiology - Last 24 Hours (Table) 01/05/23 05:50 Blood Culture - Preliminary Blood Assessment and Plan Assessment: -Recurrent malignant pleural effusion, multiple thoracentesis in the past. Left-sided Pleur-evac , causing hypoxia: Not improving Right thoracentesis for about [address] Jones January 2. Acute on chronic hypoxic respiratory failure from malignant pleural effusion, recurrent: Not improving Patient requiring /Airvo -Severe thrombocytopenia. From immunotherapy. -Acute on chronic medical debility from underlying malignancy: Not improving -Recurrent uterine cancer with a prior treatment with radiation and chemotherapy., immunotherapy. Follow oncology Dr. Adorno. Poor prognosis -chronic hypoxic respiratory failure secondary to recurrent bilateral pleural effusion.: 4 L nasal cannula -Troponin leak from hemodynamic mismatch. No ACS. -Chronic kidney disease stage III, multifactorial from cardiorenal syndrome -Hyperlipidemia Pravachol -Hypothyroid Synthroid 150 g daily. 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 Vitamin D -No code with instructions
[2023-01-09] MEDS ORDERED: POTASSIUM ACETATE IV SCH ×5 (16:00)
[2023-01-09] MEDS ORDERED: [UNRECOGNIZED DRUG - OTHER] IV SCH ×5 (16:00)
[2023-01-09] MEDS ORDERED: AMINO ACID 5% IV SCH ×5 (16:00)
[2023-01-09] MEDS ORDERED: CALCIUM GLUCONATE IV SCH ×5 (16:00)
[2023-01-09 16:38] LABS: Glucose,Whole Blood 213 mg/dL (70-110)
[2023-01-09 20:11] LABS: Glucose,Whole Blood 243 mg/dL (70-110)
[2023-01-10] MEDS: LEVOTHYROXINE 75 MCG TAB PO SCH (05:43)
[2023-01-10] MEDS: methylPREDNISolone SOD SUCCI 125 MG/2 ML VIAL IV SCH ×3 (06:05→17:34)
[2023-01-10] MEDS: INSULIN ASPART (NovoLOG) 100 UNIT/ML VIAL SQ SCH ×3 (06:06→20:24)
[2023-01-10 06:07] LABS: Albumin 2.1 g/dL (3.5-5.0); Calcium 8.1 mg/dL (8.4-10.2); Magnesium 2.2 mg/dL (1.6-2.3); Phosphorus 1.8 mg/dL (2.5-4.5); Potassium 3.6 mmol/L (3.5-5.1); Total Bilirubin 0.5 mg/dL (0.2-1.3); Total Protein 4.6 g/dL (6.3-8.2)
[2023-01-10 06:08] LABS: Glucose,Whole Blood 242 mg/dL (70-110)
[2023-01-10] MEDS: METOPROLOL TARTRATE 25 MG TAB PO SCH ×2 (07:17→20:17)
[2023-01-10] MEDS: PRAVASTATIN SODIUM 40 MG TAB PO SCH (07:17)
[2023-01-10] MEDS: POTASSIUM ACETATE IV SCH ×5 (07:23)
[2023-01-10] MEDS: POTASSIUM PHOSPHATE 10 MMOL in SODIUM CHLORIDE 0.9% 100 ML IV SCH ×2 (07:23→09:49)
[2023-01-10] MEDS: CALCIUM GLUCONATE IV SCH ×5 (07:23)
[2023-01-10] MEDS: [UNRECOGNIZED DRUG - OTHER] IV SCH ×5 (07:23)
[2023-01-10] MEDS: AMINO ACID 5% IV SCH ×5 (07:23)
[2023-01-10] MEDS: PANTOPRAZOLE 40 MG/10 ML VIAL IVP SCH (07:23)
[2023-01-10] MEDS: IPRATROPIUM-ALBUTEROL 3 ML NEB INHALATION PRN ×3 (07:48→19:20)
--- NOTE | 2023-01-10 09:07 | P.PN ---
Subjective This is a pleasant 67-year-old patient who follows with PCP Dr. Daren Robert. Oncologist Dr. Adorno. Customer Consultant Dr. Zeng. 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 treated with chemotherapy and radiation treatment. Had responded well. recurrence 2020. Received chemotherapy recurrent pleural effusion with multiple thoracentesis . lives with her and daughter. Patient was recently discharged on November 20 with left-sided pleural VAC was placed. Large amount of fluid was drained. Patient drains every 3-4 days. Patient now sent to us from [facility]. Getting more and more short of breath. He may sit found a pulse ox of 60%. Patient was placed on CPAP. Checks x-ray showed anasarca pleural effusion some consolidation. Moderate pericardial effusion of 1.7 cm. Patient's appetite is decreased. Patient is ambulating very little. Weak tired further weight loss. Patient's brother and [id number] the bedside. Patient is currently no code with instructions of CPR. No obvious fever and chills. Right thoracentesis was done by Dr. Hernandez 800 mL of dark yellow fluid was removed. January 3: Patient on BiPAP. Short of breath. and daughter the bedside. Decreased oral intake. Tired. Spoke to the and the daughter. Guarded prognosis. January 4: BiPAP. Poor Oral intake. Short of breath. Tired. Family at the bedside. Oncology, pulmonary both feel that patient should be leading to his comfort care. Family was talked to. The considering this further. Patient remains DO NOT RESUSCITATE. January 5: Seen by speech therapist: Suspect severe pharyngeal dysphagia. Being followed by therapy. Lengthy discussion with the patient the patient's sister and daughter the bedside. Including about hospice. Patient does point towards supplementary nutrition. We'll start TPN and lipids. Because of aspiration oral feeding not an option currently. Remains on AIRVO. Tired. Short of breath. Spoke to the dietitian. Patient states she was to keep figh ting. Total time spent today 1 hour 15 minutes. 01/09/2023 Patient is still generally weak, she is cachectic, she is unable to eat related to her multiple nodules and advanced cancer. She is currently getting TPN. She still mildly tachypneic. She is not in pain. She is still requiring considerable amount of oxygen via high flow nasal cannula 35 liter per minute and FiO2 of 50% Her Hypoxia is related to her bilateral pneumonia and recurrent malignant pleural effusion. Sodium 149, creatinine 1.1, platelets low at 37K. She is on ceftriaxone, some Medrol 6 mg. 01/10/2023 patient clinically looks the same systolic tachypneic and dyspneic at rest, sitting up in bed. She still on high flow nasal cannula with the same saturating with 35 due to permanent and FiO2 of 49%. She is told to 10 TPN. She is slightly tachycardic and labs showed stable sodium 1.49, creatinine 1.0. Liver enzymes slightly pouch is the same. Low platelet count still pending from today. She is continued on ceftriaxone, salmeterol 60 mg as well. Objective - Vital Signs Vital signs: Vital Signs Temp 97.4 F L 01/10/23 07:35 Pulse 100 01/10/23 07:59 Resp 22 01/10/23 07:35 BP 147/80 01/10/23 07:35 Pulse Ox 92 L 01/10/23 07:52 FiO2 49 01/10/23 07:52 Intake & Output 01/09/23 01/10/23 01/10/23 18:59 06:59 18:59 Intake Total 1250 997 Output Total 600 Balance 1250 -600 997 Intake: IV 10 Invasive Line 4 10 Intake, IV Titration 1250 987 Amount Fat Emulsion 20% 250 ml @ 250 21 mls/hr IV TuFr [facility] Rx #:[id number] Mvi, Adult No.4 with Vit 1000 K 10 ml Trace (Conc-1Ml/ Dose) 1 ml Potassium Acetate 20 meq Calcium Gluconate 1 gm In Amino Acid 5%-D15w 1,000 ml @ 63 mls/hr IV .BY DURATION [facility] Rx#:[id number] Potassium Acetate 20 meq 987 Calcium Gluconate 1 gm In Amino Acid 5%-D15w 1,000 ml @ 63 mls/hr IV .BY DURATION [facility] Rx#: [id number] Output: Urine 600 Other: Voiding Method Indwelling Catheter Indwelling Catheter Indwelling Catheter - Exam -GENERAL: The patient is alert and oriented x3, not in any acute distress. Cachectic HEENT: Pupils are round and equally reacting to light. EOMI. No scleral icterus. No conjunctival pallor. Normocephalic, atraumatic. No pharyngeal erythema. No thyromegaly. CARDIOVASCULAR: S1 and S2 present. No murmurs, rubs, or gallops. -PULMONARY: Chest is clear to auscultation, no wheezing . no crackles. Tachypneic with decreased breath sounds on the basis ABDOMEN: Soft, nontender, nondistended, normoactive bowel sounds. No palpable organomegaly. MUSCULOSKELETAL: No joint swelling or deformity. EXTREMITIES: No cyanosis, clubbing, or pedal edema. NEUROLOGICAL: Gross neurological examination did not reveal any focal deficits. SKIN: No rashes. no petechiae. - Labs CBC & Chem 7: 01/08/23 10:07 01/10/23 04:37 Labs: Abnormal Lab Results - Last 24 Hours (Table) 01/09/23 01/09/23 01/09/23 Range/Units 12:15 16:37 20:10 Sodium (137-145) mmol/L Chloride (98-107) mmol/L BUN (7-17) mg/dL Glucose (74-99) mg/dL POC Glucose (mg/dL) 196 H 213 H 243 H (70-110) mg/dL Calcium (8.4-10.2) mg/dL Phosphorus (2.5-4.5) mg/dL AST (14-36) U/L ALT (4-34) U/L Alkaline Phosphatase (38-126) U/L Total Protein (6.3-8.2) g/dL Albumin (3.5-5.0) g/dL 01/10/23 01/10/23 Range/Units 04:37 06:06 Sodium 149 H (137-145) mmol/L Chloride 120 H (98-107) mmol/L BUN 61 H (7-17) mg/dL Glucose 276 H (74-99) mg/dL POC Glucose (mg/dL) 242 H (70-110) mg/dL Calcium 8.1 L (8.4-10.2) mg/dL Phosphorus 1.8 L (2.5-4.5) mg/dL AST 45 H (14-36) U/L ALT 49 H (4-34) U/L Alkaline Phosphatase 647 H (38-126) U/L Total Protein 4.6 L (6.3-8.2) g/dL Albumin 2.1 L (3.5-5.0) g/dL Microbiology - Last 24 Hours (Table) 01/05/23 05:50 Blood Culture - Preliminary Blood Assessment and Plan Assessment: -Recurrent malignant pleural effusion, multiple thoracentesis in the past. Left-sided Pleur-evac , causing hypoxia: Not improving Right thoracentesis for about [address] Jones January 2. Acute on chronic hypoxic respiratory failure from malignant pleural effusion, recurrent: Not improving Patient requiring /Airvo -Severe thrombocytopenia. From immunotherapy. -Acute on chronic medical debility from underlying malignancy: Not improving -Recurrent uterine cancer with a prior treatment with radiation and chemotherapy., immunotherapy. Follow oncology Dr. Adorno. Poor prognosis -chronic hypoxic respiratory failure secondary to recurrent bilateral pleural effusion.: 4 L nasal cannula -Troponin leak from hemodynamic mismatch. No ACS. -Chronic kidney disease stage III, multifactorial from cardiorenal syndrome -Hyperlipidemia Pravachol -Hypothyroid Synthroid 150 g daily. 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 Vitamin D -No code with instructions
[2023-01-10 11:34] LABS: Glucose,Whole Blood 253 mg/dL (70-110)
[2023-01-10] MEDS: DEXTROSE 5% IN WATER 1,000 ML IV SCH (14:12)
[2023-01-10] MEDS ORDERED: INSULIN ASPART (NovoLOG) 100 UNIT/ML VIAL SQ SCH ×2 (15:00→17:30)
[2023-01-10 16:06] LABS: Glucose,Whole Blood 354 mg/dL (70-110)
[2023-01-10 20:00] LABS: Glucose,Whole Blood 215 mg/dL (70-110)
[2023-01-10 23:59] LABS: Glucose,Whole Blood 199 mg/dL (70-110)
[2023-01-11] MEDS ORDERED: POTASSIUM PHOSPHATE IV SCH ×6
[2023-01-11] MEDS ORDERED: POTASSIUM ACETATE IV SCH ×6
[2023-01-11] MEDS ORDERED: [UNRECOGNIZED DRUG - OTHER] IV SCH ×6
[2023-01-11] MEDS ORDERED: CALCIUM GLUCONATE IV SCH ×6
[2023-01-11] MEDS: INSULIN ASPART (NovoLOG) 100 UNIT/ML VIAL SQ SCH ×7 (00:07→23:46)
[2023-01-11] MEDS: methylPREDNISolone SOD SUCCI 125 MG/2 ML VIAL IV SCH ×5 (00:07→23:46)
[2023-01-11 04:12] LABS: Glucose,Whole Blood 235 mg/dL (70-110)
[2023-01-11] MEDS: LEVOTHYROXINE 75 MCG TAB PO SCH (05:51)
[2023-01-11] MEDS: DEXTROSE 5% IN WATER 1,000 ML IV SCH (05:54)
[2023-01-11] MEDS: IPRATROPIUM-ALBUTEROL 3 ML NEB INHALATION PRN ×3 (07:33→21:43)
[2023-01-11 08:01] LABS: Anisocytosis Slight; Basophils % (A) 0 %; Eosinophils % (A) 0 %; HCT 42.1 % (34.0-46.0); HGB 13.3 gm/dL (11.4-16.0); Lymphocytes # (A) 0.3 k/uL (1.0-4.8); Lymphocytes % (A) 5 %; MCH 31.3 pg (25.0-35.0); MCHC 31.6 g/dL (31.0-37.0); MCV 99.2 fL (80.0-100.0); Macrocytosis Slight; Mean Platelet Volume 11.1; Monocytes # (A) 0.2 k/uL (0-1.0); Monocytes % (A) 3 %; Neutrophils # (A) 6.8 k/uL (1.3-7.7); Neutrophils % (A) 92 %; RBC 4.24 m/uL (3.80-5.40); RDW 17.6 % (11.5-15.5); WBC 7.4 k/uL (3.8-10.6)
[2023-01-11 08:14] LABS: Platelet Count 71 k/uL (150-450)
[2023-01-11 08:18] LABS: Glucose,Whole Blood 234 mg/dL (70-110)
[2023-01-11] MEDS: PANTOPRAZOLE 40 MG/10 ML VIAL IVP SCH (08:19)
[2023-01-11 08:29] LABS: ALT 70 U/L (4-34); AST 76 U/L (14-36); African American GFR (CKD) >90 (>60 ml/min/1.73 sqM); Alkaline Phosphatase 586 U/L (38-126); Anion Gap 5 mmol/L; Blood Urea Nitrogen 52 mg/dL (7-17); Calcium 7.9 mg/dL (8.4-10.2); Carbon Dioxide 21 mmol/L (22-30); Chloride 117 mmol/L (98-107); Glucose 250 mg/dL (74-99); Magnesium 1.7 mg/dL (1.6-2.3); Non-African American GFR(CKD) 81 (>60 ml/min/1.73 sqM); Phosphorus 2.2 mg/dL (2.5-4.5); Potassium 3.6 mmol/L (3.5-5.1); Sodium 143 mmol/L (137-145); Total Bilirubin 0.6 mg/dL (0.2-1.3); Total Protein 4.4 g/dL (6.3-8.2)
[2023-01-11] MEDS: METOPROLOL TARTRATE 25 MG TAB PO SCH ×2 (08:43→20:45)
[2023-01-11] MEDS: PRAVASTATIN SODIUM 40 MG TAB PO SCH (08:43)
[2023-01-11] MEDS ORDERED: MAGNESIUM SULFATE-D5W PMX 1 GM in DEXTROSE/WATER 1 100ML.BAG IVPB ONE (09:00)
[2023-01-11] MEDS ORDERED: Potassium Replacement Protocol 1 EACH MISC MISCELLANE PRN (09:03)
--- NOTE | 2023-01-11 09:32 | P.PN ---
Subjective Progress Note Date: 01/11/23 On today's evaluation of 01/11/2023, the patient remains on high flow oxygen and she is currently at 50 L with an FiO2 of 35 %. She remains hypoxic and she's unable to wean herself off the high flow oxygen. Note that this is a case of metastatic endometrial cancer and I have seen her for a long period of time. The patient by the pleural effusion requiring multiple thoracentesis. The fluid cytologies were negative. Recurrence. The patient has had previous Pleurx catheter insertions and she has a catheter on the the left. The patient's underwent a thoracentesis on the left and I performed the procedure and total of 550 mL of fluid was aspirated. This was done on the left with subsequent Pleurx catheter insertion on 11/19/2022. During this current admission, the patient underwent a thoracentesis on the right and a total amount of 800 mL was aspirated. Noted the patient continues to be in hypoxic respiratory failure. Chest x-ray still showing bilateral pleural effusions and moderate-sized pericardial effusion is also present. The patient failed his swallow evaluation currently she is nothing by mouth. She is doing poorly. She is quite debilitated man CVA. And weak. Hospice was advised. Nevertheless, the patient does not seem to be ready for hospice treatment at this point in time. The white cell count at 7.4 with a hemoglobin of 13 and a platelet count of 71. Sodium is at 143, bicarb is at 21 with a BUN of 50 with creatinine of 0.7. She has also abnormal LFTs. Echocardiogram showed a preserved LV function. As mentioned, there was moderate degree of pericardial effusion without evidence of any temporal not. LV function was essentially within normal limits. Oncology is also on the case. As mentioned, she has a endometrial cancer with evidence of disease progression. More recently, she was taken single agent Gemzar. On a separate note, the patient developed diffuse shingles involving the right lower extremity. Objective - Vital Signs Vital signs: Vital Signs Temp 98.0 F 01/11/23 08:00 Pulse 98 01/11/23 08:00 Resp 20 01/11/23 04:00 BP 134/80 01/11/23 08:00 Pulse Ox 93 L 01/11/23 08:00 FiO2 50 01/11/23 08:00 Intake & Output 01/10/23 01/11/23 01/11/23 18:59 06:59 18:59 Intake Total 1437 Output Total 275 390 Balance 1162 -390 Intake: IV 10 Invasive Line 4 10 Intake, IV Titration 1427 Amount Dextrose 5% in Water 1, 240 000 ml @ 60 mls/hr IV . [id number] [facility] Rx#:[id number] Potassium Acetate 20 meq 987 Calcium Gluconate 1 gm In Amino Acid 5%-D15w 1,000 ml @ 63 mls/hr IV .BY DURATION [facility] Rx#: [id number] Potassium Phosphate 10 200 mmol In Sodium Chloride 0 .9% 100 ml @ 50 mls/hr IV Q2H [facility] Rx#:[id number] Output: Urine 275 390 Uretheral (Garcia) 390 Other: Voiding Method Indwelling Catheter Indwelling Catheter # Voids 1 - Exam No acute distress, on AIRVO. Patient is currently on 50 L with an FiO2 of 30%. HEENT examination is grossly unremarkable. Neck supple. Full range of motion. No adenopathy thyromegaly or neck vein distention. Cardiovascular examination reveals regular rhythm rate. S1-S2 normal. No S3 or S4. No discernible murmur noted. Heart sounds are distant. Lungs reveal bilateral scattered rhonchi. Breath sounds are diminished at the bases. No crackles. Abdomen soft bowel sounds are heard. No masses or tenderness. Extremities are intact. No cyanosis clubbing or edema. Skin , shingles involving the right lower extremity Neurologic examination is very difficult to assess at this time. - Labs CBC & Chem 7: 01/11/23 06:49 01/11/23 06:49 Labs: Abnormal Lab Results - Last 24 Hours (Table) 01/10/23 01/10/23 01/10/23 Range/Units 11:33 16:05 19:58 RDW (11.5-15.5) % Plt Count (150-450) k/uL Lymphocytes # (1.0-4.8) k/uL Chloride (98-107) mmol/L Carbon Dioxide (22-30) mmol/L BUN (7-17) mg/dL Glucose (74-99) mg/dL POC Glucose (mg/dL) 253 H 354 H 215 H (70-110) mg/dL Calcium (8.4-10.2) mg/dL Phosphorus (2.5-4.5) mg/dL AST (14-36) U/L ALT (4-34) U/L Alkaline Phosphatase (38-126) U/L Total Protein (6.3-8.2) g/dL Albumin (3.5-5.0) g/dL 01/10/23 01/11/23 01/11/23 Range/Units 23:57 04:10 06:49 RDW (11.5-15.5) % Plt Count (150-450) k/uL Lymphocytes # (1.0-4.8) k/uL Chloride 117 H (98-107) mmol/L Carbon Dioxide 21 L (22-30) mmol/L BUN 52 H (7-17) mg/dL Glucose 250 H (74-99) mg/dL POC Glucose (mg/dL) 199 H 235 H (70-110) mg/dL Calcium 7.9 L (8.4-10.2) mg/dL Phosphorus 2.2 L (2.5-4.5) mg/dL AST 76 H (14-36) U/L ALT 70 H (4-34) U/L Alkaline Phosphatase 586 H (38-126) U/L Total Protein 4.4 L (6.3-8.2) g/dL Albumin 2.0 L (3.5-5.0) g/dL 01/11/23 01/11/23 Range/Units 06:49 08:15 RDW 17.6 H (11.5-15.5) % Plt Count 71 L D (150-450) k/uL Lymphocytes # 0.3 L (1.0-4.8) k/uL Chloride (98-107) mmol/L Carbon Dioxide (22-30) mmol/L BUN (7-17) mg/dL Glucose (74-99) mg/dL POC Glucose (mg/dL) 234 H (70-110) mg/dL Calcium (8.4-10.2) mg/dL Phosphorus (2.5-4.5) mg/dL AST (14-36) U/L ALT (4-34) U/L Alkaline Phosphatase (38-126) U/L Total Protein (6.3-8.2) g/dL Albumin (3.5-5.0) g/dL Microbiology - Last 24 Hours (Table) 01/05/23 05:50 Blood Culture - Preliminary Blood Assessment and Plan Plan: Acute on chronic hypoxemic respiratory failure, multifactorial, the patient has chronic hypoxic respiratory failure and the patient acute decompensation probably related to her overall debility, disease progression with endometrial cancer and development of bilateral pleural effusion and pericardial effusion. The patient is currently on high flow oxygen 50 L an FiO2 of 30% S/P thoracentesis, 01/05/2023, with 700 mL removed from the right pleural space. The patient has received multiple thoracentesis and I performed a left-sided thoracentesis back in November 2022. History of recurrent bilateral pleural effusions, with previous bilateral Pleurx catheters. The patient has a proximal Left History of metastatic endometrial cancer, diagnosed in 2017, status post hysterectomy, BSO, and omentectomy. Elevated troponins, which may relate to supply/demand mismatch. Moderate size pericardial effusion. Acute kidney injury, recovered and the creatinine is normal at 0.7 Chronic hypoxemic respiratory failure. History of hypertension. Hyperlipidemia. Hypothyroidism. Shingles Severe debility Severe protein calorie malnutrition and a BMI is 19.3 Failure to swallow, high risk for aspiration Plan Recommend starting the patient on IV acyclovir regarding her shingles Change the patient to oral prednisone 40 mg by mouth daily Attached the Pleurx catheter to the pleural VAC and TO low intermittent suction Obtain a chest x-ray after attaching the pleural catheter into a pleural VAC Continue TPN for nutritional support Very poor prognosis High risk for mortality Recommendations always hospice and the patient is not ready for that yet DNR/DNI CODE STATUS
[2023-01-11] MEDS ORDERED: POTASSIUM PHOSPHATE 10 MMOL in SODIUM CHLORIDE 0.9% 100 ML IV ONE (10:00)
[2023-01-11 11:54] LABS: Glucose,Whole Blood 218 mg/dL (70-110)
[2023-01-11] MEDS ORDERED: POTASSIUM CHLORIDE 20 MEQ in WATER FOR INJECTION 1 100ML.BAG IVPB ONE (12:00)
--- NOTE | 2023-01-11 13:44 | P.PN ---
Subjective Progress Note Date: 01/11/23 This is a pleasant 67-year-old patient who follows with PCP Dr. Daren Robert. Oncologist Dr. Adorno. Manager Information Dr. Zeng. 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 treated with chemotherapy and radiation treatment. Had responded well. recurrence 2020. Received chemotherapy recurrent pleural effusion with multiple thoracentesis . lives with her and daughter. Patient was recently discharged on November 20 with left-sided pleural VAC was placed. Large amount of fluid was drained. Patient drains every 3-4 days. Patient now sent to us from [facility]. Getting more and more short of breath. He may sit found a pulse ox of 60%. Patient was placed on CPAP. Checks x-ray showed anasarca pleural effusion some consolidation. Moderate pericardial effusion of 1.7 cm. Patient's appetite is decreased. Patient is ambulating very little. Weak tired further weight loss. Patient's brother and [id number] the bedside. Patient is currently no code with instructions of CPR. No obvious fever and chills. Right thoracentesis was done by Dr. Hernandez 800 mL of dark yellow fluid was removed. January 3: Patient on BiPAP. Short of breath. and daughter the bedside. Decreased oral intake. Tired. Spoke to the and the daughter. Guarded prognosis. January 4: BiPAP. Poor Oral intake. Short of breath. Tired. Family at the bedside. Oncology, pulmonary both feel that patient should be leading to his comfort care. Family was talked to. The considering this further. Patient remains DO NOT RESUSCITATE. January 5: Seen by speech therapist: Suspect severe pharyngeal dysphagia. Being followed by therapy. Lengthy discussion with the patient the patient's sister and daughter the bedside. Including about hospice. Patient does point towards supplementary nutrition. We'll start TPN and lipids. Because of aspiration oral feeding not an option currently. Remains on AIRVO. Tired. Short of breath. Spoke to the dietitian. Patient states she was to keep fighting. Total time spent today 1 hour 15 minutes. 01/09/2023 Patient is still generally weak, she is cachectic, she is unable to eat related to her multiple nodules and advanced cancer. She is currently getting TPN. She still mildly tachypneic. She is not in pain. She is still requiring considerable amount of oxygen via high flow nasal cannula 35 liter per minute and FiO2 of 50% Her Hypoxia is related to her bilateral pneumonia and recurrent malignant p leural effusion. Sodium 149, creatinine 1.1, platelets low at 37K. She is on ceftriaxone, some Medrol 6 mg. 01/10/2023 patient clinically looks the same systolic tachypneic and dyspneic at rest, sit ting up in bed. She still on high flow nasal cannula with the same saturating with 35 due to permanent and FiO2 of 49%. She is told to 10 TPN. She is slightly tachycardic and labs showed stable sodium 1.49, creatinine 1.0. Liver enzymes slightly pouch is the same. Low platelet count still pending from today. She is continued on ceftriaxone, salmeterol 60 mg as well. 01/11. Patient seen and examined. Continues to be short of breath. Currently on high flow oxygen with an FiO2 of 50% flow rate of 35. This morning shows white count 7.4 hemoglobin 13.3 patient count 71, sodium 143, potassium 3.6, BUN 52, creatinine 0.77 REVIEW OF SYSTEMS: CONSTITUTIONAL: No fever, no malaise,. CARDIOVASCULAR: No chest pain, no palpitations, no syncope. PULMONARY: As mentioned above GASTROINTESTINAL: No diarrhea, no nausea, no vomiting, no abdominal pain. NEUROLOGICAL: No headaches, no weakness, PHYSICAL EXAMINATION: GENERAL: The patient is alert and oriented x3, not in any acute distress. Cachectic, chronically ill-looking HEENT: Pupils are round and equally reacting to light. EOMI. No scleral icterus. No conjunctival pallor. Normocephalic, atraumatic. No pharyngeal erythema. No thyromegaly. CARDIOVASCULAR: S1 and S2 present. No murmurs, rubs, or gallops. PULMONARY: Tachypneic, diminished breaths on the bases bilaterally ABDOMEN: Soft, nontender, nondistended, normoactive bowel sounds. No palpable organomegaly. MUSCULOSKELETAL: No joint swelling or deformity. EXTREMITIES: No cyanosis, clubbing, or pedal edema. NEUROLOGICAL: Gross neurological examination did not reveal any focal deficits. SKIN: Vesicular rash seen on right thigh laterally Assessment and plan -Recurrent malignant pleural effusion, multiple thoracentesis in the past. Left-sided Pleur-evac . Acute on chronic hypoxic respiratory failure from malignant pleural effusion, recurrent Moderate size pericardial effusion Right thoracentesis for about [address] Jones January 2. Continue oxygen supplementation Aggressive bronchopulmonary hygiene Continue breathing treatments Continue IV Rocephin Continue IV steroids Serial chest x-rays follow-up on pulmonary recommendations -Severe thrombocytopenia. From immunotherapy. -Acute on chronic medical debility from underlying malignancy: Not improving -Recurrent uterine cancer with a prior treatment with radiation and chemothera py., immunotherapy. Follow oncology Dr. Adorno. Poor prognosis -Troponin leak from hemodynamic mismatch. No ACS. -Chronic kidney disease stage III, multifactorial from cardiorenal syndrome Monitor renal functions -Hyperlipidemia Pravachol -Hypothyroid Synthroid 150 g daily. 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 Vitamin D Shingles; Patient started on IV acyclovir Objective - Vital Signs Vital signs: Vital Signs Temp 98.0 F 01/11/23 08:00 Pulse 98 01/11/23 08:00 Resp 20 01/11/23 04:00 BP 134/80 01/11/23 08:00 Pulse Ox 93 L 01/11/23 08:00 FiO2 50 01/11/23 08:00 Intake & Output 01/10/23 01/11/23 01/11/23 18:59 06:59 18:59 Intake Total 1437 Output Total 275 390 Balance 1162 -390 Intake: IV 10 Invasive Line 4 10 Intake, IV Titration 1427 Amount Dextrose 5% in Water 1, 240 000 ml @ 60 mls/hr IV . [id number] [facility] Rx#:[id number] Potassium Acetate 20 meq 987 Calcium Gluconate 1 gm In Amino Acid 5%-D15w 1,000 ml @ 63 mls/hr IV .BY DURATION [facility] Rx#: [id number] Potassium Phosphate 10 200 mmol In Sodium Chloride 0 .9% 100 ml @ 50 mls/hr IV Q2H [facility] Rx#:[id number] Output: Urine 275 390 Uretheral (Garcia) 390 Other: Voiding Method Indwelling Catheter Indwelling Catheter # Voids 1 - Labs CBC & Chem 7: 01/11/23 06:49 01/11/23 06:49 Labs: Abnormal Lab Results - Last 24 Hours (Table) 01/10/23 01/10/23 01/10/23 Range/Units 11:33 16:05 19:58 RDW (11.5-15.5) % Plt Count (150-450) k/uL Lymphocytes # (1.0-4.8) k/uL Chloride (98-107) mmol/L Carbon Dioxide (22-30) mmol/L BUN (7-17) mg/dL Glucose (74-99) mg/dL POC Glucose (mg/dL) 253 H 354 H 215 H (70-110) mg/dL Calcium (8.4-10.2) mg/dL Phosphorus (2.5-4.5) mg/dL AST (14-36) U/L ALT (4-34) U/L Alkaline Phosphatase (38-126) U/L Total Protein (6.3-8.2) g/dL Albumin (3.5-5.0) g/dL 01/10/23 01/11/23 01/11/23 Range/Units 23:57 04:10 06:49 RDW (11.5-15.5) % Plt Count (150-450) k/uL Lymphocytes # (1.0-4.8) k/uL Chloride 117 H (98-107) mmol/L Carbon Dioxide 21 L (22-30) mmol/L BUN 52 H (7-17) mg/dL Glucose 250 H (74-99) mg/dL POC Glucose (mg/dL) 199 H 235 H (70-110) mg/dL Calcium 7.9 L (8.4-10.2) mg/dL Phosphorus 2.2 L (2.5-4.5) mg/dL AST 76 H (14-36) U/L ALT 70 H (4-34) U/L Alkaline Phosphatase 586 H (38-126) U/L Total Protein 4.4 L (6.3-8.2) g/dL Albumin 2.0 L (3.5-5.0) g/dL 01/11/23 01/11/23 Range/Units 06:49 08:15 RDW 17.6 H (11.5-15.5) % Plt Count 71 L D (150-450) k/uL Lymphocytes # 0.3 L (1.0-4.8) k/uL Chloride (98-107) mmol/L Carbon Dioxide (22-30) mmol/L BUN (7-17) mg/dL Glucose (74-99) mg/dL POC Glucose (mg/dL) 234 H (70-110) mg/dL Calcium (8.4-10.2) mg/dL Phosphorus (2.5-4.5) mg/dL AST (14-36) U/L ALT (4-34) U/L Alkaline Phosphatase (38-126) U/L Total Protein (6.3-8.2) g/dL Albumin (3.5-5.0) g/dL Microbiology - Last 24 Hours (Table) 01/05/23 05:50 Blood Culture - Preliminary Blood
--- NOTE | 2023-01-11 13:53 | P.PN ---
Subjective Progress Note Date: 01/11/23 Principal diagnosis: Hypoxic resp failure, Metastatic, recurrent endometrial carcinoma In follow-up today patient is on the high flow nasal cannula, she is able to have a conversation with me with mild distress/shortness of breath. She is alert and oriented. She is frustrated that she is not able to ingest any foods or fluids because of the high flow O2. She was started on TPN late last week, she is not certain if she is feeling necessarily any stronger but she doesn't fe el worse. She reports being tired. Denied any pain. Objective - Vital Signs Vital signs: Vital Signs Temp 98.0 F 01/11/23 08:00 Pulse 99 01/11/23 12:00 Resp 24 01/11/23 12:00 BP 129/84 01/11/23 12:00 Pulse Ox 93 L 01/11/23 12:00 FiO2 54 01/11/23 12:19 Intake & Output 01/10/23 01/11/23 01/11/23 18:59 06:59 18:59 Intake Total 1437 Output Total 275 390 Balance 1162 -390 Intake: IV 10 Invasive Line 4 10 Intake, IV Titration 1427 Amount Dextrose 5% in Water 1, 240 000 ml @ 60 mls/hr IV . [id number] [facility] Rx#:[id number] Potassium Acetate 20 meq 987 Calcium Gluconate 1 gm In Amino Acid 5%-D15w 1,000 ml @ 63 mls/hr IV .BY DURATION [facility] Rx#: [id number] Potassium Phosphate 10 200 mmol In Sodium Chloride 0 .9% 100 ml @ 50 mls/hr IV Q2H [facility] Rx#:[id number] Output: Urine 275 390 Uretheral (Garcia) 390 Other: Voiding Method Indwelling Catheter Indwelling Catheter Indwelling Catheter # Voids 1 - Constitutional General appearance: Present: cooperative, mild distress, thin - EENT Eyes: Present: anicteric sclerae, EOMI ENT: Present: hearing grossly normal - Respiratory Respiratory: bilateral: diminished - Cardiovascular Details: Mild tachycardia Rhythm: regular Heart sounds: normal: S1, S2 - Gastrointestinal General gastrointestinal: Present: scaphoid, soft - Integumentary Integumentary: Present: pale - Neurologic Neurologic: Present: CNII-XII intact - Musculoskeletal Musculoskeletal: Present: generalized weakness - Psychiatric Psychiatric: Present: A&O x's 3, appropriate affect, intact judgment & insight - Labs CBC & Chem 7: 01/11/23 06:49 01/11/23 06:49 Labs: Abnormal Lab Results - Last 24 Hours (Table) 01/10/23 01/10/23 01/10/23 Range/Units 16:05 19:58 23:57 RDW (11.5-15.5) % Plt Count (150-450) k/uL Lymphocytes # (1.0-4.8) k/uL Chloride (98-107) mmol/L Carbon Dioxide (22-30) mmol/L BUN (7-17) mg/dL Glucose (74-99) mg/dL POC Glucose (mg/dL) 354 H 215 H 199 H (70-110) mg/dL Calcium (8.4-10.2) mg/dL Phosphorus (2.5-4.5) mg/dL AST (14-36) U/L ALT (4-34) U/L Alkaline Phosphatase (38-126) U/L Total Protein (6.3-8.2) g/dL Albumin (3.5-5.0) g/dL 01/11/23 01/11/23 01/11/23 Range/Units 04:10 06:49 06:49 RDW 17.6 H (11.5-15.5) % Plt Count 71 L D (150-450) k/uL Lymphocytes # 0.3 L (1.0-4.8) k/uL Chloride 117 H (98-107) mmol/L Carbon Dioxide 21 L (22-30) mmol/L BUN 52 H (7-17) mg/dL Glucose 250 H (74-99) mg/dL POC Glucose (mg/dL) 235 H (70-110) mg/dL Calcium 7.9 L (8.4-10.2) mg/dL Phosphorus 2.2 L (2.5-4.5) mg/dL AST 76 H (14-36) U/L ALT 70 H (4-34) U/L Alkaline Phosphatase 586 H (38-126) U/L Total Protein 4.4 L (6.3-8.2) g/dL Albumin 2.0 L (3.5-5.0) g/dL 05/08/23 05/08/23 Range/Units 08:15 11:51 RDW (11.5-15.5) % Plt Count (150-450) k/uL Lymphocytes # (1.0-4.8) k/uL Chloride (98-107) mmol/L Carbon Dioxide (22-30) mmol/L BUN (7-17) mg/dL Glucose (74-99) mg/dL POC Glucose (mg/dL) 234 H 218 H (70-110) mg/dL Calcium (8.4-10.2) mg/dL Phosphorus (2.5-4.5) mg/dL AST (14-36) U/L ALT (4-34) U/L Alkaline Phosphatase (38-126) U/L Total Protein (6.3-8.2) g/dL Albumin (3.5-5.0) g/dL Microbiology - Last 24 Hours (Table) 01/05/23 05:50 Blood Culture - Final Blood Assessment and Plan (1) Recurrent carcinoma of endometrium Current Visit: Yes Status: Acute Code(s): C54.1 - MALIGNANT NEOPLASM OF ENDOMETRIUM SNOMED Code(s): 366510256 (2) Hypoxia Current Visit: Yes Status: Acute Code(s): R09.02 - HYPOXEMIA SNOMED Code(s): 642774595 (3) Bilateral pleural effusion Current Visit: No Status: Acute Code(s): J90 - PLEURAL EFFUSION, NOT ELSEWHERE CLASSIFIED SNOMED Code(s): 187792839 (4) Thrombocytopenia Current Visit: Yes Status: Acute Priority: Medium Code(s): D69.6 - THROMBOCYTOPENIA, UNSPECIFIED SNOMED Code(s): 575945329 Plan: Hypoxic respiratory failure -Bilateral pleural effusions. Patient has a Pleurx drain on the left, tt is connected to chest tube currently. 775 -On high flow nasal cannula, oxygen sat persistently in the low 90s -She is on antivirals and supportive respiratory medications -Pulmonary following General medical debility -Multifactorial including respiratory failure and recurrent metastatic malignancy -TPN -Respiratory support Recurrent endometrial carcinoma -Recurrent pleural effusions. Treatment was recently changed for clinical evidence of disease progression -Patient had cycle 1 day 1 of single agent gemzar 2 weeks ago. -ECOG PS 3. Patient is not a candidate for chemotherapy at this time Thrombocytopenia -Secondary to Gemzar treatment -Exacerbated because of stress and suspect acute infection -Platelets stable at 71,000 today Patient and family wanting to try TPN for a few days to see if this improved how patient was feeling. If patient was feeling better than she would be able to participate and some kind of rehabilitation to improve her strength. I am not aware of the timeframe and when the patient will be reassessed but pt certainly was not ready to stop anything today. Pt is not reporting significant changes in how she feels but, she is certainly much more comfortable with the high flow nasal cannula. We'll continue to follow with patient and answer any questions she or her family has.
--- NOTE | 2023-01-11 15:42 | XR ---
EXAMINATION TYPE: XR chest 1V portable DATE OF EXAM: 01/11/2023 COMPARISON: 01/05/2023 HISTORY: Shortness of breath TECHNIQUE: Single frontal view of the chest is obtained. FINDINGS: Bilateral consolidation and small effusion greater on the right. Mediport catheter noted. Left-sided chest tube seen. Hypertrophic and degenerative changes of the spine. Biapical pleural thic kening. IMPRESSION: Bilateral infiltrate and pleural effusion greater on the right with no sizable pneumotho rax.
[2023-01-11 16:02] LABS: Glucose,Whole Blood 206 mg/dL (70-110)
[2023-01-11] MEDS: POTASSIUM ACETATE IV SCH ×7 (16:32)
[2023-01-11] MEDS: [UNRECOGNIZED DRUG - OTHER] IV SCH ×7 (16:32)
[2023-01-11] MEDS: CALCIUM GLUCONATE IV SCH ×7 (16:32)
[2023-01-11] MEDS: POTASSIUM PHOSPHATE IV SCH ×7 (16:32)
[2023-01-11] MEDS: ACYCLOVIR SODIUM 500 MG in SODIUM CHLORIDE 0.9% 100 ML IVPB SCH ×2 (17:48→18:04)
[2023-01-11 20:00] LABS: Glucose,Whole Blood 181 mg/dL (70-110)
[2023-01-11 23:33] LABS: Glucose,Whole Blood 187 mg/dL (70-110)
[2023-01-12 04:07] LABS: Glucose,Whole Blood 196 mg/dL (70-110)
[2023-01-12] MEDS: ACYCLOVIR SODIUM 500 MG in SODIUM CHLORIDE 0.9% 100 ML IVPB SCH ×3 (04:07→18:35)
[2023-01-12] MEDS: INSULIN ASPART (NovoLOG) 100 UNIT/ML VIAL SQ SCH ×5 (04:08→20:24)
[2023-01-12] MEDS: methylPREDNISolone SOD SUCCI 125 MG/2 ML VIAL IV SCH ×3 (06:20→17:17)
[2023-01-12] MEDS: LEVOTHYROXINE 75 MCG TAB PO SCH (06:20)
[2023-01-12] MEDS: IPRATROPIUM-ALBUTEROL 3 ML NEB INHALATION PRN ×3 (07:33→21:54)
[2023-01-12] MEDS: PRAVASTATIN SODIUM 40 MG TAB PO SCH (07:48)
[2023-01-12] MEDS: METOPROLOL TARTRATE 25 MG TAB PO SCH ×2 (07:48→20:24)
[2023-01-12] MEDS: POTASSIUM PHOSPHATE IV SCH ×7 (07:49)
[2023-01-12] MEDS: CALCIUM GLUCONATE IV SCH ×7 (07:49)
[2023-01-12] MEDS: [UNRECOGNIZED DRUG - OTHER] IV SCH ×7 (07:49)
[2023-01-12] MEDS: POTASSIUM ACETATE IV SCH ×7 (07:49)
[2023-01-12] MEDS: PANTOPRAZOLE 40 MG/10 ML VIAL IVP SCH (07:50)
[2023-01-12 07:51] LABS: Glucose,Whole Blood 179 mg/dL (70-110)
[2023-01-12 08:51] LABS: ALT 173 U/L (4-34); AST 147 U/L (14-36); African American GFR (CKD) >90 (>60 ml/min/1.73 sqM); Albumin 2.1 g/dL (3.5-5.0); Alkaline Phosphatase 660 U/L (38-126); Anion Gap 6 mmol/L; Blood Urea Nitrogen 53 mg/dL (7-17); Calcium 7.7 mg/dL (8.4-10.2); Carbon Dioxide 19 mmol/L (22-30); Chloride 114 mmol/L (98-107); Glucose 202 mg/dL (74-99); Non-African American GFR(CKD) 83 (>60 ml/min/1.73 sqM); Phosphorus 3.1 mg/dL (2.5-4.5); Potassium 4.6 mmol/L (3.5-5.1); Sodium 139 mmol/L (137-145); Total Protein 4.5 g/dL (6.3-8.2)
--- NOTE | 2023-01-12 10:43 | P.PN ---
Subjective Progress Note Date: 01/12/23 On today's evaluation of 01/11/2023, the patient remains on high flow oxygen and she is currently at 50 L with an FiO2 of 35 %. She remains hypoxic and she's unable to wean herself off the high flow oxygen. Note that this is a case of metastatic endometrial cancer and I have seen her for a long period of time. The patient by the pleural effusion requiring multiple thoracentesis. The fluid cytologies were negative. Recurrence. The patient has had previous Pleurx catheter insertions and she has a catheter on the the left. The patient's underwent a thoracentesis on the left and I performed the procedure and total of 550 mL of fluid was aspirated. This was done on the left with subsequent Pleurx catheter insertion on 11/19/2022. During this current admission, the patient underwent a thoracentesis on the right and a total amount of 800 mL was aspirated. Noted the patient continues to be in hypoxic respiratory failure. Chest x-ray still showing bilateral pleural effusions and moderate-sized pericardial effusion is also present. The patient failed his swallow evaluation currently she is nothing by mouth. She is doing poorly. She is quite debilitated man CVA. And weak. Hospice was advised. Nevertheless, the patient does not seem to be ready for hospice treatment at this point in time. The white cell count at 7.4 with a hemoglobin of 13 and a platelet count of 71. Sodium is at 143, bicarb is at 21 with a BUN of 50 with creatinine of 0.7. She has also abnormal LFTs. Echocardiogram showed a preserved LV function. As mentioned, there was moderate degree of pericardial effusion without evidence of any temporal not. LV function was essentially within normal limits. Oncology is also on the case. As mentioned, she has a endometrial cancer with evidence of disease progression. More recently, she was taken single agent Gemzar. On a separate note, the patient developed diffuse shingles involving the right lower extremity. On today's evaluation of 01/12/2023, the patient is still doing very poorly. She lost that ability to swallow. She is currently on TPN for nutrition support. Extremely cachectic and the menses. Meanwhile, connected the left- sided Pleurx catheter to a pleural VAC and the patient drained approximately 500 mL. He is feeling better. She is short of breath. She is currently on high flow oxygen 30 L with an FiO2 of 50%. She is extremely weak. She is not getting strong. Her sodium level is at 139, potassium is at 4.6, bicarb is at 19, BUN is 53 with a creatinine of 0.7. LFTs are abnormal. The patient remains on TPN. The patient was also started on acyclovir regarding her shingles. She is also on prednisone. Skin lesion unchanged on today's evaluations. Objective - Vital Signs Vital signs: Vital Signs Temp 98.0 F 01/12/23 04:00 Pulse 101 H 01/12/23 08:00 Resp 28 H 01/12/23 08:00 BP 124/81 01/12/23 08:00 Pulse Ox 90 L 01/12/23 08:00 FiO2 53 01/12/23 08:00 Intake & Output 01/11/23 01/12/23 01/12/23 18:59 06:59 18:59 Intake Total 804 962.85 Output Total 450 400 Balance 804 -450 562.85 Weight 52.617 kg Intake: Intake, IV Titration 804 962.85 Amount Acyclovir Sodium 500 mg 100 In Sodium Chloride 0.9% 100 ml @ 100 mls/hr IVPB Q8H [facility] Rx#:[id number] Calcium Gluconate 1 gm 962.85 Potassium Acetate 26 meq Potassium Phosphate 15 mmol Magnesium Sulfate gm 0.5 gm In Amino Acid 5%- D15w 1,000 ml @ 63 mls/hr IV .BY DURATION [facility] Rx#: [id number] Magnesium Sulfate-D5w Pmx 100 1 gm In Dextrose/Water 1 100ml.bag @ 100 mls/hr IVPB ONCE ONE Rx#: [id number] Mvi, Adult No.4 with Vit 504 K 10 ml Trace (Conc-1Ml/ Dose) 1 ml Calcium Gluconate 1 gm Potassium Acetate 26 meq Potassium Phosphate 15 mmol Magnesium Sulfate gm 0.5 gm In Amino Acid 5%-D15w 1,000 ml @ 63 mls/hr IV . BY DURATION [facility] Rx#: [id number] Potassium Phosphate 10 100 mmol In Sodium Chloride 0 .9% 100 ml @ 50 mls/hr IV ONCE [facility] Rx#:[id number] Output: Chest Tube Drainage 450 Pleural Catheter Left 450 Urine 400 Other: Voiding Method Indwelling Catheter Indwelling Catheter - Exam No acute distress, on AIRVO. Patient is currently on 50 L with an FiO2 of 30%. HEENT examination is grossly unremarkable. Neck supple. Full range of motion. No adenopathy thyromegaly or neck vein distention. Cardiovascular examination reveals regular rhythm rate. S1-S2 normal. No S3 or S4. No discernible murmur noted. Heart sounds are distant. Lungs reveal bilateral scattered rhonchi. Breath sounds are diminished at the bases. No crackles. There is improvement in air entry on the left compared to yesterday and the Pleurx catheter on the left is a stable pleural VAC. Abdomen soft bowel sounds are heard. No masses or tenderness. Extremities are intact. No cyanosis clubbing or edema. Skin , shingles involving the right lower extremity Neurologic examination is very difficult to assess at this time. - Labs CBC & Chem 7: 01/11/23 06:49 01/12/23 07:40 Labs: Abnormal Lab Results - Last 24 Hours (Table) 01/11/23 01/11/23 01/11/23 Range/Units 11:51 15:59 19:58 Chloride (98-107) mmol/L Carbon Dioxide (22-30) mmol/L BUN (7-17) mg/dL Glucose (74-99) mg/dL POC Glucose (mg/dL) 218 H 206 H 181 H (70-110) mg/dL Calcium (8.4-10.2) mg/dL AST (14-36) U/L ALT (4-34) U/L Alkaline Phosphatase (38-126) U/L Total Protein (6.3-8.2) g/dL Albumin (3.5-5.0) g/dL 01/11/23 01/12/23 01/12/23 Range/Units 23:31 04:05 07:40 Chloride 114 H (98-107) mmol/L Carbon Dioxide 19 L (22-30) mmol/L BUN 53 H (7-17) mg/dL Glucose 202 H (74-99) mg/dL POC Glucose (mg/dL) 187 H 196 H (70-110) mg/dL Calcium 7.7 L (8.4-10.2) mg/dL AST 147 H (14-36) U/L ALT 173 H (4-34) U/L Alkaline Phosphatase 660 H (38-126) U/L Total Protein 4.5 L (6.3-8.2) g/dL Albumin 2.1 L (3.5-5.0) g/dL 01/12/23 Range/Units 07:50 Chloride (98-107) mmol/L Carbon Dioxide (22-30) mmol/L BUN (7-17) mg/dL Glucose (74-99) mg/dL POC Glucose (mg/dL) 179 H (70-110) mg/dL Calcium (8.4-10.2) mg/dL AST (14-36) U/L ALT (4-34) U/L Alkaline Phosphatase (38-126) U/L Total Protein (6.3-8.2) g/dL Albumin (3.5-5.0) g/dL Microbiology - Last 24 Hours (Table) 01/05/23 05:50 Blood Culture - Final Blood Assessment and Plan Plan: Acute on chronic hypoxemic respiratory failure, multifactorial, the patient has chronic hypoxic respiratory failure and the patient acute decompensation probably related to her overall debility, disease progression with endometrial cancer and development of bilateral pleural effusion and pericardial effusion. The patient is currently on high flow oxygen 50 L an FiO2 of 30%. Slightly improved in terms of her breathing. The high flow settings are essentially unchanged compared to yesterday. The patient has drained approximately 500 mL of pleural fluid from the left over the past 12 hours. S/P thoracentesis, 01/05/2023, with 700 mL removed from the right pleural space. The patient has received multiple thoracentesis and I performed a left-sided thoracentesis back in November 2022. History of recurrent bilateral pleural effusions, with previous bilateral Pleurx catheters. The patient has a proximal Left History of metastatic endometrial cancer, diagnosed in 2016, status post hysterectomy, BSO, and omentectomy. Elevated troponins, which may relate to supply/demand mismatch. Moderate size pericardial effusion. Acute kidney injury, recovered and the creatinine is normal at 0.7 Chronic hypoxemic respiratory failure. History of hypertension. Hyperlipidemia. Hypothyroidism. Shingles Severe debility Severe protein calorie malnutrition and a BMI is 19.3 Failure to swallow, high risk for aspiration Plan Recommend starting the patient on IV acyclovir regarding her shingles Continue prednisone 40 mg by mouth daily Attached the Pleurx catheter to the pleural VAC and TO low intermittent suction, this was done yesterday and a total of 500 mL of fluid was removed. Obtain a chest x-ray after attaching the pleural catheter into a pleural VAC, and the chest x-ray findings shows improvement elevation of the left lung base Continue TPN for nutritional support Very poor prognosis High risk for mortality Recommendations always hospice and the patient is not ready for that yet DNR/DNI CODE STATUS
[2023-01-12 11:56] LABS: Glucose,Whole Blood 183 mg/dL (70-110)
[2023-01-12] MEDS ORDERED: FAT EMULSION 20% 250 ML IV SCH (12:00)
--- NOTE | 2023-01-12 13:59 | P.PN ---
Subjective Progress Note Date: 01/12/23 This is a pleasant 67-year-old patient who follows with PCP Dr. Daren Robert. Oncologist Dr. Adorno. Senior Storage Engineer Dr. Zeng. 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 treated with chemotherapy and radiation treatment. Had responded well. recurrence 2020. Received chemotherapy recurrent pleural effusion with multiple thoracentesis . lives with her and daughter. Patient was recently discharged on November 20 with left-sided pleural VAC was placed. Large amount of fluid was drained. Patient drains every 3-4 days. Patient now sent to us from [facility]. Getting more and more short of breath. He may sit found a pulse ox of 60%. Patient was placed on CPAP. Checks x-ray showed anasarca pleural effusion some consolidation. Moderate pericardial effusion of 1.7 cm. Patient's appetite is decreased. Patient is ambulating very little. Weak tired further weight loss. Patient's brother and [id number] the bedside. Patient is currently no code with instructions of CPR. No obvious fever and chills. Right thoracentesis was done by Dr. Hernandez 800 mL of dark yellow fluid was removed. January 3: Patient on BiPAP. Short of breath. and daughter the bedside. Decreased oral intake. Tired. Spoke to the and the daughter. Guarded prognosis. January 4: BiPAP. Poor Oral intake. Short of breath. Tired. Family at the bedside. Oncology, pulmonary both feel that patient should be leading to his comfort care. Family was talked to. The considering this further. Patient remains DO NOT RESUSCITATE. January 5: Seen by speech therapist: Suspect severe pharyngeal dysphagia. Being followed by therapy. Lengthy discussion with the patient the patient's sister and daughter the bedside. Including about hospice. Patient does point towards supplementary nutrition. We'll start TPN and lipids. Because of aspiration oral feeding not an option currently. Remains on AIRVO. Tired. Short of breath. Spoke to the dietitian. Patient states she was to keep fighting. Total time spent today 1 hour 15 minutes. 01/09/2023 Patient is still generally weak, she is cachectic, she is unable to eat related to her multiple nodules and advanced cancer. She is currently getting TPN. She still mildly tachypneic. She is not in pain. She is still requiring considerable amount of oxygen via high flow nasal cannula 35 liter per minute and FiO2 of 50% Her Hypoxia is related to her bilateral pneumonia and recurrent malignant p leural effusion. Sodium 149, creatinine 1.1, platelets low at 37K. She is on ceftriaxone, some Medrol 6 mg. 01/10/2023 patient clinically looks the same systolic tachypneic and dyspneic at rest, sit ting up in bed. She still on high flow nasal cannula with the same saturating with 35 due to permanent and FiO2 of 49%. She is told to 10 TPN. She is slightly tachycardic and labs showed stable sodium 1.49, creatinine 1.0. Liver enzymes slightly pouch is the same. Low platelet count still pending from today. She is continued on ceftriaxone, salmeterol 60 mg as well. 01/11. Patient seen and examined. Continues to be short of breath. Currently on high flow oxygen with an FiO2 of 50% flow rate of 35. This morning shows white count 7.4 hemoglobin 13.3 patient count 71, sodium 143, potassium 3.6, BUN 52, creatinine 0.77 01/12. Patient seen and examined. Continues to be on high flow oxygen re quirements. Currently on TPN. Discussed with her regarding hospice, informational hospice meeting scheduled REVIEW OF SYSTEMS: CONSTITUTIONAL: No fever, no malaise,. CARDIOVASCULAR: No chest pain, no palpitations, no syncope. PULMONARY: As mentioned above GASTROINTESTINAL: No diarrhea, no nausea, PHYSICAL EXAMINATION: GENERAL: The patient is alert and oriented x3, not in any acute distress. Cachectic, chronically ill-looking HEENT: Pupils are round and equally reacting to light. EOMI. No scleral icterus. No conjunctival pallor. Normocephalic, atraumatic. No pharyngeal erythema. No thyromegaly. CARDIOVASCULAR: S1 and S2 present. No murmurs, rubs, or gallops. PULMONARY: Tachypneic, diminished breaths on the bases bilaterally ABDOMEN: Soft, nontender, nondistended, normoactive bowel sounds. No palpable organomegaly. MUSCULOSKELETAL: No joint swelling or deformity. EXTREMITIES: No cyanosis, clubbing, or pedal edema. NEUROLOGICAL: Gross neurological examination did not reveal any focal deficits. SKIN: Vesicular rash seen on right thigh laterally Assessment and plan -Recurrent malignant pleural effusion, multiple thoracentesis in the past. Left-sided Pleur-evac . Acute on chronic hypoxic respiratory failure from malignant pleural effusion, recurrent Moderate size pericardial effusion Right thoracentesis for about [address] Jones January 2. Continue oxygen supplementation Aggressive bronchopulmonary hygiene Continue breathing treatments Continue IV Rocephin Continue IV steroids follow-up on pulmonary recommendations discussed with patient regarding hospice, she is open to discussion about hospice -Severe thrombocytopenia. From immunotherapy. -Acute on chronic medical debility from underlying malignancy: Not improving -Recurrent uterine cancer with a prior treatment with radiation and chemotherapy., immunotherapy. Follow oncology Dr. Adorno. Poor prognosis -Troponin leak from hemodynamic mismatch. No ACS. -Chronic kidney disease stage III, multifactorial from cardiorenal syndrome Monitor renal functions -Hyperlipidemia Pravachol -Hypothyroid Synthroid 150 g daily. 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 Vitamin D Shingles; continue IV acyclovir Objective - Vital Signs Vital signs: Vital Signs Temp 98.0 F 01/12/23 04:00 Pulse 100 01/12/23 11:31 Resp 28 H 01/12/23 08:00 BP 124/81 01/12/23 08:00 Pulse Ox 90 L 01/12/23 08:00 FiO2 53 01/12/23 11:18 Intake & Output 01/11/23 01/12/23 01/12/23 18:59 06:59 18:59 Intake Total 804 962.85 Output Total 450 400 Balance 804 -450 562.85 Weight 52.617 kg Intake: Intake, IV Titration 804 962.85 Amount Acyclovir Sodium 500 mg 100 In Sodium Chloride 0.9% 100 ml @ 100 mls/hr IVPB Q8H [facility] Rx#:[id number] Calcium Gluconate 1 gm 962.85 Potassium Acetate 26 meq Potassium Phosphate 15 mmol Magnesium Sulfate gm 0.5 gm In Amino Acid 5%- D15w 1,000 ml @ 63 mls/hr IV .BY DURATION [facility] Rx#: [id number] Magnesium Sulfate-D5w Pmx 100 1 gm In Dextrose/Water 1 100ml.bag @ 100 mls/hr IVPB ONCE ONE Rx#: [id number] Mvi, Adult No.4 with Vit 504 K 10 ml Trace (Conc-1Ml/ Dose) 1 ml Calcium Gluconate 1 gm Potassium Acetate 26 meq Potassium Phosphate 15 mmol Magnesium Sulfate gm 0.5 gm In Amino Acid 5%-D15w 1,000 ml @ 63 mls/hr IV . BY DURATION [facility] Rx#: [id number] Potassium Phosphate 10 100 mmol In Sodium Chloride 0 .9% 100 ml @ 50 mls/hr IV ONCE ONE Rx#:[id number] Output: Chest Tube Drainage 450 Pleural Catheter Left 450 Urine 400 Other: Voiding Method Indwelling Catheter Indwelling Catheter Indwelling Catheter - Labs CBC & Chem 7: 01/11/23 06:49 01/12/23 07:40 Labs: Abnormal Lab Results - Last 24 Hours (Table) 01/11/23 01/11/23 01/11/23 Range/Units 15:59 19:58 23:31 Chloride (98-107) mmol/L Carbon Dioxide (22-30) mmol/L BUN (7-17) mg/dL Glucose (74-99) mg/dL POC Glucose (mg/dL) 206 H 181 H 187 H (70-110) mg/dL Calcium (8.4-10.2) mg/dL AST (14-36) U/L ALT (4-34) U/L Alkaline Phosphatase (38-126) U/L Total Protein (6.3-8.2) g/dL Albumin (3.5-5.0) g/dL 01/12/23 01/12/23 01/12/23 Range/Units 04:05 07:40 07:50 Chloride 114 H (98-107) mmol/L Carbon Dioxide 19 L (22-30) mmol/L BUN 53 H (7-17) mg/dL Glucose 202 H (74-99) mg/dL POC Glucose (mg/dL) 196 H 179 H (70-110) mg/dL Calcium 7.7 L (8.4-10.2) mg/dL AST 147 H (14-36) U/L ALT 173 H (4-34) U/L Alkaline Phosphatase 660 H (38-126) U/L Total Protein 4.5 L (6.3-8.2) g/dL Albumin 2.1 L (3.5-5.0) g/dL 01/12/23 Range/Units 11:55 Chloride (98-107) mmol/L Carbon Dioxide (22-30) mmol/L BUN (7-17) mg/dL Glucose (74-99) mg/dL POC Glucose (mg/dL) 183 H (70-110) mg/dL Calcium (8.4-10.2) mg/dL AST (14-36) U/L ALT (4-34) U/L Alkaline Phosphatase (38-126) U/L Total Protein (6.3-8.2) g/dL Albumin (3.5-5.0) g/dL Microbiology - Last 24 Hours (Table) 01/05/23 05:50 Blood Culture - Final Blood
--- NOTE | 2023-01-12 15:18 | P.PN ---
Subjective Progress Note Date: 01/12/23 Principal diagnosis: Hypoxic resp failure, Metastatic, recurrent endometrial carcinoma In follow-up today patient continues on high flow nasal cannula, mild distress/shortness of breath-unchanged from yesterday. She is alert and oriented. She was started on TPN late last week, she thinks that she may be feeling a little bit better. Denies pain. Objective - Vital Signs Vital signs: Vital Signs Temp 98.0 F 01/12/23 04:00 Pulse 100 01/12/23 11:31 Resp 28 H 01/12/23 08:00 BP 124/81 01/12/23 08:00 Pulse Ox 90 L 01/12/23 08:00 FiO2 53 01/12/23 11:18 Intake & Output 01/11/23 01/12/23 01/12/23 18:59 06:59 18:59 Intake Total 804 962.85 Output Total 450 400 Balance 804 -450 562.85 Weight 52.617 kg Intake: Intake, IV Titration 804 962.85 Amount Acyclovir Sodium 500 mg 100 In Sodium Chloride 0.9% 100 ml @ 100 mls/hr IVPB Q8H [facility] Rx#:[id number] Calcium Gluconate 1 gm 962.85 Potassium Acetate 26 meq Potassium Phosphate 15 mmol Magnesium Sulfate gm 0.5 gm In Amino Acid 5%- D15w 1,000 ml @ 63 mls/hr IV .BY DURATION [facility] Rx#: [id number] Magnesium Sulfate-D5w Pmx 100 1 gm In Dextrose/Water 1 100ml.bag @ 100 mls/hr IVPB ONCE ONE Rx#: [id number] Mvi, Adult No.4 with Vit 504 K 10 ml Trace (Conc-1Ml/ Dose) 1 ml Calcium Gluconate 1 gm Potassium Acetate 26 meq Potassium Phosphate 15 mmol Magnesium Sulfate gm 0.5 gm In Amino Acid 5%-D15w 1,000 ml @ 63 mls/hr IV . BY DURATION [facility] Rx#: [id number] Potassium Phosphate 10 100 mmol In Sodium Chloride 0 .9% 100 ml @ 50 mls/hr IV ONCE ONE Rx#:[id number] Output: Chest Tube Drainage 450 Pleural Catheter Left 450 Urine 400 Other: Voiding Method Indwelling Catheter Indwelling Catheter Indwelling Catheter - Constitutional General appearance: Present: cooperative, no acute distress, thin - EENT EENT Comment(s): Dry mucous membranes Eyes: Present: anicteric sclerae, EOMI ENT: Present: hearing grossly normal - Respiratory Details: Respirations mildly labored, shallow - Neurologic Neurologic: Present: CNII-XII intact - Musculoskeletal Musculoskeletal: Present: generalized weakness - Psychiatric Psychiatric: Present: A&O x's 3, appropriate affect, intact judgment & insight - Labs CBC & Chem 7: 01/11/23 06:49 01/12/23 07:40 Labs: Abnormal Lab Results - Last 24 Hours (Table) 01/11/23 01/11/23 01/11/23 Range/Units 15:59 19:58 23:31 Chloride (98-107) mmol/L Carbon Dioxide (22-30) mmol/L BUN (7-17) mg/dL Glucose (74-99) mg/dL POC Glucose (mg/dL) 206 H 181 H 187 H (70-110) mg/dL Calcium (8.4-10.2) mg/dL AST (14-36) U/L ALT (4-34) U/L Alkaline Phosphatase (38-126) U/L Total Protein (6.3-8.2) g/dL Albumin (3.5-5.0) g/dL 01/12/23 01/12/23 01/12/23 Range/Units 04:05 07:40 07:50 Chloride 114 H (98-107) mmol/L Carbon Dioxide 19 L (22-30) mmol/L BUN 53 H (7-17) mg/dL Glucose 202 H (74-99) mg/dL POC Glucose (mg/dL) 196 H 179 H (70-110) mg/dL Calcium 7.7 L (8.4-10.2) mg/dL AST 147 H (14-36) U/L ALT 173 H (4-34) U/L Alkaline Phosphatase 660 H (38-126) U/L Total Protein 4.5 L (6.3-8.2) g/dL Albumin 2.1 L (3.5-5.0) g/dL 01/12/23 Range/Units 11:55 Chloride (98-107) mmol/L Carbon Dioxide (22-30) mmol/L BUN (7-17) mg/dL Glucose (74-99) mg/dL POC Glucose (mg/dL) 183 H (70-110) mg/dL Calcium (8.4-10.2) mg/dL AST (14-36) U/L ALT (4-34) U/L Alkaline Phosphatase (38-126) U/L Total Protein (6.3-8.2) g/dL Albumin (3.5-5.0) g/dL Microbiology - Last 24 Hours (Table) 01/05/23 05:50 Blood Culture - Final Blood - Imaging and Cardiology Chest x-ray: report reviewed Assessment and Plan (1) Recurrent carcinoma of endometrium Current Visit: Yes Status: Acute Code(s): C54.1 - MALIGNANT NEOPLASM OF ENDOMETRIUM SNOMED Code(s): 917802572 (2) Hypoxia Current Visit: Yes Status: Acute Code(s): R09.02 - HYPOXEMIA SNOMED Code(s): 311248959 (3) Bilateral pleural effusion Current Visit: No Status: Acute Code(s): J90 - PLEURAL EFFUSION, NOT ELSEWHERE CLASSIFIED SNOMED Code(s): 578879638 (4) Thrombocytopenia Current Visit: Yes Status: Acute Priority: Medium Code(s): D69.6 - THROMBOCYTOPENIA, UNSPECIFIED SNOMED Code(s): 172776280 Plan: Hypoxic respiratory failure, 2/2 malignant pleural effusions -CXR today bilateral infiltrate, Bilateral pleural effusions R>L. Patient has a Pleurx on the left. -Cont on high flow nasal cannula, no significant improvements -She is on supportive respiratory medications -Pulmonary following General medical debility -Multifactorial including respiratory failure 2/2 recurrent metastatic malignancy -TPN was started -Due to patient's respiratory status she is not able to participate meaningfully in any physical therapy/occupational therapy Recurrent endometrial carcinoma -Recurrent malignant pleural effusions. Treatment was recently changed for clinical evidence of disease progression -Patient had cycle 1 day 1 of single agent gemzar 2 weeks ago. -ECOG PS 3. Patient is not a candidate for chemotherapy at this time Thrombocytopenia -Secondary to Gemzar treatment -Exacerbated because of stress and suspect acute infection -CBC tomorrow Long discussion with patient today about personal goals. It was reiterated that TPN is a temporary source of nutrition, not meant for long-term. Patient thinks that she might be feeling better being on it, which is subjective. There are no objective improvements at this time, LFTs are increasing. Explained to patient that since her gut is working recommendation would be for placement of a PEG tube. She states that she would like to try the same. Consult has been placed for Surgeon. We will see what their assessment is, and if they feel that she could tolerate the procedure or not. Discussed with patient today her poor performance status and that she is not in good enough shape to receive chemotherapy treatment. She verbalized understanding. Case discussed with Speech Therapist as well as patient. Patient is desiring some oral intake. It was reinforced with the patient that with high flow oxygen her risk for solids and liquids being forced into the airway is high. She verba lized understanding and stated that she wanted to try some liquids. The Speech Therapist will guide the patient and see how she does. attests: I have seen and examined patient, performed H&P, developed impression and plan of care. Discussed with dictator. Agree with documentation, dictated as a scribe Time with Patient: Greater than 30 (>50 min)
--- NOTE | 2023-01-12 15:40 | P.GSCN ---
History of Present Illness Consult date: 01/12/23 History of present illness: CHIEF COMPLAINT: Endometrial cancer HISTORY OF PRESENT ILLNESS: This is a 67-year-old female with a known history of recurrent endometrial cancer with recurrent malignant pleural effusions. Patient remains on high flow oxygen. Patient has a left Pleurx catheter that is being drained. Her albumin level is low. She's on TPN for nutrition support. She failed her swallow eval. Surgical service has been consulted for possible PEG tube placement. Patient seen and examined with family at bedside. Patient does not want to proceed with a PEG tube and she is requesting to be evaluated by hospice. PAST MEDICAL HISTORY: See below PAST SURGICAL HISTORY: See below MEDICATIONS: See below ALLERGIES: See below SOCIAL HISTORY: No illicit drug use. REVIEW OF SYSTEMS: CONSTITUTIONAL: Denies fever or chills. HEENT: Denies blurred vision, vision changes, or eye pain. Denies hemoptysis CARDIOVASCULAR: Denies chest pain or pressure. RESPIRATORY: No shortness of breath. GASTROINTESTINAL: See HPI for pertinent findings HEMATOLOGIC: Denies bleeding disorders. GENITOURINARY: Denies any blood in urine or increased urinary frequency. SKIN: Denies pruitis. Denies rash. PHYSICAL EXAM: VITAL SIGNS: Reviewed GENERAL: Well-nourished. no acute distress. ABDOMEN: Soft. Nondistended. Nontender NEUROLOGIC: Alert and oriented. Cranial nerves II through XII grossly intact. LABORATORY DATA: WBC 7.4 HgB 13.3 platelets 71 Sodium 139 potassium is 4.6 creatinine 0.75 Glucose 202 AST 147 ALT 173 alk phos 660 IMAGING: ASSESSMENT: 1. Recurrent endometrial cancer with recurrent malignant pleural effusions 2. Acute hypoxic respiratory failure 3. Hypoalbuminemia 4. Poor oral intake due to respiratory status and concerns for aspiration PLAN: -Patient requesting hospice. Nursing staff notified to contact Medicine service -Patient has refused PEG tube placement at this time Physician Cardiac Rehab Nurse note has been reviewed by physician. Signing provider agrees with the documented findings, assessment, and plan of care. Past Medical History Past Medical History: Cancer, Hyperlipidemia, Hypertension, Respiratory Disorder, Thyroid Disorder, Vascular Disorder Additional Past Medical History / Comment(s): uterine/endometrial cancer; bilateral pleural effusions History of Any Multi-Drug Resistant Organisms: None Reported Past Surgical History: Hysterectomy Additional Past Surgical History / Comment(s): RUQ biopsy "-" for 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; right-sided Pleurx catheter placement May; left thoracentesis 10/23/22 with removal of 750 mL fluid; right thoracentesis 11/04/2022 with removal of 550 mL fluid Past Anesthesia/Blood Transfusion Reactions: No Reported Reaction Past Psychological History: No Psychological Hx Reported Smoking Status: Never smoker Past Alcohol Use History: None Reported Past Drug Use History: None Reported - Past Family History Sister(s) History Unknown: Yes Family Medical History: Cancer Additional Family Medical History / Comment(s): breast CA Medications and Allergies Home Medications Medication Instructions Recorded Confirmed Type Pravastatin Sodium [Pravachol] 40 mg PO DAILY 07/16/20 01/04/23 History Gabapentin 300 mg PO BID PRN 03/21/21 01/04/23 History ondansetron HCL [Zofran] 8 mg PO Q6H PRN 05/06/21 01/04/23 History Metoprolol Succinate [Metoprolol 25 mg PO DAILY 11/17/22 01/04/23 History Succinate ER] metroNIDAZOLE 1% GEL [Metrogel 1%] 1 applic TOPICAL DAILY PRN 11/17/22 01/04/23 History Calcium Carbonate [Calcium] 600 mg PO BID 01/04/23 01/04/23 History Levothyroxine Sodium [Synthroid] 150 mcg PO DAILY 01/04/23 01/04/23 History Multivitamins, Thera [Multivitamin 1 tab PO DAILY 01/04/23 01/04/23 History (formulary)] Allergies Allergy/AdvReac Type Severity Reaction Status Date / Time No Known Allergies Allergy Verified 01/04/23 20:01 Surgical - Exam Vital Signs Temp Pulse Resp BP Pulse Ox 98.0 F 77 32 H 131/86 93 L 01/04/23 18:23 01/04/23 18:23 01/04/23 18:23 01/04/23 18:23 01/04/23 18:23 Results - Labs 01/11/23 06:49 01/12/23 07:40 Abnormal Lab Results - Last 24 Hours (Table) 01/11/23 01/11/23 01/11/23 Range/Units 15:59 19:58 23:31 Chloride (98-107) mmol/L Carbon Dioxide (22-30) mmol/L BUN (7-17) mg/dL Glucose (74-99) mg/dL POC Glucose (mg/dL) 206 H 181 H 187 H (70-110) mg/dL Calcium (8.4-10.2) mg/dL AST (14-36) U/L ALT (4-34) U/L Alkaline Phosphatase (38-126) U/L Total Protein (6.3-8.2) g/dL Albumin (3.5-5.0) g/dL 01/12/23 01/12/23 01/12/23 Range/Units 04:05 07:40 07:50 Chloride 114 H (98-107) mmol/L Carbon Dioxide 19 L (22-30) mmol/L BUN 53 H (7-17) mg/dL Glucose 202 H (74-99) mg/dL POC Glucose (mg/dL) 196 H 179 H (70-110) mg/dL Calcium 7.7 L (8.4-10.2) mg/dL AST 147 H (14-36) U/L ALT 173 H (4-34) U/L Alkaline Phosphatase 660 H (38-126) U/L Total Protein 4.5 L (6.3-8.2) g/dL Albumin 2.1 L (3.5-5.0) g/dL 01/12/23 Range/Units 11:55 Chloride (98-107) mmol/L Carbon Dioxide (22-30) mmol/L BUN (7-17) mg/dL Glucose (74-99) mg/dL POC Glucose (mg/dL) 183 H (70-110) mg/dL Calcium (8.4-10.2) mg/dL AST (14-36) U/L ALT (4-34) U/L Alkaline Phosphatase (38-126) U/L Total Protein (6.3-8.2) g/dL Albumin (3.5-5.0) g/dL Microbiology - Last 24 Hours (Table) 01/05/23 05:50 Blood Culture - Final Blood Diabetes panel 01/11/23 01/12/23 Range/Units 06:49 07:40 Sodium 139 (137-145) mmol/L Potassium 4.6 (3.5-5.1) mmol/L Chloride 114 H (98-107) mmol/L Carbon Dioxide 19 L (22-30) mmol/L BUN 53 H (7-17) mg/dL Creatinine 0.75 (0.52-1.04) mg/dL Glucose 202 H (74-99) mg/dL Calcium 7.7 L (8.4-10.2) mg/dL AST 147 H (14-36) U/L ALT 173 H (4-34) U/L Alkaline Phosphatase 660 H (38-126) U/L Total Protein 4.5 L (6.3-8.2) g/dL Albumin 2.1 L (3.5-5.0) g/dL Triglycerides 99.90 (0.00-149.00) mg/dL Calcium panel 01/12/23 Range/Units 07:40 Calcium 7.7 L (8.4-10.2) mg/dL Phosphorus 3.1 (2.5-4.5) mg/dL Albumin 2.1 L (3.5-5.0) g/dL Pituitary panel 01/12/23 Range/Units 07:40 Sodium 139 (137-145) mmol/L Potassium 4.6 (3.5-5.1) mmol/L Chloride 114 H (98-107) mmol/L Carbon Dioxide 19 L (22-30) mmol/L BUN 53 H (7-17) mg/dL Creatinine 0.75 (0.52-1.04) mg/dL Glucose 202 H (74-99) mg/dL Calcium 7.7 L (8.4-10.2) mg/dL Adrenal panel 01/12/23 Range/Units 07:40 Sodium 139 (137-145) mmol/L Potassium 4.6 (3.5-5.1) mmol/L Chloride 114 H (98-107) mmol/L Carbon Dioxide 19 L (22-30) mmol/L BUN 53 H (7-17) mg/dL Creatinine 0.75 (0.52-1.04) mg/dL Glucose 202 H (74-99) mg/dL Calcium 7.7 L (8.4-10.2) mg/dL Total Bilirubin 1.0 (0.2-1.3) mg/dL AST 147 H (14-36) U/L ALT 173 H (4-34) U/L Alkaline Phosphatase 660 H (38-126) U/L Total Protein 4.5 L (6.3-8.2) g/dL Albumin 2.1 L (3.5-5.0) g/dL
[2023-01-12 16:12] LABS: Glucose,Whole Blood 235 mg/dL (70-110)
[2023-01-12 20:01] LABS: Glucose,Whole Blood 186 mg/dL (70-110)
[2023-01-13] MEDS: POTASSIUM PHOSPHATE IV SCH ×7 (00:17)
[2023-01-13] MEDS: POTASSIUM ACETATE IV SCH ×7 (00:17)
[2023-01-13] MEDS: CALCIUM GLUCONATE IV SCH ×7 (00:17)
[2023-01-13] MEDS: [UNRECOGNIZED DRUG - OTHER] IV SCH ×7 (00:17)
[2023-01-13 00:18] LABS: Glucose,Whole Blood 220 mg/dL (70-110)
[2023-01-13] MEDS: methylPREDNISolone SOD SUCCI 125 MG/2 ML VIAL IV SCH ×2 (00:31→05:48)
[2023-01-13] MEDS: INSULIN ASPART (NovoLOG) 100 UNIT/ML VIAL SQ SCH ×3 (00:32→08:50)
[2023-01-13] MEDS: ACYCLOVIR SODIUM 500 MG in SODIUM CHLORIDE 0.9% 100 ML IVPB SCH (03:55)
[2023-01-13 04:09] LABS: Glucose,Whole Blood 248 mg/dL (70-110)
[2023-01-13 04:24] VITALS: RESP 18
[2023-01-13] MEDS: LEVOTHYROXINE 75 MCG TAB PO SCH (05:48)
[2023-01-13 07:35] LABS: Anisocytosis Slight; HCT 47.3 % (34.0-46.0); HGB 15.1 gm/dL (11.4-16.0); MCH 32.2 pg (25.0-35.0); MCHC 31.9 g/dL (31.0-37.0); MCV 100.7 fL (80.0-100.0); Macrocytosis Moderate; Mean Platelet Volume 11.1; RDW 17.8 % (11.5-15.5); WBC 12.8 k/uL (3.8-10.6)
[2023-01-13 07:42] LABS: African American GFR (CKD) >90 (>60 ml/min/1.73 sqM); Anion Gap 6 mmol/L; Blood Urea Nitrogen 57 mg/dL (7-17); Calcium 7.7 mg/dL (8.4-10.2); Carbon Dioxide 18 mmol/L (22-30); Chloride 114 mmol/L (98-107); Glucose 222 mg/dL (74-99); Non-African American GFR(CKD) 85 (>60 ml/min/1.73 sqM); Phosphorus 3.2 mg/dL (2.5-4.5); Potassium 4.5 mmol/L (3.5-5.1); Sodium 138 mmol/L (137-145)
[2023-01-13 07:44] LABS: Platelet Count 112 k/uL (150-450)
[2023-01-13] MEDS: IPRATROPIUM-ALBUTEROL 3 ML NEB INHALATION PRN (07:44)
[2023-01-13 08:32] LABS: Glucose,Whole Blood 205 mg/dL (70-110)
[2023-01-13] MEDS: METOPROLOL TARTRATE 25 MG TAB PO SCH (08:49)
[2023-01-13] MEDS: PANTOPRAZOLE 40 MG/10 ML VIAL IVP SCH (08:49)
[2023-01-13] MEDS: PRAVASTATIN SODIUM 40 MG TAB PO SCH (08:49)
--- NOTE | 2023-01-13 10:18 | P.PN ---
Subjective Progress Note Date: 01/13/23 On today's evaluation of 01/11/2023, the patient remains on high flow oxygen and she is currently at 50 L with an FiO2 of 35 %. She remains hypoxic and she's unable to wean herself off the high flow oxygen. Note that this is a case of metastatic endometrial cancer and I have seen her for a long period of time. The patient by the pleural effusion requiring multiple thoracentesis. The fluid cytologies were negative. Recurrence. The patient has had previous Pleurx catheter insertions and she has a catheter on the the left. The patient's underwent a thoracentesis on the left and I performed the procedure and total of 550 mL of fluid was aspirated. This was done on the left with subsequent Pleurx catheter insertion on 11/19/2022. During this current admission, the patient underwent a thoracentesis on the right and a total amount of 800 mL was aspirated. Noted the patient continues to be in hypoxic respiratory failure. Chest x-ray still showing bilateral pleural effusions and moderate-sized pericardial effusion is also present. The patient failed his swallow evaluation currently she is nothing by mouth. She is doing poorly. She is quite debilitated man CVA. And weak. Hospice was advised. Nevertheless, the patient does not seem to be ready for hospice treatment at this point in time. The white cell count at 7.4 with a hemoglobin of 13 and a platelet count of 71. Sodium is at 143, bicarb is at 21 with a BUN of 50 with creatinine of 0.7. She has also abnormal LFTs. Echocardiogram showed a preserved LV function. As mentioned, there was moderate degree of pericardial effusion without evidence of any temporal not. LV function was essentially within normal limits. Oncology is also on the case. As mentioned, she has a endometrial cancer with evidence of disease progression. More recently, she was taken single agent Gemzar. On a separate note, the patient developed diffuse shingles involving the right lower extremity. On today's evaluation of 01/12/2023, the patient is still doing very poorly. She lost that ability to swallow. She is currently on TPN for nutrition support. Extremely cachectic and the menses. Meanwhile, connected the left- sided Pleurx catheter to a pleural VAC and the patient drained approximately 500 mL. He is feeling better. She is short of breath. She is currently on high flow oxygen 30 L with an FiO2 of 50%. She is extremely weak. She is not getting strong. Her sodium level is at 139, potassium is at 4.6, bicarb is at 19, BUN is 53 with a creatinine of 0.7. LFTs are abnormal. The patient remains on TPN. The patient was also started on acyclovir regarding her shingles. She is also on prednisone. Skin lesion unchanged on today's evaluations. On 01/13/2023, the patient is is still doing very poorly. She is very much debilitated. She is trying to eat some and she is having episodic cough with food intake. She remains on TPN for nutritional support. The left-sided Pleurx catheter still in place and draining approximately 400 mL over the past 24 hours. She remains on the same high flow oxygen settings at 30 L with an FiO2 of 50%. Her WBC was a 12.8 hemoglobin is 15 and a platelet count is 112. BUN is 57 with a creatinine of 0.7 and a sodium level is at 138. The patient is more convinced and going into hospice care. 2 of her sisters are currently at the bedside. No other significant issues otherwise for now. She remains on bronchodilators. She remains on steroids. She remains on acyclovir regarding her ongoing shingles her right lower extremity which is currently stable and the lesions are dry. Objective - Vital Signs Vital signs: Vital Signs Temp 97.7 F 01/13/23 08:00 Pulse 99 01/13/23 08:00 Resp 18 01/13/23 08:00 BP 117/74 01/13/23 08:00 Pulse Ox 92 L 01/13/23 08:00 FiO2 53 01/13/23 08:00 Intake & Output 01/12/23 01/13/23 01/13/23 18:59 06:59 18:59 Intake Total 962.85 Output Total 770 450 540 Balance 192.85 -450 -540 Intake: Intake, IV Titration 962.85 Amount Calcium Gluconate 1 gm 962.85 Potassium Acetate 26 meq Potassium Phosphate 15 mmol Magnesium Sulfate gm 0.5 gm In Amino Acid 5%- D15w 1,000 ml @ 63 mls/hr IV .BY DURATION [facility] Rx#: [id number] Output: Chest Tube Drainage 170 450 40 Pleural Catheter Left 170 450 40 Urine 600 500 Other: Voiding Method Indwelling Catheter Indwelling Catheter - Exam No acute distress, on AIRVO. Patient is currently on 50 L with an FiO2 of 30%. HEENT examination is grossly unremarkable. Neck supple. Full range of motion. No adenopathy thyromegaly or neck vein distention. Cardiovascular examination reveals regular rhythm rate. S1-S2 normal. No S3 or S4. No discernible murmur noted. Heart sounds are distant. Lungs reveal bilateral scattered rhonchi. Breath sounds are diminished at the bases. No crackles. There is improvement in air entry on the left compared to yesterday and the Pleurx catheter on the left is a stable pleural VAC. Abdomen soft bowel sounds are heard. No masses or tenderness. Extremities are intact. No cyanosis clubbing or edema. Skin , shingles involving the right lower extremity Neurologic examination is very difficult to assess at this time. - Labs CBC & Chem 7: 01/13/23 06:53 01/13/23 06:53 Labs: Abnormal Lab Results - Last 24 Hours (Table) 01/12/23 01/12/23 01/12/23 Range/Units 11:55 16:11 20:00 WBC (3.8-10.6) k/uL Hct (34.0-46.0) % MCV (80.0-100.0) fL RDW (11.5-15.5) % Plt Count (150-450) k/uL Chloride (98-107) mmol/L Carbon Dioxide (22-30) mmol/L BUN (7-17) mg/dL Glucose (74-99) mg/dL POC Glucose (mg/dL) 183 H 235 H 186 H (70-110) mg/dL Calcium (8.4-10.2) mg/dL 01/13/23 01/13/23 01/13/23 Range/Units 00:17 04:07 06:53 WBC (3.8-10.6) k/uL Hct (34.0-46.0) % MCV (80.0-100.0) fL RDW (11.5-15.5) % Plt Count (150-450) k/uL Chloride 114 H (98-107) mmol/L Carbon Dioxide 18 L (22-30) mmol/L BUN 57 H (7-17) mg/dL Glucose 222 H (74-99) mg/dL POC Glucose (mg/dL) 220 H 248 H (70-110) mg/dL Calcium 7.7 L (8.4-10.2) mg/dL 01/13/23 01/13/23 Range/Units 06:53 08:30 WBC 12.8 H (3.8-10.6) k/uL Hct 47.3 H (34.0-46.0) % MCV 100.7 H (80.0-100.0) fL RDW 17.8 H (11.5-15.5) % Plt Count 112 L D (150-450) k/uL Chloride (98-107) mmol/L Carbon Dioxide (22-30) mmol/L BUN (7-17) mg/dL Glucose (74-99) mg/dL POC Glucose (mg/dL) 205 H (70-110) mg/dL Calcium (8.4-10.2) mg/dL Assessment and Plan Plan: Acute on chronic hypoxemic respiratory failure, multifactorial, the patient has chronic hypoxic respiratory failure and the patient acute decompensation probably related to her overall debility, disease progression with endometrial cancer and development of bilateral pleural effusion and pericardial effusion. The patient is currently on high flow oxygen 50 L an FiO2 of 30%. Slightly improved in terms of her breathing. The high flow settings are essentially unchanged compared to yesterday. The patient has drained approximately 400 mL of pleural fluid from the left over the past 24 hours. S/P thoracentesis, 01/05/2023, with 700 mL removed from the right pleural space. The patient has received multiple thoracentesis and I performed a left-sided thoracentesis back in November 2022. History of recurrent bilateral pleural effusions, with previous bilateral Pleurx catheters. The patient has a proximal Left History of metastatic endometrial cancer, diagnosed in 2016, status post hysterectomy, BSO, and omentectomy. Elevated troponins, which may relate to supply/demand mismatch. Moderate size pericardial effusion. Acute kidney injury, recovered Chronic hypoxemic respiratory failure. History of hypertension. Hyperlipidemia. Hypothyroidism. Shingles Severe debility Severe protein calorie malnutrition and a BMI is 19.3 Failure to swallow, high risk for aspiration Plan No major change in her condition Overall prognosis is extremely poor We'll continue the current treatment More compressed in going into hospice care Continue IV acyclovir regarding her shingles Continue prednisone 40 mg by mouth daily Pleurx catheter to the pleural VAC and TO low intermittent suction, this was done yesterday and a total of 400 mL of fluid was removed. Continue TPN for nutritional support Very poor prognosis High risk for mortality Recommendations for hospice care was made DNR/DNI CODE STATUS
--- NOTE | 2023-01-13 11:20 | P.PN ---
Subjective Progress Note Date: 01/13/23 Principal diagnosis: Hypoxic resp failure, Metastatic, recurrent endometrial carcinoma In follow-up today no significant changes and patient's overall condition. Objective - Vital Signs Vital signs: Vital Signs Temp 97.7 F 01/13/23 08:00 Pulse 99 01/13/23 08:00 Resp 18 01/13/23 08:00 BP 117/74 01/13/23 08:00 Pulse Ox 92 L 01/13/23 08:00 FiO2 53 01/13/23 08:00 Intake & Output 01/12/23 01/13/23 01/13/23 18:59 06:59 18:59 Intake Total 962.85 Output Total 770 450 540 Balance 192.85 -450 -540 Intake: Intake, IV Titration 962.85 Amount Calcium Gluconate 1 gm 962.85 Potassium Acetate 26 meq Potassium Phosphate 15 mmol Magnesium Sulfate gm 0.5 gm In Amino Acid 5%- D15w 1,000 ml @ 63 mls/hr IV .BY DURATION [facility] Rx#: [id number] Output: Chest Tube Drainage 170 450 40 Pleural Catheter Left 170 450 40 Urine 600 500 Other: Voiding Method Indwelling Catheter Indwelling Catheter Indwelling Catheter - Constitutional General appearance: Present: cooperative, mild distress, thin - EENT Eyes: Present: anicteric sclerae, EOMI ENT: Present: hearing grossly normal - Respiratory Details: Shallow, tachypnea - Neurologic Neurologic: Present: CNII-XII intact - Musculoskeletal Musculoskeletal: Present: generalized weakness - Psychiatric Psychiatric: Present: A&O x's 3, appropriate affect, intact judgment & insight - Labs CBC & Chem 7: 01/13/23 06:53 01/13/23 06:53 Labs: Abnormal Lab Results - Last 24 Hours (Table) 01/12/23 01/12/23 01/12/23 Range/Units 11:55 16:11 20:00 WBC (3.8-10.6) k/uL Hct (34.0-46.0) % MCV (80.0-100.0) fL RDW (11.5-15.5) % Plt Count (150-450) k/uL Chloride (98-107) mmol/L Carbon Dioxide (22-30) mmol/L BUN (7-17) mg/dL Glucose (74-99) mg/dL POC Glucose (mg/dL) 183 H 235 H 186 H (70-110) mg/dL Calcium (8.4-10.2) mg/dL 01/13/23 01/13/23 01/13/23 Range/Units 00:17 04:07 06:53 WBC (3.8-10.6) k/uL Hct (34.0-46.0) % MCV (80.0-100.0) fL RDW (11.5-15.5) % Plt Count (150-450) k/uL Chloride 114 H (98-107) mmol/L Carbon Dioxide 18 L (22-30) mmol/L BUN 57 H (7-17) mg/dL Glucose 222 H (74-99) mg/dL POC Glucose (mg/dL) 220 H 248 H (70-110) mg/dL Calcium 7.7 L (8.4-10.2) mg/dL 01/13/23 01/13/23 Range/Units 06:53 08:30 WBC 12.8 H (3.8-10.6) k/uL Hct 47.3 H (34.0-46.0) % MCV 100.7 H (80.0-100.0) fL RDW 17.8 H (11.5-15.5) % Plt Count 112 L D (150-450) k/uL Chloride (98-107) mmol/L Carbon Dioxide (22-30) mmol/L BUN (7-17) mg/dL Glucose (74-99) mg/dL POC Glucose (mg/dL) 205 H (70-110) mg/dL Calcium (8.4-10.2) mg/dL Assessment and Plan (1) Recurrent carcinoma of endometrium Current Visit: Yes Status: Acute Code(s): C54.1 - MALIGNANT NEOPLASM OF ENDOMETRIUM SNOMED Code(s): 385806581 (2) Hypoxia Current Visit: Yes Status: Acute Code(s): R09.02 - HYPOXEMIA SNOMED Code(s): 231743983 (3) Bilateral pleural effusion Current Visit: No Status: Acute Code(s): J90 - PLEURAL EFFUSION, NOT ELSEWHERE CLASSIFIED SNOMED Code(s): 307576887 (4) Thrombocytopenia Current Visit: Yes Status: Acute Priority: Medium Code(s): D69.6 - THROMBOCYTOPENIA, UNSPECIFIED SNOMED Code(s): 954436326 Plan: Hypoxic respiratory failure, 2/2 malignant pleural effusions -Persistent, no significant improvements General medical debility -Multifactorial including respiratory failure 2/2 recurrent metastatic malignanc y -TPN was started -Due to patient's respiratory status she is not able to participate meaningfully in any physical therapy/occupational therapy Recurrent endometrial carcinoma -Recurrent malignant pleural effusions. Treatment was recently changed for clinical evidence of disease progression -Patient had cycle 1 day 1 of single agent gemzar 2 weeks ago. -ECOG PS 3. Patient is not a candidate for chemotherapy at this time Thrombocytopenia -Secondary to Gemzar treatment -Recovering After discussion yesterday with the patient, consult was placed for Surgeon to assess patient for PEG tube insertion at her request. When seen by Surgery later in the day, patient and family had had a chance to talk amongst themselves and, they changed her minds, decided against aggressive treatment and have opted for hospice. Agree with pt and family decision. Hospice consulted. attests: I have seen and examined patient, performed H&P, developed impression and plan of care. Discussed with dictator. Agree with documentation, dictated as a scribe
[2023-01-13 12:02] VITALS: BP 131/86; PULSE 95; TEMP 97.9
--- NOTE | 2023-01-13 12:16 | P.DS ---
Providers Date of admission: 01/04/23 20:16 Expected date of discharge: 01/13/23 Attending physician: Efra Chi Consults: 01/04/23 20:14 Consult Physician Routine Consulting Provider: Emmanuel Zeng Consult Reason/Comments: known Do you want consulting provider notified?: Yes 01/05/23 04:53 Consult Physician Urgent Consulting Provider: Thea King Consult Reason/Comments: Known metastatic endometrial cancer Do you want consulting provider notified?: Yes 01/12/23 12:45 Consult Physician Routine Consulting Provider: Caio Pina Consult Reason/Comments: PEG tube insertion Do you want consulting provider notified?: Yes Primary care physician: Daren Robert Hospital Course: Discharge diagnoses; Recurrent malignant pleural effusion, multiple thoracentesis in the past. Left- sided Pleur-evac . Acute on chronic hypoxic respiratory failure from malignant pleural effusion, recurrent Moderate size pericardial effusion -Severe thrombocytopenia. -Acute on chronic medical debility from underlying malignancy: -Recurrent uterine cancer with a prior treatment with radiation and chemotherapy., immunotherapy. -Troponin leak from hemodynamic mismatch. 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 Daren Robert. Oncologist Dr. Adorno. Bridge Engineer Dr. Zeng. 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 treated with chemotherapy and radiation treatment. Had responded well. recurrence 2020. Received chemotherapy recurrent pleural effusion with multiple thoracentesis . lives with her and daughter. Patient was recently discharged on November 20 with left-sided pleural VAC was placed. Large amount of fluid was drained. Patient drains every 3-4 days. Patient now sent to us from [facility]. Getting more and more short of breath. He may sit found a pulse ox of 60%. Patient was placed on CPAP. Checks x-ray showed anasarca pleural effusion some consolidation. Moderate santosh cardial effusion of 1.7 cm. Patient's appetite is decreased. Patient is ambulating very little. Weak tired further weight loss. Patient's brother and [id number] the bedside. Patient is currently no code with instructions of CPR. No obvious fever and chills. Right thoracentesis was done by Dr. Hernandez 800 mL of dark yellow fluid was removed. January 06: Patient on BiPAP. Short of breath. and daughter the bedside. Decreased oral intake. Tired. Spoke to the and the daughter. Guarded prognosis. January 07: BiPAP. Poor Oral intake. Short of breath. Tired. Family at the [facility]. Oncology, pulmonary both feel that patient should be leading to his comfort care. Family was talked to. The considering this further. Patient remains DO NOT RESUSCITATE. January 08: Seen by speech therapist: Suspect severe pharyngeal dysphagia. Being followed by therapy. Lengthy discussion with the patient the patient's sister and daughter the bedside. Including about hospice. Patient does point towards supplementary nutrition. We'll start TPN and lipids. Because of aspiration oral feeding not an option currently. Remains on AIRVO. Tired. Short of breath. Spoke to the dietitian. Patient states she was to keep fighting. Total time spent today 1 hour 15 minutes. 01/09/2023 Patient is still generally weak, she is cachectic, she is unable to eat related to her multiple nodules and advanced cancer. She is currently getting TPN. She still mildly tachypneic. She is not in pain. She is still requiring considerable amount of oxygen via high flow nasal cannula 35 liter per minute and FiO2 of 50% Her Hypoxia is related to her bilateral pneumonia and recurrent malignant pleural effusion. Sodium 149, creatinine 1.1, platelets low at 37K. She is on ceftriaxone, some Medrol 6 mg. 01/10/2023 patient clinically looks the same systolic tachypneic and dyspneic at rest, sitting up in bed. She still on high flow nasal cannula with the same saturating with 35 due to permanent and FiO2 of 49%. She is told to 10 TPN. She is slightly tachycardic and labs showed stable sodium 1.49, creatinine 1.0. Liver enzymes slightly pouch is the same. Low platelet count still pending from today. She is continued on ceftriaxone, salmeterol 60 mg as well. 01/11. Patient seen and examined. Continues to be short of breath. Currently on high flow oxygen with an FiO2 of 50% flow rate of 35. This morning shows white count 7.4 hemoglobin 13.3 patient count 71, sodium 143, potassium 3.6, BUN 52, creatinine 0.77 01/12. Patient seen and examined. Continues to be on high flow oxygen requirements. Currently on TPN. Discussed with her regarding hospice, informational hospice meeting scheduled 01/13. Hospice meeting scheduled today with patient and family, patient will be transitioned to inpatient hospice PHYSICAL EXAMINATION: GENERAL: The patient is alert and oriented x3, not in any acute distress. Cachectic, chronically ill-looking HEENT: Pupils are round and equally reacting to light. EOMI. No scleral icterus. No conjunctival pallor. Normocephalic, atraumatic. No pharyngeal erythema. No thyromegaly. CARDIOVASCULAR: S1 and S2 present. No murmurs, rubs, or gallops. PULMONARY: Tachypneic, diminished breaths on the bases bilaterally ABDOMEN: Soft, nontender, nondistended, normoactive bowel sounds. No palpable organomegaly. MUSCULOSKELETAL: No joint swelling or deformity. EXTREMITIES: No cyanosis, clubbing, or pedal edema. NEUROLOGICAL: Gross neurological examination did not reveal any focal deficits. SKIN: Vesicular rash seen on right thigh laterally Patient Condition at Discharge: Serious Plan - Discharge Summary Discharge Rx Participant: No New Discharge Prescriptions: No Action Pravastatin Sodium [Pravachol] 40 mg PO DAILY ondansetron HCL [Zofran] 8 mg PO Q6H PRN PRN Reason: Nausea metroNIDAZOLE 1% GEL [Metrogel 1%] 1 applic TOPICAL DAILY PRN PRN Reason: face Metoprolol Succinate [Metoprolol Succinate ER] 25 mg PO DAILY Calcium Carbonate [Calcium] 600 mg PO BID Levothyroxine Sodium [Synthroid] 150 mcg PO DAILY Gabapentin 300 mg PO BID PRN PRN Reason: Pain Multivitamins, Thera [Multivitamin (formulary)] 1 tab PO DAILY Discharge Medication List Pravastatin Sodium [Pravachol] 40 mg PO DAILY 07/16/20 [History] Gabapentin 300 mg PO BID PRN 03/21/21 [History] ondansetron HCL [Zofran] 8 mg PO Q6H PRN 05/06/21 [History] Metoprolol Succinate [Metoprolol Succinate ER] 25 mg PO DAILY 11/17/22 [History] metroNIDAZOLE 1% GEL [Metrogel 1%] 1 applic TOPICAL DAILY PRN 11/17/22 [History] Calcium Carbonate [Calcium] 600 mg PO BID 01/04/23 [History] Levothyroxine Sodium [Synthroid] 150 mcg PO DAILY 01/04/23 [History] Multivitamins, Thera [Multivitamin (formulary)] 1 tab PO DAILY 01/04/23 [History] Follow up Appointment(s)/Referral(s): [facility], [NON-STAFF] - None,Stated [REFERRING] - 1-2 days
== END 2023-01-13 12:47 | disposition hospice, inpatient (51) | DRG 189 ==
LOC: EC 18:18 → 3SCARD 20:16
PROVIDERS: ADMIT Hospitalist; ATTEND Hospitalist
PROC: 0W993ZZ Drainage of Right Pleural Cavity, Percutaneous Approach (ICD-10-PCS; principal; 2023-01-05)
PROC: 5A09357 Assistance with Respiratory Ventilation, Less than 24 Consecutive Hours, Continuous Positive Airway Pressure (ICD-10-PCS; 2023-01-07)
DX: J96.21 Acute and chronic respiratory failure with hypoxia (principal); J18.9 Pneumonia, unspecified organism; E43 Unspecified severe protein-calorie malnutrition; I21.A1 Myocardial infarction type 2; Z68.1 Body mass index [BMI] 19.9 or less, adult; I13.0 Hypertensive heart and chronic kidney disease with heart failure and stage 1 through stage 4 chronic kidney disease, or unspecified chronic kidney disease; I31.39 Other pericardial effusion (noninflammatory); J44.1 Chronic obstructive pulmonary disease with (acute) exacerbation; J44.0 Chronic obstructive pulmonary disease with (acute) lower respiratory infection; J91.0 Malignant pleural effusion; R64 Cachexia; N17.9 Acute kidney failure, unspecified; J96.22 Acute and chronic respiratory failure with hypercapnia; B02.9 Zoster without complications; C54.1 Malignant neoplasm of endometrium; D69.6 Thrombocytopenia, unspecified; E03.9 Hypothyroidism, unspecified; E78.5 Hyperlipidemia, unspecified; N18.30 Chronic kidney disease, stage 3 unspecified; E86.0 Dehydration; E88.09 Other disorders of plasma-protein metabolism, not elsewhere classified; G62.0 Drug-induced polyneuropathy; T45.1X5A Adverse effect of antineoplastic and immunosuppressive drugs, initial encounter; I50.9 Heart failure, unspecified; Z66 Do not resuscitate; Z51.5 Encounter for palliative care; L98.9 Disorder of the skin and subcutaneous tissue, unspecified; Z79.890 Hormone replacement therapy; Z79.899 Other long term (current) drug therapy; Z90.710 Acquired absence of both cervix and uterus
CPT/HCPCS: 71045; 76604; 80048; 80053; 82024; 82533; 83001; 83002; 83605; 83735; 84100; 84145; 84146; 84305; 84439; 84443; 84478; 84484; 85025; 85027; 85610; 85730; 87636; 93005; 93306; 94640; 94660; 94760; 96361; 96365; 96367; 96375; 99285

== ENCOUNTER 2023-01-13 12:13 | Inpatient (IN) | payer MEDICAID ==
[2023-01-13] MEDS ORDERED: SCOPOLAMINE 1 MG/72 HR PATCH TRANSDERM PRN (12:16)
[2023-01-13] MEDS ORDERED: LORazepam 2 MG/ML INJ IV PRN (12:16)
[2023-01-13] MEDS ORDERED: ONDANSETRON 4 MG/2 ML VIAL IVP PRN (12:16)
[2023-01-13] MEDS ORDERED: MORPHINE SULFATE 2 MG/ML SYRINGE IV PRN (12:16)
[2023-01-13] MEDS ORDERED: ACETAMINOPHEN SUPPOSITORY 650 MG SUPP RECTAL PRN (12:16)
[2023-01-13] MEDS ORDERED: ATROPINE OPHTH SOLN 1% 5ML BTL SUBLINGUAL PRN (12:16)
[2023-01-13] MEDS: MORPHINE SULFATE (100 MG/2 ML) 100 MG in SODIUM CHLORIDE 0.9% 100 ML IV SCH (13:54)
[2023-01-13 19:56] VITALS: BP 106/69
[2023-01-14] MEDS: MORPHINE SULFATE (100 MG/2 ML) 100 MG in SODIUM CHLORIDE 0.9% 100 ML IV SCH ×3 (05:56→19:39)
[2023-01-15] MEDS: MORPHINE SULFATE (100 MG/2 ML) 100 MG in SODIUM CHLORIDE 0.9% 100 ML IV SCH ×2 (00:57→06:15)
[2023-01-15 07:33] VITALS: PULSE 83; RESP 9
--- NOTE | 2023-01-15 09:17 | P.HPIM ---
History of Present Illness H&P Date: 01/14/23 This is a pleasant 67-year-old patient who follows with PCP Dr. Daren Robert. Oncologist Dr. Adorno. Admissions Manager Dr. Zeng. 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 treated with chemotherapy and radiation treatment. Had responded well. recurrence 2020. Received chemotherapy recurrent pleural effusion with multiple thoracentesis . lives with her and daughter. Patient was recently discharged on November 20 with left-sided pleural VAC was plac ed. Large amount of fluid was drained. Patient drains every 3-4 days. Patient now sent to us from [facility]. Getting more and more short of breath. He may sit found a pulse ox of 60%. Patient was placed on CPAP. Checks x-ray showed anasarca pleural effusion some consolidation. Moderate pericardial effusion of 1.7 cm. Patient's appetite is decreased. Patient is ambulating very little. Weak tired further weight loss. Patient's brother and [id number] the bedside. Patient is currently no code with instructions of CPR. No obvious fever and chills. Right thoracentesis was done by Dr. Hernandez 800 mL of dark yellow fluid was removed. January 3: Patient on BiPAP. Short of breath. and daughter the bedside. Decreased oral intake. Tired. Spoke to the and the daughter. Guarded prognosis. January 4: BiPAP. Poor Oral intake. Short of breath. Tired. Family at the bedside. Oncology, pulmonary both feel that patient should be leading to his comfort care. Family was talked to. The considering this further. Patient remains DO NOT RESUSCITATE. January 5: Seen by speech therapist: Suspect severe pharyngeal dysphagia. Being followed by therapy. Lengthy discussion with the patient the patient's sister and daughter the bedside. Including about hospice. Patient does point towards supplementary nutrition. We'll start TPN and lipids. Because of aspira tion oral feeding not an option currently. Remains on AIRVO. Tired. Short of breath. Spoke to the dietitian. Patient states she was to keep fighting. Total time spent today 1 hour 15 minutes. 01/09/2023 Patient is still generally weak, she is cachectic, she is unable to eat related to her multiple nodules and advanced cancer. She is currently getting TPN. She still mildly tachypneic. She is not in pain. She is still requiring considerable amount of oxygen via high flow nasal cannula 35 liter per minute and FiO2 of 50% Her Hypoxia is related to her bilateral pneumonia and recurrent malignant pleural effusion. Sodium 149, creatinine 1.1, platelets low at 37K. She is on ceftriaxone, some Medrol 6 mg. 01/10/2023 patient clinically looks the same systolic tachypneic and dyspneic at rest, sitting up in bed. She still on high flow nasal cannula with the same saturating with 35 due to permanent and FiO2 of 49%. She is told to 10 TPN. She is slightly tachycardic and labs showed stable sodium 1.49, creatinine 1.0. Liver enzymes slightly pouch is the same. Low platelet count still pending from today. She is continued on ceftriaxone, salmeterol 60 mg as well. 01/11. Patient seen and examined. Continues to be short of breath. Currently on high flow oxygen with an FiO2 of 50% flow rate of 35. This morning shows white count 7.4 hemoglobin 13.3 patient count 71, sodium 143, potassium 3.6, BUN 52, creatinine 0.77 01/12. Patient seen and examined. Continues to be on high flow oxygen requirements. Currently on TPN. Discussed with her regarding hospice, informational hospice meeting scheduled 01/13. Hospice meeting scheduled today with patient and family, patient will be transitioned to inpatient hospice 01/14/2023 Patient is currently under hospice care. Seems to be comfortable. Pain is controlled. Family is at bedside. Continued on morphine IV and Ativan as needed. Complete review of systems could not be obtained from the patient PHYSICAL EXAMINATION: Patient is lying in the bed comfortably, no acute distress. Could not provide any history. HEENT: Normocephalic. Neck is supple. Pupils reactive. Neck reveals no JVD, carotid bruits, or thyromegaly. CHEST EXAMINATION: Trachea is central. Symmetrical expansion. Bibasilar diminished sounds and shallow breathing.. CARDIAC: Normal S1, S2 with no gallops. No murmurs ABDOMEN: Soft. Bowel sounds present. Nontender.. No abdominal bruits. Extremities: reveal no edema. No clubbing or cyanosis Neurologically. Patient is lethargic and obtunded.Awake alert and oriented x0. Skin: No rash or skin lesions. Psychiatric: Could not be assessed., Musculoskeletal: No joint swelling or deformity. Assessment and plan Recurrent malignant pleural effusion, multiple thoracentesis in the past. Left- sided Pleur-evac .Currently on hospice care. Acute on chronic hypoxic respiratory failure from malignant pleural effusion, recurrent Moderate size pericardial effusion -Severe thrombocytopenia. -Acute on chronic medical debility from underlying malignancy: -Recurrent uterine cancer with a prior treatment with radiation and jeovany motherapy., immunotherapy. -Troponin leak from hemodynamic mismatch. 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 Past Medical History Past Medical History: Cancer, Hyperlipidemia, Hypertension, Respiratory Disorder, Thyroid Disorder, Vascular Disorder Additional Past Medical History / Comment(s): uterine/endometrial cancer; bilateral pleural effusions History of Any Multi-Drug Resistant Organisms: None Reported Past Surgical History: Hysterectomy Additional Past Surgical History / Comment(s): RUQ biopsy "-" for 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; right-sided Pleurx catheter placement May; left thoracentesis 10/23/22 with removal of 750 mL fluid; right thoracentesis 11/04/2022 with removal of 550 mL fluid Past Anesthesia/Blood Transfusion Reactions: No Reported Reaction Past Psychological History: No Psychological Hx Reported Smoking Status: Never smoker Past Alcohol Use History: None Reported Past Drug Use History: None Reported - Past Family History Sister(s) History Unknown: Yes Family Medical History: Cancer Additional Family Medical History / Comment(s): breast CA Medications and Allergies Home Medications Medication Instructions Recorded Confirmed Type Pravastatin Sodium [Pravachol] 40 mg PO DAILY 07/16/20 01/04/23 History Gabapentin 300 mg PO BID PRN 03/21/21 01/04/23 History ondansetron HCL [Zofran] 8 mg PO Q6H PRN 05/06/21 01/04/23 History Metoprolol Succinate [Metoprolol 25 mg PO DAILY 11/17/22 01/04/23 History Succinate ER] metroNIDAZOLE 1% GEL [Metrogel 1%] 1 applic TOPICAL DAILY PRN 11/17/22 01/04/23 History Calcium Carbonate [Calcium] 600 mg PO BID 01/04/23 01/04/23 History Levothyroxine Sodium [Synthroid] 150 mcg PO DAILY 01/04/23 01/04/23 History Multivitamins, Thera [Multivitamin 1 tab PO DAILY 01/04/23 01/04/23 History (formulary)] Allergies Allergy/AdvReac Type Severity Reaction Status Date / Time No Known Allergies Allergy Verified 01/04/23 20:01 Physical Exam Vitals: Vital Signs Pulse Resp BP Pulse Ox FiO2 01/14/23 08:00 96 10 L 01/14/23 03:39 53 01/14/23 03:23 93 12 50 01/14/23 02:52 96 01/13/23 23:46 50 01/13/23 23:07 92 18 50 01/13/23 21:15 93 L 53 01/13/23 19:50 18 106/69 94 L 50 01/13/23 15:35 53 Intake and Output 01/13/23 01/14/23 01/14/23 22:59 06:59 14:59 Intake Total 30.464 64.600 Output Total 300 0 Balance 30.464 -235.400 0 Intake: Intake, IV Titration 30.464 64.600 Amount Morphine Sulfate (100 mg/ 30.464 64.600 2 ml) 100 mg In Sodium Chloride 0.9% 100 ml @ 1 MG/HR 1.02 mls/hr IV . Q24H [facility] Rx#:[id number] Output: Gastric Drainage 0 Urine 300 0 Stool 0 Urine/Stool Mix 0 Emesis 0 Oral Regurgitation 0 Other 0 Other: Voiding Method Indwelling Catheter Indwelling Catheter # Voids 0 # Bowel Movements 0
--- NOTE | 2023-01-15 09:29 | P.DS ---
Providers Date of admission: 01/13/23 12:53 Expected date of discharge: 01/15/23 Attending physician: Edmond Dobson MD Primary care physician: Daren Robert Hospital Course: diagnosis Acute on chronic hypoxic respiratory failure from malignant pleural effusion, recurrent Moderate size pericardial effusion Recurrent malignant pleural effusion, multiple thoracentesis in the past. Left- sided Pleur-evac . -Severe thrombocytopenia. -Acute on chronic medical debility from underlying malignancy: -Recurrent uterine cancer with a prior treatment with radiation and chemotherapy., immunotherapy. -Troponin leak from hemodynamic mismatch. 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 Daren Robert. Oncologist Dr. Adorno. Charge Entry Specialist Dr. Zeng. 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 treated with chemotherapy and radiation treatment. Had responded well. recurrence 2020. Received chemotherapy recurrent pleural effusion with multiple thoracentesis . lives with her and daughter. Patient was recently discharged on November 20 with left-sided pleural VAC was placed. Large amount of fluid was drained. Patient drains every 3-4 days. Patient was sent to us from [facility]. was found a pulse ox of 60%. Patient was placed on CPAP. Checks x-ray showed anasarca pleural effusion some consolidation. Moderate pericardial effusion of 1.7 cm. Patient's appetite is decreased. Patient is ambulating very little. Weak tired further weight loss. No obvious fever and chills. Right thoracentesis was done by Dr. Jones 800 mL of dark yellow fluid was removed. Patient was placed on BiPAP. Transition to Airvo high flow oxygen. She was also continued on antibiotics in the form ceftriaxone and Solu-Medrol. Due to poor oral intake patient was started on TPN. Does well very poorly intake. After discussing with the family and due to poor prognosis with underlying cancer and recurrent pleural effusions, hypoxic respiratory failure, was transferred to hospice care. Patient was continued on hospice care and comfort measures. Patient on 01/15/2023 at 7:45 AM. Family has been notified. Plan - Discharge Summary New Discharge Prescriptions: No Action Pravastatin Sodium [Pravachol] 40 mg PO DAILY ondansetron HCL [Zofran] 8 mg PO Q6H PRN PRN Reason: Nausea metroNIDAZOLE 1% GEL [Metrogel 1%] 1 applic TOPICAL DAILY PRN PRN Reason: face Metoprolol Succinate [Metoprolol Succinate ER] 25 mg PO DAILY Calcium Carbonate [Calcium] 600 mg PO BID Levothyroxine Sodium [Synthroid] 150 mcg PO DAILY Gabapentin 300 mg PO BID PRN PRN Reason: Pain Multivitamins, Thera [Multivitamin (formulary)] 1 tab PO DAILY Discharge Medication List Pravastatin Sodium [Pravachol] 40 mg PO DAILY 07/16/20 [History] Gabapentin 300 mg PO BID PRN 03/21/21 [History] ondansetron HCL [Zofran] 8 mg PO Q6H PRN 05/06/21 [History] Metoprolol Succinate [Metoprolol Succinate ER] 25 mg PO DAILY 11/17/22 [History] metroNIDAZOLE 1% GEL [Metrogel 1%] 1 applic TOPICAL DAILY PRN 11/17/22 [History] Calcium Carbonate [Calcium] 600 mg PO BID 01/04/23 [History] Levothyroxine Sodium [Synthroid] 150 mcg PO DAILY 01/04/23 [History] Multivitamins, Thera [Multivitamin (formulary)] 1 tab PO DAILY 01/04/23 [History] Discharge Disposition: - Preliminary Cause of Preliminary Cause of : Acute on chronic hypoxic respiratory failure secondary to recurrent maligna
== END 2023-01-15 10:19 | disposition expired | DRG 951 ==
LOC: 3SCARD 12:53
PROVIDERS: ADMIT Internal Medicine; ATTEND Internal Medicine
PROC: 3E0336Z Introduction of Nutritional Substance into Peripheral Vein, Percutaneous Approach (ICD-10-PCS; principal; 2023-01-13)
DX: Z51.5 Encounter for palliative care (principal); E43 Unspecified severe protein-calorie malnutrition; J18.9 Pneumonia, unspecified organism; J96.21 Acute and chronic respiratory failure with hypoxia; I31.39 Other pericardial effusion (noninflammatory); J91.0 Malignant pleural effusion; R64 Cachexia; G72.0 Drug-induced myopathy; Z68.1 Body mass index [BMI] 19.9 or less, adult; Z66 Do not resuscitate; C55 Malignant neoplasm of uterus, part unspecified; G62.0 Drug-induced polyneuropathy; T45.1X5A Adverse effect of antineoplastic and immunosuppressive drugs, initial encounter; E03.9 Hypothyroidism, unspecified; N18.30 Chronic kidney disease, stage 3 unspecified; D69.6 Thrombocytopenia, unspecified; E78.5 Hyperlipidemia, unspecified; I12.9 Hypertensive chronic kidney disease with stage 1 through stage 4 chronic kidney disease, or unspecified chronic kidney disease; X58.XXXA Exposure to other specified factors, initial encounter; Z79.890 Hormone replacement therapy; Z79.899 Other long term (current) drug therapy; Z80.3 Family history of malignant neoplasm of breast; Z85.42 Personal history of malignant neoplasm of other parts of uterus; Z90.710 Acquired absence of both cervix and uterus